=== PATIENT | female | born 1955 | race American Indian/Alaskan Native ===

== ENCOUNTER 2016-03-31 01:33 | Emergency (ER) | payer SELFPAY ==
[2016-03-31] MEDS ORDERED: TORADOL IM ONE (08:00)
--- NOTE | 2016-03-31 08:01 | Emergency Department Report ---
HPI - General Chief Complaint: Neck Pain/Injury Time Seen by Provider: 03/31/16 07:48 - HPI HPI: Patient is a 60-year-old female who presents to ED complaining of left-sided neck pain 1 day. Patient states yesterday while she was doing nothing since starts raising pain on the side of her neck. Patient states she has a history of arthritis and sometimes spurs and on. Patient denies fevers/chills/shortness of breath/chest pain/trauma or fall. ED Past Medical Hx - Past Medical History Hx Hypertension: Yes Hx CVA: No Hx Heart Attack/AMI: No Hx Congestive Heart Failure: No Hx Diabetes: No Hx Deep Vein Thrombosis: No Hx Pulmonary Embolism: No Hx GERD: No Hx Liver Disease: No Hx Renal Disease: No Hx Sickle Cell Disease: No Hx Arthritis: Yes Hx Headaches / Migraines: No Hx Seizures: No Hx Kidney Stones: No Hx Psychiatric Treatment: No Hx Asthma: No Hx COPD: No Hx Dementia: No Hx HIV: No Additional medical history: stomach ulcers, muscle spasms in back, Chronic right shoulder pain /spasms. - Surgical History Hx Coronary Stent: No Hx Open Heart Surgery: No Hx Pacemaker: No Hx Internal Defibrillator: No Hx Cholecystectomy: No Hx Appendectomy: No Hx Breast Surgery: No Additional Surgical History: skin grafts, 1X, hysterectomy - Social History Smoking Status: Never Smoker Substance Use Type: None - Medications Home Medications: Home Medications Medication Instructions Recorded Confirmed Last Taken Type traMADol [Ultram 50 MG tab] 50 mg PO Q6HR PRN #10 tablet 10/12/15 03/17/16 Unknown Rx Cyclobenzaprine [Flexeril 10 MG 10 mg PO QHS PRN #15 tablet 03/31/16 Unknown Rx TAB] Ibuprofen [Motrin 600 MG tab] 600 mg PO Q8H PRN #30 tablet 03/31/16 Unknown Rx ED Review of Systems ROS: Stated complaint: BACK/NECK PAIN Other details as noted in HPI Constitutional: denies: chills, fever Eyes: denies: eye pain, eye discharge, vision change ENT: denies: ear pain, throat pain Respiratory: denies: cough, shortness of breath, wheezing Cardiovascular: denies: chest pain, palpitations Endocrine: no symptoms reported Gastrointestinal: denies: abdominal pain, nausea, diarrhea Genitourinary: denies: urgency, dysuria, discharge Musculoskeletal: myalgia. denies: back pain, joint swelling, arthralgia Skin: denies: rash, lesions, pruritus Neurological: denies: headache, weakness, numbness, paresthesias Psychiatric: denies: anxiety, depression Hematological/Lymphatic: denies: easy bleeding, easy bruising Physical Exam - Physical Exam Vital Signs: Vital Signs 03/31/16 02:15 Temperature 98.5 F Pulse Rate 71 Respiratory 20 Rate Blood Pressure 163/95 O2 Sat by Pulse 99 Oximetry General: Alert and oriented, in no distress. Vital signs stable. Physical Exam: GENERAL: Alert and oriented x3, no apparent distress, Normal Gait, atraumatic. HEAD: Head is normocephalic and a-traumatic. EYES: Extra ocular muscles are intact. Pupils are equal, round, and reactive to light and accommodation. EARS: symetrical, atraumatic, non tender, ear canal clear and moderate cerumen, tympanic membrance non inflamed. gross auditory nml bilaterally. NOSE: Nose symetrical, Nontender,Nares appeared normal. MOUTH:Mouth is well hydrated and without lesions. Tonsils nonerythematous or swollen, Uvula midline, Tongue not elevated. Mucous membranes are moist. Posterior pharynx clear, no exudate or lesions. Patent airways. NECK: Supple. Non edematous, No carotid bruits. No lymphadenopathy or thyromegaly. tenderness to palpation of left sternocleidomastoid muscle. full ROM. LUNGS: Symetrical with respiration, No wheezing, no rales or crackles, CTAB. HEART: S1, S2 present, regular rate and rhythm without murmur, no rubs, no gallops. ABDOMEN: No organomegaly was noted,Positive bowel sounds, soft, and non- distended. . Nontender to palpation on all Quadrants, NO CVA tenderness. EXTREMITIES/MUSCULOSKELETAL: No cyanosis, clubbing, rash, lesions or edema. Full ROM bilaterally. UE/LE Pulses 2+ bilaterally. LE and UE 5+ strength bilaterally NEUROLOGIC: No focal Deficit, Cranial nerves II through XII are grossly intact. No loss of sensation, No facial droop, Negative rhomberg. PSYCHIATRIC: Mood is congruent with affect, denies suicidal or homicidal ideations. SKIN: Warm and dry, No lesions, No ulceration or induration present. ED Course Vital Signs 03/31/16 02:15 Temperature 98.5 F Pulse Rate 71 Respiratory 20 Rate Blood Pressure 163/95 O2 Sat by Pulse 99 Oximetry ED Medical Decision Making - Medical Decision Making 60-year-old female presents with myalgia of the neck. Vital signs stable alert and oriented 3 in no distress. ED course: Patient received 60 mg IM Toradol. Patient to go home on pain reliever and muscle relaxer. Discussed heat application to neck 3-4 times a day.Discussedto take medication as prescribed Discussed the patient to follow up with primary care physician as referred. Patient verbally states she understands and will comply. Critical care attestation.: If time is entered above; I have spent that time in minutes in the direct care of this critically ill patient, excluding procedure time. ED Disposition Clinical Impression: Neck muscle strain Disposition: DISCHARGED TO HOME OR SELFCARE Is pt being admited?: No Does the pt Need Aspirin: No Condition: Stable Instructions: Muscle Strain (ED), Heat Pack Application (ED) Prescriptions: Cyclobenzaprine [Flexeril 10 MG TAB] 10 mg PO QHS PRN #15 tablet PRN Reason: Muscle Spasm Ibuprofen [Motrin 600 MG tab] 600 mg PO Q8H PRN #30 tablet PRN Reason: Pain Referrals: PRIMARY CARE, [Primary Care Provider] - 3-5 Days [facility] [Outside] - 3-[address] [facility] [Outside] - 3-5 Days [facility] [Outside] - 3-5 Days [facility] [Outside] - 3-5 Days Forms: Work/School Release Form(ED) Time of Disposition: 08:08
[2016-03-31 08:25] VITALS: BP 182/87
== END 2016-03-31 08:24 | disposition home or self-care (01) ==
LOC: ED 01:33
DX: S16.1XXA Strain of muscle, fascia and tendon at neck level, initial encounter (principal); I10 Essential (primary) hypertension; Z87.39 Personal history of other diseases of the musculoskeletal system and connective tissue; Z90.710 Acquired absence of both cervix and uterus; X58.XXXA Exposure to other specified factors, initial encounter; Y93.9 Activity, unspecified; Y92.9 Unspecified place or not applicable; Y99.9 Unspecified external cause status
CPT/HCPCS: 96372; 99282; J1885

== ENCOUNTER 2016-05-25 00:47 | Emergency (ER) | payer SELFPAY ==
[2016-05-25 01:01] VITALS: BP 160/76
[2016-05-25] MEDS ORDERED: NORCO 5/325 PO ONE (05:10)
[2016-05-25] MEDS ORDERED: ZOFRAN ODT PO ONE (05:10)
[2016-05-25] MEDS ORDERED: ZOFRAN ODT ONE (05:19)
[2016-05-25] MEDS ORDERED: NORCO 5/325 ONE (05:20)
--- NOTE | 2016-05-25 07:04 | Emergency Department Report ---
ED Back Pain/Injury HPI - General Chief Complaint: Back Pain/Injury Stated Complaint: RT SIDE/BACK PAIN Time Seen by Provider: 05/25/16 06:14 Source: patient Limitations: No Limitations - History of Present Illness Initial Comments: 60-year-old female past medical history hypertension presents with complaint of 3 weeks of lower back pain. Patient states that she was at [facility] for the same complaint approximately a week and a half ago, states she had a CT but does not remember the results. Patient is somewhat uncooperative, poor historian, states she just wishes to sleep on bed. I approached patient several times in order to obtain a history. Patient primarily complaining of pain in her denies any fever or chills does state that she has some increased urinary frequency, denies any nausea or vomiting no chest pain no palpitations. Denies radiation of back pain into buttocks or legs. States pain is somewhat worse with range of motion of trunk and back. Patient is not answering all my questions during exam but is lucid is awake and is alert to person place and time. Denies Any alcohol or drug use. MD Complaint: back pain Onset/Timin -: week(s) Similar Symptoms Previously: Yes Place: home Radiation: none Severity: moderate Severity scale (0 -10): 6 Quality: aching Consistency: constant Improves With: none Worsens With: none Context: turning/twisting, bending Associated Symptoms: difficulty urinating (increased urinary frequency) - Related Data Previous Rx's Medication Instructions Recorded Last Taken Type RX: traMADol [Ultram 50 MG tab] 50 mg PO Q6HR PRN #12 tablet 05/25/16 Unknown Rx Allergies Allergy/AdvReac Type Severity Reaction Status Date / Time No Known Allergies Allergy Verified 03/17/16 02:36 ED Review of Systems ROS: Stated complaint: RT SIDE/BACK PAIN Other details as noted in HPI Constitutional: denies: chills, fever Eyes: denies: eye pain, eye discharge, vision change ENT: denies: ear pain, throat pain Respiratory: denies: cough, shortness of breath, wheezing Cardiovascular: denies: chest pain, palpitations Endocrine: no symptoms reported Gastrointestinal: denies: abdominal pain, nausea, diarrhea Genitourinary: frequency. denies: dysuria, discharge Musculoskeletal: as per HPI, back pain. denies: joint swelling, arthralgia Skin: denies: rash, lesions Neurological: denies: headache, weakness, paresthesias Psychiatric: denies: anxiety, depression Hematological/Lymphatic: denies: easy bleeding, easy bruising ED Past Medical Hx - Past Medical History Previous Medical History?: Yes Hx Hypertension: Yes Hx CVA: No Hx Heart Attack/AMI: No Hx Congestive Heart Failure: No Hx Diabetes: No Hx Deep Vein Thrombosis: No Hx Pulmonary Embolism: No Hx GERD: No Hx Liver Disease: No Hx Renal Disease: No Hx Sickle Cell Disease: No Hx Arthritis: Yes Hx Headaches / Migraines: No Hx Seizures: No Hx Kidney Stones: No Hx Psychiatric Treatment: No Hx Asthma: No Hx COPD: No Hx Dementia: No Hx HIV: No Additional medical history: stomach ulcers, muscle spasms in back, Chronic right shoulder pain /spasms. - Surgical History Past Surgical History?: Yes Hx Coronary Stent: No Hx Open Heart Surgery: No Hx Pacemaker: No Hx Internal Defibrillator: No Hx Cholecystectomy: No Hx Appendectomy: No Hx Breast Surgery: No Additional Surgical History: skin grafts, 1X, hysterectomy - Social History Smoking Status: Never Smoker Substance Use Type: None - Medications Home Medications: Home Medications Medication Instructions Recorded Confirmed Last Taken Type RX: traMADol [Ultram 50 MG tab] 50 mg PO Q6HR PRN #12 tablet 05/25/16 Unknown Rx ED Physical Exam - General Limitations: No Limitations General appearance: alert, in no apparent distress - Head Head exam: Present: atraumatic, normocephalic - Eye Eye exam: Present: normal appearance, PERRL, EOMI - ENT ENT exam: Present: mucous membranes moist - Neck Neck exam: Present: normal inspection - Respiratory Respiratory exam: Present: normal lung sounds bilaterally. Absent: respiratory distress - Cardiovascular Cardiovascular Exam: Present: regular rate, normal rhythm. Absent: systolic murmur, diastolic murmur, rubs, gallop - Extremities Exam Extremities exam: Present: normal inspection, other (patient not following my instructions for straight leg raise test) - Back Exam Back exam: Present: normal inspection - Neurological Exam Neurological exam: Present: alert, oriented X3, normal gait - Psychiatric Psychiatric exam: Present: other (patient calm but somewhat uncooperative requiring my exam) - Skin Skin exam: Present: warm, dry, intact, normal color. Absent: rash ED Course Vital Signs 05/25/16 05/25/16 00:57 05:25 Temperature 97.7 F Pulse Rate 72 Respiratory 20 18 Rate Blood Pressure 160/76 O2 Sat by Pulse 100 Oximetry ED Medical Decision Making - Medical Decision Making A/P: Lower back pain 1-patient assessed during EMR downtime overnight 2-patient refusing to have CT, I explained to her that my concern is that she may potentially have a kidney stone or an inflamed kidney she does have some CVA tenderness, she states she already had a CT at [facility] does not want to do another one 3-somewhat uncooperative with physical exam 4-patient signed out AGAINST MEDICAL ADVICE, I informed her that her urinalysis was not positive for UTI, the lab faxed a urinalysis report due to EMR downtime , report normal no signs of leukocytosis, nitrites, bacteria or site esterase in urine. Patient stated she primarily wanted pain medicine. I informed her that I was still unsure clinically of the cause of her back pain other than a possible musculoskeletal problem the patient stated that she needed to leave and signed out AMA Critical care attestation.: If time is entered above; I have spent that time in minutes in the direct care of this critically ill patient, excluding procedure time. ED Disposition Clinical Impression: Back pain Qualifiers: Back pain location: low back pain Chronicity: acute Back pain laterality: right Sciatica presence: without sciatica Qualified Code(s): M54.5 - Low back pain Disposition: LEFT AGAINST MEDICAL ADVICE Is pt being admited?: No Does the pt Need Aspirin: No Condition: Stable Instructions: Against Medical Advice (ED), Back Pain (ED) Additional Instructions: Advised patient to follow up with primary care doctor as soon as possible. I explained to patient that I wanted to image her abdomen and pelvis with possible renal stone that she has right-sided CVA tenderness but patient refused. Prescriptions: RX: traMADol [Ultram 50 MG tab] 50 mg PO Q6HR PRN #12 tablet PRN Reason: Pain Referrals: [facility] [Outside] - 3-5 Days LAYO SLADE MD [Staff Physician] - 3-5 Days Forms: AMA Form Time of Disposition: 07:02
== END 2016-05-25 07:18 | disposition left against medical advice (07) ==
LOC: ED 00:47
DX: M54.5 Low back pain (principal); I10 Essential (primary) hypertension; M19.90 Unspecified osteoarthritis, unspecified site
CPT/HCPCS: 99282; Q0162

== ENCOUNTER 2016-06-23 00:19 | Emergency (ER) | payer SELFPAY ==
[2016-06-23 05:40] VITALS: BP 169/81
== END 2016-06-23 05:47 | disposition left against medical advice (07) ==
LOC: ED 00:19
DX: M79.604 Pain in right leg (principal); M19.90 Unspecified osteoarthritis, unspecified site; I10 Essential (primary) hypertension; Z53.21 Procedure and treatment not carried out due to patient leaving prior to being seen by health care provider

== ENCOUNTER 2016-06-25 01:40 | Emergency (ER) | payer SELFPAY ==
[2016-06-25 01:57] VITALS: BP 169/79
== END 2016-06-25 08:18 | disposition left against medical advice (07) ==
LOC: ED 01:40
DX: M79.604 Pain in right leg (principal); I10 Essential (primary) hypertension; M19.90 Unspecified osteoarthritis, unspecified site; Z53.21 Procedure and treatment not carried out due to patient leaving prior to being seen by health care provider

== ENCOUNTER 2016-07-15 01:39 | Emergency (ER) | payer SELFPAY ==
--- NOTE | 2016-07-15 06:00 | Emergency Department Report ---
HPI - General Chief Complaint: Extremity Injury, Lower Time Seen by Provider: 07/15/16 05:45 - HPI HPI: 60-year-old female presents today complaining of right great toe pain 1 day. Denies any recent injury or trauma. Positive for history of similar symptoms. Patient states that she injured it 2 years ago and it has been hurting on and off since. He tried tramadol without relief. Describes her pain as 8 out of 10 constant, sharp, throbbing pain. Denies numbness, weakness, paresthesias. Denies fever, chills, nausea, vomiting, chest pain, shortness of breath, abdominal pain. Patient has been seen at this emergency department on multiple occasions for similar complaint. ED Past Medical Hx - Past Medical History Hx Hypertension: Yes Hx CVA: No Hx Heart Attack/AMI: No Hx Congestive Heart Failure: No Hx Diabetes: No Hx Deep Vein Thrombosis: No Hx Pulmonary Embolism: No Hx GERD: No Hx Liver Disease: No Hx Renal Disease: No Hx Sickle Cell Disease: No Hx Arthritis: Yes Hx Headaches / Migraines: No Hx Seizures: No Hx Kidney Stones: No Hx Psychiatric Treatment: No Hx Asthma: No Hx COPD: No Hx Dementia: No Hx HIV: No Additional medical history: stomach ulcers, muscle spasms in back, Chronic right shoulder pain /spasms. - Surgical History Hx Coronary Stent: No Hx Open Heart Surgery: No Hx Pacemaker: No Hx Internal Defibrillator: No Hx Cholecystectomy: No Hx Appendectomy: No Hx Breast Surgery: No Additional Surgical History: skin grafts, 1X, hysterectomy - Social History Smoking Status: Never Smoker Substance Use Type: None - Medications Home Medications: Home Medications Medication Instructions Recorded Confirmed Last Taken Type traMADol [Ultram 50 MG tab] 50 mg PO Q6HR PRN #12 tablet 05/25/16 Unknown Rx Naproxen [Naprosyn] 500 mg PO BID #30 tablet 07/15/16 Unknown Rx ED Review of Systems ROS: Stated complaint: RT BIG TOE PAIN Other details as noted in HPI Constitutional: denies: chills, fever, malaise Eyes: denies: eye pain ENT: denies: ear pain, throat pain, congestion Respiratory: denies: cough, shortness of breath, wheezing Cardiovascular: denies: chest pain, palpitations Endocrine: no symptoms reported Gastrointestinal: denies: abdominal pain, nausea, vomiting Musculoskeletal: arthralgia Neurological: denies: headache, weakness, numbness, paresthesias Physical Exam - Physical Exam Vital Signs: Vital Signs 07/15/16 01:57 Temperature 98 F Pulse Rate 84 Respiratory 18 Rate Blood Pressure 153/74 Blood Pressure 153/74 [Left] O2 Sat by Pulse 100 Oximetry Physical Exam: GENERAL: The patient is well-developed and well-nourished. Patient is in NAD. HEAD: Normocephalic. Atraumatic. CHEST/LUNGS: Clear to auscultation throughout. HEART/CARDIOVASCULAR: Regular rate and rhythm. No murmurs, rubs or gallops. ABDOMEN: Abdomen is soft, nontender. Bowel sounds normoactive. No guarding or rebound tenderness. RIGHT FOOT: Tenderness to palpation over distal aspect of right big toe. No deformity, edema or ecchymosis noted. Normal sensation. Peripheral pulses intact. Capillary refill less than 2 seconds. NEURO: Alert and oriented x 3. Normal gait. ED Course Vital Signs 07/15/16 01:57 Temperature 98 F Pulse Rate 84 Respiratory 18 Rate Blood Pressure 153/74 Blood Pressure 153/74 [Left] O2 Sat by Pulse 100 Oximetry ED Medical Decision Making - Lab Data Vital Signs 07/15/16 01:57 Temperature 98 F Pulse Rate 84 Respiratory 18 Rate Blood Pressure 153/74 Blood Pressure 153/74 [Left] O2 Sat by Pulse 100 Oximetry - Radiology Data Radiology results: report reviewed Right foot x-ray: No fracture or dislocation. Normal alignment, joint space, soft tissue, bony mineralization. No foreign bodies noted. Mild inferior calcaneal spurring noted. - Medical Decision Making 60-year-old female presents today with right big toe pain 1 day. Positive for history of similar symptoms. Her x-ray results reveal no fracture or dislocation. Patient is in no acute distress at this time. She will be discharged home and is encouraged to follow up with a primary care provider. She will be sent home on naproxen and is encouraged to return to the emergency room for any worsening symptoms. Critical care attestation.: If time is entered above; I have spent that time in minutes in the direct care of this critically ill patient, excluding procedure time. ED Disposition Clinical Impression: Toe pain Qualifiers: Laterality: right Qualified Code(s): M79.674 - Pain in right toe(s) Disposition: DISCHARGED TO HOME OR SELFCARE Is pt being admited?: No Does the pt Need Aspirin: No Condition: Stable Instructions: Arthralgia (ED) Additional Instructions: Follow-up with primary care provider. Return to the emergency department if symptoms worsen. Prescriptions: Naproxen [Naprosyn] 500 mg PO BID #30 tablet Referrals: PRIMARY CARE, [Primary Care Provider] - 3-5 Days LISA BRUNER MD [Staff Physician] - 3-5 Days Forms: Work/School Release Form(ED) Time of Disposition: 06:09
--- NOTE | 2016-07-15 06:04 | XRay Report ---
FINAL REPORT PROCEDURE: XR FOOT 2V RT TECHNIQUE: RIGHT foot radiographs, AP and lateral views. HISTORY: Right Great Toe Pain COMPARISON: No prior studies are available for comparison. FINDINGS: Fracture (s) and/or Dislocation(s): None . Alignment: Normal. Joint space(s): Normal. Soft tissues: Normal. Bone mineralization: Normal. Foreign bodies: None. Calcaneal spurring: Mild inferior spur IMPRESSION: No evidence of an acute fracture or dislocation.
[2016-07-15 06:29] VITALS: BP 155/99
== END 2016-07-15 06:42 | disposition home or self-care (01) ==
LOC: ED 01:39
DX: M79.674 Pain in right toe(s) (principal); I10 Essential (primary) hypertension; M19.90 Unspecified osteoarthritis, unspecified site; G89.29 Other chronic pain; Z90.710 Acquired absence of both cervix and uterus
CPT/HCPCS: 99283

== ENCOUNTER 2016-07-26 01:40 | Emergency (ER) | payer SELFPAY ==
[2016-07-26 01:52] VITALS: BP 166/73
[2016-07-26 02:23] LABS: Basophils % (Auto) 1.6 % (0.0-1.8); Eosinophils % (Auto) 1.7 % (0.0-4.3); Hematocrit 26.5 % (30.3-42.9); Hemoglobin 8.4 gm/dl (10.1-14.3); Mean Corpuscular HGB Conc 32 % (30-34); Platelet Count 264 K/mm3 (140-440); Red Blood Count 4.13 M/mm3 (3.65-5.03); Red Cell Distribution Width 18.4 % (13.2-15.2); White Blood Count 5.3 K/mm3 (4.5-11.0)
[2016-07-26 02:30] LABS: Mean Corpuscular Hemoglobin 20 pg (28-32); Mean Corpuscular Volume 64 fl (79-97)
[2016-07-26 02:35] LABS: Anion Gap 17 mmol/L; Blood Urea Nitrogen 19 mg/dL (7-17); Calcium 8.8 mg/dL (8.4-10.2); Carbon Dioxide 26 mmol/L (22-30); Chloride 104.6 mmol/L (98-107); Glucose 104 mg/dL (65-100); Potassium 3.5 mmol/L (3.6-5.0); Sodium 144 mmol/L (137-145)
--- NOTE | 2016-07-28 15:26 | ED Elopement Review ---
ED Pt Elopement review - Results review Lab results: Laboratory Tests 07/26/16 07/26/16 07/26/16 01:56 01:56 04:59 WBC 5.3 RBC 4.13 Hgb 8.4 L Hct 26.5 L MCV 64 L MCH 20 L MCHC 32 RDW 18.4 H Plt Count 264 Lymph % (Auto) 38.6 H [place] % (Auto) 15.0 H Eos % (Auto) 1.7 Baso % (Auto) 1.6 Lymph # 2.0 [place] # 0.8 Eos # 0.1 Baso # 0.1 Seg Neutrophils % 43.1 Seg Neutrophils # 2.3 Sodium 144 Potassium 3.5 L Chloride 104.6 Carbon Dioxide 26 Anion Gap 17 BUN 19 H Creatinine 0.4 L Estimated GFR > 60 BUN/Creatinine Ratio 47.50 Glucose 104 H Calcium 8.8 Troponin T < 0.010 < 0.010 07/26/16 08:00 WBC RBC Hgb Hct MCV MCH MCHC RDW Plt Count Lymph % (Auto) [place] % (Auto) Eos % (Auto) Baso % (Auto) Lymph # [place] # Eos # Baso # Seg Neutrophils % Seg Neutrophils # Sodium Potassium Chloride Carbon Dioxide Anion Gap BUN Creatinine Estimated GFR BUN/Creatinine Ratio Glucose Calcium Troponin T < 0.010 - Call Back decision Pt Call Back Decision: No action required
== END 2016-07-26 02:00 | disposition left against medical advice (07) ==
LOC: ED 01:40
DX: R53.1 Weakness (principal); M19.90 Unspecified osteoarthritis, unspecified site; I10 Essential (primary) hypertension; Z53.21 Procedure and treatment not carried out due to patient leaving prior to being seen by health care provider
CPT/HCPCS: 36415; 80048; 84484; 85025; 93005; 93010

== ENCOUNTER 2016-07-30 00:05 | Emergency (ER) | payer SELFPAY ==
[2016-07-30 04:43] LABS: Bilirubin,Urine NEG (Negative); Blood,Urine NEG (Negative); Ketones,Urine NEG (Negative); Leukocyte Esterase,Urine MOD (Negative); Mucus,Urine FEW /HPF; Nitrite,Urine NEG (Negative); Protein,Urine <15 mg/dL mg/dL (Negative)
--- NOTE | 2016-07-30 06:02 | Emergency Department Report ---
HPI - General Chief Complaint: Skin Rash Time Seen by Provider: 07/30/16 03:41 - HPI HPI: 60-year-old female presents with complaint of slight itchy rash to anterior neck. Awake and alert, slightly sleepy states she feels somewhat tired. Denies any fevers no chills no nausea no vomiting. Also complaining of mild right sided flank pain. Denies any dysuria no hematuria reported. Patient appears undomiciled but claims that she can stay with a family member. ED Past Medical Hx - Past Medical History Previous Medical History?: Yes Hx Hypertension: Yes Hx CVA: No Hx Heart Attack/AMI: No Hx Congestive Heart Failure: No Hx Diabetes: No Hx Deep Vein Thrombosis: No Hx Pulmonary Embolism: No Hx GERD: No Hx Liver Disease: No Hx Renal Disease: No Hx Sickle Cell Disease: No Hx Arthritis: Yes Hx Headaches / Migraines: No Hx Seizures: No Hx Kidney Stones: No Hx Psychiatric Treatment: No Hx Asthma: No Hx COPD: No Hx Dementia: No Hx HIV: No Additional medical history: stomach ulcers, muscle spasms in back, Chronic right shoulder pain /spasms. - Surgical History Past Surgical History?: Yes Hx Coronary Stent: No Hx Open Heart Surgery: No Hx Pacemaker: No Hx Internal Defibrillator: No Hx Cholecystectomy: No Hx Appendectomy: No Hx Breast Surgery: No Additional Surgical History: skin grafts, 1X, hysterectomy - Social History Smoking Status: Never Smoker Substance Use Type: None - Medications Home Medications: Home Medications Medication Instructions Recorded Confirmed Last Taken Type Ciprofloxacin HCl [Ciprofloxacin 500 mg PO Q12H #14 tab 07/30/16 Unknown Rx TAB] Hydrocortisone 1% [Hydrocortisone 1 applicatio TP BID PRN #1 tube 07/30/16 Unknown Rx 1% CREAM] diphenhydrAMINE [Benadryl CAP] 25 mg PO Q12H PRN #20 capsule 07/30/16 Unknown Rx ED Review of Systems ROS: Stated complaint: NECK BURN ON LT SIDE Other details as noted in HPI Constitutional: denies: chills, fever Eyes: denies: eye pain, eye discharge, vision change ENT: denies: ear pain, throat pain Respiratory: denies: cough, shortness of breath, wheezing Cardiovascular: denies: chest pain, palpitations Endocrine: no symptoms reported Gastrointestinal: denies: abdominal pain, nausea, diarrhea Genitourinary: denies: urgency, dysuria, discharge Musculoskeletal: denies: back pain, joint swelling, arthralgia Skin: rash. denies: lesions Neurological: denies: headache, weakness, paresthesias Psychiatric: denies: anxiety, depression Hematological/Lymphatic: denies: easy bleeding, easy bruising Physical Exam - Physical Exam Vital Signs: Vital Signs 07/30/16 00:16 Temperature 98.1 F Pulse Rate 79 Respiratory 18 Rate Blood Pressure 156/74 O2 Sat by Pulse 100 Oximetry General: General: Well appearing, well nourished, in no distress. Oriented x 3, normal mood and affect . Ambulating without difficulty. Skin: Good turgor, no rash, unusual bruising or prominent lesions Head: Normocephalic, atraumatic, no visible or palpable masses, depressions, or scaring. Eyes: Visual acuity intact, conjunctiva clear, sclera non-icteric, EOM intact, PERRLA Ears: EACs clear, TMs translucent & mobile, ossicles nl appearance, hearing intact. Heart: No cardiomegaly or thrills; regular rate and rhythm, no murmur or gallop Lungs: Clear to auscultation b/l Abdomen: Bowel sounds normal, no tenderness, organomegaly, masses, or hernia. No flank pain on exam Back: Spine normal without deformity or tenderness, no CVA tenderness Extremities: No amputations or deformities, cyanosis, edema or varicosities, peripheral pulses intact Musculoskeletal: Normal gait and station. No misalignment, asymmetry, crepitation, defects, tenderness, masses, effusions, decreased range of motion, instability, atrophy or abnormal strength or tone in the head, neck, spine, ribs , pelvis or extremities. Neurologic: CN 2-12 normal. ED Course Vital Signs 07/30/16 00:16 Temperature 98.1 F Pulse Rate 79 Respiratory 18 Rate Blood Pressure 156/74 O2 Sat by Pulse 100 Oximetry ED Medical Decision Making - Medical Decision Making A/P: pruritus, possible UTI 1-I suspect patient is malingering as she appears undomiciled and has no evidence of rash on skin. Patient states she just wants to sleep in the room. Patient is arousable and is able to get up and walk around the ED. Is awake alert and oriented 3 and is able to answer my questions. States she has been walking around on the street for over 24 hours and feels tired. 2-patient was complaining of very mild right-sided flank pain. I obtained a urinalysis which showed some leukocytosis with treatment with ciprofloxacin 3-Benadryl and hydrocortisone when necessary for itching patient has no signs of severe allergic reaction no hives no angioedema. 4-primary care referral Critical care attestation.: If time is entered above; I have spent that time in minutes in the direct care of this critically ill patient, excluding procedure time. ED Disposition Clinical Impression: Itching Disposition: DISCHARGED TO HOME OR SELFCARE Is pt being admited?: No Does the pt Need Aspirin: No Condition: Stable Instructions: Itchy Skin (ED), Urinary Tract Infection in Women (ED) Prescriptions: Ciprofloxacin HCl [Ciprofloxacin TAB] 500 mg PO Q12H #14 tab diphenhydrAMINE [Benadryl CAP] 25 mg PO Q12H PRN #20 capsule PRN Reason: Itching Hydrocortisone 1% [Hydrocortisone 1% CREAM] 1 applicatio TP BID PRN #1 tube PRN Reason: Itching Referrals: [facility] [Provider Group] - 3-5 Days [facility] [Outside] - 3-5 Days Time of Disposition: 06:02
[2016-07-30 06:21] VITALS: BP 164/82
== END 2016-07-30 06:21 | disposition home or self-care (01) ==
LOC: ED 00:05
DX: L29.9 Pruritus, unspecified (principal); I10 Essential (primary) hypertension
CPT/HCPCS: 81001; 87086; 99283

== ENCOUNTER 2016-08-17 01:13 | Emergency (ER) | payer SELFPAY ==
[2016-08-17 04:17] LABS: Bacteria,Urine 1+ /HPF (Negative); Bilirubin,Urine NEG (Negative); Blood,Urine NEG (Negative); Ketones,Urine NEG (Negative); Leukocyte Esterase,Urine MOD (Negative); Mucus,Urine 2+ /HPF; Nitrite,Urine NEG (Negative); Protein,Urine <15 mg/dL mg/dL (Negative)
[2016-08-17 06:56] VITALS: BP 167/93
== END 2016-08-17 03:26 | disposition left against medical advice (07) ==
LOC: ED 01:13
DX: R35.0 Frequency of micturition (principal); Z53.21 Procedure and treatment not carried out due to patient leaving prior to being seen by health care provider
CPT/HCPCS: 81001

== ENCOUNTER 2016-08-18 01:52 | Emergency (ER) | payer SELFPAY ==
[2016-08-18 02:53] VITALS: BP 170/83
[2016-08-18 03:32] LABS: Basophils % (Auto) 1.2 % (0.0-1.8); Eosinophils % (Auto) 1.6 % (0.0-4.3); Hematocrit 26.2 % (30.3-42.9); Mean Corpuscular HGB Conc 31 % (30-34); Platelet Count 235 K/mm3 (140-440); Red Cell Distribution Width 17.4 % (13.2-15.2); White Blood Count 4.4 K/mm3 (4.5-11.0)
[2016-08-18 03:36] LABS: Mean Corpuscular Hemoglobin 20 pg (28-32); Mean Corpuscular Volume 64 fl (79-97)
[2016-08-18 03:38] LABS: Alanine Aminotransferase 11 units/L (7-56); Albumin 3.7 g/dL (3.9-5); Albumin/Globulin Ratio 1.3 %; Alkaline Phosphatase 67 units/L (35-129); Anion Gap 18 mmol/L; Blood Urea Nitrogen 17 mg/dL (7-17); Calcium 8.7 mg/dL (8.4-10.2); Carbon Dioxide 25 mmol/L (22-30); Chloride 104.3 mmol/L (98-107); Glucose 153 mg/dL (65-100); Potassium 3.1 mmol/L (3.6-5.0); Sodium 144 mmol/L (137-145); Total Protein 6.6 g/dL (6.3-8.2)
--- NOTE | 2016-08-23 10:26 | ED Elopement Review ---
ED Pt Elopement review - Results review Lab results: Laboratory Tests 08/18/16 08/18/16 02:56 02:56 WBC 4.4 L RBC 4.10 Hgb 8.0 L Hct 26.2 L MCV 64 L MCH 20 L MCHC 31 RDW 17.4 H Plt Count 235 Lymph % (Auto) 29.3 Teller % (Auto) 13.3 H Eos % (Auto) 1.6 Baso % (Auto) 1.2 Lymph # 1.3 Teller # 0.6 Eos # 0.1 Baso # 0.1 Seg Neutrophils % 54.6 Seg Neutrophils # 2.4 Sodium 144 Potassium 3.1 L Chloride 104.3 Carbon Dioxide 25 Anion Gap 18 BUN 17 Creatinine 0.5 L Estimated GFR > 60 BUN/Creatinine Ratio 34.00 Glucose 153 H Calcium 8.7 Total Bilirubin 0.20 AST 12 ALT 11 Alkaline Phosphatase 67 Total Protein 6.6 Albumin 3.7 L Albumin/Globulin Ratio 1.3 - Call Back decision Pt Call Back Decision: Pt to F/U with PMD (needs to follow up with pmd for anemia and hypokalemia)
== END 2016-08-18 02:57 | disposition left against medical advice (07) ==
LOC: ED 01:52
DX: R35.0 Frequency of micturition (principal); R10.9 Unspecified abdominal pain; Z53.21 Procedure and treatment not carried out due to patient leaving prior to being seen by health care provider
CPT/HCPCS: 36415; 80053; 85025

== ENCOUNTER 2016-08-26 01:15 | Emergency (ER) | payer SELFPAY ==
[2016-08-26] MEDS ORDERED: FIORICET PO ONE (05:24)
[2016-08-26] MEDS ORDERED: TORADOL IM ONE (05:25)
--- NOTE | 2016-08-26 05:30 | Emergency Department Report ---
ED Headache HPI - General Chief Complaint: Headache Stated Complaint: LOJA Time Seen by Provider: 08/26/16 04:41 Source: patient Exam Limitations: no limitations - History of Present Illness Initial Comments: Patient is a 61-year-old female with past medical history of hypertension managed with medication and presents with 1 day frontal, aching, throbbing, intermittent type headache that's worsened. Light and noise. She denies fever/chills/nausea/vomiting/blurry vision/trauma to head injury Timing/Duration: 4-6 hours Quality: moderate Head Injury Location: frontal Recent Head Trauma: no recent headache/trauma, occasional headaches Modifying Factors: improves with: rest Associated Symptoms: denies: confusion, facial pain, fever/chills, loss of consciousness, nausea/vomiting, nasal congestion, nasal drainage, seizures, sinus infection, stiff neck, vision changes Allergies/Adverse Reactions: Allergies No Known Allergies Allergy (Verified 03/17/16 02:36) Home Medications: Ambulatory Orders Butalb/Acetamin/Caff 50-325-40 [Fioricet] 1 tab PO Q6H #30 tablet 08/26/16 Ibuprofen [Motrin] 800 mg PO Q8HR PRN #30 tablet 08/26/16 ED Review of Systems ROS: Stated complaint: LOJA Other details as noted in HPI Constitutional: denies: chills, fever Eyes: denies: eye pain, eye discharge, vision change ENT: denies: ear pain, throat pain Respiratory: denies: cough, shortness of breath, wheezing Cardiovascular: denies: chest pain, palpitations Endocrine: no symptoms reported Gastrointestinal: vomiting (1 episode yesterday). denies: abdominal pain, nausea, diarrhea Genitourinary: denies: urgency, dysuria, discharge Musculoskeletal: denies: back pain, joint swelling, arthralgia Skin: denies: rash, lesions Neurological: denies: headache, weakness, paresthesias Psychiatric: denies: anxiety, depression Hematological/Lymphatic: denies: easy bleeding, easy bruising ED Past Medical Hx - Past Medical History Previous Medical History?: Yes Hx Hypertension: Yes Hx CVA: No Hx Heart Attack/AMI: No Hx Congestive Heart Failure: No Hx Diabetes: No Hx Deep Vein Thrombosis: No Hx Pulmonary Embolism: No Hx GERD: No Hx Liver Disease: No Hx Renal Disease: No Hx Sickle Cell Disease: No Hx Arthritis: Yes Hx Headaches / Migraines: No Hx Seizures: No Hx Kidney Stones: No Hx Psychiatric Treatment: No Hx Asthma: No Hx COPD: No Hx Dementia: No Hx HIV: No Additional medical history: stomach ulcers, muscle spasms in back, Chronic right shoulder pain /spasms. - Surgical History Past Surgical History?: Yes Hx Coronary Stent: No Hx Open Heart Surgery: No Hx Pacemaker: No Hx Internal Defibrillator: No Hx Cholecystectomy: No Hx Appendectomy: No Hx Breast Surgery: No Additional Surgical History: skin grafts, 1X, hysterectomy - Social History Smoking Status: Never Smoker Substance Use Type: None - Medications Home Medications: Home Medications Medication Instructions Recorded Confirmed Last Taken Type Butalb/Acetamin/Caff 50-325-40 1 tab PO Q6H #30 tablet 08/26/16 Unknown Rx [Fioricet] Ibuprofen [Motrin] 800 mg PO Q8HR PRN #30 tablet 08/26/16 Unknown Rx ED Physical Exam - General Limitations: No Limitations General appearance: alert, in no apparent distress - Head Head exam: Present: atraumatic, normocephalic - Eye Eye exam: Present: normal appearance, PERRL, EOMI Pupils: Present: normal accommodation - ENT ENT exam: Present: normal exam, mucous membranes moist - Neck Neck exam: Present: normal inspection, full ROM - Respiratory Respiratory exam: Present: normal lung sounds bilaterally. Absent: respiratory distress, wheezes, rales - Cardiovascular Cardiovascular Exam: Present: regular rate, normal rhythm. Absent: systolic murmur, diastolic murmur, rubs, gallop - GI/Abdominal GI/Abdominal exam: Present: soft, normal bowel sounds - Extremities Exam Extremities exam: Present: normal inspection, full ROM - Back Exam Back exam: Present: normal inspection, full ROM - Neurological Exam Neurological exam: Present: alert, oriented X3, CN II-XII intact, normal gait - Expanded Neurological Exam Expanded Neurological exam: Absent: innattentive, memory loss-remote event, expressive aphasia Patient oriented to: Present: person, place, time Speech: Present: fluid speech Cranial nerves: EOM's Intact: Normal, Facial Sensation: Normal Cerebellar function: Finger to Nose: Normal Sensory exam: Upper Extremity Light Touch: Normal, Upper Extremity Temperature: Normal, Lower Extremity Light Touch: Normal, Lower Extremity Temperature: Normal Motor strength exam: RUE: 5, LUE: 5, RLE: 5, LLE: 5 DTR: knee (R): 2+, knee (L): 2+ Best Eye Response ([place]): (4) open spontaneously Best Motor Response ([place]): (6) obeys commands Best Verbal Response ([place]): (5) oriented [place] Total: 15 - Psychiatric Psychiatric exam: Present: normal affect, normal mood - Skin Skin exam: Present: warm, dry, intact, normal color. Absent: rash ED Course Vital Signs 08/26/16 01:40 Temperature 98.7 F Pulse Rate 84 Respiratory 20 Rate Blood Pressure 179/88 O2 Sat by Pulse 100 Oximetry ED Medical Decision Making - Medical Decision Making 61-year-old female presents with migraine headache ED course: Patient received Fioricet and Toradol in the ED Patient reports feeling better. She is neurologically intact. No neuro deficit Discussed the patient risks and stay away from the right when onset of headache. Discussed patient's presentation is described. Instructions patient has symptoms were to get worse or new symptoms arise such as dizziness, blurry vision to return to ED Discussed the patient follow up with primary care physician referral. Vital signs are normal patient is in no acute distress. Patient is a AAO 3 and understands instructions given and states she will follow up Critical care attestation.: If time is entered above; I have spent that time in minutes in the direct care of this critically ill patient, excluding procedure time. ED Disposition Clinical Impression: Migraine headache without aura Qualifiers: Status migrainosus presence: without status migrainosus Intractability: not intractable Qualified Code(s): G43.009 - Migraine without aura, not intractable , without status migrainosus Disposition: DISCHARGED TO HOME OR SELFCARE Is pt being admited?: No Does the pt Need Aspirin: No Condition: Stable Instructions: Acute Headache (ED), Migraine Headache (ED) Additional Instructions: Symptoms worsen return to ED. Take medication as prescribed Prescriptions: Butalb/Acetamin/Caff 50-325-40 [Fioricet] 1 tab PO Q6H #30 tablet Ibuprofen [Motrin] 800 mg PO Q8HR PRN #30 tablet PRN Reason: Pain Referrals: PRIMARY CARE, [Primary Care Provider] - 3-5 Days [facility] [Outside] - 3-5 Days [facility] [Outside] - 3-5 Days Forms: Accompanied Note, Work/School Release Form(ED) Time of Disposition: 05:54
[2016-08-26] MEDS ORDERED: CATAPRES ONE (06:12)
[2016-08-26] MEDS ORDERED: CATAPRES PO ONE (06:14)
[2016-08-26 06:16] VITALS: BP 198/92
== END 2016-08-26 06:19 | disposition home or self-care (01) ==
LOC: ED 01:15
DX: G43.909 Migraine, unspecified, not intractable, without status migrainosus (principal); I10 Essential (primary) hypertension; M19.90 Unspecified osteoarthritis, unspecified site
CPT/HCPCS: 96372; 99282; J1885

== ENCOUNTER 2016-10-12 01:09 | Emergency (ER) | payer SELFPAY ==
[2016-10-12 01:26] VITALS: BP 157/94
--- NOTE | 2016-10-12 05:44 | Emergency Department Report ---
ED Rash HPI - HPI Chief Complaint: Skin Rash Stated Complaint: SORES ON HEAD Time Seen by Provider: 10/12/16 05:40 Location: Head Rash Symptoms: Yes Itching, Yes Lightheaded, No Facial Swelling, No Tongue/Oral Swelling, No Breathing Difficulties, No Choking Sensation, No Wheezing/Dyspnea, No Peeling, No Blistering, No Malaise, No Myalgias Other History: 61-year-old female multiple medical problems presents with complaint of itchy scalp. Denies seeing any insects in her hair. States it has been going on for several weeks. Patient states that her scalp is very flaky and dentistry. Denies any fevers or chills denies any other lesions. States she has a history of eczema. ED Review of Systems ROS: Stated complaint: SORES ON HEAD Other details as noted in HPI Constitutional: denies: chills, fever Eyes: denies: eye pain, eye discharge, vision change ENT: denies: ear pain, throat pain Respiratory: denies: cough, shortness of breath, wheezing Cardiovascular: denies: chest pain, palpitations Endocrine: no symptoms reported Gastrointestinal: denies: abdominal pain, nausea, diarrhea Genitourinary: denies: urgency, dysuria, discharge Musculoskeletal: denies: back pain, joint swelling, arthralgia Skin: as per HPI. denies: rash, lesions Neurological: denies: headache, weakness, paresthesias Psychiatric: denies: anxiety, depression Hematological/Lymphatic: denies: easy bleeding, easy bruising ED Past Medical Hx - Past Medical History Hx Hypertension: Yes Hx CVA: No Hx Heart Attack/AMI: No Hx Congestive Heart Failure: No Hx Diabetes: No Hx Deep Vein Thrombosis: No Hx Pulmonary Embolism: No Hx GERD: No Hx Liver Disease: No Hx Renal Disease: No Hx Sickle Cell Disease: No Hx Arthritis: Yes Hx Headaches / Migraines: No Hx Seizures: No Hx Kidney Stones: No Hx Psychiatric Treatment: No Hx Asthma: No Hx COPD: No Hx Dementia: No Hx HIV: No Additional medical history: stomach ulcers, muscle spasms in back, Chronic right shoulder pain /spasms. - Surgical History Hx Coronary Stent: No Hx Open Heart Surgery: No Hx Pacemaker: No Hx Internal Defibrillator: No Hx Cholecystectomy: No Hx Appendectomy: No Hx Breast Surgery: No Additional Surgical History: skin grafts, 1X, hysterectomy - Social History Smoking Status: Never Smoker Substance Use Type: None - Medications Home Medications: Home Medications Medication Instructions Recorded Confirmed Last Taken Type Butalb/Acetamin/Caff 50-325-40 1 tab PO Q6H #30 tablet 08/26/16 Unknown Rx [Fioricet] Ibuprofen [Motrin] 800 mg PO Q8HR PRN #30 tablet 08/26/16 Unknown Rx Hydrocortisone 1% [Hydrocortisone 1 applicatio TP TID PRN #1 tube 10/12/16 Unknown Rx 1% CREAM] Ketoconazole (Nf) [Ketoconazole 30 ml TP QDAY #1 shampoo 10/12/16 Unknown Rx Shampoo (Nf)] Selenium Sulfide/Menthol [Selsun 30 ml TP QDAY #1 shampoo 10/12/16 Unknown Rx Blue 1% Shampoo] Rash Exam - Exam General: Vital signs noted. No distress. Alert and acting appropriately. HEENT: No Periorbital Edema, No Conjuctival Injection, No Chemosis, No Perioral Edema, No Tongue Edema, No Uvular Edema, No Compromised Airway, No Drooling Lungs: Yes Good Air Exchange (Normal Breath Sounds), No Wheezes, No Ronchi, No Stridor, No Cough, No Labored Respirations, No Retractions, No Use of Accessory Muscles, No Other Abnormal Lung Sounds Heart: Yes Regular, No Murmur Skin: Yes Other (seborrheic dermatitis/keratosis lesions on scalp, dry patchy scaly skin oval-shaped lesions on scalp near her hairline), No Urticarial Rash, No Maculopapular Rash, No Morbilliform rash, No Bulla(e), No Excoriations, No Weeping, No Tenderness, No Erythema, No Edema, No Encrustations Other: Positive: Abdomen Normal, Neurologic Normal, Musculoskeletal Normal ED Course Vital Signs 10/12/16 01:23 Temperature 98.5 F Pulse Rate 74 Respiratory 17 Rate Blood Pressure 157/94 O2 Sat by Pulse 99 Oximetry ED Medical Decision Making - Medical Decision Making A/P: Scalp seborrheic dermatitis 1-Selsun Blue shampoo and ketoconazole shampoo, hydrocortisone cream when necessary 2-follow-up with dermatology Critical care attestation.: If time is entered above; I have spent that time in minutes in the direct care of this critically ill patient, excluding procedure time. ED Disposition Clinical Impression: Seborrheic dermatitis of scalp Disposition: DC-01 TO HOME OR SELFCARE Is pt being admited?: No Does the pt Need Aspirin: No Condition: Stable Instructions: Eczema (ED) Prescriptions: Hydrocortisone 1% [Hydrocortisone 1% CREAM] 1 applicatio TP TID PRN #1 tube PRN Reason: Itching Ketoconazole (Nf) [Ketoconazole Shampoo (Nf)] 30 ml TP QDAY #1 shampoo Selenium Sulfide/Menthol [Selsun Blue 1% Shampoo] 30 ml TP QDAY #1 shampoo Referrals: [facility] [Provider Group] - 3-5 Days Time of Disposition: 07:11
== END 2016-10-12 07:15 | disposition home or self-care (01) ==
LOC: ED 01:09
DX: L21.9 Seborrheic dermatitis, unspecified (principal); I10 Essential (primary) hypertension; M19.90 Unspecified osteoarthritis, unspecified site
CPT/HCPCS: 99282

== ENCOUNTER 2016-10-18 01:19 | Emergency (ER) | payer SELFPAY ==
[2016-10-18 01:29] VITALS: BP 159/63
--- NOTE | 2016-10-18 04:01 | XRay Report ---
FINAL REPORT PROCEDURE: XR HUMERUS 2+V RT TECHNIQUE: RIGHT humerus radiographs, AP and lateral views. HISTORY: hit arm on wall. Pain and swelling COMPARISON: No prior studies are available for comparison. FINDINGS: Fracture (s) and/or Dislocation(s): None . Joint space(s): Normal. Soft tissues: Normal. Bone mineralization: Normal. Foreign bodies: None. IMPRESSION: Normal Examination.
== END 2016-10-18 05:45 | disposition left against medical advice (07) ==
LOC: ED 01:19
DX: M79.601 Pain in right arm (principal); Z53.21 Procedure and treatment not carried out due to patient leaving prior to being seen by health care provider

== ENCOUNTER 2016-10-19 01:45 | Emergency (ER) | payer SELFPAY ==
[2016-10-19 02:48] VITALS: BP 152/77
== END 2016-10-19 10:10 | disposition left against medical advice (07) ==
LOC: ED 01:45
DX: M79.601 Pain in right arm (principal); Z53.21 Procedure and treatment not carried out due to patient leaving prior to being seen by health care provider

== ENCOUNTER 2016-10-21 01:07 | Emergency (ER) | payer SELFPAY ==
[2016-10-21 03:49] VITALS: BP 178/69
[2016-10-21] MEDS ORDERED: MOTRIN PO ONE (03:52)
[2016-10-21] MEDS ORDERED: TYLENOL PO ONE (03:52)
--- NOTE | 2016-10-21 03:53 | Emergency Department Report ---
Upper Extremity - [facility] Chief Complaint: Extremity Injury, Upper Stated Complaint: RT ARM PAIN Time Seen by Provider: 10/21/16 03:47 Upper Extremity: Right Arm Occurred When: >5 Days Mechanism: Unsure Severity: mild Symptoms: Yes Pain with Movement, No Deformity, No Limited Range of Movement, No Numbness, No Weakness, No Swelling, No Bruising/Ecchymosis, No Laceration or Abrasion Other History: This is a 61-year-old female. She was previously unknown to me. She is right-hand dominant. She is currently looking for work. The patient presents to the ER with right triceps pain that is not associated with trauma. The pain is achy, does not radiate, increases with palpation, decreases with range of motion, decreases with temperature. There is no headache, neck pain, chest pain, abdominal pain, shortness of breath, fevers, chills, streaking. ED Review of Systems ROS: Stated complaint: RT ARM PAIN Other details as noted in HPI Constitutional: denies: fever Eyes: denies: eye discharge ENT: denies: epistaxis Respiratory: denies: cough Cardiovascular: denies: chest pain Gastrointestinal: denies: abdominal pain Genitourinary: denies: dysuria Musculoskeletal: myalgia Skin: denies: lesions Neurological: denies: weakness ED Past Medical Hx - Past Medical History Previous Medical History?: Yes Hx Hypertension: Yes Hx CVA: No Hx Heart Attack/AMI: No Hx Congestive Heart Failure: No Hx Diabetes: No Hx Deep Vein Thrombosis: No Hx Pulmonary Embolism: No Hx GERD: No Hx Liver Disease: No Hx Renal Disease: No Hx Sickle Cell Disease: No Hx Arthritis: Yes Hx Headaches / Migraines: No Hx Seizures: No Hx Kidney Stones: No Hx Psychiatric Treatment: No Hx Asthma: No Hx COPD: No Hx Dementia: No Hx HIV: No Additional medical history: stomach ulcers, muscle spasms in back, Chronic right shoulder pain /spasms. - Surgical History Past Surgical History?: Yes Hx Coronary Stent: No Hx Open Heart Surgery: No Hx Pacemaker: No Hx Internal Defibrillator: No Hx Cholecystectomy: No Hx Appendectomy: No Hx Breast Surgery: No Additional Surgical History: skin grafts, 1X, hysterectomy - Social History Smoking Status: Never Smoker Substance Use Type: Prescribed - Medications Home Medications: Home Medications Medication Instructions Recorded Confirmed Last Taken Type Butalb/Acetamin/Caff 50-325-40 1 tab PO Q6H #30 tablet 08/26/16 Unknown Rx [Fioricet] Ibuprofen [Motrin] 800 mg PO Q8HR PRN #30 tablet 08/26/16 Unknown Rx Hydrocortisone 1% [Hydrocortisone 1 applicatio TP TID PRN #1 tube 10/12/16 Unknown Rx 1% CREAM] Ketoconazole (Nf) [Ketoconazole 30 ml TP QDAY #1 shampoo 10/12/16 Unknown Rx Shampoo (Nf)] Selenium Sulfide/Menthol [Selsun 30 ml TP QDAY #1 shampoo 10/12/16 Unknown Rx Blue 1% Shampoo] Ibuprofen [Motrin] 600 mg PO Q8H PRN #30 tablet 10/21/16 Unknown Rx Upper Extremity Exam - Exam General: Vital signs noted. No distress. Alert and acting appropriately. No long bony tenderness. Reproducible right-sided triceps tenderness. Compartments are soft. No redness, pus or streaking. Extraocular movements intact. Tongue midline. No facial droop. Facial sensation intact to light touch in the V1, V2, V3 distribution bilaterally. 5 and 5 strength in 4 extremities.. Sensation is intact to light touch in 4 extremities. Gait within normal limits. 2+ pulses noted in 4 extremities. Head and Torso: No HEENT Abnormality, No Neck Tenderness, No Chest/Lungs Abnormality, No Abdominal Tenderness, No Back Tenderness Shoulder Exam: Yes Normal Range of Motion in Shoulder, No Shoulder Tenderness, No Clavicle Tenderness, No Shoulder Deformity, No AC Joint Tenderness Arm Exam: Yes Arm/Humerus Tenderness, No Arm Deformity Elbow: Yes Normal Range of Motion in Elbow, No Elbow Tenderness, No Elbow Deformity Forearm: No Forearm Tenderness, No Forearm Deformity, No Pain with Pronation, No Pain with Supination Wrist: Yes Normal ROM in Wrist, No Wrist Tenderness, No Wrist Deformity, No Snuffbox Tenderness, No Pain with Axial Thumb Compression Hand: Yes Normal ROM in Digit(s), No Hand Tenderness, No Hand Deformity, No Digit Tenderness, No Digit(s) Deformity, No Tendon Dysfunction CMS Exam: No Broken Skin, No Normal Distal Pulses, No Normal Capillary Refill, No Normal Distal Sensation ED Course Vital Signs 10/21/16 10/21/16 01:11 03:49 Temperature 98.5 F Pulse Rate 68 61 Respiratory 18 14 Rate Blood Pressure 160/74 Blood Pressure 160/74 178/69 [Right] O2 Sat by Pulse 100 97 Oximetry ED Medical Decision Making - Lab Data Vital Signs 10/21/16 10/21/16 01:11 03:49 Temperature 98.5 F Pulse Rate 68 61 Respiratory 18 14 Rate Blood Pressure 160/74 Blood Pressure 160/74 178/69 [Right] O2 Sat by Pulse 100 97 Oximetry - Medical Decision Making Differential diagnosis: Triceps strain, triceps sprain, musculoskeletal pain Assessment and plan: 61-year-old female with reproducible right-sided triceps pain and tenderness. There is no redness, pus or streaking. Compartments are soft. Sensation intact to light touch in the deltoid, median, radial, ulnar distribution. Feels improved with pain medication. Patient suitable follow-up as an outpatient. Critical care attestation.: If time is entered above; I have spent that time in minutes in the direct care of this critically ill patient, excluding procedure time. ED Disposition Clinical Impression: Right arm pain, Elevated blood pressure reading Disposition: - TO HOME OR SELFCARE Is pt being admited?: No Does the pt Need Aspirin: No Condition: Stable Instructions: Hypertension (ED) Additional Instructions: Rest and avoid heavy lifting. Perform physical activities as tolerated. Take the pain medication as directed. Follow-up with primary care doctor within the next month. Please be aware that blood pressure was elevated. This should be followed up by your primary care doctor within the recommended timeframe. Long- term complications of hypertension and elevated blood pressure includes stroke, heart attack, disability, , paralysis, loss of quality of life. Return to the ER right away with new pain, worsening pain, migration of pain, fevers, chills, confusion, chest pain, shortness of breath, streaking, redness, inability to tolerate liquid feeds. Referrals: DANNA BURGOS MD [Primary Care Provider] - 3-5 Days IVONE GRIMES MD [Staff Physician] - 3-5 Days [facility] [Provider Group] - 3-5 Days
== END 2016-10-21 04:40 | disposition home or self-care (01) ==
LOC: ED 01:07
DX: M25.511 Pain in right shoulder (principal); I10 Essential (primary) hypertension
CPT/HCPCS: 99282

== ENCOUNTER 2016-10-27 00:48 | Emergency (ER) | payer SELFPAY ==
[2016-10-27 02:16] LABS: Basophils % (Auto) 1.1 % (0.0-1.8); Eosinophils % (Auto) 0.9 % (0.0-4.3); Hematocrit 26.7 % (30.3-42.9); Mean Corpuscular HGB Conc 30 % (30-34); Platelet Count 234 K/mm3 (140-440); Red Blood Count 4.32 M/mm3 (3.65-5.03); Red Cell Distribution Width 17.3 % (13.2-15.2); White Blood Count 6.6 K/mm3 (4.5-11.0)
[2016-10-27 02:20] LABS: Mean Corpuscular Hemoglobin 19 pg (28-32); Mean Corpuscular Volume 62 fl (79-97)
[2016-10-27 02:41] LABS: Alanine Aminotransferase 18 units/L (7-56); Albumin 3.8 g/dL (3.9-5); Albumin/Globulin Ratio 1.2 %; Alkaline Phosphatase 71 units/L (35-129); Anion Gap 19 mmol/L; Blood Urea Nitrogen 18 mg/dL (7-17); Calcium 8.6 mg/dL (8.4-10.2); Carbon Dioxide 23 mmol/L (22-30); Chloride 105.2 mmol/L (98-107); Glucose 141 mg/dL (65-100); Lipase 22 units/L (13-60); Potassium 3.3 mmol/L (3.6-5.0); Sodium 144 mmol/L (137-145)
[2016-10-27 09:36] LABS: Bilirubin,Urine NEG (Negative); Blood,Urine NEG (Negative); Ketones,Urine NEG (Negative); Leukocyte Esterase,Urine NEG (Negative); Mucus,Urine FEW /HPF; Nitrite,Urine NEG (Negative); Protein,Urine <15 mg/dL mg/dL (Negative); WBC,Urine < 1.0 /HPF (0.0-6.0)
[2016-10-27] MEDS ORDERED: ZOFRAN IV ONE (09:37)
[2016-10-27] MEDS ORDERED: DILAUDID IV ONE ×2 (09:37→10:26)
[2016-10-27] MEDS ORDERED: K-DUR PO ONE (10:04)
--- NOTE | 2016-10-27 11:15 | Cat Scan Report ---
CT OF THE ABDOMEN AND PELVIS WITHOUT CONTRAST HISTORY: Right flank pain. TECHNIQUE: Helical CT without contrast. Sagittal and coronal reformatted images. FINDINGS: There is mild cardiomegaly which is unchanged since 03/12/15. The lung bases are clear otherwise. The bony structures are intact. No fracture or suspicious bony lesion. The kidneys, adrenal glands, renal collecting systems and bladder are within normal limits. No evidence for focal lesion or nephrolithiasis. The uterus and adnexa are within normal limits. The liver, biliary system, pancreas, spleen, aorta, bowel loops and appendix are unremarkable. No evidence for adenopathy, acute inflammation or ascites. IMPRESSION: Unremarkable noncontrast CT of the abdomen and pelvis. Mild cardiomegaly.
--- NOTE | 2016-10-27 13:22 | Emergency Department Report ---
ED Back Pain/Injury HPI - General Chief Complaint: Abdominal Pain Stated Complaint: KIDNEY, MUSCLE PAIN Time Seen by Provider: 10/27/16 09:36 Source: patient Limitations: No Limitations - History of Present Illness Initial Comments: 61-year-old female with past medical history of arthritis, hypertension, stomach ulcers, and muscle spasms and back with chronic shoulder pain/spasms presents to the hospital complaining of right flank pain for 5 days. Pain is stabbing, 10/10 intensity, intermittent. Worse with movement and palpation. No alleviating factors. Denies associated symptoms include nausea, vomiting, diarrhea, fever, abdominal pain, hematuria, or dysuria. Mild shortness of breath due to pain with inspiration. Denies previous history of kidney stones. - Related Data Previous Rx's Medication Instructions Recorded Last Taken Type Butalb/Acetamin/Caff 50-325-40 1 tab PO Q6H #30 tablet 08/26/16 Unknown Rx [Fioricet] Hydrocortisone 1% [Hydrocortisone 1 applicatio TP TID PRN #1 tube 10/12/16 Unknown Rx 1% CREAM] Ketoconazole (Nf) [Ketoconazole 30 ml TP QDAY #1 shampoo 10/12/16 Unknown Rx Shampoo (Nf)] Selenium Sulfide/Menthol [Selsun 30 ml TP QDAY #1 shampoo 10/12/16 Unknown Rx Blue 1% Shampoo] Cyclobenzaprine [Flexeril] 10 mg PO TID PRN #30 tablet 10/27/16 Unknown Rx HYDROcodone/APAP 5-325 [Keo 1 each PO Q6HR PRN #20 tablet 10/27/16 Unknown Rx 5/325] Allergies Allergy/AdvReac Type Severity Reaction Status Date / Time No Known Allergies Allergy Verified 03/17/16 02:36 ED Review of Systems ROS: Stated complaint: KIDNEY, MUSCLE PAIN Other details as noted in HPI Comment: All other systems reviewed and negative Other: Constitutional: No fevers chills Eyes: No eye pain visual changes ENT: No ear pain or throat pain Neck: Denies pain Respiratory: Denies cough wheezing shortness of breath Cardiovascular: Denies chest pain, palpitations, syncope GI: Denies abdominal pain, nausea, vomiting, diarrhea : Denies dysuria, urinary frequency, or urgency Musculoskeletal: As per HPI Skin: Denies rash, lesions, erythema Neurologic: Denies headache, numbness, weakness Psychiatric: Denies suicidal ideation, hallucinations ED Past Medical Hx - Past Medical History Previous Medical History?: Yes Hx Hypertension: Yes Hx CVA: No Hx Heart Attack/AMI: No Hx Congestive Heart Failure: No Hx Diabetes: No Hx Deep Vein Thrombosis: No Hx Pulmonary Embolism: No Hx GERD: No Hx Liver Disease: No Hx Renal Disease: No Hx Sickle Cell Disease: No Hx Arthritis: Yes Hx Headaches / Migraines: No Hx Seizures: No Hx Kidney Stones: No Hx Psychiatric Treatment: No Hx Asthma: No Hx COPD: No Hx Dementia: No Hx HIV: No Additional medical history: stomach ulcers, muscle spasms in back, Chronic right shoulder pain /spasms. - Surgical History Hx Coronary Stent: No Hx Open Heart Surgery: No Hx Pacemaker: No Hx Internal Defibrillator: No Hx Cholecystectomy: No Hx Appendectomy: No Hx Breast Surgery: No Additional Surgical History: skin grafts, 1X, hysterectomy - Social History Smoking Status: Never Smoker Substance Use Type: None - Medications Home Medications: Home Medications Medication Instructions Recorded Confirmed Last Taken Type Butalb/Acetamin/Caff 50-325-40 1 tab PO Q6H #30 tablet 08/26/16 Unknown Rx [Fioricet] Hydrocortisone 1% [Hydrocortisone 1 applicatio TP TID PRN #1 tube 10/12/16 Unknown Rx 1% CREAM] Ketoconazole (Nf) [Ketoconazole 30 ml TP QDAY #1 shampoo 10/12/16 Unknown Rx Shampoo (Nf)] Selenium Sulfide/Menthol [Selsun 30 ml TP QDAY #1 shampoo 10/12/16 Unknown Rx Blue 1% Shampoo] Cyclobenzaprine [Flexeril] 10 mg PO TID PRN #30 tablet 10/27/16 Unknown Rx HYDROcodone/APAP 5-325 [Keo 1 each PO Q6HR PRN #20 tablet 10/27/16 Unknown Rx 5/325] ED Physical Exam - General Limitations: No Limitations - Other Other exam information: General: No limitations, patient is alert in no acute distress Head exam: Atraumatic, normocephalic Eyes exam: Normal appearance, pupils equal reactive to light, extraocular movements intact ENT: Moist mucous membrane, normal oropharynx Neck exam: Normal inspection, full range of motion, no meningismus nontender Respiratory exam: Clear to auscultation bilateral, no wheezes, rales, crackles Cardiovascular: Normal rate and rhythm, normal heart sounds Abdomen: Soft, nondistended, and nontender, with normal bowel sounds, no rebound, or guarding Extremity: Full range of motion normal inspection no deformity Back: Normal Inspection, full range of motion, right sided flank tenderness extending to the right posterior thorax and shoulder blade Neurologic: Alert, oriented x3, cranial nerves intact, no motor or sensory deficit Psychiatric: normal affect, normal mood Skin: Warm, dry, intact ED Course Vital Signs 10/27/16 10/27/16 10/27/16 01:27 01:51 08:27 Temperature 98.4 F 98.4 F Pulse Rate 74 74 Respiratory 18 18 Rate Blood Pressure 179/84 177/84 Blood Pressure 179/84 [Right] O2 Sat by Pulse 100 100 Oximetry 10/27/16 10/27/16 10/27/16 08:30 08:38 08:57 Temperature 98.2 F Pulse Rate Respiratory 20 Rate Blood Pressure 178/92 178/92 Blood Pressure [Right] O2 Sat by Pulse 99 99 100 Oximetry 10/27/16 10/27/16 10/27/16 09:00 09:15 09:31 Temperature Pulse Rate Respiratory Rate Blood Pressure 170/78 173/83 183/75 Blood Pressure [Right] O2 Sat by Pulse 100 100 99 Oximetry 10/27/16 10/27/16 10/27/16 09:45 10:00 10:15 Temperature Pulse Rate Respiratory Rate Blood Pressure 164/72 181/82 173/83 Blood Pressure [Right] O2 Sat by Pulse 99 98 100 Oximetry 10/27/16 10/27/16 10/27/16 10:31 11:05 11:15 Temperature Pulse Rate 66 Respiratory 9 L 13 Rate Blood Pressure 153/64 202/82 202/82 Blood Pressure [Right] O2 Sat by Pulse 100 98 92 Oximetry 10/27/16 10/27/16 11:23 11:30 Temperature Pulse Rate Respiratory 20 11 L Rate Blood Pressure 166/68 Blood Pressure [Right] O2 Sat by Pulse 96 Oximetry - Reevaluation(s) Reevaluation #1: 10/27/16 13:34 Patient given multiple doses of Dilaudid for pain relief. NSAIDs avoided given history of stomach ulcers. ED Medical Decision Making - Lab Data Result diagrams: 10/27/16 01:58 10/27/16 01:58 Lab Results 10/27/16 10/27/16 10/27/16 Range/Units 01:58 01:58 09:04 WBC 6.6 (4.5-11.0) K/mm3 RBC 4.32 (3.65-5.03) M/mm3 Hgb 8.0 L (10.1-14.3) gm/dl Hct 26.7 L (30.3-42.9) % MCV 62 L (79-97) fl MCH 19 L (28-32) pg MCHC 30 (30-34) % RDW 17.3 H (13.2-15.2) % Plt Count 234 (140-440) K/mm3 Lymph % (Auto) 13.6 (13.4-35.0) % [place] % (Auto) 14.1 H (0.0-7.3) % Eos % (Auto) 0.9 (0.0-4.3) % Baso % (Auto) 1.1 (0.0-1.8) % Lymph # 0.9 L (1.2-5.4) K/mm3 [place] # 0.9 H (0.0-0.8) K/mm3 Eos # 0.1 (0.0-0.4) K/mm3 Baso # 0.1 (0.0-0.1) K/mm3 Seg Neutrophils % 70.3 H (40.0-70.0) % Seg Neutrophils # 4.6 (1.8-7.7) K/mm3 PT (12.2-14.9) Sec. INR (0.87-1.13) D-Dimer (0-234) ng/mlDDU Sodium 144 (137-145) mmol/L Potassium 3.3 L (3.6-5.0) mmol/L Chloride 105.2 (98-107) mmol/L Carbon Dioxide 23 (22-30) mmol/L Anion Gap 19 mmol/L BUN 18 H (7-17) mg/dL Creatinine 0.4 L (0.7-1.2) mg/dL Estimated GFR > 60 ml/min BUN/Creatinine Ratio 45.00 % Glucose 141 H (65-100) mg/dL Calcium 8.6 (8.4-10.2) mg/dL Total Bilirubin 0.30 (0.1-1.2) mg/dL AST 14 (5-40) units/L ALT 18 (7-56) units/L Alkaline Phosphatase 71 (35-129) units/L Total Protein 7.0 (6.3-8.2) g/dL Albumin 3.8 L (3.9-5) g/dL Albumin/Globulin Ratio 1.2 % Lipase 22 (13-60) units/L Urine Color Yellow (Yellow) Urine Turbidity Clear (Clear) Urine pH 6.0 (5.0-7.0) Ur Specific [place] 1.023 (1.003-1.030) Urine Protein <15 mg/dl (Negative) mg/dL Urine Glucose (UA) Neg (Negative) mg/dL Urine Ketones Neg (Negative) mg/dL Urine Blood Neg (Negative) Urine Nitrite Neg (Negative) Urine Bilirubin Neg (Negative) Urine Urobilinogen 4.0 (<2.0) mg/dL Ur Leukocyte Esterase Neg (Negative) Urine WBC (Auto) < 1.0 (0.0-6.0) /HPF Urine RBC (Auto) 1.0 (0.0-6.0) /HPF U Epithel Cells (Auto) < 1.0 (0-13.0) /HPF Urine Mucus Few /HPF 10/27/16 10/27/16 Range/Units 10:27 10:27 WBC (4.5-11.0) K/mm3 RBC (3.65-5.03) M/mm3 Hgb (10.1-14.3) gm/dl Hct (30.3-42.9) % MCV (79-97) fl MCH (28-32) pg MCHC (30-34) % RDW (13.2-15.2) % Plt Count (140-440) K/mm3 Lymph % (Auto) (13.4-35.0) % [place] % (Auto) (0.0-7.3) % Eos % (Auto) (0.0-4.3) % Baso % (Auto) (0.0-1.8) % Lymph # (1.2-5.4) K/mm3 [place] # (0.0-0.8) K/mm3 Eos # (0.0-0.4) K/mm3 Baso # (0.0-0.1) K/mm3 Seg Neutrophils % (40.0-70.0) % Seg Neutrophils # (1.8-7.7) K/mm3 PT 13.7 (12.2-14.9) Sec. INR 1.00 (0.87-1.13) D-Dimer < 135.00 (0-234) ng/mlDDU Sodium (137-145) mmol/L Potassium (3.6-5.0) mmol/L Chloride (98-107) mmol/L Carbon Dioxide (22-30) mmol/L Anion Gap mmol/L BUN (7-17) mg/dL Creatinine (0.7-1.2) mg/dL Estimated GFR ml/min BUN/Creatinine Ratio % Glucose (65-100) mg/dL Calcium (8.4-10.2) mg/dL Total Bilirubin (0.1-1.2) mg/dL AST (5-40) units/L ALT (7-56) units/L Alkaline Phosphatase (35-129) units/L Total Protein (6.3-8.2) g/dL Albumin (3.9-5) g/dL Albumin/Globulin Ratio % Lipase (13-60) units/L Urine Color (Yellow) Urine Turbidity (Clear) Urine pH (5.0-7.0) Ur Specific [place] (1.003-1.030) Urine Protein (Negative) mg/dL Urine Glucose (UA) (Negative) mg/dL Urine Ketones (Negative) mg/dL Urine Blood (Negative) Urine Nitrite (Negative) Urine Bilirubin (Negative) Urine Urobilinogen (<2.0) mg/dL Ur Leukocyte Esterase (Negative) Urine WBC (Auto) (0.0-6.0) /HPF Urine RBC (Auto) (0.0-6.0) /HPF U Epithel Cells (Auto) (0-13.0) /HPF Urine Mucus /HPF - Radiology Data Radiology results: report reviewed CT of the pelvis noncontrast: Unremarkable, no acute findings, mild cardiomegaly - Medical Decision Making Patient has chronic anemia similar to previous visits. Hypokalemia was supplemented with by mouth potassium. Patient has frequent visits to the Hospital/ER for various complaints. No infectious or surgical cause of pain identified. I suspect musculoskeletal pain given benign laboratory and imaging findings, reproducibility of pain with palpation and movement, history of back pain with spasms. Patient will be treated symptomatically and follow will be encouraged. - Differential Diagnosis kidney stone, muscle strain, PE, UTI, cholelithiasis Critical Care Time: No Critical care attestation.: If time is entered above; I have spent that time in minutes in the direct care of this critically ill patient, excluding procedure time. ED Disposition Clinical Impression: Hypokalemia, Right flank pain Disposition: TO HOME OR SELFCARE Is pt being admited?: No Does the pt Need Aspirin: No Condition: Stable Instructions: Flank Pain (ED), Hypokalemia (ED) Additional Instructions: Taken medication as prescribed. Follow up with your doctor or clinic/doctor provided. Return if symptoms worsen. Prescriptions: Cyclobenzaprine [Flexeril] 10 mg PO TID PRN #30 tablet PRN Reason: Muscle Spasm HYDROcodone/APAP 5-325 [Keo 5/325] 1 each PO Q6HR PRN #20 tablet PRN Reason: Pain Referrals: [facility] [Provider Group] - 3-5 Days NIC BRICE MD [Staff Physician] - 3-5 Days Time of Disposition: 13:43
[2016-10-27 14:16] VITALS: BP 154/66
== END 2016-10-27 14:20 | disposition home or self-care (01) ==
LOC: ED 00:48
DX: E87.6 Hypokalemia (principal); R10.9 Unspecified abdominal pain; R06.02 Shortness of breath; I10 Essential (primary) hypertension; M19.90 Unspecified osteoarthritis, unspecified site
CPT/HCPCS: 36415; 74176; 80053; 81001; 83690; 85025; 85379; 85610; 96374; 96375; 96376; 99284; J1170; J2405

== ENCOUNTER 2016-12-09 01:55 | Emergency (ER) | payer SELFPAY ==
[2016-12-09 02:57] VITALS: BP 145/74
[2016-12-09] MEDS ORDERED: MOTRIN PO ONE (03:53)
--- NOTE | 2016-12-09 04:01 | Emergency Department Report ---
ED Upper Extremity Inj HPI - General Chief Complaint: Extremity Problem,Nontraumatic Stated Complaint: RIGHT ROTATION CUFF Time Seen by Provider: 12/09/16 03:38 Source: patient Mode of arrival: Ambulatory Limitations: No Limitations - History of Present Illness Initial Comments: This is a 61-year-old female nontoxic, well nourished in appearance, no acute signs of distress presents to the ED complaining of chronic right shoulder pain. Patient stated she was diagnosed with a rotator cuff at [facility] and was instructed to follow-up with the orthopedic doctor but has not. They stated this patient is a chronic for the past year but stated 5 days ago she was lifting a box and developed sharp pain again. Patient denies any trauma to the region. Denies any direct blows to the region. Denies any numbness, tingling, chest pain, shortness of breath, fever, chills, nausea, vomiting, hemoptysis, joint swelling, joint redness, nausea or vomiting. Patient denies any allergies. Patient is requesting for Percocet refill. Past medical history includes arthritis and hypertension. MD Complaint: Injury to:: right, shoulder -: Gradual, year(s) (1) Other Extremity Injury: Shoulder: Right Other Injuries: none Severity scale (0 -10): 6 Improves With: none Worsens With: movement of extremity Associated Symptoms: denies other symptoms. denies: weakness, numbness, neck pain, suspects foreign body, nausea/vomiting, heard/felt popping sensat - Related Data Previous Rx's Medication Instructions Recorded Last Taken Type Butalb/Acetamin/Caff 50-325-40 1 tab PO Q6H #30 tablet 08/26/16 Unknown Rx [Fioricet] Hydrocortisone 1% [Hydrocortisone 1 applicatio TP TID PRN #1 tube 10/12/16 Unknown Rx 1% CREAM] Ketoconazole (Nf) [Ketoconazole 30 ml TP QDAY #1 shampoo 10/12/16 Unknown Rx Shampoo (Nf)] Selenium Sulfide/Menthol [Selsun 30 ml TP QDAY #1 shampoo 10/12/16 Unknown Rx Blue 1% Shampoo] Cyclobenzaprine [Flexeril] 10 mg PO TID PRN #30 tablet 10/27/16 Unknown Rx HYDROcodone/APAP 5-325 [[place] 1 each PO Q6HR PRN #20 tablet 10/27/16 Unknown Rx 5/325] amLODIPine [Norvasc] 10 mg PO DAILY #30 tab 10/27/16 Unknown Rx Ibuprofen [Motrin 600 MG tab] 600 mg PO Q8H PRN #30 tablet 12/09/16 Unknown Rx Allergies Allergy/AdvReac Type Severity Reaction Status Date / Time No Known Allergies Allergy Verified 03/17/16 02:36 ED Review of Systems ROS: Stated complaint: RIGHT ROTATION CUFF Other details as noted in HPI Constitutional: denies: chills, fever Eyes: denies: eye pain, eye discharge, vision change ENT: denies: ear pain, throat pain Respiratory: denies: cough, shortness of breath, wheezing Cardiovascular: denies: chest pain, palpitations Endocrine: no symptoms reported Gastrointestinal: denies: abdominal pain, nausea, diarrhea Genitourinary: denies: urgency, dysuria, discharge Musculoskeletal: denies: back pain, joint swelling, arthralgia Skin: denies: rash, lesions Neurological: denies: headache, weakness, paresthesias Psychiatric: denies: anxiety, depression Hematological/Lymphatic: denies: easy bleeding, easy bruising ED Past Medical Hx - Past Medical History Previous Medical History?: Yes Hx Hypertension: Yes Hx CVA: No Hx Heart Attack/AMI: No Hx Congestive Heart Failure: No Hx Diabetes: No Hx Deep Vein Thrombosis: No Hx Pulmonary Embolism: No Hx GERD: No Hx Liver Disease: No Hx Renal Disease: No Hx Sickle Cell Disease: No Hx Arthritis: Yes Hx Headaches / Migraines: No Hx Seizures: No Hx Kidney Stones: No Hx Psychiatric Treatment: No Hx Asthma: No Hx COPD: No Hx Dementia: No Hx HIV: No Additional medical history: stomach ulcers, muscle spasms in back, Chronic right shoulder pain /spasms. - Surgical History Past Surgical History?: Yes Hx Coronary Stent: No Hx Open Heart Surgery: No Hx Pacemaker: No Hx Internal Defibrillator: No Hx Cholecystectomy: No Hx Appendectomy: No Hx Breast Surgery: No Additional Surgical History: skin grafts, 1X, hysterectomy - Social History Smoking Status: Never Smoker Substance Use Type: None - Medications Home Medications: Home Medications Medication Instructions Recorded Confirmed Last Taken Type Butalb/Acetamin/Caff 50-325-40 1 tab PO Q6H #30 tablet 08/26/16 Unknown Rx [Fioricet] Hydrocortisone 1% [Hydrocortisone 1 applicatio TP TID PRN #1 tube 10/12/16 Unknown Rx 1% CREAM] Ketoconazole (Nf) [Ketoconazole 30 ml TP QDAY #1 shampoo 10/12/16 Unknown Rx Shampoo (Nf)] Selenium Sulfide/Menthol [Selsun 30 ml TP QDAY #1 shampoo 10/12/16 Unknown Rx Blue 1% Shampoo] Cyclobenzaprine [Flexeril] 10 mg PO TID PRN #30 tablet 10/27/16 Unknown Rx HYDROcodone/APAP 5-325 [[place] 1 each PO Q6HR PRN #20 tablet 10/27/16 Unknown Rx 5/325] amLODIPine [Norvasc] 10 mg PO DAILY #30 tab 10/27/16 Unknown Rx Ibuprofen [Motrin 600 MG tab] 600 mg PO Q8H PRN #30 tablet 12/09/16 Unknown Rx ED Physical Exam - General Limitations: No Limitations General appearance: alert, in no apparent distress - Head Head exam: Present: atraumatic, normocephalic, normal inspection - Eye Eye exam: Present: normal appearance, PERRL, EOMI. Absent: scleral icterus, conjunctival injection, nystagmus, periorbital swelling, periorbital tenderness Pupils: Present: normal accommodation - ENT ENT exam: Present: normal exam, normal orophraynx, mucous membranes moist, TM's normal bilaterally, normal external ear exam - Neck Neck exam: Present: normal inspection, full ROM. Absent: tenderness, meningismus, lymphadenopathy, thyromegaly - Respiratory Respiratory exam: Present: normal lung sounds bilaterally. Absent: respiratory distress, wheezes, rales, rhonchi, stridor, chest wall tenderness, accessory muscle use, decreased breath sounds, prolonged expiratory - Cardiovascular Cardiovascular Exam: Present: regular rate, normal rhythm, normal heart sounds. Absent: bradycardia, tachycardia, irregular rhythm, systolic murmur, diastolic murmur, rubs, gallop - GI/Abdominal GI/Abdominal exam: Present: soft, normal bowel sounds. Absent: distended, tenderness, guarding, rebound, rigid, diminished bowel sounds - Rectal Rectal exam: Present: deferred - Extremities Exam Extremities exam: Present: normal inspection, full ROM, normal capillary refill. Absent: tenderness, pedal edema, joint swelling, calf tenderness - Expanded Upper Extremity Exam Right General: Present: normal inspection Shoulder Exam: Present: normal inspection, full ROM (limited with pain). Absent : tenderness, swelling, abrasion, laceration, ecchymosis, deformity, crepidus, dislocation, erythema, tenderness over AC joint Upper Arm exam: Present: normal inspection, full ROM Elbow exam: Present: normal inspection, full ROM Forearm Wrist exam: Present: normal inspection, full ROM Hand Wrist exam: Present: normal inspection, full ROM Neuro motor exam: Present: wrist extension intact, thumb opposition intact, thumb IP flexion intact, thumb adduction intact, fingers 2-5 abduction intact Neurosensory exam: Present: 2-point discrimination, radial nerve intact, ulnar nerve intact, median nerve intact Vascular: Present: vascular compromise, normal capillary refill, radial pulse, brachial pulse, ulnar pulse - Back Exam Back exam: Present: normal inspection, full ROM. Absent: tenderness, CVA tenderness (R), CVA tenderness (L), muscle spasm, paraspinal tenderness, vertebral tenderness, rash noted - Neurological Exam Neurological exam: Present: alert, oriented X3, CN II-XII intact, normal gait, reflexes normal - Psychiatric Psychiatric exam: Present: normal affect, normal mood - Skin Skin exam: Present: warm, dry, intact, normal color. Absent: rash ED Course Vital Signs 12/09/16 02:53 Temperature 98.1 F Pulse Rate 81 Respiratory 20 Rate Blood Pressure 145/74 O2 Sat by Pulse 100 Oximetry - Reevaluation(s) Reevaluation #1: 12/09/16 04:03 Patient is speaking in full sentences with no distress noted. ED Medical Decision Making - Medical Decision Making This is a 61-year-old female that presents with chronic shoulder pain. Pt was dx with rotator cuff x1 year ago with no follow-up with ortho. Patient is requesting for Percocet medication for treatment of pain. Due to patients age and side effects of percocet, patient received Motrin in the ED and D/c. Pt denies any new injuries to region. Denies any trauma or direct blows. Patient has neurovascular intact. Normal range of motion with slight pain. No joint swelling or redness noted. Patient received a shoulder splint with a follow-up with orthopedic doctor in 3-5 days. At time time of discharge, the patient does not seem toxic or ill in appearance. No acute signs of distress noted. Patient agrees to discharge treatment plan of care. No further questions noted by the patient. Critical care attestation.: If time is entered above; I have spent that time in minutes in the direct care of this critically ill patient, excluding procedure time. ED Disposition Clinical Impression: Shoulder pain, right Qualifiers: Chronicity: chronic Qualified Code(s): M25.511 - Pain in right shoulder; G89.29 - Other chronic pain Disposition: TO HOME OR SELFCARE Is pt being admited?: No Does the pt Need Aspirin: No Condition: Stable Instructions: Rotator Cuff Injury (ED), Ibuprofen (By mouth) Additional Instructions: Follow-up with the orthopedic doctor in 3-5 days or if symptoms worsen or continue returns to emergency room as well as possible. Prescriptions: Ibuprofen [Motrin 600 MG tab] 600 mg PO Q8H PRN #30 tablet PRN Reason: Pain Referrals: PRIMARY CAREMD [Primary Care Provider] - 3-5 Days ZAKIYA CHO MD [Staff Physician] - 3-5 Days JANEY DE LEON MD [Staff Physician] - 3-5 Days [facility] [Outside] - 3-5 Days [facility]Note 3[facility] [Outside] - 3-5 Days
== END 2016-12-09 04:32 | disposition home or self-care (01) ==
LOC: ED 01:55
DX: M25.511 Pain in right shoulder (principal); I10 Essential (primary) hypertension

== ENCOUNTER 2016-12-14 01:58 | Emergency (ER) | payer SELFPAY ==
[2016-12-14 02:04] VITALS: BP 149/69
[2016-12-14 05:00] LABS: Bilirubin,Urine NEG (Negative); Blood,Urine SM (Negative); Ketones,Urine NEG (Negative); Leukocyte Esterase,Urine NEG (Negative); Mucus,Urine FEW /HPF; Nitrite,Urine NEG (Negative); Protein,Urine <15 mg/dL mg/dL (Negative)
== END 2016-12-14 02:38 | disposition left against medical advice (07) ==
LOC: ED 01:58
DX: R35.0 Frequency of micturition (principal); Z53.21 Procedure and treatment not carried out due to patient leaving prior to being seen by health care provider
CPT/HCPCS: 81001; 82962

== ENCOUNTER 2017-02-04 01:47 | Emergency (ER) | payer SELFPAY ==
--- NOTE | 2017-02-04 05:10 | Emergency Department Report ---
ED Extremity Problem HPI - General Chief complaint: Extremity Problem,Nontraumatic Stated complaint: RT LEG PAIN Time Seen by Provider: 02/04/17 04:34 Source: patient Mode of arrival: Ambulatory Limitations: No Limitations - History of Present Illness Initial comments: 61 yo female who comes in today due to right lower extremity pain. The patient describes the pain as aching and sharp in nature. She denies any trauma to her right lower extremity. MD Complaint: extremity pain -: During the night Location: lower extremity (right ) History of Same: No (Hx of shoulder pain on the last visit 01/30/17) Radiation: other (from the toe the knee per the patient ) Quality: aching, sharp Consistency: intermittent (patient sleeping in the room currently ) Improves with: nothing Worsens with: nothing Associated Symptoms: denies other symptoms - Related Data Previous Rx's Medication Instructions Recorded Last Taken Type Butalb/Acetamin/Caff 50-325-40 1 tab PO Q6H #30 tablet 08/26/16 Unknown Rx [Fioricet] Hydrocortisone 1% [Hydrocortisone 1 applicatio TP TID PRN #1 tube 10/12/16 Unknown Rx 1% CREAM] Ketoconazole (Nf) [Ketoconazole 30 ml TP QDAY #1 shampoo 10/12/16 Unknown Rx Shampoo (Nf)] Selenium Sulfide/Menthol [[place] 30 ml TP QDAY #1 shampoo 10/12/16 Unknown Rx Blue 1% Shampoo] Cyclobenzaprine [Flexeril] 10 mg PO TID PRN #30 tablet 10/27/16 Unknown Rx HYDROcodone/APAP 5-325 [[place] 1 each PO Q6HR PRN #20 tablet 10/27/16 Unknown Rx 5/325] amLODIPine [Norvasc] 10 mg PO DAILY #30 tab 10/27/16 Unknown Rx Ibuprofen [Motrin 600 MG tab] 600 mg PO Q8H PRN #30 tablet 12/09/16 Unknown Rx Ibuprofen [Motrin] 800 mg PO Q8HR PRN #30 tablet 01/30/17 Unknown Rx Allergies Allergy/AdvReac Type Severity Reaction Status Date / Time No Known Allergies Allergy Verified 03/17/16 02:36 ED Review of Systems ROS: Stated complaint: RT LEG PAIN Other details as noted in HPI Constitutional: denies: chills, fever ENT: denies: ear pain, throat pain Respiratory: denies: cough, shortness of breath, wheezing Cardiovascular: denies: chest pain, palpitations Endocrine: no symptoms reported Gastrointestinal: denies: abdominal pain, nausea, diarrhea Genitourinary: denies: urgency, dysuria, discharge Musculoskeletal: as per HPI Skin: denies: rash, lesions Neurological: denies: headache, weakness, paresthesias Psychiatric: denies: anxiety, depression Hematological/Lymphatic: denies: easy bleeding, easy bruising ED Past Medical Hx - Past Medical History Hx Hypertension: Yes Hx CVA: No Hx Heart Attack/AMI: No Hx Congestive Heart Failure: No Hx Diabetes: No Hx Deep Vein Thrombosis: No Hx Pulmonary Embolism: No Hx GERD: No Hx Liver Disease: No Hx Renal Disease: No Hx Sickle Cell Disease: No Hx Arthritis: Yes Hx Headaches / Migraines: No Hx Seizures: No Hx Kidney Stones: No Hx Psychiatric Treatment: No Hx Asthma: No Hx COPD: No Hx Dementia: No Hx HIV: No Additional medical history: stomach ulcers, muscle spasms in back, Chronic right shoulder pain /spasms. - Surgical History Past Surgical History?: Yes Hx Coronary Stent: No Hx Open Heart Surgery: No Hx Pacemaker: No Hx Internal Defibrillator: No Hx Cholecystectomy: No Hx Appendectomy: No Hx Breast Surgery: No Additional Surgical History: skin grafts, 1X, hysterectomy - Social History Smoking Status: Never Smoker Substance Use Type: None - Medications Home Medications: Home Medications Medication Instructions Recorded Confirmed Last Taken Type Butalb/Acetamin/Caff 50-325-40 1 tab PO Q6H #30 tablet 08/26/16 Unknown Rx [Fioricet] Hydrocortisone 1% [Hydrocortisone 1 applicatio TP TID PRN #1 tube 10/12/16 Unknown Rx 1% CREAM] Ketoconazole (Nf) [Ketoconazole 30 ml TP QDAY #1 shampoo 10/12/16 Unknown Rx Shampoo (Nf)] Selenium Sulfide/Menthol [[place] 30 ml TP QDAY #1 shampoo 10/12/16 Unknown Rx Blue 1% Shampoo] Cyclobenzaprine [Flexeril] 10 mg PO TID PRN #30 tablet 10/27/16 Unknown Rx HYDROcodone/APAP 5-325 [[place] 1 each PO Q6HR PRN #20 tablet 10/27/16 Unknown Rx 5/325] amLODIPine [Norvasc] 10 mg PO DAILY #30 tab 10/27/16 Unknown Rx Ibuprofen [Motrin 600 MG tab] 600 mg PO Q8H PRN #30 tablet 12/09/16 Unknown Rx Ibuprofen [Motrin] 800 mg PO Q8HR PRN #30 tablet 01/30/17 Unknown Rx ED Physical Exam - General Limitations: No Limitations General appearance: alert, in no apparent distress - Head Head exam: Present: atraumatic, normocephalic - Eye Eye exam: Present: normal appearance - ENT ENT exam: Present: mucous membranes moist - Respiratory Respiratory exam: Present: normal lung sounds bilaterally. Absent: respiratory distress - Cardiovascular Cardiovascular Exam: Present: regular rate, normal rhythm. Absent: systolic murmur, diastolic murmur, rubs, gallop - Extremities Exam Extremities exam: Present: normal inspection - Back Exam Back exam: Present: normal inspection - Neurological Exam Neurological exam: Present: alert, oriented X3 - Psychiatric Psychiatric exam: Present: normal affect, normal mood - Skin Skin exam: Present: warm, dry, intact, normal color. Absent: rash ED Course Vital Signs 02/04/17 02:34 Temperature 98.4 F Pulse Rate 75 Respiratory 14 Rate Blood Pressure 157/68 O2 Sat by Pulse 100 Oximetry Critical care attestation.: If time is entered above; I have spent that time in minutes in the direct care of this critically ill patient, excluding procedure time. ED Disposition Clinical Impression: Arthritis, Myalgia Disposition: DC- TO HOME OR SELFCARE Is pt being admited?: No Does the pt Need Aspirin: No Condition: Stable Instructions: Arthralgia (ED), Musculoskeletal Pain (ED) Additional Instructions: May take tylenol 650 mg by mouth every 8 hours as needed for pain. Please follow up with your provider on discharge. Referrals: PRIMARY CARE, [Primary Care Provider] - 3-5 Days Time of Disposition: 05:11
[2017-02-04] MEDS ORDERED: TYLENOL PO ONE (05:12)
[2017-02-04 05:28] VITALS: BP 148/67
== END 2017-02-04 05:28 | disposition home or self-care (01) ==
LOC: ED 01:47
DX: M79.604 Pain in right leg (principal); M19.90 Unspecified osteoarthritis, unspecified site; I10 Essential (primary) hypertension
CPT/HCPCS: 99282

== ENCOUNTER 2017-02-21 01:45 | Emergency (ER) | payer OTHER ==
[2017-02-21 01:51] VITALS: BP 148/68
--- NOTE | 2017-02-21 08:45 | Emergency Department Report ---
HPI - General Chief Complaint: Extremity Injury, Lower Time Seen by Provider: 02/21/17 08:33 - HPI HPI: Patient is a 61-year-old female who presents to ED complaining of right big toe pain. Patient states pain began about 5 years ago after she dropped something on the toe. Since then the intermittently uses her pain. Patient reports no new trauma injuries to the foot. She denies fevers/chills/causes of this pain this chest pain shortness of breath. ED Past Medical Hx - Past Medical History Previous Medical History?: Yes Hx Hypertension: Yes Hx CVA: No Hx Heart Attack/AMI: No Hx Congestive Heart Failure: No Hx Diabetes: No Hx Deep Vein Thrombosis: No Hx Pulmonary Embolism: No Hx GERD: No Hx Liver Disease: No Hx Renal Disease: No Hx Sickle Cell Disease: No Hx Arthritis: Yes Hx Headaches / Migraines: No Hx Seizures: No Hx Kidney Stones: No Hx Psychiatric Treatment: No Hx Asthma: No Hx COPD: No Hx Dementia: No Hx HIV: No Additional medical history: stomach ulcers, muscle spasms in back, Chronic right shoulder pain /spasms. - Surgical History Past Surgical History?: Yes Hx Coronary Stent: No Hx Open Heart Surgery: No Hx Pacemaker: No Hx Internal Defibrillator: No Hx Cholecystectomy: No Hx Appendectomy: No Hx Breast Surgery: No Additional Surgical History: skin grafts, 1X, hysterectomy - Social History Smoking Status: Never Smoker Substance Use Type: None - Medications Home Medications: Home Medications Medication Instructions Recorded Confirmed Last Taken Type Butalb/Acetamin/Caff 50-325-40 1 tab PO Q6H #30 tablet 08/26/16 Unknown Rx [Fioricet] Hydrocortisone 1% [Hydrocortisone 1 applicatio TP TID PRN #1 tube 10/12/16 Unknown Rx 1% CREAM] Ketoconazole (Nf) [Ketoconazole 30 ml TP QDAY #1 shampoo 10/12/16 Unknown Rx Shampoo (Nf)] Selenium Sulfide/Menthol [[place] 30 ml TP QDAY #1 shampoo 10/12/16 Unknown Rx Blue 1% Shampoo] HYDROcodone/APAP 5-325 [[place] 1 each PO Q6HR PRN #20 tablet 10/27/16 Unknown Rx 5/325] amLODIPine [Norvasc] 10 mg PO DAILY #30 tab 10/27/16 Unknown Rx Ibuprofen [Motrin] 800 mg PO Q8HR PRN #30 tablet 01/30/17 Unknown Rx Clotrimazole 1% [Lotrimin] 1 applic TP BID #1 tube 02/21/17 Unknown Rx Cyclobenzaprine [Flexeril 10 MG 10 mg PO TID PRN #30 tablet 02/21/17 Unknown Rx TAB] Ibuprofen [Motrin 600 MG tab] 600 mg PO Q8H PRN #30 tablet 02/21/17 Unknown Rx ED Review of Systems ROS: Stated complaint: RIGHT LEG PAIN Other details as noted in HPI Constitutional: denies: chills, fever Eyes: denies: eye pain, eye discharge, vision change ENT: denies: ear pain, throat pain, congestion Respiratory: denies: cough, shortness of breath, wheezing Cardiovascular: denies: chest pain, palpitations Endocrine: no symptoms reported Gastrointestinal: denies: abdominal pain, nausea, diarrhea Genitourinary: denies: urgency, dysuria, frequency, hematuria, discharge Musculoskeletal: denies: back pain, joint swelling, arthralgia Skin: denies: rash, lesions Neurological: denies: headache, weakness, paresthesias Psychiatric: denies: anxiety, depression Hematological/Lymphatic: denies: easy bleeding, easy bruising Physical Exam - Physical Exam Vital Signs: Vital Signs 02/21/17 02/21/17 01:47 02:09 Temperature 98.5 F 98.5 F Pulse Rate 77 77 Respiratory 18 17 Rate Blood Pressure 148/68 148/68 O2 Sat by Pulse 100 99 Oximetry Physical Exam: GENERAL: Alert and oriented x3, no apparent distress, Normal Gait, atraumatic. HEAD: Head is normocephalic and a-traumatic. LUNGS: Symetrical with respiration, No wheezing, no rales or crackles, CTAB. HEART: S1, S2 present, regular rate and rhythm without murmur, no rubs, no gallops. Non tender to palpation EXTREMITIES/MUSCULOSKELETAL: No cyanosis, clubbing, rash, lesions or edema. Full ROM bilaterally. UE/LE Pulses 2+ bilaterally. right big toe tenderness to palpation, nonerythematous, nonswollen, fungal toenail bilaterally NEUROLOGIC: The patient is cooperative with no focal neurologic deficits. Normal sensation in bilateral upper and lower extremities, No loss of sensation , SKIN: Warm and dry, No lesions, No ulceration or induration present. ED Course Vital Signs 02/21/17 02/21/17 01:47 02:09 Temperature 98.5 F 98.5 F Pulse Rate 77 77 Respiratory 18 17 Rate Blood Pressure 148/68 148/68 O2 Sat by Pulse 100 99 Oximetry ED Medical Decision Making - Medical Decision Making 51-year-old female presents toe pain ED course: Patient was rested comfortably sleeping. Discussed the patient we'll send him on pain medications. Also discussed with patient fungal infection of the toenail. Discussed patient with diffuse topical antifungal to apply to the toes. Vital signs are normal patient says instructions given she is in no acute distress Understands all instructions given and states she'll follow up with the primary care physician. Primary care physician referrals are given Critical care attestation.: If time is entered above; I have spent that time in minutes in the direct care of this critically ill patient, excluding procedure time. ED Disposition Clinical Impression: Arthritis Toe pain, chronic Qualifiers: Laterality: right Qualified Code(s): M79.674 - Pain in right toe(s); G89.29 - Other chronic pain; G89.29 - Other chronic pain Disposition: DC-01 TO HOME OR SELFCARE Is pt being admited?: No Does the pt Need Aspirin: No Condition: Stable Instructions: Arthralgia (ED), [place]onychia (ED) Prescriptions: Clotrimazole 1% [Lotrimin] 1 applic TP BID #1 tube Cyclobenzaprine [Flexeril 10 MG TAB] 10 mg PO TID PRN #30 tablet PRN Reason: Muscle Spasm Ibuprofen [Motrin 600 MG tab] 600 mg PO Q8H PRN #30 tablet PRN Reason: Pain Referrals: PRIMARY CARE, [Primary Care Provider] - 3-5 Days [facility] [Outside] - 3-5 Days [facility] [Outside] - 3-5 Days Forms: Work/School Release Form(ED) Time of Disposition: 09:00
== END 2017-02-21 09:13 | disposition home or self-care (01) ==
LOC: ED 01:45
DX: M19.90 Unspecified osteoarthritis, unspecified site (principal); M79.674 Pain in right toe(s); G89.29 Other chronic pain; I10 Essential (primary) hypertension
CPT/HCPCS: 99282

== ENCOUNTER 2017-02-25 01:40 | Emergency (ER) | payer OTHER ==
[2017-02-25 03:37] VITALS: BP 152/70
--- NOTE | 2017-02-25 04:55 | Emergency Department Report ---
HPI - General Chief Complaint: Extremity Injury, Lower Time Seen by Provider: 02/25/17 04:50 - HPI HPI: Patient is a 61-year-old female who presents to ED complaining of right ankle pain. Patient states pain began a long time ago. Patient states that she has not injured it or had any trauma to the ankle recently. The patient states that she is with some heat on it with no relief. Patient states pain is localized to her posterior ankle region. She describes pain as throbbing/ aching. She denies fevers/chills/nausea/vomiting/chest pain/shortness of breath/ dizziness/headache/blurred vision. ED Past Medical Hx - Past Medical History Hx Hypertension: Yes Hx CVA: No Hx Heart Attack/AMI: No Hx Congestive Heart Failure: No Hx Diabetes: No Hx Deep Vein Thrombosis: No Hx Pulmonary Embolism: No Hx GERD: No Hx Liver Disease: No Hx Renal Disease: No Hx Sickle Cell Disease: No Hx Arthritis: Yes Hx Headaches / Migraines: No Hx Seizures: No Hx Kidney Stones: No Hx Psychiatric Treatment: No Hx Asthma: No Hx COPD: No Hx Dementia: No Hx HIV: No Additional medical history: stomach ulcers, muscle spasms in back, Chronic right shoulder pain /spasms. - Surgical History Hx Coronary Stent: No Hx Open Heart Surgery: No Hx Pacemaker: No Hx Internal Defibrillator: No Hx Cholecystectomy: No Hx Appendectomy: No Hx Breast Surgery: No Additional Surgical History: skin grafts, 1X, hysterectomy - Social History Smoking Status: Never Smoker Substance Use Type: None - Medications Home Medications: Home Medications Medication Instructions Recorded Confirmed Last Taken Type Butalb/Acetamin/Caff 50-325-40 1 tab PO Q6H #30 tablet 08/26/16 Unknown Rx [Fioricet] Hydrocortisone 1% [Hydrocortisone 1 applicatio TP TID PRN #1 tube 10/12/16 Unknown Rx 1% CREAM] Ketoconazole (Nf) [Ketoconazole 30 ml TP QDAY #1 shampoo 10/12/16 Unknown Rx Shampoo (Nf)] Selenium Sulfide/Menthol [Selsun 30 ml TP QDAY #1 shampoo 10/12/16 Unknown Rx Blue 1% Shampoo] HYDROcodone/APAP 5-325 [[place] 1 each PO Q6HR PRN #20 tablet 10/27/16 Unknown Rx 5/325] amLODIPine [Norvasc] 10 mg PO DAILY #30 tab 10/27/16 Unknown Rx Clotrimazole 1% [Lotrimin] 1 applic TP BID #1 tube 02/21/17 Unknown Rx Ibuprofen [Motrin 600 MG tab] 600 mg PO Q8H PRN #30 tablet 02/21/17 Unknown Rx Cyclobenzaprine [Flexeril 10 MG 10 mg PO TID PRN #30 tablet 02/25/17 Unknown Rx TAB] Ibuprofen [Motrin 800 MG tab] 800 mg PO Q8HR PRN #30 tablet 02/25/17 Unknown Rx ED Review of Systems ROS: Stated complaint: HTN /R. ANKLE PAIN Other details as noted in HPI Physical Exam - Physical Exam Vital Signs: Vital Signs 02/25/17 03:32 Temperature 98.5 F Pulse Rate 78 Blood Pressure 152/70 O2 Sat by Pulse 99 Oximetry Physical Exam: GENERAL: Alert and oriented x3, no apparent distress, Normal Gait, atraumatic. HEAD: Head is normocephalic and a-traumatic. LUNGS: Symetrical with respiration, CTAB. HEART: S1, S2 present, regular rate and rhythm. Non tender to palpation EXTREMITIES/MUSCULOSKELETAL: No cyanosis, clubbing, rash, lesions or edema. Full ROM bilaterally. pedal Pulses 2+ bilaterally. Right big toe tenderness to palpation, nonerythematous, nonswollen all lower extremity joints intact NEUROLOGIC: The patient is cooperative with no focal neurologic deficits. Normal sensation in bilateral upper and lower extremities, No loss of sensation , SKIN: Warm and dry, No lesions, No ulceration or induration present. ED Course Vital Signs 02/25/17 03:32 Temperature 98.5 F Pulse Rate 78 Blood Pressure 152/70 O2 Sat by Pulse 99 Oximetry ED Medical Decision Making - Radiology Data Radiology results: report reviewed, image reviewed FINAL REPORT PROCEDURE: XR ANKLE 3+V RT TECHNIQUE: RIGHT ankle radiographs, AP, lateral, and oblique views. CPT 89305 HISTORY: swelling and pain Right ankle COMPARISON: No prior studies are available for comparison. FINDINGS: Fracture (s) and/or Dislocation(s): None. Alignment: Normal. Joint space(s): Normal. Soft tissues: Normal. Bone mineralization: Normal. Foreign bodies: None. Calcaneal spurring: There are small calcaneal spurs.. IMPRESSION: There is no fracture or malalignment. There are small calcaneal spurs. There are no soft tissue abnormalities.. Transcribed By: CO Dictated By: SHAN DAWSON MD Electronically Authenticated By: SHAN DAWSON MD Signed Date/Time: 02/25/17 0052 - Medical Decision Making 36-year-old female presents to ED withright ankle pain ED course: ankle Xrays taken, report given above. Vital signs are normal patient is in no acute distress Discussed with patient follow-up with primary care physician. Discussed the patient and take medications as prescribed. Patient has no neurological deficit. Patient is alert and oriented 3 and understands all instructions given. Discussed drowsiness effect of Flexeril makes her drowsy and not to operate machinery while taking flexeril Critical care attestation.: If time is entered above; I have spent that time in minutes in the direct care of this critically ill patient, excluding procedure time. ED Disposition Clinical Impression: Right ankle pain Qualifiers: Chronicity: chronic Qualified Code(s): M25.571 - Pain in right ankle and joints of right foot Disposition: DC-01 TO HOME OR SELFCARE Is pt being admited?: No Does the pt Need Aspirin: No Condition: Stable Instructions: Arthralgia (ED) Additional Instructions: Make sure to follow up with the primary care physician as discussed. Take all your medications as you've been prescribed. If you have any worsening symptoms or develop new symptoms please return to ED immediately. Prescriptions: Cyclobenzaprine [Flexeril 10 MG TAB] 10 mg PO TID PRN #30 tablet PRN Reason: Muscle Spasm Ibuprofen [Motrin 800 MG tab] 800 mg PO Q8HR PRN #30 tablet PRN Reason: Pain Referrals: PRIMARY CARE, [Primary Care Provider] - 3-5 Days NYDIA CABRERA MD [Staff Physician] - 3-5 Days [facility] [Outside] - 3-5 Days [facility] [Outside] - 3-5 Days [facility] [Outside] - 3-5 Days Forms: Work/School Release Form(ED) Time of Disposition: 05:22
== END 2017-02-25 05:53 | disposition home or self-care (01) ==
LOC: ED 01:40
DX: M25.571 Pain in right ankle and joints of right foot (principal); I10 Essential (primary) hypertension; M19.90 Unspecified osteoarthritis, unspecified site
CPT/HCPCS: 99283

== ENCOUNTER 2017-03-31 01:16 | Emergency (ER) | payer OTHER ==
--- NOTE | 2017-03-31 05:09 | Emergency Department Report ---
ED ENT HPI - General Chief complaint: Dental/Oral Stated complaint: MOUTH PAIN Time Seen by Provider: 03/31/17 04:32 Source: patient Mode of arrival: Ambulatory Limitations: No Limitations - History of Present Illness Initial comments: This is a 61 y.o. female presents with pain to upper gum on the right for 2 days. She is gargling with warm salty water with minimal improvement. She doesn' t understand why her gum is hurting because doesn't have a tooth there. It felt like it was swollen and the pain is 8/10 on scale. Denies bleeding, discharge, or discoloration. MD complaint: tooth pain (right upper gum) -: days(s) (2) Location: tooth # (7) Severity: moderate Severity scale (0 -10): 8 Quality: aching Consistency: constant Improves with: none Worsens with: eating Context- Dental: history of dental caries, poor dental care (#8 dental caries, half tooth) Associated Symptoms: gum swelling, toothache. denies: fever, cough, pain with swallowing, sore throat, tinnitus, hearing loss, discharge from ear, rhinorrhea - Related Data Previous Rx's Medication Instructions Recorded Last Taken Type Butalb/Acetamin/Caff 50-325-40 1 tab PO Q6H #30 tablet 08/26/16 Unknown Rx [Fioricet] Hydrocortisone 1% [Hydrocortisone 1 applicatio TP TID PRN #1 tube 10/12/16 Unknown Rx 1% CREAM] Ketoconazole (Nf) [Ketoconazole 30 ml TP QDAY #1 shampoo 10/12/16 Unknown Rx Shampoo (Nf)] Selenium Sulfide/Menthol [Selsun 30 ml TP QDAY #1 shampoo 10/12/16 Unknown Rx Blue 1% Shampoo] HYDROcodone/APAP 5-325 [[place] 1 each PO Q6HR PRN #20 tablet 10/27/16 Unknown Rx 5/325] amLODIPine [Norvasc] 10 mg PO DAILY #30 tab 10/27/16 Unknown Rx Clotrimazole 1% [Lotrimin] 1 applic TP BID #1 tube 02/21/17 Unknown Rx Ibuprofen [Motrin 600 MG tab] 600 mg PO Q8H PRN #30 tablet 02/21/17 Unknown Rx Cyclobenzaprine [Flexeril 10 MG 10 mg PO TID PRN #30 tablet 02/25/17 Unknown Rx TAB] Ibuprofen [Motrin 800 MG tab] 800 mg PO Q8HR PRN #30 tablet 02/25/17 Unknown Rx Amoxicillin/K Clav [Augmentin 1 tab PO Q12H 10 Days #20 tablet 03/31/17 Unknown Rx 500MG] Ibuprofen 800 mg PO Q6HR PRN #20 tablet 03/31/17 Unknown Rx Allergies Allergy/AdvReac Type Severity Reaction Status Date / Time No Known Allergies Allergy Verified 03/17/16 02:36 ED Dental HPI - General Chief complaint: Dental/Oral Stated complaint: MOUTH PAIN Time Seen by Provider: 03/31/17 04:32 Source: patient Mode of arrival: Ambulatory Limitations: No Limitations - Related Data Previous Rx's Medication Instructions Recorded Last Taken Type Butalb/Acetamin/Caff 50-325-40 1 tab PO Q6H #30 tablet 08/26/16 Unknown Rx [Fioricet] Hydrocortisone 1% [Hydrocortisone 1 applicatio TP TID PRN #1 tube 10/12/16 Unknown Rx 1% CREAM] Ketoconazole (Nf) [Ketoconazole 30 ml TP QDAY #1 shampoo 10/12/16 Unknown Rx Shampoo (Nf)] Selenium Sulfide/Menthol [Selsun 30 ml TP QDAY #1 shampoo 10/12/16 Unknown Rx Blue 1% Shampoo] HYDROcodone/APAP 5-325 [[place] 1 each PO Q6HR PRN #20 tablet 10/27/16 Unknown Rx 5/325] amLODIPine [Norvasc] 10 mg PO DAILY #30 tab 10/27/16 Unknown Rx Clotrimazole 1% [Lotrimin] 1 applic TP BID #1 tube 02/21/17 Unknown Rx Ibuprofen [Motrin 600 MG tab] 600 mg PO Q8H PRN #30 tablet 02/21/17 Unknown Rx Cyclobenzaprine [Flexeril 10 MG 10 mg PO TID PRN #30 tablet 02/25/17 Unknown Rx TAB] Ibuprofen [Motrin 800 MG tab] 800 mg PO Q8HR PRN #30 tablet 02/25/17 Unknown Rx Amoxicillin/K Clav [Augmentin 1 tab PO Q12H 10 Days #20 tablet 03/31/17 Unknown Rx 500MG] Ibuprofen 800 mg PO Q6HR PRN #20 tablet 03/31/17 Unknown Rx Allergies Allergy/AdvReac Type Severity Reaction Status Date / Time No Known Allergies Allergy Verified 03/17/16 02:36 ED Review of Systems ROS: Stated complaint: MOUTH PAIN Other details as noted in HPI Constitutional: see HPI. denies: chills, fever ENT: as per HPI, dental pain (right upper gum). denies: ear pain, throat pain, hearing loss, epistaxis, congestion Respiratory: denies: cough, shortness of breath, wheezing Cardiovascular: denies: chest pain, palpitations Gastrointestinal: denies: abdominal pain, nausea, diarrhea Neurological: denies: headache, weakness, paresthesias ED Past Medical Hx - Past Medical History Previous Medical History?: Yes Hx Hypertension: Yes Hx CVA: No Hx Heart Attack/AMI: No Hx Congestive Heart Failure: No Hx Diabetes: No Hx Deep Vein Thrombosis: No Hx Pulmonary Embolism: No Hx GERD: No Hx Liver Disease: No Hx Renal Disease: No Hx Sickle Cell Disease: No Hx Arthritis: Yes Hx Headaches / Migraines: No Hx Seizures: No Hx Kidney Stones: No Hx Psychiatric Treatment: No Hx Asthma: No Hx COPD: No Hx Dementia: No Hx HIV: No Additional medical history: stomach ulcers, muscle spasms in back, Chronic right shoulder pain /spasms. - Surgical History Past Surgical History?: Yes Hx Coronary Stent: No Hx Open Heart Surgery: No Hx Pacemaker: No Hx Internal Defibrillator: No Hx Cholecystectomy: No Hx Appendectomy: No Hx Breast Surgery: No Additional Surgical History: skin grafts, 1X, hysterectomy - Social History Smoking Status: Never Smoker Substance Use Type: None - Medications Home Medications: Home Medications Medication Instructions Recorded Confirmed Last Taken Type Butalb/Acetamin/Caff 50-325-40 1 tab PO Q6H #30 tablet 08/26/16 Unknown Rx [Fioricet] Hydrocortisone 1% [Hydrocortisone 1 applicatio TP TID PRN #1 tube 10/12/16 Unknown Rx 1% CREAM] Ketoconazole (Nf) [Ketoconazole 30 ml TP QDAY #1 shampoo 10/12/16 Unknown Rx Shampoo (Nf)] Selenium Sulfide/Menthol [Selsun 30 ml TP QDAY #1 shampoo 10/12/16 Unknown Rx Blue 1% Shampoo] HYDROcodone/APAP 5-325 [[place] 1 each PO Q6HR PRN #20 tablet 10/27/16 Unknown Rx 5/325] amLODIPine [Norvasc] 10 mg PO DAILY #30 tab 10/27/16 Unknown Rx Clotrimazole 1% [Lotrimin] 1 applic TP BID #1 tube 02/21/17 Unknown Rx Ibuprofen [Motrin 600 MG tab] 600 mg PO Q8H PRN #30 tablet 02/21/17 Unknown Rx Cyclobenzaprine [Flexeril 10 MG 10 mg PO TID PRN #30 tablet 02/25/17 Unknown Rx TAB] Ibuprofen [Motrin 800 MG tab] 800 mg PO Q8HR PRN #30 tablet 02/25/17 Unknown Rx Amoxicillin/K Clav [Augmentin 1 tab PO Q12H 10 Days #20 tablet 03/31/17 Unknown Rx 500MG] Ibuprofen 800 mg PO Q6HR PRN #20 tablet 03/31/17 Unknown Rx ED Physical Exam - General Limitations: No Limitations General appearance: alert, in no apparent distress - ENT ENT exam: Present: mucous membranes moist - Expanded ENT Exam Expanded Ear exam: Present: normal external inspection Mouth exam: Present: normal external inspection. Absent: drooling, trismus, muffled voice, tongue normal, tongue elevation, laceration Teeth exam: Present: dental caries, fractured tooth # (#8), dental tenderness # (7, missing tooth, mild swelling, tenderness on palpation) Throat exam: Positive: normal inspection - Neck Neck exam: Present: normal inspection, full ROM - Respiratory Respiratory exam: Present: normal lung sounds bilaterally. Absent: respiratory distress - Cardiovascular Cardiovascular Exam: Present: regular rate, normal rhythm. Absent: systolic murmur, diastolic murmur, rubs, gallop - GI/Abdominal GI/Abdominal exam: Present: soft, normal bowel sounds - Neurological Exam Neurological exam: Present: alert, oriented X3, normal gait ED Course Vital Signs 03/31/17 03/31/17 01:23 05:25 Temperature 98.6 F Pulse Rate 71 73 Respiratory 17 18 Rate Blood Pressure 161/75 Blood Pressure 158/79 [Left] O2 Sat by Pulse 99 99 Oximetry ED Medical Decision Making - Medical Decision Making 61 y.o. female with pain to gum where #7 was on upper right gum. History of dental caries and fracture tooth #8. Started on amoxicillin and ibuprofen for pain. Follow up with dental. Critical care attestation.: If time is entered above; I have spent that time in minutes in the direct care of this critically ill patient, excluding procedure time. ED Disposition Clinical Impression: Gum disease, Dental caries Disposition: TO HOME OR SELFCARE Is pt being admited?: No Does the pt Need Aspirin: No Condition: Stable Instructions: Dental Caries (ED) Additional Instructions: Follow up with dentist. Prescriptions: Amoxicillin/K Clav [Augmentin 500MG] 1 tab PO Q12H 10 Days #20 tablet Ibuprofen 800 mg PO Q6HR PRN #20 tablet PRN Reason: Pain Referrals: SHELBY KIDD MD [Primary Care Provider] - 3-5 Days [facility] [Outside] - 3-5 Days Time of Disposition: 05:29 Print Language: PASHTO
[2017-03-31 05:26] VITALS: BP 158/79
== END 2017-03-31 05:38 | disposition home or self-care (01) ==
LOC: ED 01:16
DX: K02.9 Dental caries, unspecified (principal); I10 Essential (primary) hypertension; M19.90 Unspecified osteoarthritis, unspecified site
CPT/HCPCS: 99282

== ENCOUNTER 2017-05-18 00:49 | Emergency (ER) | payer SELFPAY ==
[2017-05-18 03:37] VITALS: BP 172/84
[2017-05-18] MEDS ORDERED: MOTRIN PO ONE (04:12)
[2017-05-18] MEDS ORDERED: TESSALON PERLES PO ONE (04:12)
--- NOTE | 2017-05-18 04:17 | Emergency Department Report ---
- General Chief Complaint: Weakness Stated Complaint: FLU LIKE SX Time Seen by Provider: 05/18/17 03:51 Source: patient Mode of arrival: Ambulatory Limitations: No Limitations - History of Present Illness Initial Comments: This is a 61-year-old male nontoxic, well nourished in appearance, no acute signs of distress presents to the ED with c/o of productive cough, body aches, rhinorrhea, nasal congestion x5 days. Patient describes productive cough as yellow mucus production. Patient denies any sick contact. Patient denies any recent travels, long car, recent hospital stays. Patient denies any calf pain or calf tenderness. Patient denies any chest pain, short of breath, fever, chills, nausea, vomiting, hemoptysis, numbness, tingling, headache or stiff neck. Patient denies any drug allergies or significant past medical history besides arthritits and HTN. MD Complaint: cough, rhinorrhea, nasal congestion, other (body aches) -: days(s) (5) Severity: mild Severity scale (0 -10): 8 Quality: aching Consistency: constant Improves With: nothing Worsens With: nothing Associated Symptoms: rhinorrhea, nasal congestion, cough. denies: fever, chills , myalgias, diaphoresis, headache, sore throat, stiff neck, chest pain, shortness of breath, abdominal pain, nausea, vomiting, diarrhea, dysuria, rash, confusion, right sweats, weight loss, epistaxis, hoarseness, ear pain - Related Data Previous Rx's Medication Instructions Recorded Last Taken Type Butalb/Acetamin/Caff 50-325-40 1 tab PO Q6H #30 tablet 08/26/16 Unknown Rx [Fioricet] Hydrocortisone 1% [Hydrocortisone 1 applicatio TP TID PRN #1 tube 10/12/16 Unknown Rx 1% CREAM] Ketoconazole (Nf) [Ketoconazole 30 ml TP QDAY #1 shampoo 10/12/16 Unknown Rx Shampoo (Nf)] Selenium Sulfide/Menthol [Selsun 30 ml TP QDAY #1 shampoo 10/12/16 Unknown Rx Blue 1% Shampoo] HYDROcodone/APAP 5-325 [[place] 1 each PO Q6HR PRN #20 tablet 10/27/16 Unknown Rx 5/325] amLODIPine [Norvasc] 10 mg PO DAILY #30 tab 10/27/16 Unknown Rx Clotrimazole 1% [Lotrimin] 1 applic TP BID #1 tube 02/21/17 Unknown Rx Ibuprofen [Motrin 600 MG tab] 600 mg PO Q8H PRN #30 tablet 02/21/17 Unknown Rx Cyclobenzaprine [Flexeril 10 MG 10 mg PO TID PRN #30 tablet 02/25/17 Unknown Rx TAB] Ibuprofen [Motrin 800 MG tab] 800 mg PO Q8HR PRN #30 tablet 02/25/17 Unknown Rx Amoxicillin/K Clav [Augmentin 1 tab PO Q12H 10 Days #20 tablet 03/31/17 Unknown Rx 500MG] Ibuprofen 800 mg PO Q6HR PRN #20 tablet 03/31/17 Unknown Rx Azithromycin [Zithromax Z-LUIS] 250 mg PO DAILY #6 tablet 05/18/17 Unknown Rx Benzonatate [Tessalon Perle] 100 mg PO Q8H PRN #20 capsule 05/18/17 Unknown Rx Ibuprofen [Motrin] 600 mg PO Q8H PRN #30 tablet 05/18/17 Unknown Rx Allergies Allergy/AdvReac Type Severity Reaction Status Date / Time No Known Allergies Allergy Verified 03/17/16 02:36 ED Review of Systems ROS: Stated complaint: FLU LIKE SX Other details as noted in HPI Constitutional: denies: chills, fever Eyes: denies: eye pain, eye discharge, vision change ENT: denies: ear pain, throat pain Respiratory: see HPI, cough. denies: shortness of breath, wheezing Cardiovascular: denies: chest pain, palpitations Endocrine: no symptoms reported Gastrointestinal: denies: abdominal pain, nausea, diarrhea Genitourinary: denies: urgency, dysuria, discharge Musculoskeletal: denies: back pain, joint swelling, arthralgia Skin: denies: rash, lesions Neurological: denies: headache, weakness, paresthesias Psychiatric: denies: anxiety, depression Hematological/Lymphatic: denies: easy bleeding, easy bruising ED Past Medical Hx - Past Medical History Previous Medical History?: Yes Hx Hypertension: Yes Hx CVA: No Hx Heart Attack/AMI: No Hx Congestive Heart Failure: No Hx Diabetes: No Hx Deep Vein Thrombosis: No Hx Pulmonary Embolism: No Hx GERD: No Hx Liver Disease: No Hx Renal Disease: No Hx Sickle Cell Disease: No Hx Arthritis: Yes Hx Headaches / Migraines: No Hx Seizures: No Hx Kidney Stones: No Hx Psychiatric Treatment: No Hx Asthma: No Hx COPD: No Hx Dementia: No Hx HIV: No Additional medical history: stomach ulcers, muscle spasms in back, Chronic right shoulder pain /spasms. - Surgical History Past Surgical History?: Yes Hx Coronary Stent: No Hx Open Heart Surgery: No Hx Pacemaker: No Hx Internal Defibrillator: No Hx Cholecystectomy: No Hx Appendectomy: No Hx Breast Surgery: No Additional Surgical History: skin grafts, 1X, hysterectomy - Social History Smoking Status: Never Smoker - Medications Home Medications: Home Medications Medication Instructions Recorded Confirmed Last Taken Type Butalb/Acetamin/Caff 50-325-40 1 tab PO Q6H #30 tablet 08/26/16 Unknown Rx [Fioricet] Hydrocortisone 1% [Hydrocortisone 1 applicatio TP TID PRN #1 tube 10/12/16 Unknown Rx 1% CREAM] Ketoconazole (Nf) [Ketoconazole 30 ml TP QDAY #1 shampoo 10/12/16 Unknown Rx Shampoo (Nf)] Selenium Sulfide/Menthol [Selsun 30 ml TP QDAY #1 shampoo 10/12/16 Unknown Rx Blue 1% Shampoo] HYDROcodone/APAP 5-325 [[place] 1 each PO Q6HR PRN #20 tablet 10/27/16 Unknown Rx 5/325] amLODIPine [Norvasc] 10 mg PO DAILY #30 tab 10/27/16 Unknown Rx Clotrimazole 1% [Lotrimin] 1 applic TP BID #1 tube 02/21/17 Unknown Rx Ibuprofen [Motrin 600 MG tab] 600 mg PO Q8H PRN #30 tablet 02/21/17 Unknown Rx Cyclobenzaprine [Flexeril 10 MG 10 mg PO TID PRN #30 tablet 02/25/17 Unknown Rx TAB] Ibuprofen [Motrin 800 MG tab] 800 mg PO Q8HR PRN #30 tablet 02/25/17 Unknown Rx Amoxicillin/K Clav [Augmentin 1 tab PO Q12H 10 Days #20 tablet 03/31/17 Unknown Rx 500MG] Ibuprofen 800 mg PO Q6HR PRN #20 tablet 03/31/17 Unknown Rx Azithromycin [Zithromax Z-LUIS] 250 mg PO DAILY #6 tablet 05/18/17 Unknown Rx Benzonatate [Tessalon Perle] 100 mg PO Q8H PRN #20 capsule 05/18/17 Unknown Rx Ibuprofen [Motrin] 600 mg PO Q8H PRN #30 tablet 05/18/17 Unknown Rx ED Physical Exam - General Limitations: No Limitations General appearance: alert, in no apparent distress - Head Head exam: Present: atraumatic, normocephalic - Eye Eye exam: Present: normal appearance, PERRL, EOMI Pupils: Present: normal accommodation - ENT ENT exam: Present: normal exam, normal orophraynx, mucous membranes moist, TM's normal bilaterally, normal external ear exam - Neck Neck exam: Present: normal inspection, full ROM. Absent: tenderness, meningismus, lymphadenopathy, thyromegaly - Respiratory Respiratory exam: Present: normal lung sounds bilaterally. Absent: respiratory distress, wheezes, rales, rhonchi, stridor, chest wall tenderness, accessory muscle use, decreased breath sounds, prolonged expiratory - Cardiovascular Cardiovascular Exam: Present: regular rate, normal rhythm, normal heart sounds. Absent: bradycardia, tachycardia, irregular rhythm, systolic murmur, diastolic murmur, rubs, gallop - GI/Abdominal GI/Abdominal exam: Present: soft, normal bowel sounds. Absent: distended, tenderness, guarding, rebound, rigid, diminished bowel sounds - Rectal Rectal exam: Present: deferred - Extremities Exam Extremities exam: Present: normal inspection, full ROM, normal capillary refill. Absent: tenderness, pedal edema, joint swelling, calf tenderness - Back Exam Back exam: Present: normal inspection, full ROM. Absent: tenderness, CVA tenderness (R), CVA tenderness (L), muscle spasm, paraspinal tenderness, vertebral tenderness, rash noted - Neurological Exam Neurological exam: Present: alert, oriented X3, CN II-XII intact, normal gait, reflexes normal - Psychiatric Psychiatric exam: Present: normal affect, normal mood - Skin Skin exam: Present: warm, dry, intact, normal color. Absent: rash ED Course Vital Signs 05/18/17 03:25 Temperature 98.4 F Pulse Rate 67 Respiratory 18 Rate Blood Pressure 172/84 O2 Sat by Pulse 100 Oximetry - Reevaluation(s) Reevaluation #1: 05/18/17 04:15 Patient is speaking in full sentences with no signs of distress noted. ED Medical Decision Making - Medical Decision Making This is a 61-year-old male that presents with upper respiratory infection. Patient is stable and was examined by me. Chest x-ray has been obtained and dictated by radiologist with normal exam. Patient is notified of x-ray results with no questions noted. Due to patient having symptoms of upper respiratory infection and symptoms and worsening I will treat patient empirically zpak. There is no more flu swabs in the ED so I was not able to obtain influenza swab. Patient is above the >72 hour window for tamiflu. Patient was instructed to increase hydration, rest and take Motrin for fever episodes. Patient received motrin and tesslone perrls in the ED. Vitals stable. Patient is nonfebrile and normal heart rate. Patient was orally hydrated and patient tolerated well known nausea or vomiting. Patient was instructed Follow-up with a primary care doctor in 3-5 days or if symptoms worsen and continue return to emergency room as soon as possible. At time time of discharge, the patient does not seem toxic or ill in appearance. No acute signs of distress noted. Patient agrees to discharge treatment plan of care. No further questions noted by the patient. Critical care attestation.: If time is entered above; I have spent that time in minutes in the direct care of this critically ill patient, excluding procedure time. ED Disposition Clinical Impression: Upper respiratory infection Qualifiers: URI type: unspecified URI Qualified Code(s): J06.9 - Acute upper respiratory infection, unspecified Disposition: DC-01 TO HOME OR SELFCARE Is pt being admited?: No Does the pt Need Aspirin: No Condition: Stable Instructions: Upper Respiratory Infection (ED), Azithromycin (By mouth), Benzonatate (By mouth) Additional Instructions: Follow-up with a primary care doctor in 3-5 days or if symptoms worsen and continue return to emergency room as soon as possible. Increased rest, hydration, and take Motrin for fever as prescribed. Prescriptions: Azithromycin [Zithromax Z-LUIS] 250 mg PO DAILY #6 tablet Benzonatate [Tessalon Perle] 100 mg PO Q8H PRN #20 capsule PRN Reason: Cough Ibuprofen [Motrin] 600 mg PO Q8H PRN #30 tablet PRN Reason: Pain Referrals: SHELBY KIDD MD [Primary Care Provider] - 3-5 Days PRIMARY CARE, [Referring] - 3-5 Days [facility] [Outside] - 3-5 Days [facility] [Outside] - 3-5 Days Forms: Work/School Release Form(ED)
--- NOTE | 2017-05-18 05:26 | XRay Report ---
FINAL REPORT PROCEDURE: XR CHEST ROUTINE 2V TECHNIQUE: A portable AP chest radiograph was obtained at 05/18/2017 03:47 (EST) . CPT 05373 HISTORY: cough COMPARISON: No prior studies are available for comparison. FINDINGS: Heart: The heart is enlarged. Mediastinum/Vessels: Normal. Lungs/Pleural space: Lungs are clear and expanded. There are no infiltrates, effusions or pneumothoraces.. Bony thorax: No acute osseous abnormality. Life support devices: None. IMPRESSION: Cardiomegaly. There is no infiltrate..
== END 2017-05-18 06:09 | disposition home or self-care (01) ==
LOC: ED 00:49
DX: J06.9 Acute upper respiratory infection, unspecified (principal); I10 Essential (primary) hypertension; M19.90 Unspecified osteoarthritis, unspecified site; G89.29 Other chronic pain
CPT/HCPCS: 71046

== ENCOUNTER 2017-06-10 01:11 | Emergency (ER) | payer SELFPAY ==
[2017-06-10 01:30] VITALS: BP 154/61
== END 2017-06-10 08:22 ==
LOC: ED 01:11
DX: R53.1 Weakness (principal); Z53.21 Procedure and treatment not carried out due to patient leaving prior to being seen by health care provider

== ENCOUNTER 2017-06-26 01:32 | Emergency (ER) | payer SELFPAY ==
[2017-06-26 02:14] VITALS: BP 142/52
== END 2017-06-26 07:00 | disposition left against medical advice (07) ==
LOC: ED 01:32
DX: R21 Rash and other nonspecific skin eruption (principal); Z53.21 Procedure and treatment not carried out due to patient leaving prior to being seen by health care provider

== ENCOUNTER 2017-06-28 01:48 | Emergency (ER) | payer SELFPAY ==
[2017-06-28] MEDS ORDERED: TYLENOL PO ONE (02:50)
[2017-06-28] MEDS ORDERED: TYLENOL ONE (02:55)
== END 2017-06-28 01:49 | disposition left against medical advice (07) ==
LOC: ED 01:48
DX: R30.0 Dysuria (principal); Z53.21 Procedure and treatment not carried out due to patient leaving prior to being seen by health care provider

== ENCOUNTER 2017-07-08 00:34 | Emergency (ER) | payer SELFPAY ==
[2017-07-08 01:14] VITALS: BP 162/79
--- NOTE | 2017-07-08 02:48 | Emergency Department Report ---
HPI - General Chief Complaint: Extremity Problem,Nontraumatic Time Seen by Provider: 07/08/17 02:33 - HPI HPI: This is a 61-year-old female who presents to ED complaining of right wrist pain 1 day. Patient states yesterday she bumped her right wrist on the door. She denies any loss of sensation, any lesions, any swelling or bleeding. ED Past Medical Hx - Past Medical History Hx Hypertension: Yes Hx CVA: No Hx Heart Attack/AMI: No Hx Congestive Heart Failure: No Hx Diabetes: No Hx Deep Vein Thrombosis: No Hx Pulmonary Embolism: No Hx GERD: No Hx Liver Disease: No Hx Renal Disease: No Hx Sickle Cell Disease: No Hx Arthritis: Yes Hx Headaches / Migraines: No Hx Seizures: No Hx Kidney Stones: No Hx Psychiatric Treatment: No Hx Asthma: No Hx COPD: No Hx Dementia: No Hx HIV: No Additional medical history: stomach ulcers, muscle spasms in back, Chronic right shoulder pain /spasms. - Surgical History Hx Coronary Stent: No Hx Open Heart Surgery: No Hx Pacemaker: No Hx Internal Defibrillator: No Hx Cholecystectomy: No Hx Appendectomy: No Hx Breast Surgery: No Additional Surgical History: skin grafts, 1X, hysterectomy - Social History Smoking Status: Never Smoker Substance Use Type: None - Medications Home Medications: Home Medications Medication Instructions Recorded Confirmed Last Taken Type Butalb/Acetamin/Caff 50-325-40 1 tab PO Q6H #30 tablet 08/26/16 Unknown Rx [Fioricet] Hydrocortisone 1% [Hydrocortisone 1 applicatio TP TID PRN #1 tube 10/12/16 Unknown Rx 1% CREAM] Ketoconazole (Nf) [Ketoconazole 30 ml TP QDAY #1 shampoo 10/12/16 Unknown Rx Shampoo (Nf)] Selenium Sulfide/Menthol [Selsun 30 ml TP QDAY #1 shampoo 10/12/16 Unknown Rx Blue 1% Shampoo] HYDROcodone/APAP 5-325 [[place] 1 each PO Q6HR PRN #20 tablet 10/27/16 Unknown Rx 5/325] amLODIPine [Norvasc] 10 mg PO DAILY #30 tab 10/27/16 Unknown Rx Clotrimazole 1% [Lotrimin] 1 applic TP BID #1 tube 02/21/17 Unknown Rx Ibuprofen [Motrin 600 MG tab] 600 mg PO Q8H PRN #30 tablet 02/21/17 Unknown Rx Ibuprofen [Motrin 800 MG tab] 800 mg PO Q8HR PRN #30 tablet 02/25/17 Unknown Rx Amoxicillin/K Clav [Augmentin 1 tab PO Q12H 10 Days #20 tablet 03/31/17 Unknown Rx 500MG] Azithromycin [Zithromax Z-LUIS] 250 mg PO DAILY #6 tablet 05/18/17 Unknown Rx Benzonatate [Tessalon Perle] 100 mg PO Q8H PRN #20 capsule 05/18/17 Unknown Rx Ibuprofen [Motrin] 600 mg PO Q8H PRN #30 tablet 05/18/17 Unknown Rx Cyclobenzaprine [Flexeril 10 MG 10 mg PO QHS PRN #20 tablet 07/08/17 Unknown Rx TAB] Ibuprofen 800 mg PO Q8HR PRN #20 tablet 07/08/17 Unknown Rx ED Review of Systems ROS: Stated complaint: RT WRIST PAIN Other details as noted in HPI Constitutional: denies: chills, fever Eyes: denies: eye pain, eye discharge, vision change ENT: denies: ear pain, throat pain Respiratory: denies: cough, shortness of breath, wheezing Cardiovascular: denies: chest pain, palpitations Endocrine: no symptoms reported Gastrointestinal: denies: abdominal pain, nausea, diarrhea Genitourinary: denies: urgency, dysuria, discharge Musculoskeletal: denies: back pain, joint swelling, arthralgia Skin: denies: rash, lesions Neurological: denies: headache, weakness, paresthesias Psychiatric: denies: anxiety, depression Hematological/Lymphatic: denies: easy bleeding, easy bruising Physical Exam - Physical Exam Vital Signs: Vital Signs 07/08/17 01:10 Temperature 98.8 F Pulse Rate 69 Respiratory 16 Rate Blood Pressure 162/79 O2 Sat by Pulse 100 Oximetry Physical Exam: GENERAL: Alert and oriented x3, no apparent distress, Normal Gait, atraumatic. HEAD: Head is normocephalic and a-traumatic. NECK: Supple. Non edematous, No lymphadenopathy or thyromegaly. No C-spine tenderness, full range of motion LUNGS: Symetrical with respiration, No wheezing, no rales or crackles, CTAB. HEART: S1, S2 present, regular rate and rhythm without murmur, no rubs, no gallops. Non tender to palpation EXTREMITIES/MUSCULOSKELETAL: No cyanosis, clubbing, rash, lesions or edema. Full ROM bilaterally. UE/LE Pulses 2+ bilaterally. LE and UE 5+ strength bilaterally, patient able to flex and extend her wrist with no problems NEUROLOGIC: The patient is cooperative with no focal neurologic deficits. SKIN: Warm and dry, No lesions, No ulceration or induration present. ED Course Vital Signs 07/08/17 01:10 Temperature 98.8 F Pulse Rate 69 Respiratory 16 Rate Blood Pressure 162/79 O2 Sat by Pulse 100 Oximetry ED Medical Decision Making - Radiology Data Radiology results: report reviewed, image reviewed FINAL REPORT EXAM: XR WRIST 2V RT HISTORY: right wrist pain TECHNIQUE: AP and lateral views of the right wrist were submitted. FINDINGS: There is no evidence of fracture or soft tissue injury. The navicular appears intact. IMPRESSION: Within normal limits. If there is a history recent trauma and persistent wrist pain, repeat imaging is recommended 7-10 days to evaluate for the possibility of occult fracture. Transcribed By: RB Dictated By: JANEY TAVARES MD Electronically Authenticated By: JANEY TAVARES MD Signed Date/Time: 07/08/17 0415 - Medical Decision Making 61-year-old female presents to ED withwrist pain ED course: Patient received x-rays in ED Vital signs are normal patient is in no acute distress Discussed with patient follow-up with primary care physician. Discussed the patient and take medications as prescribed. Patient has no neurological deficit. Patient is alert and oriented 3 and understands all instructions given. Discussed drowsiness effect of Flexeril makes her drowsy and not to operate machinery while taking flexeril Critical care attestation.: If time is entered above; I have spent that time in minutes in the direct care of this critically ill patient, excluding procedure time. ED Disposition Clinical Impression: Wrist pain, right Disposition: DC-01 TO HOME OR SELFCARE Is pt being admited?: No Does the pt Need Aspirin: No Condition: Stable Instructions: Arthralgia (ED) Additional Instructions: Make sure to follow up with the primary care physician as discussed. Take all your medications as you've been prescribed. If you have any worsening symptoms or develop new symptoms please return to ED immediately. Prescriptions: Cyclobenzaprine [Flexeril 10 MG TAB] 10 mg PO QHS PRN #20 tablet PRN Reason: Muscle Spasm Ibuprofen 800 mg PO Q8HR PRN #20 tablet PRN Reason: Pain Referrals: SHELBY KIDD MD [Primary Care Provider] - 3-5 Days [facility] [Outside] - 3-5 Days [facility] [Outside] - 3-5 Days Forms: Work/School Release Form(ED) Time of Disposition: 03:09
--- NOTE | 2017-07-08 04:21 | XRay Report ---
FINAL REPORT EXAM: XR WRIST 2V RT HISTORY: right wrist pain TECHNIQUE: AP and lateral views of the right wrist were submitted. FINDINGS: There is no evidence of fracture or soft tissue injury. The navicular appears intact. IMPRESSION: Within normal limits. If there is a history recent trauma and persistent wrist pain, repeat imaging is recommended 7-10 days to evaluate for the possibility of occult fracture.
== END 2017-07-08 03:15 | disposition home or self-care (01) ==
LOC: ED 00:34
DX: M25.531 Pain in right wrist (principal); I10 Essential (primary) hypertension; M19.90 Unspecified osteoarthritis, unspecified site; G89.29 Other chronic pain
CPT/HCPCS: 99283

== ENCOUNTER 2017-07-12 00:35 | Emergency (ER) | payer SELFPAY ==
[2017-07-12 05:32] VITALS: BP 161/70
== END 2017-07-12 07:14 ==
LOC: ED 00:35
DX: K08.89 Other specified disorders of teeth and supporting structures (principal); Z53.21 Procedure and treatment not carried out due to patient leaving prior to being seen by health care provider

== ENCOUNTER 2017-08-24 01:38 | Emergency (ER) | payer SELFPAY ==
[2017-08-24 01:51] VITALS: BP 172/66
--- NOTE | 2017-08-24 07:47 | Emergency Department Report ---
Blank Doc - Documentation Documentation: As I was going to examination room to examine this patient property preservation specialist Mr. Hendrickson informed me that patient had exited examination room and left. I checked the waiting room and called the patient twice the patient did not answer. Patient eloped from the ED before I had the opportunity to assess her.
== END 2017-08-24 07:41 | disposition left against medical advice (07) ==
LOC: ED 02:09
DX: R21 Rash and other nonspecific skin eruption (principal)

== ENCOUNTER 2017-09-20 02:08 | Emergency (ER) | payer SELFPAY ==
[2017-09-20 03:24] VITALS: BP 147/65
== END 2017-09-20 08:02 | disposition left against medical advice (07) ==
LOC: ED 02:08
DX: L29.9 Pruritus, unspecified (principal); Z53.21 Procedure and treatment not carried out due to patient leaving prior to being seen by health care provider

== ENCOUNTER 2018-05-18 01:15 | Emergency (ER) | payer SELFPAY ==
[2018-05-18 01:29] VITALS: BP 146/58
--- NOTE | 2018-05-18 02:07 | XRay Report ---
FINAL REPORT EXAM: XR ELBOW 2V LT HISTORY: left elbow pain TECHNIQUE: Two views of the left elbow is PRIORS: None. FINDINGS: The bones are normally aligned and mineralized. The joint spaces are well-preserved. There is no evid ence of acute fracture. The soft tissues are unremarkable. IMPRESSION: No evidence of acute fracture or subluxation.
[2018-05-18] MEDS ORDERED: TORADOL IM ONE (05:37)
--- NOTE | 2018-05-18 06:55 | Emergency Department Report ---
ED Upper Extremity Inj HPI - General Chief Complaint: Extremity Injury, Upper Stated Complaint: LEFT ARM PAIN Time Seen by Provider: 05/18/18 05:25 Source: patient Mode of arrival: Ambulatory Limitations: No Limitations - History of Present Illness Initial Comments: pt is a 62 y/o female who presents for left elbow and humerus pain for the past 2 days patient denies fall anterior, and a history of arthritis there is no chest pain or shortness of breath no dizziness no back pain no nausea vomiting no diaphoresis no fever or chills no cough pain is exacerbated by movement , pain radiates from left elbow radiating distally , there is no numbness no tingling no deformity no weakness pt denies relieving factors states recurring pain for years, however she has not taken otc nsaids for pain this episode. Complaint: Injury to:: left, elbow, forearm Onset/Timin -: days(s) Other Extremity Injury: Hand: Left, Elbow: Left, Forearm: Left Other Injuries: none Place: home Severity scale (0 -10): 5 Improves With: rest Worsens With: movement of extremity - Related Data Previous Rx's Medication Instructions Recorded Last Taken Type Butalb/Acetamin/Caff 50-325-40 1 tab PO Q6H #30 tablet 08/26/16 Unknown Rx [Fioricet] Hydrocortisone 1% [Hydrocortisone 1 applicatio TP TID PRN #1 tube 10/12/16 Unknown Rx 1% CREAM] Ketoconazole (Nf) [Ketoconazole 30 ml TP QDAY #1 shampoo 10/12/16 Unknown Rx Shampoo (Nf)] Selenium Sulfide/Menthol [Selsun 30 ml TP QDAY #1 shampoo 10/12/16 Unknown Rx Blue 1% Shampoo] HYDROcodone/APAP 5-325 [[place] 1 each PO Q6HR PRN #20 tablet 10/27/16 Unknown Rx 5/325] amLODIPine [Norvasc] 10 mg PO DAILY #30 tab 10/27/16 Unknown Rx Clotrimazole 1% [Lotrimin] 1 applic TP BID #1 tube 02/21/17 Unknown Rx Ibuprofen [Motrin 600 MG tab] 600 mg PO Q8H PRN #30 tablet 02/21/17 Unknown Rx Ibuprofen [Motrin 800 MG tab] 800 mg PO Q8HR PRN #30 tablet 02/25/17 Unknown Rx Amoxicillin/K Clav [Augmentin 1 tab PO Q12H 10 Days #20 tablet 03/31/17 Unknown Rx 500MG] Azithromycin [Zithromax Z-LUIS] 250 mg PO DAILY #6 tablet 05/18/17 Unknown Rx Benzonatate [Tessalon Perle] 100 mg PO Q8H PRN #20 capsule 05/18/17 Unknown Rx Ibuprofen [Motrin] 600 mg PO Q8H PRN #30 tablet 05/18/17 Unknown Rx Cyclobenzaprine [Flexeril 10 MG 10 mg PO QHS PRN #20 tablet 07/08/17 Unknown Rx TAB] Ibuprofen 800 mg PO Q8HR PRN #20 tablet 07/08/17 Unknown Rx Nitrofurantoin Monohyd/M-Cryst 100 mg PO BID #20 capsule 11/03/17 Unknown Rx [Macrobid 100 mg Capsule] traMADol [Ultram 50 MG tab] 50 mg PO Q6HR PRN #12 tablet 11/03/17 Unknown Rx Acetaminophen [Tylenol Extra 1,000 mg PO QID PRN #30 tablet 05/18/18 Unknown Rx Strength] Allergies Allergy/AdvReac Type Severity Reaction Status Date / Time No Known Allergies Allergy Verified 03/17/16 02:36 ED Review of Systems ROS: Stated complaint: LEFT ARM PAIN Other details as noted in HPI Constitutional: denies: chills, fever Eyes: denies: eye pain, eye discharge, vision change ENT: denies: ear pain, throat pain Respiratory: denies: cough, shortness of breath, wheezing Cardiovascular: denies: chest pain, palpitations Endocrine: no symptoms reported Gastrointestinal: denies: abdominal pain, nausea, diarrhea Genitourinary: denies: urgency, dysuria, discharge Musculoskeletal: arthralgia, myalgia Skin: denies: rash, lesions Neurological: denies: headache, weakness, numbness, paresthesias, confusion, abnormal gait, vertigo Psychiatric: denies: anxiety, depression Hematological/Lymphatic: denies: easy bleeding, easy bruising ED Past Medical Hx - Past Medical History Hx Hypertension: Yes Hx CVA: No Hx Heart Attack/AMI: No Hx Congestive Heart Failure: No Hx Diabetes: No Hx Deep Vein Thrombosis: No Hx Pulmonary Embolism: No Hx GERD: No Hx Liver Disease: No Hx Renal Disease: No Hx Sickle Cell Disease: No Hx Arthritis: Yes Hx Headaches / Migraines: No Hx Seizures: No Hx Kidney Stones: No Hx Psychiatric Treatment: No Hx Asthma: No Hx COPD: No Hx Dementia: No Hx HIV: No Additional medical history: stomach ulcers, muscle spasms in back, Chronic right shoulder pain /spasms. - Surgical History Hx Coronary Stent: No Hx Open Heart Surgery: No Hx Pacemaker: No Hx Internal Defibrillator: No Hx Cholecystectomy: No Hx Appendectomy: No Hx Breast Surgery: No Additional Surgical History: skin grafts, 1X, hysterectomy - Social History Smoking Status: Never Smoker Substance Use Type: None - Medications Home Medications: Home Medications Medication Instructions Recorded Confirmed Last Taken Type Butalb/Acetamin/Caff 50-325-40 1 tab PO Q6H #30 tablet 08/26/16 Unknown Rx [Fioricet] Hydrocortisone 1% [Hydrocortisone 1 applicatio TP TID PRN #1 tube 10/12/16 Unknown Rx 1% CREAM] Ketoconazole (Nf) [Ketoconazole 30 ml TP QDAY #1 shampoo 10/12/16 Unknown Rx Shampoo (Nf)] Selenium Sulfide/Menthol [Selsun 30 ml TP QDAY #1 shampoo 10/12/16 Unknown Rx Blue 1% Shampoo] HYDROcodone/APAP 5-325 [[place] 1 each PO Q6HR PRN #20 tablet 10/27/16 Unknown Rx 5/325] amLODIPine [Norvasc] 10 mg PO DAILY #30 tab 10/27/16 Unknown Rx Clotrimazole 1% [Lotrimin] 1 applic TP BID #1 tube 02/21/17 Unknown Rx Ibuprofen [Motrin 600 MG tab] 600 mg PO Q8H PRN #30 tablet 02/21/17 Unknown Rx Ibuprofen [Motrin 800 MG tab] 800 mg PO Q8HR PRN #30 tablet 02/25/17 Unknown Rx Amoxicillin/K Clav [Augmentin 1 tab PO Q12H 10 Days #20 tablet 03/31/17 Unknown Rx 500MG] Azithromycin [Zithromax Z-LUIS] 250 mg PO DAILY #6 tablet 05/18/17 Unknown Rx Benzonatate [Tessalon Perle] 100 mg PO Q8H PRN #20 capsule 05/18/17 Unknown Rx Ibuprofen [Motrin] 600 mg PO Q8H PRN #30 tablet 05/18/17 Unknown Rx Cyclobenzaprine [Flexeril 10 MG 10 mg PO QHS PRN #20 tablet 07/08/17 Unknown Rx TAB] Ibuprofen 800 mg PO Q8HR PRN #20 tablet 07/08/17 Unknown Rx Nitrofurantoin Monohyd/M-Cryst 100 mg PO BID #20 capsule 11/03/17 Unknown Rx [Macrobid 100 mg Capsule] traMADol [Ultram 50 MG tab] 50 mg PO Q6HR PRN #12 tablet 11/03/17 Unknown Rx Acetaminophen [Tylenol Extra 1,000 mg PO QID PRN #30 tablet 05/18/18 Unknown Rx Strength] ED Physical Exam - General Limitations: No Limitations General appearance: alert, in no apparent distress - Head Head exam: Present: atraumatic, normocephalic - Eye Eye exam: Present: normal appearance, PERRL, EOMI - ENT ENT exam: Present: mucous membranes moist - Neck Neck exam: Present: normal inspection, full ROM. Absent: tenderness, meningismus, lymphadenopathy, thyromegaly - Expanded Neck Exam Expanded Neck exam: Absent: tenderness, midline deformity, anterior neck swelling, thyroid mass, carotid bruit, tracheal deviation - Respiratory Respiratory exam: Present: normal lung sounds bilaterally. Absent: respiratory distress, wheezes, stridor, chest wall tenderness - Cardiovascular Cardiovascular Exam: Present: regular rate, normal rhythm, normal heart sounds. Absent: systolic murmur, diastolic murmur, rubs, gallop - GI/Abdominal GI/Abdominal exam: Present: soft, normal bowel sounds. Absent: distended, bruit, hernia - Rectal Rectal exam: Present: deferred - Extremities Exam Extremities exam: Present: normal inspection, tenderness (left lateral elbow ), normal capillary refill. Absent: pedal edema, joint swelling, calf tenderness - Expanded Upper Extremity Exam Left Upper Arm exam: Present: full ROM, tenderness. Absent: swelling, abrasion, laceration, ecchymosis, deformity, crepidus, dislocation, erythema Elbow exam: Present: full ROM, tenderness, pain w/ pronation/supination. Absent: swelling, abrasion, laceration, ecchymosis, deformity, crepidus, dislocation, tenderness over radial head Forearm Wrist exam: Present: normal inspection, full ROM. Absent: tenderness, swelling, abrasion, laceration, ecchymosis, deformity, crepidus, dislocation, erythema, tenderness over anatomical snuff box, pain with axial thumb loading Hand Wrist exam: Present: normal inspection, full ROM. Absent: tenderness, swelling, abrasion, laceration, ecchymosis, deformity, erythema, amputation, nail avulsion, subungual hematoma Neuro motor exam: Present: thumb opposition intact, thumb IP flexion intact, thumb adduction intact, fingers 2-5 abduction intact Neurosensory exam: Present: 2-point discrimination, radial nerve intact, ulnar nerve intact, median nerve intact Vascular: Present: normal capillary refill, radial pulse, brachial pulse, ulnar pulse. Absent: vascular compromise, pulse deficit radial art, pulse deficit ulnar art, pulse deficit brachial art - Back Exam Back exam: Present: normal inspection, full ROM. Absent: tenderness, CVA tenderness (R), CVA tenderness (L), muscle spasm, paraspinal tenderness, vertebral tenderness, rash noted - Neurological Exam Neurological exam: Present: alert, oriented X3, CN II-XII intact, normal gait, reflexes normal - Expanded Neurological Exam Expanded Patient oriented to: Present: person, place, time Speech: Present: fluid speech Cerebellar function: Finger to Nose: Normal Upper motor neuron: Puma Neglect: Normal, Pronator Drift: Normal, Sensory Extinction: Normal Sensory exam: Upper Extremity Light Touch: Normal, Upper Extremity Pin Prick: Normal, Upper Extremity Temperature: Normal, UE 2 Point Discrimination: Normal Motor strength exam: RUE: 5, LUE: 5 DTR: bicep (R): 2+, bicep (L): 2+, tricep (R): 2+, tricep (L): 2+ Best Eye Response ([place]): (4) open spontaneously Best Motor Response ([place]): (6) obeys commands Best Verbal Response (Arthur): (5) oriented Arthur Total: 15 - Psychiatric Psychiatric exam: Present: normal affect, normal mood - Skin Skin exam: Present: warm, dry, intact, normal color. Absent: rash ED Course Vital Signs 05/18/18 01:28 Temperature 98.3 F Pulse Rate 78 Respiratory 16 Rate Blood Pressure 146/58 [Left] O2 Sat by Pulse 100 Oximetry ED Medical Decision Making - Radiology Data Radiology results: report reviewed, image reviewed FINAL REPORT EXAM: XR ELBOW 2V LT HISTORY: left elbow pain TECHNIQUE: Two views of the left elbow is PRIORS: None. FINDINGS: The bones are normally aligned and mineralized. The joint spaces are well- preserved. There is no evidence of acute fracture. The soft tissues are unremarkable. IMPRESSION: No evidence of acute fracture or subluxation. Transcribed By: TALI Dictated By: AUGUSTUS GALVEZ MD Electronically Authenticated By: AUGUSTUS GALVEZ MD Signed Date/Time: 05/18/18206 DD/ 5 TD/TT: 05/18/18205 - Medical Decision Making Patient is 100% resolved is no tenderness time grossly 5/5 distal pulses are intact [employer] less than 3 seconds bilateral there is no swelling no wounds, rom intact and unrestricted, plan DC home with Tylenol Extra Strength when necessary for pain , this was a rapid resolution of pain after rest patient did however bring multiple bags on questioning that she does have a safe. She lives with her sister sister to pick her up this a.m. patient does appear well-nourished well-hydrated nontoxic will DC to home in stable condition with prescription for Tylenol arthritis patient verbalized agreement and understanding and signed patient given referral to [facility] for PCP affiliation S she states she has a [place] doctor but can't remember his or her neck Critical care attestation.: If time is entered above; I have spent that time in minutes in the direct care of this critically ill patient, excluding procedure time. ED Disposition Clinical Impression: Arthralgia Qualifiers: Joint pain location: elbow Laterality: left Qualified Code(s): M25.522 - Pain in left elbow Disposition: DC-01 TO HOME OR SELFCARE Is pt being admited?: No Does the pt Need Aspirin: No Condition: Stable Instructions: Arthralgia (ED) Prescriptions: Acetaminophen [Tylenol Extra Strength] 1,000 mg PO QID PRN #30 tablet PRN Reason: pain [facility] [Primary Care Provider] - 3-5 Days Forms: Work/School Release Form(ED) Time of Disposition: 07:05
== END 2018-05-18 07:35 | disposition home or self-care (01) ==
LOC: ED 01:15
DX: M25.522 Pain in left elbow (principal); I10 Essential (primary) hypertension
CPT/HCPCS: 73070; 96372; 99283; J1885

== ENCOUNTER 2018-05-28 00:52 | Emergency (ER) | payer OTHER ==
[2018-05-28 01:02] VITALS: BP 159/63
--- NOTE | 2018-05-28 02:04 | XRay Report ---
PROCEDURE: XR CHEST ROUTINE 2V TECHNIQUE: PA and lateral views of the chest were obtained. HISTORY: chest pain with cough COMPARISONS: None available FINDINGS: The heart is mildly enlarged. The lungs are not congested. There are no infiltrates or effusions. The skeletal structures reveal a dextroscoliosis of the mid dorsal spine. IMPRESSION: Cardiomegaly. No acute cardiopulmonary process.. This document is electronically signed by Pawel Castle MD., May 28 2018 02:01:53 AM ET
[2018-05-28 03:48] LABS: Hematocrit 29.8 % (30.3-42.9); Hemoglobin 9.3 gm/dl (10.1-14.3); Mean Corpuscular HGB Conc 31 % (30-34); Platelet Count 231 K/mm3 (140-440); Red Blood Count 4.38 M/mm3 (3.65-5.03); Red Cell Distribution Width 18.7 % (13.2-15.2)
[2018-05-28 03:50] LABS: Mean Corpuscular Volume 68 fl (79-97)
[2018-05-28 04:07] LABS: Alanine Aminotransferase 13 units/L (7-56); Albumin 3.6 g/dL (3.9-5); BUN/Creatinine Ratio 73; Blood Urea Nitrogen 22 mg/dL (7-17); Calcium 8.6 mg/dL (8.4-10.2); Hemolysis Index 36
[2018-05-28 04:47] LABS: Anisocytosis 1+; Total Cells Counted 100
[2018-05-28 04:48] LABS: Hypochromasia 1+; Ovalocytes Few; Platelet Estimate Consistent w Auto
--- NOTE | 2018-05-28 05:20 | Emergency Department Report ---
<THIERNORUSTAM - Last Filed: 05/28/18 05:15> ED Chest Pain HPI - General Chief Complaint: Chest Pain Stated Complaint: CHEST PAIN SOB Time Seen by Provider: 05/28/18 03:25 Source: patient Mode of arrival: Ambulatory Limitations: No Limitations - History of Present Illness Initial Comments: Cyclically toe elevated [place] female who is emergency department complaining of a 2 day history of episodic sternal pain sharp in nature, associated with occasional burning in the chest and occasional shortness of breath. Also a ssociated with a nonproductive cough. She denies any fevers, chills, sweats, hemoptysis, hematemesis, hematochezia, trauma, sore throat, abdominal pain, flank pain, new medications, uncontrolled hypertension, illicit drug use. There is no palliative or provocative factors noted with the exception of she does express a lot of discomfort when she palpates to sternal border of her chest. MD Complaint: chest pain -: Gradual Onset: during rest Pain Location: substernal Pain Radiation: none Severity: mild Severity scale (0 -10): 4 Quality: sharp Consistency: intermittent re: denies: vomting, diaphoresis, dyspnea, sense of impending doom Treatments Prior to Arrival: none - Related Data Previous Rx's Medication Instructions Recorded Last Taken Type Butalb/Acetamin/Caff 50-325-40 1 tab PO Q6H #30 tablet 08/26/16 Unknown Rx [Fioricet] Hydrocortisone 1% [Hydrocortisone 1 applicatio TP TID PRN #1 tube 10/12/16 Unknown Rx 1% CREAM] Ketoconazole (Nf) [Ketoconazole 30 ml TP QDAY #1 shampoo 10/12/16 Unknown Rx Shampoo (Nf)] Selenium Sulfide/Menthol [[place]els[place] 30 ml TP QDAY #1 shampoo 10/12/16 Unknown Rx Blue 1% Shampoo] HYDROcodone/APAP 5-325 [[place] 1 each PO Q6HR PRN #20 tablet 10/27/16 Unknown Rx 5/325] amLODIPine [Norvasc] 10 mg PO DAILY #30 tab 10/27/16 Unknown Rx Clotrimazole 1% [Lotrimin] 1 applic TP BID #1 tube 02/21/17 Unknown Rx Ibuprofen [Motrin 600 MG tab] 600 mg PO Q8H PRN #30 tablet 02/21/17 Unknown Rx Ibuprofen [Motrin 800 MG tab] 800 mg PO Q8HR PRN #30 tablet 02/25/17 Unknown Rx Amoxicillin/K Clav [Augmentin 1 tab PO Q12H 10 Days #20 tablet 03/31/17 Unknown Rx 500MG] Azithromycin [Zithromax Z-LUIS] 250 mg PO DAILY #6 tablet 05/18/17 Unknown Rx Benzonatate [Tessalon Perle] 100 mg PO Q8H PRN #20 capsule 05/18/17 Unknown Rx Ibuprofen [Motrin] 600 mg PO Q8H PRN #30 tablet 05/18/17 Unknown Rx Cyclobenzaprine [Flexeril 10 MG 10 mg PO QHS PRN #20 tablet 07/08/17 Unknown Rx TAB] Ibuprofen 800 mg PO Q8HR PRN #20 tablet 07/08/17 Unknown Rx Nitrofurantoin Monohyd/M-Cryst 100 mg PO BID #20 capsule 11/03/17 Unknown Rx [Macrobid 100 mg Capsule] traMADol [Ultram 50 MG tab] 50 mg PO Q6HR PRN #12 tablet 11/03/17 Unknown Rx Acetaminophen [Tylenol Extra 1,000 mg PO QID PRN #30 tablet 05/18/18 Unknown Rx Strength] Acetaminophen [Tylenol Extra 1,000 mg PO QID PRN #30 tablet 05/28/18 Unknown Rx Strength] Allergies Allergy/AdvReac Type Severity Reaction Status Date / Time No Known Allergies Allergy Verified 03/17/16 02:36 Heart Score - HEART Score EKG: Normal Age: 45-65 Risk factors: 1-2 risk factors Troponin: < normal limit ED Review of Systems Constitutional: denies: chills, fever Eyes: denies: eye pain, eye discharge, vision change ENT: denies: ear pain, throat pain Respiratory: denies: cough, shortness of breath, wheezing Cardiovascular: chest pain. denies: palpitations Endocrine: no symptoms reported Gastrointestinal: denies: abdominal pain, nausea, diarrhea Genitourinary: denies: urgency, dysuria, discharge Musculoskeletal: denies: back pain, joint swelling, arthralgia Skin: denies: rash, lesions Neurological: denies: headache, weakness, paresthesias Psychiatric: denies: anxiety, depression Hematological/Lymphatic: denies: easy bleeding, easy bruising ED Past Medical Hx - Past Medical History Previous Medical History?: Yes Hx Hypertension: Yes Hx CVA: No Hx Heart Attack/AMI: No Hx Congestive Heart Failure: No Hx Diabetes: No Hx Deep Vein Thrombosis: No Hx Pulmonary Embolism: No Hx GERD: No Hx Liver Disease: No Hx Renal Disease: No Hx Sickle Cell Disease: No Hx Arthritis: Yes Hx Headaches / Migraines: No Hx Seizures: No Hx Kidney Stones: No Hx Psychiatric Treatment: No Hx Asthma: No Hx COPD: No Hx Dementia: No Hx HIV: No Additional medical history: stomach ulcers, muscle spasms in back, Chronic right shoulder pain /spasms. - Surgical History Past Surgical History?: Yes Hx Coronary Stent: No Hx Open Heart Surgery: No Hx Pacemaker: No Hx Internal Defibrillator: No Hx Cholecystectomy: No Hx Appendectomy: No Hx Breast Surgery: No Additional Surgical History: skin grafts, 1X, hysterectomy - Social History Smoking Status: Never Smoker Substance Use Type: None - Medications Home Medications: Home Medications Medication Instructions Recorded Confirmed Last Taken Type Butalb/Acetamin/Caff 50-325-40 1 tab PO Q6H #30 tablet 08/26/16 Unknown Rx [Fioricet] Hydrocortisone 1% [Hydrocortisone 1 applicatio TP TID PRN #1 tube 10/12/16 Unknown Rx 1% CREAM] Ketoconazole (Nf) [Ketoconazole 30 ml TP QDAY #1 shampoo 10/12/16 Unknown Rx Shampoo (Nf)] Selenium Sulfide/Menthol [Selsun 30 ml TP QDAY #1 shampoo 10/12/16 Unknown Rx Blue 1% Shampoo] HYDROcodone/APAP 5-325 [[place] 1 each PO Q6HR PRN #20 tablet 10/27/16 Unknown Rx 5/325] amLODIPine [Norvasc] 10 mg PO DAILY #30 tab 10/27/16 Unknown Rx Clotrimazole 1% [Lotrimin] 1 applic TP BID #1 tube 02/21/17 Unknown Rx Ibuprofen [Motrin 600 MG tab] 600 mg PO Q8H PRN #30 tablet 02/21/17 Unknown Rx Ibuprofen [Motrin 800 MG tab] 800 mg PO Q8HR PRN #30 tablet 02/25/17 Unknown Rx Amoxicillin/K Clav [Augmentin 1 tab PO Q12H 10 Days #20 tablet 03/31/17 Unknown Rx 500MG] Azithromycin [Zithromax Z-LUIS] 250 mg PO DAILY #6 tablet 05/18/17 Unknown Rx Benzonatate [Tessalon Perle] 100 mg PO Q8H PRN #20 capsule 05/18/17 Unknown Rx Ibuprofen [Motrin] 600 mg PO Q8H PRN #30 tablet 05/18/17 Unknown Rx Cyclobenzaprine [Flexeril 10 MG 10 mg PO QHS PRN #20 tablet 07/08/17 Unknown Rx TAB] Ibuprofen 800 mg PO Q8HR PRN #20 tablet 07/08/17 Unknown Rx Nitrofurantoin Monohyd/M-Cryst 100 mg PO BID #20 capsule 11/03/17 Unknown Rx [Macrobid 100 mg Capsule] traMADol [Ultram 50 MG tab] 50 mg PO Q6HR PRN #12 tablet 11/03/17 Unknown Rx Acetaminophen [Tylenol Extra 1,000 mg PO QID PRN #30 tablet 05/18/18 Unknown Rx Strength] Acetaminophen [Tylenol Extra 1,000 mg PO QID PRN #30 tablet 05/28/18 Unknown Rx Strength] ED Physical Exam - General Limitations: No Limitations General appearance: alert, in no apparent distress - Head Head exam: Present: atraumatic, normocephalic - Eye Eye exam: Present: normal appearance, PERRL - ENT ENT exam: Present: mucous membranes moist - Neck Neck exam: Present: normal inspection - Respiratory Respiratory exam: Present: normal lung sounds bilaterally. Absent: respiratory distress - Cardiovascular Cardiovascular Exam: Present: regular rate, normal rhythm. Absent: systolic murmur, diastolic murmur, rubs, gallop - GI/Abdominal GI/Abdominal exam: Present: soft, normal bowel sounds - Extremities Exam Extremities exam: Present: normal inspection - Back Exam Back exam: Present: normal inspection - Neurological Exam Neurological exam: Present: alert, oriented X3 - Psychiatric Psychiatric exam: Present: normal affect, normal mood - Skin Skin exam: Present: warm, dry, intact, normal color. Absent: rash GABRIEL score - Gabriel Score Age > 65: (0) No Aspirin use within the Past 7 Days: (0) No 3 or more CAD Risk Factors: (0) No 2 or more Angina events in past 24 hrs: (1) Yes Known CAD with more than 50% Stenosis: (0) No Elevated Cardiac Markers: (0) No ST Deviation Greater than 0.5mm: (0) No GABRIEL Score: 1 ED Medical Decision Making - Lab Data Result diagrams: 05/28/18 03:29 05/28/18 03:29 - Radiology Data Radiology results: report reviewed (chest x-ray is consistent with cardiomegaly, no acute car cardiopulmonary processes noted. No effusions. No infiltrate.) - Medical Decision Making She is resting in the bed comfortably in no acute distress. Vital signs signs are stable. The first set of cardiac. Cardiac markers are normal in conjunc tion with a relatively normal chest x-ray and EKG plated. I will sign patient out to the mid-level provider overnight to really evaluate her second set of cardiac enzymes and if negative, but anticipate she'll be able to follow with cardiology for a stress test in and further evaluation for this chest pain which is likely musculoskeletal or GI related ED Disposition Clinical Impression: Chest pain Qualifiers: Chest pain type: unspecified Qualified Code(s): R07.9 - Chest pain, unspecified Disposition: - TO HOME OR SELFCARE Is pt being admited?: No Does the pt Need Aspirin: No Condition: Stable Instructions: Chest Pain (ED) Prescriptions: Acetaminophen [Tylenol Extra Strength] 1,000 mg PO QID PRN #30 tablet PRN Reason: pain [facility] - 3-5 Days Forms: Work/School Release Form(ED) <MIRIAM POWER - Last Filed: 05/28/18 07:17> Heart Score - HEART Score History: Slightly suspicious - Critical Actions Critical Actions: 0-3 pts:0.9-1.7%risk of adverse cardiac event.Candidate for discharge ED Review of Systems ROS: Stated complaint: CHEST PAIN SOB Other details as noted in HPI ED Course Vital Signs 05/28/18 01:01 Temperature 97.5 F L Pulse Rate 74 Respiratory 20 Rate Blood Pressure 159/63 O2 Sat by Pulse 100 Oximetry ED Medical Decision Making - Lab Data Result diagrams: 05/28/18 03:29 05/28/18 03:29 - EKG Data Interpretation: normal EKG - Radiology Data c: ED DOCMD Fluoro Time In Minutes: PROCEDURE: XR CHEST ROUTINE 2V TECHNIQUE: PA and lateral views of the chest were obtained. HISTORY: chest pain with cough COMPARISONS: None available FINDINGS: The heart is mildly enlarged. The lungs are not congested. There are no infiltrates or effusions. The skeletal structures reveal a dextroscoliosis of the mid dorsal spine. IMPRESSION: Cardiomegaly. No acute cardiopulmonary process.. This doc Critical care attestation.: If time is entered above; I have spent that time in minutes in the direct care of this critically ill patient, excluding procedure time. ED Disposition Is pt being admited?: No Does the pt Need Aspirin: No Time of Disposition: 07:10
== END 2018-05-28 07:30 | disposition home or self-care (01) ==
LOC: ED 00:52
DX: R07.2 Precordial pain (principal); I10 Essential (primary) hypertension; M19.90 Unspecified osteoarthritis, unspecified site; M25.511 Pain in right shoulder; G89.29 Other chronic pain; Z90.710 Acquired absence of both cervix and uterus
CPT/HCPCS: 36415; 71046; 80053; 83690; 84484; 85007; 85025; 93005; 93010; 99284

== ENCOUNTER 2018-11-22 01:42 | Emergency (ER) | payer SELFPAY ==
[2018-11-22 02:19] VITALS: BP 142/58
--- NOTE | 2018-11-22 05:46 | Emergency Department Report ---
ED Lower Extremity HPI - General Chief Complaint: Extremity Injury, Lower Stated Complaint: RIGHT LEG AND KNEE Time Seen by Provider: 11/22/18 05:26 Source: patient Mode of arrival: Ambulatory Limitations: No Limitations - History of Present Illness Initial Comments: 63-year-old -[place] female presents to the emergency room complaining of right leg and right knee pain 1 month. Patient states that she had a fall last month. Patient reports she has rubbed muscle rub on her leg it does help. Patient has not taken any oral anti-pain medication. Onset/Timin -: month(s) Injury: Leg: Right, Knee: Right Type of Injury: blunt Place: street/outdoors Severity scale (0 -10): 9 Improves With: other (muscle rub) Context: fall - Related Data Previous Rx's Medication Instructions Recorded Last Taken Type Butalb/Acetamin/Caff 50-325-40 1 tab PO Q6H #30 tablet 08/26/16 Unknown Rx [Fioricet 50-325-40] Hydrocortisone 1% [Hydrocortisone 1 applicatio TP TID PRN #1 tube 10/12/16 Unknown Rx 1% CREAM] Ketoconazole (Nf) [Ketoconazole 30 ml TP QDAY #1 shampoo 10/12/16 Unknown Rx Shampoo (Nf)] Selenium Sulfide/Menthol [Selsun 30 ml TP QDAY #1 shampoo 10/12/16 Unknown Rx Blue 1% Shampoo] HYDROcodone/APAP 5-325 [[place] 1 each PO Q6HR PRN #20 tablet 10/27/16 Unknown Rx 5/325] amLODIPine [Norvasc] 10 mg PO DAILY #30 tab 10/27/16 Unknown Rx Clotrimazole 1% [Lotrimin] 1 applic TP BID #1 tube 02/21/17 Unknown Rx Ibuprofen [Motrin 600 MG tab] 600 mg PO Q8H PRN #30 tablet 02/21/17 Unknown Rx Ibuprofen [Motrin 800 MG tab] 800 mg PO Q8HR PRN #30 tablet 02/25/17 Unknown Rx Amoxicillin/K Clav [Augmentin 1 tab PO Q12H 10 Days #20 tablet 03/31/17 Unknown Rx 500MG] Azithromycin [Zithromax Z-LUIS] 250 mg PO DAILY #6 tablet 05/18/17 Unknown Rx Benzonatate [Tessalon Perle] 100 mg PO Q8H PRN #20 capsule 05/18/17 Unknown Rx Ibuprofen [Motrin] 600 mg PO Q8H PRN #30 tablet 05/18/17 Unknown Rx Cyclobenzaprine [Flexeril 10 MG 10 mg PO QHS PRN #20 tablet 07/08/17 Unknown Rx TAB] Ibuprofen [Ibuprofen 800] 800 mg PO Q8HR PRN #20 tablet 07/08/17 Unknown Rx Nitrofurantoin Monohyd/M-Cryst 100 mg PO BID #20 capsule 11/03/17 Unknown Rx [Macrobid 100 mg Capsule] traMADol [Ultram 50 MG tab] 50 mg PO Q6HR PRN #12 tablet 11/03/17 Unknown Rx Acetaminophen [Tylenol Extra 1,000 mg PO QID PRN #30 tablet 05/18/18 Unknown Rx Strength] Acetaminophen [Tylenol Extra 1,000 mg PO QID PRN #30 tablet 05/28/18 Unknown Rx Strength] Ibuprofen [Motrin 600 MG tab] 600 mg PO Q8H PRN #15 tablet 11/22/18 Unknown Rx Allergies Allergy/AdvReac Type Severity Reaction Status Date / Time No Known Allergies Allergy Verified 03/17/16 02:36 ED Review of Systems ROS: Stated complaint: RIGHT LEG AND KNEE Other details as noted in HPI Comment: All other systems reviewed and negative ED Past Medical Hx - Past Medical History Previous Medical History?: Yes Hx Hypertension: Yes Hx CVA: No Hx Heart Attack/AMI: No Hx Congestive Heart Failure: No Hx Diabetes: No Hx Deep Vein Thrombosis: No Hx Pulmonary Embolism: No Hx GERD: No Hx Liver Disease: No Hx Renal Disease: No Hx Sickle Cell Disease: No Hx Arthritis: Yes Hx Headaches / Migraines: No Hx Seizures: No Hx Kidney Stones: No Hx Psychiatric Treatment: No Hx Asthma: No Hx COPD: No Hx Dementia: No Hx HIV: No Additional medical history: stomach ulcers, muscle spasms in back, Chronic right shoulder pain /spasms. - Surgical History Past Surgical History?: Yes Hx Coronary Stent: No Hx Open Heart Surgery: No Hx Pacemaker: No Hx Internal Defibrillator: No Hx Cholecystectomy: No Hx Appendectomy: No Hx Breast Surgery: No Additional Surgical History: skin grafts, 1X, hysterectomy - Social History Smoking Status: Never Smoker Substance Use Type: None - Medications Home Medications: Home Medications Medication Instructions Recorded Confirmed Last Taken Type Butalb/Acetamin/Caff 50-325-40 1 tab PO Q6H #30 tablet 08/26/16 Unknown Rx [Fioricet 50-325-40] Hydrocortisone 1% [Hydrocortisone 1 applicatio TP TID PRN #1 tube 10/12/16 Unknown Rx 1% CREAM] Ketoconazole (Nf) [Ketoconazole 30 ml TP QDAY #1 shampoo 10/12/16 Unknown Rx Shampoo (Nf)] Selenium Sulfide/Menthol [Selsun 30 ml TP QDAY #1 shampoo 10/12/16 Unknown Rx Blue 1% Shampoo] HYDROcodone/APAP 5-325 [[place] 1 each PO Q6HR PRN #20 tablet 10/27/16 Unknown Rx 5/325] amLODIPine [Norvasc] 10 mg PO DAILY #30 tab 10/27/16 Unknown Rx Clotrimazole 1% [Lotrimin] 1 applic TP BID #1 tube 02/21/17 Unknown Rx Ibuprofen [Motrin 600 MG tab] 600 mg PO Q8H PRN #30 tablet 02/21/17 Unknown Rx Ibuprofen [Motrin 800 MG tab] 800 mg PO Q8HR PRN #30 tablet 02/25/17 Unknown Rx Amoxicillin/K Clav [Augmentin 1 tab PO Q12H 10 Days #20 tablet 03/31/17 Unknown Rx 500MG] Azithromycin [Zithromax Z-LUIS] 250 mg PO DAILY #6 tablet 05/18/17 Unknown Rx Benzonatate [Tessalon Perle] 100 mg PO Q8H PRN #20 capsule 05/18/17 Unknown Rx Ibuprofen [Motrin] 600 mg PO Q8H PRN #30 tablet 05/18/17 Unknown Rx Cyclobenzaprine [Flexeril 10 MG 10 mg PO QHS PRN #20 tablet 07/08/17 Unknown Rx TAB] Ibuprofen [Ibuprofen 800] 800 mg PO Q8HR PRN #20 tablet 07/08/17 Unknown Rx Nitrofurantoin Monohyd/M-Cryst 100 mg PO BID #20 capsule 11/03/17 Unknown Rx [Macrobid 100 mg Capsule] traMADol [Ultram 50 MG tab] 50 mg PO Q6HR PRN #12 tablet 11/03/17 Unknown Rx Acetaminophen [Tylenol Extra 1,000 mg PO QID PRN #30 tablet 05/18/18 Unknown Rx Strength] Acetaminophen [Tylenol Extra 1,000 mg PO QID PRN #30 tablet 05/28/18 Unknown Rx Strength] Ibuprofen [Motrin 600 MG tab] 600 mg PO Q8H PRN #15 tablet 11/22/18 Unknown Rx ED Physical Exam - General Limitations: No Limitations General appearance: alert, in no apparent distress - Head Head exam: Present: atraumatic, normocephalic - Eye Eye exam: Present: normal appearance - ENT ENT exam: Present: mucous membranes moist - Expanded Lower Extremity Exam Right Knee exam: Present: full ROM, tenderness. Absent: swelling, deformity, erythema Lower Leg exam: Present: full ROM Neuro vascular tendon exam: Present: no vascular compromise - Neurological Exam Neurological exam: Present: alert, oriented X3 - Psychiatric Psychiatric exam: Present: normal affect, normal mood - Skin Skin exam: Present: warm, dry, intact, normal color. Absent: rash ED Course Vital Signs 11/22/18 11/22/18 01:45 06:00 Temperature 98.7 F Pulse Rate 80 77 Respiratory 16 17 Rate Blood Pressure 142/58 O2 Sat by Pulse 100 100 Oximetry ED Lower Extremity MDM - Medical Decision Making 63-year-old -[place] female presents to the emergency room complaining of right leg and right knee pain 1 month. Patient states that she had a fall last month. Patient reports him as she places limited or muscle rub on her leg it does help. Patient has not taken any oral anti-pain medication. Patient will be placed on ibuprofen for pain management. Critical care attestation.: If time is entered above; I have spent that time in minutes in the direct care of this critically ill patient, excluding procedure time. ED Disposition Clinical Impression: Arthritis, Right leg pain Disposition: DC-01 TO HOME OR SELFCARE Is pt being admited?: No Does the pt Need Aspirin: No Condition: Stable Instructions: Arthralgia (ED) Additional Instructions: Please take pain medication as needed. Follow-up with orthopedic provider or primary care provider. Prescriptions: Ibuprofen [Motrin 600 MG tab] 600 mg PO Q8H PRN #15 tablet PRN Reason: Pain Referrals: CHARLES WOOD MD [Primary Care Provider] - 3-5 Days JANEY DE LEON MD [Staff Physician] - 3-5 Days
== END 2018-11-22 06:00 | disposition home or self-care (01) ==
LOC: ED 01:42
DX: M13.861 Other specified arthritis, right knee (principal); I10 Essential (primary) hypertension; G89.29 Other chronic pain; Z98.890 Other specified postprocedural states; Z90.710 Acquired absence of both cervix and uterus; Z79.899 Other long term (current) drug therapy
CPT/HCPCS: 99282

== ENCOUNTER 2019-06-21 01:33 | Emergency (ER) | payer SELFPAY ==
[2019-06-21] MEDS ORDERED: predniSONE 20 MG TAB PO ONE (02:35)
--- NOTE | 2019-06-21 02:44 | Emergency Department Report ---
Chief Complaint: Extremity Problem,Nontraumatic Stated Complaint: RT UPPER ARM/SHOULDER PAIN Time Seen by Provider: 06/21/19 02:26 - HPI History of Present Illness: This is a 63-year-old female who presents to the ED complaining of right elbow and upper arm pain for the past week. Patient states that she has a history of arthritis which flares up once in a while. Patient denies any history of gout or any other injuries or trauma to the arm. Patient states that she normally goes to [place] but was told to come and have it looked at. Patient denies any swelling to the right elbow or arm. She describes pain as throbbing and aching in nature localized to the elbow. - ROS Review of Systems: As noted in HPI - Exam Vital Signs: Vital Signs 06/21/19 01:42 Temperature 98.5 F Pulse Rate 79 Respiratory 18 Rate Blood Pressure 155/66 O2 Sat by Pulse 100 Oximetry Physical Exam: GENERAL: Alert and oriented x3, no apparent distress, Normal Gait, atraumatic. EXTREMITIES/MUSCULOSKELETAL: No cyanosis, clubbing, rash, lesions or edema of all joints. Full ROM bilaterally. UE/LE Pulses 2+ bilaterally. LE and UE 5+ strength bilaterally, elbow joint NEUROLOGIC: The patient is cooperative with no focal neurologic deficits. SKIN: Warm and dry, No lesions, No ulceration or induration present. MSE screening note: Focused history and physical exam performed. Due to findings the following was ordered: ED Disposition for MSE Clinical Impression: Elbow pain, right, Arthritis Disposition: Z-07 MED SCREENING EXAM-LEFT Is pt being admited?: No Does the pt Need Aspirin: No Condition: Stable Instructions: Osteoarthritis (ED) Additional Instructions: Make sure to follow up with the primary care physician as discussed. Take all your medications as you've been prescribed. If you have any worsening symptoms or develop new symptoms please return to ED immediately. Prescriptions: methOCARBAMOL [Robaxin TAB] 500 mg PO BID #20 tab Referrals: PRIMARY CARE, [Primary Care Provider] - 3-5 Days [facility] [Outside] - 3-5 Days [facility] [Outside] - 3-5 Days [facility] [Outside] - 3-5 Days Forms: Work/School Release Form(ED) Time of Disposition: 02:48
[2019-06-21 03:07] VITALS: BP 147/79
== END 2019-06-21 03:07 | disposition left against medical advice (07) ==
LOC: ED 01:33
DX: M13.821 Other specified arthritis, right elbow (principal)
CPT/HCPCS: 99282; J7512

== ENCOUNTER 2019-07-07 01:33 | Emergency (ER) | payer SELFPAY ==
[2019-07-07] MEDS ORDERED: ASPIRIN 325 MG TAB PO ONE (01:41)
--- NOTE | 2019-07-07 02:18 | XRay Report ---
CHEST 1 VIEW 07/07/2019 2:01 AM INDICATION / CLINICAL INFORMATION: Chest Pain. COMPARISON: 05/28/18 FINDINGS: SUPPORT DEVICES: None. HEART / MEDIASTINUM: Heart is mildly enlarged but stable. Mild pulmonary venous hypertension. LUNGS / PLEURA: No significant pulmonary or pleural abnormality. No pneumothorax. ADDITIONAL FINDINGS: No significant additional findings. IMPRESSION: 1. Mild cardiomegaly but no acute pulmonary or pleural findings. Signer Name: Regis Horne MD Signed: 07/07/2019 2:13 AM Workstation Name: [id number]
[2019-07-07 02:32] LABS: Basophils # (Auto) 0.1 K/mm3 (0.0-0.1); Basophils % (Auto) 1.1 % (0.0-1.8); Eosinophils # (Auto) 0.1 K/mm3 (0.0-0.4); Eosinophils % (Auto) 1.6 % (0.0-4.3); Hematocrit 29.5 % (30.3-42.9); Lymphocytes # (Auto) 1.5 K/mm3 (1.2-5.4); Lymphocytes % (Auto) 26.9 % (13.4-35.0); Mean Corpuscular HGB Conc 31 % (30-34); Monocytes # (Auto) 0.7 K/mm3 (0.0-0.8); Monocytes % (Auto) 11.9 % (0.0-7.3); Platelet Count 251 K/mm3 (140-440); Red Blood Count 4.52 M/mm3 (3.65-5.03); Red Cell Distribution Width 19.1 % (13.2-15.2)
[2019-07-07 02:37] LABS: Mean Corpuscular Volume 65 fl (79-97)
[2019-07-07 02:47] LABS: BUN/Creatinine Ratio 67; Blood Urea Nitrogen 20 mg/dL (7-17); Calcium 8.7 mg/dL (8.4-10.2); Hemolysis Index 3
--- NOTE | 2019-07-07 03:09 | Emergency Department Report ---
ED Chest Pain HPI - General Chief Complaint: Chest Pain Stated Complaint: CP Time Seen by Provider: 07/07/19 03:03 Source: patient Mode of arrival: Ambulatory Limitations: No Limitations - History of Present Illness Initial Comments: 63-year-old female presents to ED with complaint of right-sided chest pain x3 days. Patient is in a deep sleep on the stretcher, appears quite comfortable. Once awakened, patient denies fever, cough, shortness of breath, leg pain or swelling nausea or vomiting, diaphoresis. MD Complaint: chest pain -: days(s) (3) Onset: during rest Pain Location: right chest Pain Radiation: none Severity: mild Quality: other (soreness) Consistency: intermittent Improves With: nothing Worsens With: nothing re: denies: nausea, vomting, diaphoresis, dyspnea Other Symptoms: denies: cough, fever, leg swelling - Related Data Previous Rx's Medication Instructions Recorded Last Taken Type Butalb/Acetamin/Caff 50-325-40 1 tab PO Q6H #30 tablet 08/26/16 Unknown Rx [Fioricet 50-325-40] Hydrocortisone 1% [Hydrocortisone 1 applicatio TP TID PRN #1 tube 10/12/16 Unknown Rx 1% CREAM] Ketoconazole (Nf) [Ketoconazole 30 ml TP QDAY #1 shampoo 10/12/16 Unknown Rx Shampoo (Nf)] Selenium Sulfide/Menthol [Selsun 30 ml TP QDAY #1 shampoo 10/12/16 Unknown Rx Blue 1% Shampoo] HYDROcodone/APAP 5-325 [[place] 1 each PO Q6HR PRN #20 tablet 10/27/16 Unknown Rx 5/325] amLODIPine [Norvasc] 10 mg PO DAILY #30 tab 10/27/16 Unknown Rx Clotrimazole 1% [Lotrimin] 1 applic TP BID #1 tube 02/21/17 Unknown Rx Ibuprofen [Motrin 600 MG tab] 600 mg PO Q8H PRN #30 tablet 02/21/17 Unknown Rx Ibuprofen [Motrin 800 MG tab] 800 mg PO Q8HR PRN #30 tablet 02/25/17 Unknown Rx Amoxicillin/K Clav [Augmentin 1 tab PO Q12H 10 Days #20 tablet 03/31/17 Unknown Rx 500MG] Azithromycin [Zithromax Z-LUIS] 250 mg PO DAILY #6 tablet 05/18/17 Unknown Rx Benzonatate [Tessalon Perle] 100 mg PO Q8H PRN #20 capsule 05/18/17 Unknown Rx Ibuprofen [Motrin] 600 mg PO Q8H PRN #30 tablet 05/18/17 Unknown Rx Cyclobenzaprine [Flexeril 10 MG 10 mg PO QHS PRN #20 tablet 07/08/17 Unknown Rx TAB] Ibuprofen [Ibuprofen 800] 800 mg PO Q8HR PRN #20 tablet 07/08/17 Unknown Rx Nitrofurantoin Monohyd/M-Cryst 100 mg PO BID #20 capsule 11/03/17 Unknown Rx [Macrobid 100 mg Capsule] traMADoL [Ultram 50 MG tab] 50 mg PO Q6HR PRN #12 tablet 11/03/17 Unknown Rx Acetaminophen [Tylenol Extra 1,000 mg PO QID PRN #30 tablet 05/18/18 Unknown Rx Strength] Acetaminophen [Tylenol Extra 1,000 mg PO QID PRN #30 tablet 05/28/18 Unknown Rx Strength] Ibuprofen [Motrin 600 MG tab] 600 mg PO Q8H PRN #15 tablet 11/22/18 Unknown Rx methOCARBAMOL [Robaxin TAB] 500 mg PO BID #20 tab 06/21/19 Unknown Rx Allergies Allergy/AdvReac Type Severity Reaction Status Date / Time No Known Allergies Allergy Verified 07/07/19 01:41 Heart Score - HEART Score History: Slightly suspicious EKG: Normal Age: 45-65 Risk factors: 1-2 risk factors Troponin: < normal limit HEART Score: 2 ED Review of Systems ROS: Stated complaint: CP Other details as noted in HPI Comment: All other systems reviewed and negative Constitutional: denies: chills, fever Respiratory: denies: cough, shortness of breath Cardiovascular: chest pain Gastrointestinal: denies: nausea, vomiting ED Past Medical Hx - Past Medical History Hx Hypertension: Yes Hx CVA: No Hx Heart Attack/AMI: No Hx Congestive Heart Failure: No Hx Diabetes: No Hx Deep Vein Thrombosis: No Hx Pulmonary Embolism: No Hx GERD: No Hx Liver Disease: No Hx Renal Disease: No Hx Sickle Cell Disease: No Hx Arthritis: Yes Hx Headaches / Migraines: No Hx Seizures: No Hx Kidney Stones: No Hx Psychiatric Treatment: No Hx Asthma: No Hx COPD: No Hx Dementia: No Hx HIV: No Additional medical history: stomach ulcers, muscle spasms in back, Chronic right shoulder pain /spasms. - Surgical History Hx Coronary Stent: No Hx Open Heart Surgery: No Hx Pacemaker: No Hx Internal Defibrillator: No Hx Cholecystectomy: No Hx Appendectomy: No Hx Breast Surgery: No Additional Surgical History: skin grafts, 1X, hysterectomy - Social History Smoking Status: Never Smoker Substance Use Type: None - Medications Home Medications: Home Medications Medication Instructions Recorded Confirmed Last Taken Type Butalb/Acetamin/Caff 50-325-40 1 tab PO Q6H #30 tablet 08/26/16 Unknown Rx [Fioricet 50-325-40] Hydrocortisone 1% [Hydrocortisone 1 applicatio TP TID PRN #1 tube 10/12/16 Unknown Rx 1% CREAM] Ketoconazole (Nf) [Ketoconazole 30 ml TP QDAY #1 shampoo 10/12/16 Unknown Rx Shampoo (Nf)] Selenium Sulfide/Menthol [Selsun 30 ml TP QDAY #1 shampoo 10/12/16 Unknown Rx Blue 1% Shampoo] HYDROcodone/APAP 5-325 [[place] 1 each PO Q6HR PRN #20 tablet 10/27/16 Unknown Rx 5/325] amLODIPine [Norvasc] 10 mg PO DAILY #30 tab 10/27/16 Unknown Rx Clotrimazole 1% [Lotrimin] 1 applic TP BID #1 tube 02/21/17 Unknown Rx Ibuprofen [Motrin 600 MG tab] 600 mg PO Q8H PRN #30 tablet 02/21/17 Unknown Rx Ibuprofen [Motrin 800 MG tab] 800 mg PO Q8HR PRN #30 tablet 02/25/17 Unknown Rx Amoxicillin/K Clav [Augmentin 1 tab PO Q12H 10 Days #20 tablet 03/31/17 Unknown Rx 500MG] Azithromycin [Zithromax Z-LUIS] 250 mg PO DAILY #6 tablet 05/18/17 Unknown Rx Benzonatate [Tessalon Perle] 100 mg PO Q8H PRN #20 capsule 05/18/17 Unknown Rx Ibuprofen [Motrin] 600 mg PO Q8H PRN #30 tablet 05/18/17 Unknown Rx Cyclobenzaprine [Flexeril 10 MG 10 mg PO QHS PRN #20 tablet 07/08/17 Unknown Rx TAB] Ibuprofen [Ibuprofen 800] 800 mg PO Q8HR PRN #20 tablet 07/08/17 Unknown Rx Nitrofurantoin Monohyd/M-Cryst 100 mg PO BID #20 capsule 11/03/17 Unknown Rx [Macrobid 100 mg Capsule] traMADoL [Ultram 50 MG tab] 50 mg PO Q6HR PRN #12 tablet 11/03/17 Unknown Rx Acetaminophen [Tylenol Extra 1,000 mg PO QID PRN #30 tablet 05/18/18 Unknown Rx Strength] Acetaminophen [Tylenol Extra 1,000 mg PO QID PRN #30 tablet 05/28/18 Unknown Rx Strength] Ibuprofen [Motrin 600 MG tab] 600 mg PO Q8H PRN #15 tablet 11/22/18 Unknown Rx methOCARBAMOL [Robaxin TAB] 500 mg PO BID #20 tab 06/21/19 Unknown Rx ED Physical Exam - General Limitations: No Limitations General appearance: alert, in no apparent distress, other (asppears unkempt) - Head Head exam: Present: atraumatic, normocephalic - Eye Eye exam: Present: normal appearance - ENT ENT exam: Present: mucous membranes moist - Neck Neck exam: Present: normal inspection - Respiratory Respiratory exam: Present: normal lung sounds bilaterally, chest wall tenderness. Absent: respiratory distress - Cardiovascular Cardiovascular Exam: Present: regular rate, normal rhythm - GI/Abdominal GI/Abdominal exam: Present: soft. Absent: distended, tenderness - Extremities Exam Extremities exam: Present: normal inspection - Neurological Exam Neurological exam: Present: alert, oriented X3 - Psychiatric Psychiatric exam: Present: normal affect, normal mood - Skin Skin exam: Present: warm, dry, intact, normal color. Absent: rash ED Course Vital Signs 07/07/19 03:36 Respiratory 18 Rate O2 Sat by Pulse 98 Oximetry ERIN score - Erin Score Age > 65: (0) No Aspirin use within the Past 7 Days: (0) No 3 or more CAD Risk Factors: (0) No 2 or more Angina events in past 24 hrs: (1) Yes Known CAD with more than 50% Stenosis: (0) No Elevated Cardiac Markers: (0) No ST Deviation Greater than 0.5mm: (0) No ERIN Score: 1 ED Medical Decision Making - Lab Data Result diagrams: 07/07/19 01:58 07/07/19 01:58 - EKG Data -: EKG Interpreted by Me EKG shows normal: sinus rhythm, axis, intervals, QRS complexes, ST-T waves Rate: normal - EKG Data Interpretation: no acute changes - Radiology Data Radiology results: report reviewed, image reviewed - Differential Diagnosis chest wall pain, ACS, pneumonia Critical care attestation.: If time is entered above; I have spent that time in minutes in the direct care of this critically ill patient, excluding procedure time. ED Disposition Clinical Impression: Chest wall pain Disposition: TO HOME OR SELFCARE Is pt being admited?: No Condition: Stable Instructions: Chest Pain (ED), Costochondritis (ED) Referrals: PRIMARY CARE, [Primary Care Provider] - 3-5 Days [facility] [Provider Group] - 3-5 Days Time of Disposition: 03:08
== END 2019-07-07 03:51 | disposition home or self-care (01) ==
LOC: ED 01:33
DX: R07.89 Other chest pain (principal); I10 Essential (primary) hypertension; M19.91 Primary osteoarthritis, unspecified site; Z79.1 Long term (current) use of non-steroidal anti-inflammatories (NSAID); Z79.2 Long term (current) use of antibiotics; Z79.899 Other long term (current) drug therapy; Z98.890 Other specified postprocedural states; Z90.710 Acquired absence of both cervix and uterus
CPT/HCPCS: 36415; 71045; 80048; 84484; 85025; 93005; 93010

== ENCOUNTER 2019-08-04 01:08 | Emergency (ER) | payer SELFPAY ==
[2019-08-04 01:57] LABS: Bilirubin,Urine NEG (Negative); Blood,Urine NEG (Negative); Color,Urine Yellow (Yellow); Mucus,Urine FEW /HPF; Protein,Urine <15 mg/dL mg/dL (Negative)
[2019-08-04 03:14] LABS: Basophils # (Auto) 0.1 K/mm3 (0.0-0.1); Basophils % (Auto) 1.5 % (0.0-1.8); Eosinophils # (Auto) 0.1 K/mm3 (0.0-0.4); Eosinophils % (Auto) 1.2 % (0.0-4.3); Hematocrit 28.6 % (30.3-42.9); Hemoglobin 8.9 gm/dl (10.1-14.3); Lymphocytes # (Auto) 1.6 K/mm3 (1.2-5.4); Lymphocytes % (Auto) 28.8 % (13.4-35.0); Mean Corpuscular HGB Conc 31 % (30-34); Monocytes # (Auto) 0.9 K/mm3 (0.0-0.8); Monocytes % (Auto) 15.3 % (0.0-7.3); Platelet Count 244 K/mm3 (140-440); Red Cell Distribution Width 18.7 % (13.2-15.2)
[2019-08-04 03:18] LABS: Mean Corpuscular Volume 65 fl (79-97)
[2019-08-04 03:32] LABS: Alanine Aminotransferase 14 units/L (7-56); Albumin 3.6 g/dL (3.9-5); BUN/Creatinine Ratio 70; Blood Urea Nitrogen 21 mg/dL (7-17); Calcium 8.7 mg/dL (8.4-10.2); Hemolysis Index 3
--- NOTE | 2019-08-04 03:39 | Emergency Department Report ---
ED Female HPI - General Chief complaint: Urogenital-Female Stated complaint: FREQUENT URINATING Source: patient Mode of arrival: Ambulatory Limitations: No Limitations - History of Present Illness Initial comments: Patient is a 64-year-old -Omani female with a history of hypertension who presents to the ED with acute onset persistent urinary frequency and urgency for the last 2 days. Patient states that she can hardly sit down to rest before she gets the urgency to go to the bathroom to void urine. Patient states that the symptoms of worsened in the last 12 hours such that she has not been able to sleep because of the urgency and frequency of urination. Patient denies vaginal discharge, vaginal bleeding, dysuria, fever, chills, abdominal pain, fall, trau matic injury, cough, headache or dyspareunia. MD Complaint: other (Urinary frequency and urgency) -: Sudden, days(s) (2) Location: other (vaginal) Radiation: non-radiating Severity: moderate Quality: dull Consistency: intermittent Improves with: none Worsens with: none Are you Now?: No Associated Symptoms: denies other symptoms. denies: vaginal discharge, vaginal bleeding, abdominal pain, nausea/vomiting, fever/chills, headaches, loss of appetite, dysuria, hematuria, rash, shortness of breath, syncope, weakness - Related Data Sexually active: No Previous Rx's Medication Instructions Recorded Last Taken Type Butalb/Acetamin/Caff 50-325-40 1 tab PO Q6H #30 tablet 08/26/16 Unknown Rx [Fioricet 50-325-40] Hydrocortisone 1% [Hydrocortisone 1 applicatio TP TID PRN #1 tube 10/12/16 Unknown Rx 1% CREAM] Ketoconazole (Nf) [Ketoconazole 30 ml TP QDAY #1 shampoo 10/12/16 Unknown Rx Shampoo (Nf)] Selenium Sulfide/Menthol [Selsun 30 ml TP QDAY #1 shampoo 10/12/16 Unknown Rx Blue 1% Shampoo] HYDROcodone/APAP 5-325 [[place] 1 each PO Q6HR PRN #20 tablet 10/27/16 Unknown Rx 5/325] amLODIPine [Norvasc] 10 mg PO DAILY #30 tab 10/27/16 Unknown Rx Clotrimazole 1% [Lotrimin] 1 applic TP BID #1 tube 02/21/17 Unknown Rx Ibuprofen [Motrin 600 MG tab] 600 mg PO Q8H PRN #30 tablet 02/21/17 Unknown Rx Ibuprofen [Motrin 800 MG tab] 800 mg PO Q8HR PRN #30 tablet 02/25/17 Unknown Rx Amoxicillin/K Clav [Augmentin 1 tab PO Q12H 10 Days #20 tablet 03/31/17 Unknown Rx 500MG] Azithromycin [Zithromax Z-LUIS] 250 mg PO DAILY #6 tablet 05/18/17 Unknown Rx Benzonatate [Tessalon Perle] 100 mg PO Q8H PRN #20 capsule 05/18/17 Unknown Rx Ibuprofen [Motrin] 600 mg PO Q8H PRN #30 tablet 05/18/17 Unknown Rx Cyclobenzaprine [Flexeril 10 MG 10 mg PO QHS PRN #20 tablet 07/08/17 Unknown Rx TAB] Ibuprofen [Ibuprofen 800] 800 mg PO Q8HR PRN #20 tablet 07/08/17 Unknown Rx Nitrofurantoin Monohyd/M-Cryst 100 mg PO BID #20 capsule 11/03/17 Unknown Rx [Macrobid 100 mg Capsule] traMADoL [Ultram 50 MG tab] 50 mg PO Q6HR PRN #12 tablet 11/03/17 Unknown Rx Acetaminophen [Tylenol Extra 1,000 mg PO QID PRN #30 tablet 05/18/18 Unknown Rx Strength] Acetaminophen [Tylenol Extra 1,000 mg PO QID PRN #30 tablet 05/28/18 Unknown Rx Strength] Ibuprofen [Motrin 600 MG tab] 600 mg PO Q8H PRN #15 tablet 11/22/18 Unknown Rx methOCARBAMOL [Robaxin TAB] 500 mg PO BID #20 tab 06/21/19 Unknown Rx Oxybutynin [Ditropan] 5 mg PO Q8H #30 tab 08/04/19 Unknown Rx Allergies Allergy/AdvReac Type Severity Reaction Status Date / Time No Known Allergies Allergy Verified 07/07/19 01:41 ED Review of Systems ROS: Stated complaint: FREQUENT URINATING Other details as noted in HPI Constitutional: denies: chills, fever Eyes: denies: eye pain, eye discharge, vision change ENT: denies: ear pain, throat pain Respiratory: denies: cough, shortness of breath, wheezing Cardiovascular: denies: chest pain, palpitations Endocrine: no symptoms reported Gastrointestinal: denies: abdominal pain, nausea, diarrhea Genitourinary: urgency, frequency. denies: dysuria, discharge Musculoskeletal: denies: back pain, joint swelling, arthralgia Skin: denies: rash, lesions Neurological: denies: headache, weakness, paresthesias Psychiatric: denies: anxiety, depression Hematological/Lymphatic: denies: easy bleeding, easy bruising ED Past Medical Hx - Past Medical History Previous Medical History?: Yes Hx Hypertension: Yes Hx CVA: No Hx Heart Attack/AMI: No Hx Congestive Heart Failure: No Hx Diabetes: No Hx Deep Vein Thrombosis: No Hx Pulmonary Embolism: No Hx GERD: No Hx Liver Disease: No Hx Renal Disease: No Hx Sickle Cell Disease: No Hx Arthritis: Yes Hx Headaches / Migraines: No Hx Seizures: No Hx Kidney Stones: No Hx Psychiatric Treatment: No Hx Asthma: No Hx COPD: No Hx Dementia: No Hx HIV: No Additional medical history: stomach ulcers, muscle spasms in back, Chronic right shoulder pain /spasms. - Surgical History Past Surgical History?: Yes Hx Coronary Stent: No Hx Open Heart Surgery: No Hx Pacemaker: No Hx Internal Defibrillator: No Hx Cholecystectomy: No Hx Appendectomy: No Hx Breast Surgery: No Additional Surgical History: skin grafts, 1X, hysterectomy - Social History Smoking Status: Never Smoker Substance Use Type: None - Medications Home Medications: Home Medications Medication Instructions Recorded Confirmed Last Taken Type Butalb/Acetamin/Caff 50-325-40 1 tab PO Q6H #30 tablet 08/26/16 Unknown Rx [Fioricet 50-325-40] Hydrocortisone 1% [Hydrocortisone 1 applicatio TP TID PRN #1 tube 10/12/16 Unknown Rx 1% CREAM] Ketoconazole (Nf) [Ketoconazole 30 ml TP QDAY #1 shampoo 10/12/16 Unknown Rx Shampoo (Nf)] Selenium Sulfide/Menthol [Selsun 30 ml TP QDAY #1 shampoo 10/12/16 Unknown Rx Blue 1% Shampoo] HYDROcodone/APAP 5-325 [[place] 1 each PO Q6HR PRN #20 tablet 10/27/16 Unknown Rx 5/325] amLODIPine [Norvasc] 10 mg PO DAILY #30 tab 10/27/16 Unknown Rx Clotrimazole 1% [Lotrimin] 1 applic TP BID #1 tube 02/21/17 Unknown Rx Ibuprofen [Motrin 600 MG tab] 600 mg PO Q8H PRN #30 tablet 02/21/17 Unknown Rx Ibuprofen [Motrin 800 MG tab] 800 mg PO Q8HR PRN #30 tablet 02/25/17 Unknown Rx Amoxicillin/K Clav [Augmentin 1 tab PO Q12H 10 Days #20 tablet 03/31/17 Unknown Rx 500MG] Azithromycin [Zithromax Z-LUIS] 250 mg PO DAILY #6 tablet 05/18/17 Unknown Rx Benzonatate [Tessalon Perle] 100 mg PO Q8H PRN #20 capsule 05/18/17 Unknown Rx Ibuprofen [Motrin] 600 mg PO Q8H PRN #30 tablet 05/18/17 Unknown Rx Cyclobenzaprine [Flexeril 10 MG 10 mg PO QHS PRN #20 tablet 07/08/17 Unknown Rx TAB] Ibuprofen [Ibuprofen 800] 800 mg PO Q8HR PRN #20 tablet 07/08/17 Unknown Rx Nitrofurantoin Monohyd/M-Cryst 100 mg PO BID #20 capsule 11/03/17 Unknown Rx [Macrobid 100 mg Capsule] traMADoL [Ultram 50 MG tab] 50 mg PO Q6HR PRN #12 tablet 11/03/17 Unknown Rx Acetaminophen [Tylenol Extra 1,000 mg PO QID PRN #30 tablet 05/18/18 Unknown Rx Strength] Acetaminophen [Tylenol Extra 1,000 mg PO QID PRN #30 tablet 05/28/18 Unknown Rx Strength] Ibuprofen [Motrin 600 MG tab] 600 mg PO Q8H PRN #15 tablet 11/22/18 Unknown Rx methOCARBAMOL [Robaxin TAB] 500 mg PO BID #20 tab 06/21/19 Unknown Rx Oxybutynin [Ditropan] 5 mg PO Q8H #30 tab 08/04/19 Unknown Rx ED Physical Exam - General Limitations: No Limitations General appearance: alert, in no apparent distress - Head Head exam: Present: atraumatic, normocephalic, normal inspection - Eye Eye exam: Present: normal appearance, PERRL, EOMI Pupils: Present: normal accommodation - ENT ENT exam: Present: normal exam, normal orophraynx, mucous membranes moist, TM's normal bilaterally, normal external ear exam - Neck Neck exam: Present: normal inspection, full ROM - Respiratory Respiratory exam: Present: normal lung sounds bilaterally. Absent: respiratory distress, wheezes, rales, rhonchi, chest wall tenderness, accessory muscle use - Cardiovascular Cardiovascular Exam: Present: regular rate, normal rhythm, normal heart sounds. Absent: systolic murmur, diastolic murmur, rubs, gallop - GI/Abdominal GI/Abdominal exam: Present: soft, normal bowel sounds. Absent: tenderness, guarding, rebound, hyperactive bowel sounds, hypoactive bowel sounds - Extremities Exam Extremities exam: Present: normal inspection, full ROM, normal capillary refill - Back Exam Back exam: Present: normal inspection, full ROM. Absent: tenderness, CVA tenderness (R), muscle spasm, vertebral tenderness - Neurological Exam Neurological exam: Present: alert, oriented X3, CN II-XII intact, normal gait, reflexes normal - Psychiatric Psychiatric exam: Present: normal affect, normal mood - Skin Skin exam: Present: warm, dry, intact, normal color. Absent: rash ED Course Vital Signs 08/04/19 01:13 Temperature 98.3 F Pulse Rate 72 Respiratory 20 Rate Blood Pressure 170/54 [Right] O2 Sat by Pulse 99 Oximetry ED Medical Decision Making - Lab Data Result diagrams: 08/04/19 03:01 08/04/19 03:01 - Medical Decision Making This is a 64-year-old -Omani female with a history of hypertension who presents to the ED with acute onset persistent urinary frequency and urgency for the last 2 days. Patient states that she can hardly sit down to rest before she gets the urgency to go to the bathroom to void urine. Patient states that the symptoms of worsened in the last 12 hours such that she has not been able to sleep because of the urgency and frequency of urination. In the ED, patient is alert and oriented x3 and is not in any distress but anxious. Urinalysis is unremarkable. Other lab test results are also nonactionable. Patient symptoms are likely due to overactive bladder or bladder spasms. Patient was discharged home on medications and advised to follow-up with her [facility] physician or primary care physician in 3 to 5 days for reevaluation or return to the ED immediately if symptoms get worse. - Differential Diagnosis UTI; Overactive bladder; Bladder spasms; Cystitis; Critical care attestation.: If time is entered above; I have spent that time in minutes in the direct care of this critically ill patient, excluding procedure time. ED Disposition Clinical Impression: Urinary urgency, Bladder spasms, Overactive bladder Disposition: TO HOME OR SELFCARE Is pt being admited?: No Does the pt Need Aspirin: No Condition: Stable Instructions: Overactive Bladder (GEN) Additional Instructions: Take medications with food and follow-up with your primary care physician or [facility] physician in 3 to 5 days for reevaluation or return to the ED immediately if symptoms get worse. Prescriptions: Oxybutynin [Ditropan] 5 mg PO Q8H #30 tab Referrals: [facility] [Provider Group] - 3-5 Days Time of Disposition: 03:37 Print Language: CAPE VERDEAN
[2019-08-06 12:20] VITALS: BP 156/60
== END 2019-08-04 04:15 | disposition home or self-care (01) ==
LOC: ED 01:08
DX: R39.15 Urgency of urination (principal); N32.89 Other specified disorders of bladder; N32.81 Overactive bladder; I10 Essential (primary) hypertension; M19.91 Primary osteoarthritis, unspecified site; Z98.890 Other specified postprocedural states; Z90.710 Acquired absence of both cervix and uterus; Z79.1 Long term (current) use of non-steroidal anti-inflammatories (NSAID); Z79.2 Long term (current) use of antibiotics; Z79.899 Other long term (current) drug therapy
CPT/HCPCS: 36415; 80053; 81001; 83690; 85025; 99283

== ENCOUNTER 2019-08-19 00:50 | Emergency (ER) | payer SELFPAY ==
--- NOTE | 2019-08-19 01:38 | XRay Report ---
EXAMINATION: Right foot radiograph, 3 views CLINICAL INFORMATION: Right foot pain. No history of trauma is given COMPARISON: Right foot radiograph, 06/10/2015 FINDINGS: There is no evidence of acute bony fracture. Mild bony degenerative changes of the mid and hindfoot are again noted. Signer Name: Yarelis Jaeger MD Signed: 08/19/2019 1:34 AM Workstation Name: [id number]
--- NOTE | 2019-08-19 01:40 | XRay Report ---
EXAMINATION: Right ankle radiograph, 2 views CLINICAL INFORMATION: Right ankle pain. No history of trauma is given COMPARISON: Right ankle radiograph, 02/25/2017 FINDINGS: There is mild suspected generalized soft tissue swelling of the right ankle without evidenc e of acute fracture or dislocation. Signer Name: Yarelis Jaeger MD Signed: 08/19/2019 1:35 AM Workstation Name: [id number]
--- NOTE | 2019-08-19 01:47 | Emergency Department Report ---
ED Lower Extremity HPI - General Chief Complaint: Extremity Injury, Lower Stated Complaint: RIGHT ANKLE AND FOOT PAIN Time Seen by Provider: 08/19/19 01:39 Source: patient Mode of arrival: Ambulatory Limitations: No Limitations - History of Present Illness Initial Comments: 64-year-old Tu[place] female was walking down steps when she got to the bottom st ep she lost her footing causing a misstep resulting in inversion type injury which follow-up with swelling and tenderness to the ankle on Monday 2 days ago but continues to have pain today. She has been trying to treat the symptoms with heat but states they did not resolve her pain. No numbness or tingling. MD Complaint: ankle injury Injury: Ankle: Right, Foot: Right Type of Injury: inversion Place: home Severity: moderate - Related Data Previous Rx's Medication Instructions Recorded Last Taken Type Butalb/Acetamin/Caff 50-325-40 1 tab PO Q6H #30 tablet 08/26/16 Unknown Rx [Fioricet 50-325-40] Hydrocortisone 1% [Hydrocortisone 1 applicatio TP TID PRN #1 tube 10/12/16 Unknown Rx 1% CREAM] Ketoconazole (Nf) [Ketoconazole 30 ml TP QDAY #1 shampoo 10/12/16 Unknown Rx Shampoo (Nf)] Selenium Sulfide/Menthol [Selsun 30 ml TP QDAY #1 shampoo 10/12/16 Unknown Rx Blue 1% Shampoo] HYDROcodone/APAP 5-325 [[place] 1 each PO Q6HR PRN #20 tablet 10/27/16 Unknown Rx 5/325] amLODIPine [Norvasc] 10 mg PO DAILY #30 tab 10/27/16 Unknown Rx Clotrimazole 1% [Lotrimin] 1 applic TP BID #1 tube 02/21/17 Unknown Rx Ibuprofen [Motrin 600 MG tab] 600 mg PO Q8H PRN #30 tablet 02/21/17 Unknown Rx Ibuprofen [Motrin 800 MG tab] 800 mg PO Q8HR PRN #30 tablet 02/25/17 Unknown Rx Amoxicillin/K Clav [Augmentin 1 tab PO Q12H 10 Days #20 tablet 03/31/17 Unknown Rx 500MG] Azithromycin [Zithromax Z-LUIS] 250 mg PO DAILY #6 tablet 05/18/17 Unknown Rx Benzonatate [Tessalon Perle] 100 mg PO Q8H PRN #20 capsule 05/18/17 Unknown Rx Ibuprofen [Motrin] 600 mg PO Q8H PRN #30 tablet 05/18/17 Unknown Rx Cyclobenzaprine [Flexeril 10 MG 10 mg PO QHS PRN #20 tablet 07/08/17 Unknown Rx TAB] Ibuprofen [Ibuprofen 800] 800 mg PO Q8HR PRN #20 tablet 07/08/17 Unknown Rx Nitrofurantoin Monohyd/M-Cryst 100 mg PO BID #20 capsule 11/03/17 Unknown Rx [Macrobid 100 mg Capsule] traMADoL [Ultram 50 MG tab] 50 mg PO Q6HR PRN #12 tablet 11/03/17 Unknown Rx Acetaminophen [Tylenol Extra 1,000 mg PO QID PRN #30 tablet 05/18/18 Unknown Rx Strength] Acetaminophen [Tylenol Extra 1,000 mg PO QID PRN #30 tablet 05/28/18 Unknown Rx Strength] Ibuprofen [Motrin 600 MG tab] 600 mg PO Q8H PRN #15 tablet 11/22/18 Unknown Rx methOCARBAMOL [Robaxin TAB] 500 mg PO BID #20 tab 06/21/19 Unknown Rx Oxybutynin [Ditropan] 5 mg PO Q8H #30 tab 08/04/19 Unknown Rx Allergies Allergy/AdvReac Type Severity Reaction Status Date / Time No Known Allergies Allergy Verified 07/07/19 01:41 ED Review of Systems ROS: Stated complaint: RIGHT ANKLE AND FOOT PAIN Other details as noted in HPI Comment: All other systems reviewed and negative ED Past Medical Hx - Past Medical History Previous Medical History?: Yes Hx Hypertension: Yes Hx CVA: No Hx Heart Attack/AMI: No Hx Congestive Heart Failure: No Hx Diabetes: No Hx Deep Vein Thrombosis: No Hx Pulmonary Embolism: No Hx GERD: No Hx Liver Disease: No Hx Renal Disease: No Hx Sickle Cell Disease: No Hx Arthritis: Yes Hx Headaches / Migraines: No Hx Seizures: No Hx Kidney Stones: No Hx Psychiatric Treatment: No Hx Asthma: No Hx COPD: No Hx Dementia: No Hx HIV: No Additional medical history: stomach ulcers, muscle spasms in back, Chronic right shoulder pain /spasms. - Surgical History Past Surgical History?: Yes Hx Coronary Stent: No Hx Open Heart Surgery: No Hx Pacemaker: No Hx Internal Defibrillator: No Hx Cholecystectomy: No Hx Appendectomy: No Hx Breast Surgery: No Additional Surgical History: skin grafts, 1X, hysterectomy - Social History Smoking Status: Never Smoker Substance Use Type: None - Medications Home Medications: Home Medications Medication Instructions Recorded Confirmed Last Taken Type Butalb/Acetamin/Caff 50-325-40 1 tab PO Q6H #30 tablet 08/26/16 Unknown Rx [Fioricet 50-325-40] Hydrocortisone 1% [Hydrocortisone 1 applicatio TP TID PRN #1 tube 10/12/16 Unknown Rx 1% CREAM] Ketoconazole (Nf) [Ketoconazole 30 ml TP QDAY #1 shampoo 10/12/16 Unknown Rx Shampoo (Nf)] Selenium Sulfide/Menthol [Selsun 30 ml TP QDAY #1 shampoo 10/12/16 Unknown Rx Blue 1% Shampoo] HYDROcodone/APAP 5-325 [[place] 1 each PO Q6HR PRN #20 tablet 10/27/16 Unknown Rx 5/325] amLODIPine [Norvasc] 10 mg PO DAILY #30 tab 10/27/16 Unknown Rx Clotrimazole 1% [Lotrimin] 1 applic TP BID #1 tube 02/21/17 Unknown Rx Ibuprofen [Motrin 600 MG tab] 600 mg PO Q8H PRN #30 tablet 02/21/17 Unknown Rx Ibuprofen [Motrin 800 MG tab] 800 mg PO Q8HR PRN #30 tablet 02/25/17 Unknown Rx Amoxicillin/K Clav [Augmentin 1 tab PO Q12H 10 Days #20 tablet 03/31/17 Unknown Rx 500MG] Azithromycin [Zithromax Z-LUIS] 250 mg PO DAILY #6 tablet 05/18/17 Unknown Rx Benzonatate [Tessalon Perle] 100 mg PO Q8H PRN #20 capsule 05/18/17 Unknown Rx Ibuprofen [Motrin] 600 mg PO Q8H PRN #30 tablet 05/18/17 Unknown Rx Cyclobenzaprine [Flexeril 10 MG 10 mg PO QHS PRN #20 tablet 07/08/17 Unknown Rx TAB] Ibuprofen [Ibuprofen 800] 800 mg PO Q8HR PRN #20 tablet 07/08/17 Unknown Rx Nitrofurantoin Monohyd/M-Cryst 100 mg PO BID #20 capsule 11/03/17 Unknown Rx [Macrobid 100 mg Capsule] traMADoL [Ultram 50 MG tab] 50 mg PO Q6HR PRN #12 tablet 11/03/17 Unknown Rx Acetaminophen [Tylenol Extra 1,000 mg PO QID PRN #30 tablet 05/18/18 Unknown Rx Strength] Acetaminophen [Tylenol Extra 1,000 mg PO QID PRN #30 tablet 05/28/18 Unknown Rx Strength] Ibuprofen [Motrin 600 MG tab] 600 mg PO Q8H PRN #15 tablet 11/22/18 Unknown Rx methOCARBAMOL [Robaxin TAB] 500 mg PO BID #20 tab 06/21/19 Unknown Rx Oxybutynin [Ditropan] 5 mg PO Q8H #30 tab 08/04/19 Unknown Rx ED Physical Exam - General Limitations: No Limitations General appearance: alert, in no apparent distress - Head Head exam: Present: atraumatic, normocephalic - Eye Eye exam: Present: normal appearance, PERRL, EOMI Pupils: Present: normal accommodation - ENT ENT exam: Present: normal exam, normal orophraynx, mucous membranes moist, TM's normal bilaterally - Neck Neck exam: Present: normal inspection, full ROM - Respiratory Respiratory exam: Present: normal lung sounds bilaterally. Absent: respiratory distress - Cardiovascular Cardiovascular Exam: Present: regular rate, normal rhythm. Absent: systolic murmur, diastolic murmur, rubs, gallop - GI/Abdominal GI/Abdominal exam: Present: soft, normal bowel sounds - Extremities Exam Extremities exam: Present: normal inspection, tenderness, normal capillary refill, joint swelling. Absent: pedal edema, calf tenderness - Expanded Lower Extremity Exam Right Ankle exam: Present: tenderness, swelling. Absent: laceration, ecchymosis, dislocation, erythema, anterior draw sign Foot/Toe exam: Present: full ROM. Absent: tenderness, swelling, abrasion, amputation, puncture wound, foreign body Neuro vascular tendon exam: Present: no vascular compromise - Back Exam Back exam: Present: normal inspection - Neurological Exam Neurological exam: Present: alert, oriented X3 - Psychiatric Psychiatric exam: Present: normal affect, normal mood - Skin Skin exam: Present: warm, dry, intact, normal color. Absent: rash ED Course Vital Signs 08/19/19 00:54 Temperature 98.2 F Pulse Rate 79 Respiratory 18 Rate Blood Pressure 178/68 O2 Sat by Pulse 100 Oximetry ED Lower Extremity MDM - Radiology Data Radiology results: report reviewed [facility] [address] [place] [address] XRay Report Signed Patient: LORE SHARP MR#: [id number] : 1955 Acct:[id number] Age/Sex: 64 / F ADM Date: 08/19/19 Loc: ED Attending Dr: Ordering Physician: AIDA MCDONALD MD Date of Service: 08/19/19 Procedure(s): XR ankle 2V RT Accession Number(s): [id number] cc: AIDA MCDONALD MD Fluoro Time In Minutes: EXAMINATION: Right ankle radiograph, 2 views CLINICAL INFORMATION: Right ankle pain. No history of trauma is given COMPARISON: Right ankle radiograph, 02/25/2017 FINDINGS: There is mild suspected generalized soft tissue swelling of the right ankle without evidence of acute fracture or dislocation. Signer Name: Yarelis Jaeger MD Signed: 08/19/2019 1:35 AM Workstation Name: [id number] Transcribed By: EB Dictated By: Yarelis Jaeger MD Electronically Authenticated By: Yarelis Jaeger MD Signed Date/Time: 08/19/19134 DD/ 3 TD/TT: - Medical Decision Making 64-year-old female with misstep of the bottom step resulting in a sprain to her ankle. She is ambulatory with some discomfort will place her in a Velcro stirrup splint for comfort and advised on ice therapy as she is only been utilizing heat. Also anti-inflammatories to her comfort. She been advised follow-up with her primary care provider/orthopedic for further evaluation and treatment options should this continue to linger Critical care attestation.: If time is entered above; I have spent that time in minutes in the direct care of this critically ill patient, excluding procedure time. ED Disposition Clinical Impression: Ankle sprain Disposition: -01 TO HOME OR SELFCARE Is pt being admited?: No Does the pt Need Aspirin: No Condition: Stable Instructions: Ankle Sprain (ED), Ankle Stirrup Splint (ED), RICE Therapy (ED), Ice Pack Application (ED) Referrals: JANEY DE LEON MD [Staff Physician] - 3-5 Days
[2019-08-19 02:23] VITALS: BP 168/72
[2019-08-19] MEDS ORDERED: ACETAMINOPHEN 325 MG TAB PO ONE (02:40)
[2019-08-19] MEDS ORDERED: ACETAMINOPHEN 325 MG TAB ONE (02:43)
== END 2019-08-19 02:47 | disposition home or self-care (01) ==
LOC: ED 00:50
DX: S93.401A Sprain of unspecified ligament of right ankle, initial encounter (principal); I10 Essential (primary) hypertension; M19.90 Unspecified osteoarthritis, unspecified site; Z98.890 Other specified postprocedural states; Z79.899 Other long term (current) drug therapy; Z88.6 Allergy status to analgesic agent; Z90.710 Acquired absence of both cervix and uterus; X58.XXXA Exposure to other specified factors, initial encounter; Y93.89 Activity, other specified; Y92.89 Other specified places as the place of occurrence of the external cause; Y99.8 Other external cause status
CPT/HCPCS: 99283

== ENCOUNTER 2019-09-03 01:59 | Emergency (ER) | payer SELFPAY ==
[2019-09-03 02:17] VITALS: BP 175/65
== END 2019-09-03 04:26 | disposition home or self-care (01) ==
LOC: ED 01:59
DX: S83.91XA Sprain of unspecified site of right knee, initial encounter (principal); M17.11 Unilateral primary osteoarthritis, right knee; X58.XXXA Exposure to other specified factors, initial encounter; Y93.89 Activity, other specified; Y92.89 Other specified places as the place of occurrence of the external cause; Y99.8 Other external cause status
CPT/HCPCS: 73562; 99284; J7512

== ENCOUNTER 2019-11-20 | Emergency (ER) | payer SELFPAY ==
[2019-11-20 00:06] VITALS: BP 182/85
[2019-11-20] MEDS ORDERED: traMADol 50 MG TAB PO ONE (02:44)
--- NOTE | 2019-11-20 03:01 | Emergency Department Report ---
ED General Adult HPI - General Chief complaint: Pain General Stated complaint: LEFT SIDE BODY PAIN Time Seen by Provider: 11/20/19 02:23 Source: patient Mode of arrival: Ambulatory Limitations: No Limitations - History of Present Illness Initial comments: Pt is a 64 y/o aaf with hx of depression and arthralgia who presents for left shoulder pain and aching x 2 days. She states she ran out of pain medication and awaiting new doctor at the "[facility]". Pain is 4/10 aching intermittent, pain is exacerbated by movement and palpation, pt denies fall, injury, or trauma. pt denies sob, no cp, no n/v, no fever or chills, no diaphoresis, no activity intolerance. Onset/Timin -: days(s), unknown (chronic 10 + years ) Location: back, upper extremity Severity scale (0 -10): 4 Quality: aching Consistency: constant Improves with: none Worsens with: movement Associated Symptoms: denies: chest pain, cough, fever/chills, nausea/vomiting, shortness of breath, syncope, weakness - Related Data Previous Rx's Medication Instructions Recorded Last Taken Type Butalb/Acetamin/Caff 50-325-40 1 tab PO Q6H #30 tablet 08/26/16 Unknown Rx [Fioricet 50-325-40] Hydrocortisone 1% [Hydrocortisone 1 applicatio TP TID PRN #1 tube 10/12/16 Unknown Rx 1% CREAM] Ketoconazole (Nf) [Ketoconazole 30 ml TP QDAY #1 shampoo 10/12/16 Unknown Rx Shampoo (Nf)] Selenium Sulfide/Menthol [Selsun 30 ml TP QDAY #1 shampoo 10/12/16 Unknown Rx Blue 1% Shampoo] HYDROcodone/APAP 5-325 [[place] 1 each PO Q6HR PRN #20 tablet 10/27/16 Unknown Rx 5/325] amLODIPine [Norvasc] 10 mg PO DAILY #30 tab 10/27/16 Unknown Rx Clotrimazole 1% [Lotrimin] 1 applic TP BID #1 tube 02/21/17 Unknown Rx Ibuprofen [Motrin 600 MG tab] 600 mg PO Q8H PRN #30 tablet 02/21/17 Unknown Rx Ibuprofen [Motrin 800 MG tab] 800 mg PO Q8HR PRN #30 tablet 02/25/17 Unknown Rx Amoxicillin/K Clav [Augmentin 1 tab PO Q12H 10 Days #20 tablet 03/31/17 Unknown Rx 500MG] Azithromycin [Zithromax Z-LUIS] 250 mg PO DAILY #6 tablet 05/18/17 Unknown Rx Benzonatate [Tessalon Perle] 100 mg PO Q8H PRN #20 capsule 05/18/17 Unknown Rx Ibuprofen [Motrin] 600 mg PO Q8H PRN #30 tablet 05/18/17 Unknown Rx Cyclobenzaprine [Flexeril 10 MG 10 mg PO QHS PRN #20 tablet 07/08/17 Unknown Rx TAB] Ibuprofen [Ibuprofen 800] 800 mg PO Q8HR PRN #20 tablet 07/08/17 Unknown Rx Nitrofurantoin Monohyd/M-Cryst 100 mg PO BID #20 capsule 11/03/17 Unknown Rx [Macrobid 100 mg Capsule] traMADoL [Ultram 50 MG tab] 50 mg PO Q6HR PRN #12 tablet 11/03/17 Unknown Rx Acetaminophen [Tylenol Extra 1,000 mg PO QID PRN #30 tablet 05/18/18 Unknown Rx Strength] Acetaminophen [Tylenol Extra 1,000 mg PO QID PRN #30 tablet 05/28/18 Unknown Rx Strength] Ibuprofen [Motrin 600 MG tab] 600 mg PO Q8H PRN #15 tablet 11/22/18 Unknown Rx methOCARBAMOL [Robaxin TAB] 500 mg PO BID #20 tab 06/21/19 Unknown Rx Oxybutynin [Ditropan] 5 mg PO Q8H #30 tab 08/04/19 Unknown Rx Diclofenac Sodium 50 mg PO Q8H PRN #30 tablet. 09/03/19 Unknown Rx predniSONE [Deltasone] 40 mg PO QDAY #10 tab 09/03/19 Unknown Rx Capsaicin 0.075% [Zostrix Hp 1 applicatio TP TID PRN #1 tube 11/20/19 Unknown Rx 0.075%] amLODIPine 10 mg PO DAILY #30 tab 11/20/19 Unknown Rx Allergies Allergy/AdvReac Type Severity Reaction Status Date / Time acetaminophen [From Tylenol] Allergy Unknown Verified 09/03/19 02:07 ED Review of Systems ROS: Stated complaint: LEFT SIDE BODY PAIN Other details as noted in HPI Constitutional: denies: chills, fever Eyes: denies: eye pain, eye discharge, vision change ENT: denies: ear pain, throat pain Respiratory: denies: cough, shortness of breath, wheezing Cardiovascular: denies: chest pain, palpitations Endocrine: no symptoms reported Gastrointestinal: as per HPI Genitourinary: denies: urgency, dysuria, discharge Musculoskeletal: back pain, arthralgia. denies: joint swelling, myalgia Skin: denies: rash, lesions Neurological: denies: headache, weakness, numbness, paresthesias, confusion, vertigo Psychiatric: denies: anxiety, depression Hematological/Lymphatic: as per HPI ED Past Medical Hx - Past Medical History Hx Hypertension: Yes Hx CVA: No Hx Heart Attack/AMI: No Hx Congestive Heart Failure: No Hx Diabetes: No Hx Deep Vein Thrombosis: No Hx Pulmonary Embolism: No Hx GERD: No Hx Liver Disease: No Hx Renal Disease: No Hx Sickle Cell Disease: No Hx Arthritis: Yes Hx Headaches / Migraines: No Hx Seizures: No Hx Kidney Stones: No Hx Psychiatric Treatment: No Hx Asthma: No Hx COPD: No Hx Dementia: No Hx HIV: No Additional medical history: stomach ulcers, muscle spasms in back, Chronic right shoulder pain /spasms. - Surgical History Hx Coronary Stent: No Hx Open Heart Surgery: No Hx Pacemaker: No Hx Internal Defibrillator: No Hx Cholecystectomy: No Hx Appendectomy: No Hx Breast Surgery: No Additional Surgical History: skin grafts, 1X - Social History Smoking Status: Never Smoker Substance Use Type: None - Medications Home Medications: Home Medications Medication Instructions Recorded Confirmed Last Taken Type Butalb/Acetamin/Caff 50-325-40 1 tab PO Q6H #30 tablet 08/26/16 Unknown Rx [Fioricet 50-325-40] Hydrocortisone 1% [Hydrocortisone 1 applicatio TP TID PRN #1 tube 10/12/16 Unknown Rx 1% CREAM] Ketoconazole (Nf) [Ketoconazole 30 ml TP QDAY #1 shampoo 10/12/16 Unknown Rx Shampoo (Nf)] Selenium Sulfide/Menthol [Selsun 30 ml TP QDAY #1 shampoo 10/12/16 Unknown Rx Blue 1% Shampoo] HYDROcodone/APAP 5-325 [[place] 1 each PO Q6HR PRN #20 tablet 10/27/16 Unknown Rx 5/325] amLODIPine [Norvasc] 10 mg PO DAILY #30 tab 10/27/16 Unknown Rx Clotrimazole 1% [Lotrimin] 1 applic TP BID #1 tube 02/21/17 Unknown Rx Ibuprofen [Motrin 600 MG tab] 600 mg PO Q8H PRN #30 tablet 02/21/17 Unknown Rx Ibuprofen [Motrin 800 MG tab] 800 mg PO Q8HR PRN #30 tablet 02/25/17 Unknown Rx Amoxicillin/K Clav [Augmentin 1 tab PO Q12H 10 Days #20 tablet 03/31/17 Unknown Rx 500MG] Azithromycin [Zithromax Z-LUIS] 250 mg PO DAILY #6 tablet 05/18/17 Unknown Rx Benzonatate [Tessalon Perle] 100 mg PO Q8H PRN #20 capsule 05/18/17 Unknown Rx Ibuprofen [Motrin] 600 mg PO Q8H PRN #30 tablet 05/18/17 Unknown Rx Cyclobenzaprine [Flexeril 10 MG 10 mg PO QHS PRN #20 tablet 07/08/17 Unknown Rx TAB] Ibuprofen [Ibuprofen 800] 800 mg PO Q8HR PRN #20 tablet 07/08/17 Unknown Rx Nitrofurantoin Monohyd/M-Cryst 100 mg PO BID #20 capsule 11/03/17 Unknown Rx [Macrobid 100 mg Capsule] traMADoL [Ultram 50 MG tab] 50 mg PO Q6HR PRN #12 tablet 11/03/17 Unknown Rx Acetaminophen [Tylenol Extra 1,000 mg PO QID PRN #30 tablet 05/18/18 Unknown Rx Strength] Acetaminophen [Tylenol Extra 1,000 mg PO QID PRN #30 tablet 05/28/18 Unknown Rx Strength] Ibuprofen [Motrin 600 MG tab] 600 mg PO Q8H PRN #15 tablet 11/22/18 Unknown Rx methOCARBAMOL [Robaxin TAB] 500 mg PO BID #20 tab 06/21/19 Unknown Rx Oxybutynin [Ditropan] 5 mg PO Q8H #30 tab 08/04/19 Unknown Rx Diclofenac Sodium 50 mg PO Q8H PRN #30 tablet. 09/03/19 Unknown Rx predniSONE [Deltasone] 40 mg PO QDAY #10 tab 09/03/19 Unknown Rx Capsaicin 0.075% [Zostrix Hp 1 applicatio TP TID PRN #1 tube 11/20/19 Unknown Rx 0.075%] amLODIPine 10 mg PO DAILY #30 tab 11/20/19 Unknown Rx ED Physical Exam - General Limitations: No Limitations General appearance: alert, in no apparent distress - Head Head exam: Present: atraumatic, normocephalic - Eye Eye exam: Present: normal appearance, EOMI Pupils: Present: normal accommodation - ENT ENT exam: Present: mucous membranes moist - Neck Neck exam: Present: normal inspection, full ROM. Absent: tenderness - Respiratory Respiratory exam: Present: normal lung sounds bilaterally. Absent: wheezes, stridor, chest wall tenderness - Cardiovascular Cardiovascular Exam: Present: regular rate, normal rhythm, normal heart sounds. Absent: systolic murmur, diastolic murmur, rubs, gallop - GI/Abdominal GI/Abdominal exam: Present: soft, normal bowel sounds. Absent: distended, tenderness - Rectal Rectal exam: Present: deferred - Extremities Exam Extremities exam: Present: normal inspection, full ROM, normal capillary refill. Absent: tenderness, pedal edema, joint swelling - Back Exam Back exam: Present: normal inspection, full ROM. Absent: tenderness, CVA tenderness (R), CVA tenderness (L), muscle spasm, paraspinal tenderness, vertebral tenderness - Neurological Exam Neurological exam: Present: alert, oriented X3, CN II-XII intact, normal gait, reflexes normal - Psychiatric Psychiatric exam: Present: normal affect, normal mood - Skin Skin exam: Present: warm, dry, intact, normal color. Absent: rash ED Course Vital Signs 11/20/19 00:05 Temperature 98.1 F Pulse Rate 86 Respiratory 16 Rate Blood Pressure 182/85 O2 Sat by Pulse 100 Oximetry ED Medical Decision Making - Medical Decision Making pt is a/o x 3 , ambulatory with steady gait, pt appears well , nontoxic , lung sounds are clear bilat, there is no cp, no sob, plan: continue otc nsaids a advised by [facility] Doctor, take all medications as prescribed , moist heat therapy and exercise as directed. pt verbalized agreement and understanding of same. Critical care attestation.: If time is entered above; I have spent that time in minutes in the direct care of this critically ill patient, excluding procedure time. ED Disposition Clinical Impression: Arthralgia Qualifiers: Joint pain location: shoulder Laterality: left Qualified Code(s): M25.512 - Pain in left shoulder Disposition: TO HOME OR SELFCARE Is pt being admited?: No Does the pt Need Aspirin: No Condition: Stable Instructions: Osteoarthritis (ED) Additional Instructions: follwo up with your [facility] doctor in 1-2 days. Prescriptions: amLODIPine 10 mg PO DAILY #30 tab Capsaicin 0.075% [Zostrix Hp 0.075%] 1 applicatio TP TID PRN #1 tube PRN Reason: pain Referrals: ALVAREZ BURGESS MD [Referring] - 3-5 Days Time of Disposition: 03:14
== END 2019-11-20 03:56 | disposition home or self-care (01) ==
LOC: ED
DX: M25.512 Pain in left shoulder (principal); Z79.899 Other long term (current) drug therapy; Z88.6 Allergy status to analgesic agent
CPT/HCPCS: 99282

== ENCOUNTER 2020-03-16 02:27 | Emergency (ER) | payer SELFPAY | END 2020-03-16 08:06 | disposition left against medical advice (07) | LOC: ED 02:27 | DX: M79.672 Pain in left foot (principal); M79.671 Pain in right foot; Z53.21 Procedure and treatment not carried out due to patient leaving prior to being seen by health care provider ==

== ENCOUNTER 2020-03-19 01:45 | Emergency (ER) | payer SELFPAY | END 2020-03-19 03:00 | disposition left against medical advice (07) | LOC: ED 01:45 | DX: M79.671 Pain in right foot (principal); Z53.21 Procedure and treatment not carried out due to patient leaving prior to being seen by health care provider ==

== ENCOUNTER 2020-04-29 01:25 | Emergency (ER) | payer SELFPAY ==
--- NOTE | 2020-04-29 01:44 | Emergency Department Report ---
ED Back Pain/Injury HPI - General Chief Complaint: Urogenital-Female Stated Complaint: LEFT SIDE BACK PAIN Time Seen by Provider: 04/29/20 01:39 Source: patient Limitations: No Limitations - History of Present Illness Initial Comments: Patient is a 64-year-old -[place] female with a history of arthralgia low back pain and hypertension. Patient presents today for 4/10 low back pain with spasms, with mild urinary frequency. Patient denies fall injury or trauma. Patient denies dysuria or hematuria. There is no history of renal stones, there is been no nausea vomiting, there is been no abdominal pain, there has been no loss or decrease in bowel or bladder function. Patient is alert oriented x3 amatory with steady gait. Symptoms are exacerbated by movement. Symptoms are relieved by rest. MD Complaint: back pain Onset/Timin -: days(s) Similar Symptoms Previously: Yes - Related Data Previous Rx's Medication Instructions Recorded Last Taken Type Butalb/Acetamin/Caff 50-325-40 1 tab PO Q6H #30 tablet 08/26/16 Unknown Rx [Fioricet 50-325-40] Hydrocortisone 1% [Hydrocortisone 1 applicatio TP TID PRN #1 tube 10/12/16 Unknown Rx 1% CREAM] Ketoconazole (Nf) [Ketoconazole 30 ml TP QDAY #1 shampoo 10/12/16 Unknown Rx Shampoo (Nf)] Selenium Sulfide/Menthol [Selsun 30 ml TP QDAY #1 shampoo 10/12/16 Unknown Rx Blue 1% Shampoo] HYDROcodone/APAP 5-325 [[place] 1 each PO Q6HR PRN #20 tablet 10/27/16 Unknown Rx 5/325] amLODIPine [Norvasc] 10 mg PO DAILY #30 tab 10/27/16 Unknown Rx Clotrimazole 1% [Lotrimin] 1 applic TP BID #1 tube 02/21/17 Unknown Rx Ibuprofen [Motrin 600 MG tab] 600 mg PO Q8H PRN #30 tablet 02/21/17 Unknown Rx Ibuprofen [Motrin 800 MG tab] 800 mg PO Q8HR PRN #30 tablet 02/25/17 Unknown Rx Amoxicillin/K Clav [Augmentin 1 tab PO Q12H 10 Days #20 tablet 03/31/17 Unknown Rx 500MG] Azithromycin [Zithromax Z-LUIS] 250 mg PO DAILY #6 tablet 05/18/17 Unknown Rx Benzonatate [Tessalon Perle] 100 mg PO Q8H PRN #20 capsule 05/18/17 Unknown Rx Ibuprofen [Motrin] 600 mg PO Q8H PRN #30 tablet 05/18/17 Unknown Rx Cyclobenzaprine [Flexeril 10 MG 10 mg PO QHS PRN #20 tablet 07/08/17 Unknown Rx TAB] Ibuprofen [Ibuprofen 800] 800 mg PO Q8HR PRN #20 tablet 07/08/17 Unknown Rx Nitrofurantoin Monohyd/M-Cryst 100 mg PO BID #20 capsule 11/03/17 Unknown Rx [Macrobid 100 mg Capsule] traMADoL [Ultram 50 MG tab] 50 mg PO Q6HR PRN #12 tablet 11/03/17 Unknown Rx Acetaminophen [Tylenol Extra 1,000 mg PO QID PRN #30 tablet 05/18/18 Unknown Rx Strength] Acetaminophen [Tylenol Extra 1,000 mg PO QID PRN #30 tablet 05/28/18 Unknown Rx Strength] Ibuprofen [Motrin 600 MG tab] 600 mg PO Q8H PRN #15 tablet 11/22/18 Unknown Rx methOCARBAMOL [Robaxin TAB] 500 mg PO BID #20 tab 06/21/19 Unknown Rx Oxybutynin [Ditropan] 5 mg PO Q8H #30 tab 08/04/19 Unknown Rx Diclofenac Sodium 50 mg PO Q8H PRN #30 tablet. 09/03/19 Unknown Rx predniSONE [Deltasone] 40 mg PO QDAY #10 tab 09/03/19 Unknown Rx Capsaicin 0.075% [Zostrix Hp 1 applicatio TP TID PRN #1 tube 11/20/19 Unknown Rx 0.075%] amLODIPine 10 mg PO DAILY #30 tab 11/20/19 Unknown Rx Cyclobenzaprine [Flexeril] 10 mg PO TID PRN #30 tablet 04/29/20 Unknown Rx Menthol/Camphor [[place] 1 applicatio TP Q8HR #1 tube 04/29/20 Unknown Rx Ointment] Naproxen 500 mg PO BID PRN #30 tablet 04/29/20 Unknown Rx Allergies Allergy/AdvReac Type Severity Reaction Status Date / Time acetaminophen [From Tylenol] Allergy Unknown Verified 09/03/19 02:07 ED Review of Systems ROS: Stated complaint: LEFT SIDE BACK PAIN Other details as noted in HPI Constitutional: denies: chills, fever Eyes: denies: eye pain, eye discharge, vision change ENT: denies: ear pain, throat pain Respiratory: denies: cough, shortness of breath, wheezing Cardiovascular: denies: chest pain, palpitations Endocrine: no symptoms reported Gastrointestinal: denies: abdominal pain, nausea, diarrhea Genitourinary: denies: urgency, dysuria, discharge Musculoskeletal: back pain, arthralgia. denies: joint swelling, myalgia Skin: denies: rash, lesions Neurological: denies: headache, weakness, paresthesias Psychiatric: denies: anxiety, depression Hematological/Lymphatic: denies: easy bleeding, easy bruising ED Past Medical Hx - Past Medical History Previous Medical History?: Yes Hx Hypertension: Yes Hx CVA: No Hx Heart Attack/AMI: No Hx Congestive Heart Failure: No Hx Diabetes: No Hx Deep Vein Thrombosis: No Hx Pulmonary Embolism: No Hx GERD: No Hx Liver Disease: No Hx Renal Disease: No Hx Sickle Cell Disease: No Hx Arthritis: Yes Hx Headaches / Migraines: No Hx Seizures: No Hx Kidney Stones: No Hx Psychiatric Treatment: No Hx Asthma: No Hx COPD: No Hx Dementia: No Hx HIV: No Additional medical history: stomach ulcers, muscle spasms in back, Chronic right shoulder pain /spasms. - Surgical History Hx Coronary Stent: No Hx Open Heart Surgery: No Hx Pacemaker: No Hx Internal Defibrillator: No Hx Cholecystectomy: No Hx Appendectomy: No Hx Breast Surgery: No Additional Surgical History: skin grafts, 1X - Social History Smoking Status: Never Smoker Substance Use Type: None - Medications Home Medications: Home Medications Medication Instructions Recorded Confirmed Last Taken Type Butalb/Acetamin/Caff 50-325-40 1 tab PO Q6H #30 tablet 08/26/16 Unknown Rx [Fioricet 50-325-40] Hydrocortisone 1% [Hydrocortisone 1 applicatio TP TID PRN #1 tube 10/12/16 Unknown Rx 1% CREAM] Ketoconazole (Nf) [Ketoconazole 30 ml TP QDAY #1 shampoo 10/12/16 Unknown Rx Shampoo (Nf)] Selenium Sulfide/Menthol [Selsun 30 ml TP QDAY #1 shampoo 10/12/16 Unknown Rx Blue 1% Shampoo] HYDROcodone/APAP 5-325 [[place] 1 each PO Q6HR PRN #20 tablet 10/27/16 Unknown Rx 5/325] amLODIPine [Norvasc] 10 mg PO DAILY #30 tab 10/27/16 Unknown Rx Clotrimazole 1% [Lotrimin] 1 applic TP BID #1 tube 02/21/17 Unknown Rx Ibuprofen [Motrin 600 MG tab] 600 mg PO Q8H PRN #30 tablet 02/21/17 Unknown Rx Ibuprofen [Motrin 800 MG tab] 800 mg PO Q8HR PRN #30 tablet 02/25/17 Unknown Rx Amoxicillin/K Clav [Augmentin 1 tab PO Q12H 10 Days #20 tablet 03/31/17 Unknown Rx 500MG] Azithromycin [Zithromax Z-LUIS] 250 mg PO DAILY #6 tablet 05/18/17 Unknown Rx Benzonatate [Tessalon Perle] 100 mg PO Q8H PRN #20 capsule 05/18/17 Unknown Rx Ibuprofen [Motrin] 600 mg PO Q8H PRN #30 tablet 05/18/17 Unknown Rx Cyclobenzaprine [Flexeril 10 MG 10 mg PO QHS PRN #20 tablet 07/08/17 Unknown Rx TAB] Ibuprofen [Ibuprofen 800] 800 mg PO Q8HR PRN #20 tablet 07/08/17 Unknown Rx Nitrofurantoin Monohyd/M-Cryst 100 mg PO BID #20 capsule 11/03/17 Unknown Rx [Macrobid 100 mg Capsule] traMADoL [Ultram 50 MG tab] 50 mg PO Q6HR PRN #12 tablet 11/03/17 Unknown Rx Acetaminophen [Tylenol Extra 1,000 mg PO QID PRN #30 tablet 05/18/18 Unknown Rx Strength] Acetaminophen [Tylenol Extra 1,000 mg PO QID PRN #30 tablet 05/28/18 Unknown Rx Strength] Ibuprofen [Motrin 600 MG tab] 600 mg PO Q8H PRN #15 tablet 11/22/18 Unknown Rx methOCARBAMOL [Robaxin TAB] 500 mg PO BID #20 tab 06/21/19 Unknown Rx Oxybutynin [Ditropan] 5 mg PO Q8H #30 tab 08/04/19 Unknown Rx Diclofenac Sodium 50 mg PO Q8H PRN #30 tablet. 09/03/19 Unknown Rx predniSONE [Deltasone] 40 mg PO QDAY #10 tab 09/03/19 Unknown Rx Capsaicin 0.075% [Zostrix Hp 1 applicatio TP TID PRN #1 tube 11/20/19 Unknown Rx 0.075%] amLODIPine 10 mg PO DAILY #30 tab 11/20/19 Unknown Rx Cyclobenzaprine [Flexeril] 10 mg PO TID PRN #30 tablet 04/29/20 Unknown Rx Menthol/Camphor [[place] 1 applicatio TP Q8HR #1 tube 04/29/20 Unknown Rx Ointment] Naproxen 500 mg PO BID PRN #30 tablet 04/29/20 Unknown Rx ED Physical Exam - General Limitations: No Limitations General appearance: alert, in no apparent distress - Head Head exam: Present: atraumatic, normocephalic - Eye Eye exam: Present: normal appearance, EOMI Pupils: Present: normal accommodation - ENT ENT exam: Present: mucous membranes moist - Neck Neck exam: Present: normal inspection, full ROM. Absent: tenderness, meningismus - Respiratory Respiratory exam: Present: normal lung sounds bilaterally, wheezes. Absent: respiratory distress, stridor, chest wall tenderness - Cardiovascular Cardiovascular Exam: Present: regular rate, normal rhythm, normal heart sounds. Absent: rubs, gallop, clicks, JVD - GI/Abdominal GI/Abdominal exam: Present: soft, normal bowel sounds, mass. Absent: distended, tenderness, guarding, rebound, rigid, bruit, hernia - Rectal Rectal exam: Present: deferred - Extremities Exam Extremities exam: Present: normal inspection, full ROM, normal capillary refill. Absent: tenderness, pedal edema, joint swelling - Back Exam Back exam: Present: normal inspection, full ROM, muscle spasm, rash noted (bilat arm and legs ). Absent: tenderness, CVA tenderness (R), CVA tenderness (L), paraspinal tenderness, vertebral tenderness - Neurological Exam Neurological exam: Present: alert, oriented X3, CN II-XII intact, normal gait, motor sensory deficit - Psychiatric Psychiatric exam: Present: normal affect, normal mood. Absent: suicidal ideation - Skin Skin exam: Present: warm, dry, intact, normal color. Absent: rash ED Medical Decision Making - Medical Decision Making This is an infected dental caries. Plan Augmentin p.o. x7 days. Follow-up with dentist in 1 to 2 days. Return to emergency department should symptoms worsen. Patient verbalized agreement and understanding with discharge plan. Patient DC'd home in stable condition at this time. Critical care attestation.: If time is entered above; I have spent that time in minutes in the direct care of this critically ill patient, excluding procedure time. ED Disposition Clinical Impression: Low back strain Disposition: DC-01 TO HOME OR SELFCARE Is pt being admited?: No Does the pt Need Aspirin: No Condition: Stable Instructions: Lumbosacral Strain Additional Instructions: Take all medications as prescribed, follow up with ortho 2-3 days Prescriptions: Cyclobenzaprine [Flexeril] 10 mg PO TID PRN #30 tablet PRN Reason: Muscle Spasm Naproxen 500 mg PO BID PRN #30 tablet PRN Reason: pain Menthol/Camphor [[place] Ointment] 1 applicatio TP Q8HR #1 tube Referrals: [facility] [Provider Group] - 3-5 Days Forms: Work/School Release Form(ED) Time of Disposition: 03:41
[2020-04-29 02:45] LABS: Bacteria,Urine 1+ /HPF (Negative); Bilirubin,Urine NEG (Negative); Blood,Urine NEG (Negative); Color,Urine Yellow (Yellow); Mucus,Urine 2+ /HPF
== END 2020-04-29 04:10 | disposition home or self-care (01) ==
LOC: ED 01:25
DX: S39.012A Strain of muscle, fascia and tendon of lower back, initial encounter (principal); I10 Essential (primary) hypertension; Z88.8 Allergy status to other drugs, medicaments and biological substances; Z79.899 Other long term (current) drug therapy; Z98.890 Other specified postprocedural states; X58.XXXA Exposure to other specified factors, initial encounter; Y93.89 Activity, other specified; Y92.89 Other specified places as the place of occurrence of the external cause; Y99.8 Other external cause status
CPT/HCPCS: 81001; 99283

== ENCOUNTER 2020-05-28 01:53 | Emergency (ER) | payer SELFPAY ==
--- NOTE | 2020-05-28 02:21 | Emergency Department Report ---
Upper Extremity - HPI Chief Complaint: Extremity Injury, Upper Stated Complaint: RT HAND AND KNEE PAIN Time Seen by Provider: 05/28/20 02:16 Upper Extremity: Right Wrist, Right Hand Occurred When: Today Mechanism: Hit with Object (Was walking and accidentally hit a door today with the right hand and wrist region has been having pain and a dull throbbing fashion since that time. States the pain does run up from her wrist pointing to the base of the hand up with to the hand and worse with squeezing opening closing. Reports no) ED Review of Systems ROS: Stated complaint: RT HAND AND KNEE PAIN Other details as noted in HPI Constitutional: denies: chills, fever Eyes: denies: eye pain, eye discharge, vision change ENT: denies: ear pain, throat pain Respiratory: denies: cough, shortness of breath, wheezing Cardiovascular: denies: chest pain, palpitations Endocrine: no symptoms reported Gastrointestinal: denies: abdominal pain, nausea, diarrhea Genitourinary: denies: urgency, dysuria, discharge Musculoskeletal: arthralgia (Right knee chronic off and on). denies: back pain, joint swelling Skin: denies: rash, lesions Neurological: denies: headache, weakness, paresthesias Psychiatric: denies: anxiety, depression Hematological/Lymphatic: denies: easy bleeding, easy bruising ED Past Medical Hx - Past Medical History Previous Medical History?: Yes Hx Hypertension: Yes Hx CVA: No Hx Heart Attack/AMI: No Hx Congestive Heart Failure: No Hx Diabetes: No Hx Deep Vein Thrombosis: No Hx Pulmonary Embolism: No Hx GERD: No Hx Liver Disease: No Hx Renal Disease: No Hx Sickle Cell Disease: No Hx Arthritis: Yes Hx Headaches / Migraines: No Hx Seizures: No Hx Kidney Stones: No Hx Psychiatric Treatment: No Hx Asthma: No Hx COPD: No Hx Dementia: No Hx HIV: No Additional medical history: stomach ulcers, muscle spasms in back, Chronic right shoulder pain /spasms. - Surgical History Past Surgical History?: Yes Hx Coronary Stent: No Hx Open Heart Surgery: No Hx Pacemaker: No Hx Internal Defibrillator: No Hx Cholecystectomy: No Hx Appendectomy: No Hx Breast Surgery: No Additional Surgical History: skin grafts, 1X - Social History Smoking Status: Never Smoker Substance Use Type: None - Medications Home Medications: Home Medications Medication Instructions Recorded Confirmed Last Taken Type Butalb/Acetamin/Caff 50-325-40 1 tab PO Q6H #30 tablet 08/26/16 Unknown Rx [Fioricet 50-325-40] Hydrocortisone 1% [Hydrocortisone 1 applicatio TP TID PRN #1 tube 10/12/16 Unknown Rx 1% CREAM] Ketoconazole (Nf) [Ketoconazole 30 ml TP QDAY #1 shampoo 10/12/16 Unknown Rx Shampoo (Nf)] Selenium Sulfide/Menthol [Selsun 30 ml TP QDAY #1 shampoo 10/12/16 Unknown Rx Blue 1% Shampoo] HYDROcodone/APAP 5-325 [[place] 1 each PO Q6HR PRN #20 tablet 10/27/16 Unknown Rx 5/325] amLODIPine [Norvasc] 10 mg PO DAILY #30 tab 10/27/16 Unknown Rx Clotrimazole 1% [Lotrimin] 1 applic TP BID #1 tube 02/21/17 Unknown Rx Ibuprofen [Motrin 600 MG tab] 600 mg PO Q8H PRN #30 tablet 02/21/17 Unknown Rx Ibuprofen [Motrin 800 MG tab] 800 mg PO Q8HR PRN #30 tablet 02/25/17 Unknown Rx Amoxicillin/K Clav [Augmentin 1 tab PO Q12H 10 Days #20 tablet 03/31/17 Unknown Rx 500MG] Azithromycin [Zithromax Z-LUIS] 250 mg PO DAILY #6 tablet 05/18/17 Unknown Rx Benzonatate [Tessalon Perle] 100 mg PO Q8H PRN #20 capsule 05/18/17 Unknown Rx Ibuprofen [Motrin] 600 mg PO Q8H PRN #30 tablet 05/18/17 Unknown Rx Cyclobenzaprine [Flexeril 10 MG 10 mg PO QHS PRN #20 tablet 07/08/17 Unknown Rx TAB] Ibuprofen [Ibuprofen 800] 800 mg PO Q8HR PRN #20 tablet 07/08/17 Unknown Rx Nitrofurantoin Monohyd/M-Cryst 100 mg PO BID #20 capsule 11/03/17 Unknown Rx [Macrobid 100 mg Capsule] traMADoL [Ultram 50 MG tab] 50 mg PO Q6HR PRN #12 tablet 11/03/17 Unknown Rx Acetaminophen [Tylenol Extra 1,000 mg PO QID PRN #30 tablet 05/18/18 Unknown Rx Strength] Acetaminophen [Tylenol Extra 1,000 mg PO QID PRN #30 tablet 05/28/18 Unknown Rx Strength] Ibuprofen [Motrin 600 MG tab] 600 mg PO Q8H PRN #15 tablet 11/22/18 Unknown Rx methOCARBAMOL [Robaxin TAB] 500 mg PO BID #20 tab 06/21/19 Unknown Rx Oxybutynin [Ditropan] 5 mg PO Q8H #30 tab 08/04/19 Unknown Rx Diclofenac Sodium 50 mg PO Q8H PRN #30 tablet. 09/03/19 Unknown Rx predniSONE [Deltasone] 40 mg PO QDAY #10 tab 09/03/19 Unknown Rx Capsaicin 0.075% [Zostrix Hp 1 applicatio TP TID PRN #1 tube 11/20/19 Unknown Rx 0.075%] amLODIPine 10 mg PO DAILY #30 tab 11/20/19 Unknown Rx Cyclobenzaprine [Flexeril] 10 mg PO TID PRN #30 tablet 04/29/20 Unknown Rx Menthol/Camphor [[place] 1 applicatio TP Q8HR #1 tube 04/29/20 Unknown Rx Ointment] Naproxen 500 mg PO BID PRN #30 tablet 04/29/20 Unknown Rx Meloxicam [Mobic] 15 mg PO DAILY #20 tablet 05/28/20 Unknown Rx Upper Extremity Exam - Exam General: Vital signs noted. No distress. Alert and acting appropriately. Head and Torso: No HEENT Abnormality, No Neck Tenderness, No Chest/Lungs Abnormality, No Abdominal Tenderness, No Back Tenderness Shoulder Exam: Yes Normal Range of Motion in Shoulder, No Shoulder Tenderness, No Clavicle Tenderness, No Shoulder Deformity, No AC Joint Tenderness Arm Exam: No Arm/Humerus Tenderness, No Arm Deformity Elbow: No Elbow Tenderness, No Normal Range of Motion in Elbow, No Elbow Deformity Forearm: No Forearm Tenderness, No Forearm Deformity, No Pain with Pronation, No Pain with Supination Wrist: Yes Wrist Tenderness, Yes Normal ROM in Wrist, No Wrist Deformity, No Snuffbox Tenderness, No Pain with Axial Thumb Compression Hand: Yes Hand Tenderness (Area of the snuffbox on the right side. Pulses 2+ cap refills are brisk), Yes Normal ROM in Digit(s), No Hand Deformity, No Digit Tenderness, No Digit(s) Deformity, No Tendon Dysfunction CMS Exam: Yes Normal Distal Pulses, Yes Normal Capillary Refill, Yes Normal Distal Sensation, No Broken Skin Hand L/R Back: 1 - Pain and swelling tenderness. 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 ED Disposition Clinical Impression: Arthritis Disposition: DC-01 TO HOME OR SELFCARE Is pt being admited?: No Does the pt Need Aspirin: No Condition: Stable Instructions: Reactive Arthritis, Arthritis, Osteoarthritis Prescriptions: Meloxicam [Mobic] 15 mg PO DAILY #20 tablet Referrals: PRIMARY CAREMD [Primary Care Provider] - 3-5 Days DARCIE BURGESS MD [Staff Physician] - 3-5 Days
--- NOTE | 2020-05-28 02:56 | XRay Report ---
"RIGHT HAND 3 VIEWS INDICATION / CLINICAL INFORMATION: Right hand pain. COMPARISON: None available. FINDINGS: BONES/JOINT(S): No acute fracture or subluxation. No significant degenerative changes. SOFT TISSUES: No significant abnormality. ADDITIONAL FINDINGS: None. Signer Name: Chris Uribe MD Signed: 05/28/2020 2:51 AM Workstation Name: [id number]"
[2020-05-28 05:01] VITALS: BP 159/89
== END 2020-05-28 05:01 | disposition home or self-care (01) ==
LOC: ED 01:53
DX: M19.031 Primary osteoarthritis, right wrist (principal); I10 Essential (primary) hypertension; Z79.899 Other long term (current) drug therapy; Z88.8 Allergy status to other drugs, medicaments and biological substances; W22.8XXA Striking against or struck by other objects, initial encounter; Y93.89 Activity, other specified; Y92.89 Other specified places as the place of occurrence of the external cause; Y99.8 Other external cause status
CPT/HCPCS: 99283

== ENCOUNTER 2020-06-10 01:56 | Emergency (ER) | payer SELFPAY ==
[2020-06-10] MEDS ORDERED: diphenhydrAMINE 25 MG CAP PO ONE (02:40)
[2020-06-10] MEDS ORDERED: predniSONE 20 MG TAB PO ONE (02:41)
[2020-06-10] MEDS ORDERED: traMADol 50 MG TAB PO ONE (02:41)
[2020-06-10] MEDS ORDERED: METOCLOPRAMIDE 10 MG TAB PO ONE (02:41)
--- NOTE | 2020-06-10 03:02 | Emergency Department Report ---
ED General Adult HPI - General Chief complaint: Headache Stated complaint: FACIAL PAIN Time Seen by Provider: 06/10/20 02:40 Source: patient Mode of arrival: Ambulatory Limitations: No Limitations - History of Present Illness Initial comments: Patient is a 64-year-old female who presents for right jaw pain that radiates to her right , patient has history of infected dental caries. There is no facial swelling there has been no fever or chills there has been no nausea or vomiting. Patient does state intermittent right ear pain. Pain is described at 4/10 aching sharp. Pain is exacerbated by movement. Pain is relieved by nothing tried. Patient has not seen dentist for dental caries. Patient is tolerating p.o. intake without nausea vomiting. Severity scale (0 -10): 4 - Related Data Previous Rx's Medication Instructions Recorded Last Taken Type Butalb/Acetamin/Caff 50-325-40 1 tab PO Q6H #30 tablet 08/26/16 Unknown Rx [Fioricet 50-325-40] Hydrocortisone 1% [Hydrocortisone 1 applicatio TP TID PRN #1 tube 10/12/16 Unknown Rx 1% CREAM] Ketoconazole (Nf) [Ketoconazole 30 ml TP QDAY #1 shampoo 10/12/16 Unknown Rx Shampoo (Nf)] Selenium Sulfide/Menthol [[place] 30 ml TP QDAY #1 shampoo 10/12/16 Unknown Rx Blue 1% Shampoo] HYDROcodone/APAP 5-325 [[place] 1 each PO Q6HR PRN #20 tablet 10/27/16 Unknown Rx 5/325] amLODIPine [Norvasc] 10 mg PO DAILY #30 tab 10/27/16 Unknown Rx Clotrimazole 1% [Lotrimin] 1 applic TP BID #1 tube 02/21/17 Unknown Rx Ibuprofen [Motrin 600 MG tab] 600 mg PO Q8H PRN #30 tablet 02/21/17 Unknown Rx Ibuprofen [Motrin 800 MG tab] 800 mg PO Q8HR PRN #30 tablet 02/25/17 Unknown Rx Amoxicillin/K Clav [Augmentin 1 tab PO Q12H 10 Days #20 tablet 03/31/17 Unknown Rx 500MG] Azithromycin [Zithromax Z-LUIS] 250 mg PO DAILY #6 tablet 05/18/17 Unknown Rx Benzonatate [Tessalon Perle] 100 mg PO Q8H PRN #20 capsule 05/18/17 Unknown Rx Ibuprofen [Motrin] 600 mg PO Q8H PRN #30 tablet 05/18/17 Unknown Rx Cyclobenzaprine [Flexeril 10 MG 10 mg PO QHS PRN #20 tablet 07/08/17 Unknown Rx TAB] Ibuprofen [Ibuprofen 800] 800 mg PO Q8HR PRN #20 tablet 07/08/17 Unknown Rx Nitrofurantoin Monohyd/M-Cryst 100 mg PO BID #20 capsule 11/03/17 Unknown Rx [Macrobid 100 mg Capsule] traMADoL [Ultram 50 MG tab] 50 mg PO Q6HR PRN #12 tablet 11/03/17 Unknown Rx Acetaminophen [Tylenol Extra 1,000 mg PO QID PRN #30 tablet 05/18/18 Unknown Rx Strength] Acetaminophen [Tylenol Extra 1,000 mg PO QID PRN #30 tablet 05/28/18 Unknown Rx Strength] Ibuprofen [Motrin 600 MG tab] 600 mg PO Q8H PRN #15 tablet 11/22/18 Unknown Rx methOCARBAMOL [Robaxin TAB] 500 mg PO BID #20 tab 06/21/19 Unknown Rx Oxybutynin [Ditropan] 5 mg PO Q8H #30 tab 08/04/19 Unknown Rx Diclofenac Sodium 50 mg PO Q8H PRN #30 tablet. 09/03/19 Unknown Rx predniSONE [Deltasone] 40 mg PO QDAY #10 tab 09/03/19 Unknown Rx Capsaicin 0.075% [Zostrix Hp 1 applicatio TP TID PRN #1 tube 11/20/19 Unknown Rx 0.075%] amLODIPine 10 mg PO DAILY #30 tab 11/20/19 Unknown Rx Cyclobenzaprine [Flexeril] 10 mg PO TID PRN #30 tablet 04/29/20 Unknown Rx Menthol/Camphor [[place] 1 applicatio TP Q8HR #1 tube 04/29/20 Unknown Rx Ointment] Naproxen 500 mg PO BID PRN #30 tablet 04/29/20 Unknown Rx Meloxicam [Mobic] 15 mg PO DAILY #20 tablet 05/28/20 Unknown Rx Amoxicillin/Potassium Clav 1 each PO BID 7 Days #14 tablet 06/10/20 Unknown Rx [Augmentin 875-125 Tablet] diphenhydrAMINE [Benadryl CAP] 25 mg PO Q8HR PRN #21 capsule 06/10/20 Unknown Rx traMADoL [Ultram] 50 mg PO Q6HR PRN #12 tablet 06/10/20 Unknown Rx Allergies Allergy/AdvReac Type Severity Reaction Status Date / Time acetaminophen [From Tylenol] Allergy Unknown Verified 09/03/19 02:07 ED Review of Systems ROS: Stated complaint: FACIAL PAIN Other details as noted in HPI Constitutional: denies: chills, fever Eyes: denies: eye pain, eye discharge, vision change ENT: dental pain. denies: ear pain, throat pain, hearing loss, epistaxis, congestion Respiratory: denies: cough, shortness of breath, wheezing Cardiovascular: denies: chest pain, palpitations Endocrine: no symptoms reported Gastrointestinal: denies: abdominal pain, nausea, diarrhea Genitourinary: denies: urgency, dysuria, discharge Musculoskeletal: denies: back pain, joint swelling, arthralgia Skin: denies: rash, lesions Neurological: headache (sinus headache). denies: weakness, numbness, paresthesias, confusion, vertigo Psychiatric: denies: anxiety, depression Hematological/Lymphatic: denies: easy bleeding, easy bruising ED Past Medical Hx - Past Medical History Previous Medical History?: Yes Hx Hypertension: Yes Hx CVA: No Hx Heart Attack/AMI: No Hx Congestive Heart Failure: No Hx Diabetes: No Hx Deep Vein Thrombosis: No Hx Pulmonary Embolism: No Hx GERD: No Hx Liver Disease: No Hx Renal Disease: No Hx Sickle Cell Disease: No Hx Arthritis: Yes Hx Headaches / Migraines: No Hx Seizures: No Hx Kidney Stones: No Hx Psychiatric Treatment: No Hx Asthma: No Hx COPD: No Hx Dementia: No Hx HIV: No Additional medical history: stomach ulcers, muscle spasms in back, Chronic right shoulder pain /spasms. - Surgical History Past Surgical History?: Yes Hx Coronary Stent: No Hx Open Heart Surgery: No Hx Pacemaker: No Hx Internal Defibrillator: No Hx Cholecystectomy: No Hx Appendectomy: No Hx Breast Surgery: No Additional Surgical History: skin grafts, 1X - Social History Smoking Status: Never Smoker Substance Use Type: None - Medications Home Medications: Home Medications Medication Instructions Recorded Confirmed Last Taken Type Butalb/Acetamin/Caff 50-325-40 1 tab PO Q6H #30 tablet 08/26/16 Unknown Rx [Fioricet 50-325-40] Hydrocortisone 1% [Hydrocortisone 1 applicatio TP TID PRN #1 tube 10/12/16 Unknown Rx 1% CREAM] Ketoconazole (Nf) [Ketoconazole 30 ml TP QDAY #1 shampoo 10/12/16 Unknown Rx Shampoo (Nf)] Selenium Sulfide/Menthol [[place] 30 ml TP QDAY #1 shampoo 10/12/16 Unknown Rx Blue 1% Shampoo] HYDROcodone/APAP 5-325 [[place] 1 each PO Q6HR PRN #20 tablet 10/27/16 Unknown Rx 5/325] amLODIPine [Norvasc] 10 mg PO DAILY #30 tab 10/27/16 Unknown Rx Clotrimazole 1% [Lotrimin] 1 applic TP BID #1 tube 02/21/17 Unknown Rx Ibuprofen [Motrin 600 MG tab] 600 mg PO Q8H PRN #30 tablet 02/21/17 Unknown Rx Ibuprofen [Motrin 800 MG tab] 800 mg PO Q8HR PRN #30 tablet 02/25/17 Unknown Rx Amoxicillin/K Clav [Augmentin 1 tab PO Q12H 10 Days #20 tablet 03/31/17 Unknown Rx 500MG] Azithromycin [Zithromax Z-LUIS] 250 mg PO DAILY #6 tablet 05/18/17 Unknown Rx Benzonatate [Tessalon Perle] 100 mg PO Q8H PRN #20 capsule 05/18/17 Unknown Rx Ibuprofen [Motrin] 600 mg PO Q8H PRN #30 tablet 05/18/17 Unknown Rx Cyclobenzaprine [Flexeril 10 MG 10 mg PO QHS PRN #20 tablet 07/08/17 Unknown Rx TAB] Ibuprofen [Ibuprofen 800] 800 mg PO Q8HR PRN #20 tablet 07/08/17 Unknown Rx Nitrofurantoin Monohyd/M-Cryst 100 mg PO BID #20 capsule 11/03/17 Unknown Rx [Macrobid 100 mg Capsule] traMADoL [Ultram 50 MG tab] 50 mg PO Q6HR PRN #12 tablet 11/03/17 Unknown Rx Acetaminophen [Tylenol Extra 1,000 mg PO QID PRN #30 tablet 05/18/18 Unknown Rx Strength] Acetaminophen [Tylenol Extra 1,000 mg PO QID PRN #30 tablet 05/28/18 Unknown Rx Strength] Ibuprofen [Motrin 600 MG tab] 600 mg PO Q8H PRN #15 tablet 11/22/18 Unknown Rx methOCARBAMOL [Robaxin TAB] 500 mg PO BID #20 tab 06/21/19 Unknown Rx Oxybutynin [Ditropan] 5 mg PO Q8H #30 tab 08/04/19 Unknown Rx Diclofenac Sodium 50 mg PO Q8H PRN #30 tablet.dr 09/03/19 Unknown Rx predniSONE [Deltasone] 40 mg PO QDAY #10 tab 09/03/19 Unknown Rx Capsaicin 0.075% [Zostrix Hp 1 applicatio TP TID PRN #1 tube 11/20/19 Unknown Rx 0.075%] amLODIPine 10 mg PO DAILY #30 tab 11/20/19 Unknown Rx Cyclobenzaprine [Flexeril] 10 mg PO TID PRN #30 tablet 04/29/20 Unknown Rx Menthol/Camphor [[place] 1 applicatio TP Q8HR #1 tube 04/29/20 Unknown Rx Ointment] Naproxen 500 mg PO BID PRN #30 tablet 04/29/20 Unknown Rx Meloxicam [Mobic] 15 mg PO DAILY #20 tablet 05/28/20 Unknown Rx Amoxicillin/Potassium Clav 1 each PO BID 7 Days #14 tablet 06/10/20 Unknown Rx [Augmentin 875-125 Tablet] diphenhydrAMINE [Benadryl CAP] 25 mg PO Q8HR PRN #21 capsule 06/10/20 Unknown Rx traMADoL [Ultram] 50 mg PO Q6HR PRN #12 tablet 06/10/20 Unknown Rx ED Physical Exam - General Limitations: No Limitations General appearance: alert, in no apparent distress - Head Head exam: Present: normocephalic - Eye Eye exam: Present: PERRL, EOMI Pupils: Present: normal accommodation - ENT ENT exam: Present: normal exam, mucous membranes moist, TM's normal bilaterally, normal external ear exam, other (toothache #3) - Expanded ENT Exam Expanded Ear exam: Present: normal external inspection TM/Canal exam: Erythema: Right TM Mouth exam: Present: normal external inspection, tongue normal. Absent: drooling, trismus, muffled voice, tongue elevation Teeth exam: Present: dental caries, fractured tooth #, dental tenderness # (3). Absent: gingival enlargement Throat exam: Positive: normal inspection. Negative: tonsillar erythema, tonsillomegaly, tonsillar exudate, R peritonsillar mass, L peritonsillar mass - Neck Neck exam: Present: normal inspection, full ROM. Absent: tenderness, men ingismus, lymphadenopathy, thyromegaly - Respiratory Respiratory exam: Present: normal lung sounds bilaterally. Absent: respiratory distress, wheezes, stridor, chest wall tenderness - Cardiovascular Cardiovascular Exam: Present: regular rate, normal rhythm, normal heart sounds. Absent: systolic murmur, diastolic murmur, rubs, gallop - GI/Abdominal GI/Abdominal exam: Present: soft, normal bowel sounds. Absent: distended, tenderness, guarding, rebound, rigid - Rectal Rectal exam: Present: deferred - Extremities Exam Extremities exam: Present: normal inspection, full ROM, normal capillary refill. Absent: tenderness - Back Exam Back exam: Present: normal inspection, tenderness. Absent: full ROM, CVA tenderness (R), CVA tenderness (L) - Neurological Exam Neurological exam: Present: CN II-XII intact, motor sensory deficit ED Medical Decision Making - Medical Decision Making this is infected dental carries with sinus headache plan. nsaids augmentin, benadryl , follow up with dentist in 2-3 days, there is no focal abscess noted at this time. Vital Signs: bp: 154/84, resp:16, hr:80, temp: 98.5 Critical care attestation.: If time is entered above; I have spent that time in minutes in the direct care of this critically ill patient, excluding procedure time. ED Disposition Clinical Impression: Sinus headache, Dental caries Disposition: TO HOME OR SELFCARE Is pt being admited?: No Does the pt Need Aspirin: No Condition: Stable Instructions: Sinus Headache, [id number], Dental Abscess Prescriptions: Amoxicillin/Potassium Clav [Augmentin 875-125 Tablet] 1 each PO BID 7 Days #14 tablet diphenhydrAMINE [Benadryl CAP] 25 mg PO Q8HR PRN #21 capsule PRN Reason: sinus headache traMADoL [Ultram] 50 mg PO Q6HR PRN #12 tablet PRN Reason: Pain Referrals: [facility] [Provider Group] - 3-5 Days Forms: Work/School Release Form(ED) Time of Disposition: 03:34
== END 2020-06-10 03:50 | disposition home or self-care (01) ==
LOC: ED 01:56
DX: K02.9 Dental caries, unspecified (principal); R51.9 Headache, unspecified; I10 Essential (primary) hypertension; M19.90 Unspecified osteoarthritis, unspecified site; Z98.890 Other specified postprocedural states; Z79.899 Other long term (current) drug therapy; Z88.8 Allergy status to other drugs, medicaments and biological substances
CPT/HCPCS: 99282; J7512

== ENCOUNTER 2020-07-11 01:04 | Emergency (ER) | payer OTHER ==
[2020-07-11 01:13] VITALS: BP 163/72
--- NOTE | 2020-07-11 04:15 | Emergency Department Report ---
ED General Adult HPI - General Chief complaint: Extremity Injury, Lower Stated complaint: RT LEG PAIN;BACK PAIN Source: patient Mode of arrival: Ambulatory Limitations: No Limitations - History of Present Illness Initial comments: 64-year-old abdomen female is in stenosis ointment complaining regarding right lower extremity calf leg pain is of unknown etiology a few days ago which is continued tonight her since the onset. Reports no numbness, no tingling pain is dull global. No chest pain or palpitations no definite deficits when about having a blood clot. -: days(s) (3) Radiation: non-radiation Quality: aching Improves with: none Worsens with: none, cold therapy Associated Symptoms: denies other symptoms - Related Data Previous Rx's Medication Instructions Recorded Last Taken Type Butalb/Acetamin/Caff 50-325-40 1 tab PO Q6H #30 tablet 08/26/16 Unknown Rx [Fioricet 50-325-40] Hydrocortisone 1% [Hydrocortisone 1 applicatio TP TID PRN #1 tube 10/12/16 Unknown Rx 1% CREAM] Ketoconazole (Nf) [Ketoconazole 30 ml TP QDAY #1 shampoo 10/12/16 Unknown Rx Shampoo (Nf)] Selenium Sulfide/Menthol [Selsun 30 ml TP QDAY #1 shampoo 10/12/16 Unknown Rx Blue 1% Shampoo] HYDROcodone/APAP 5-325 [[place] 1 each PO Q6HR PRN #20 tablet 10/27/16 Unknown Rx 5/325] amLODIPine [Norvasc] 10 mg PO DAILY #30 tab 10/27/16 Unknown Rx Clotrimazole 1% [Lotrimin] 1 applic TP BID #1 tube 02/21/17 Unknown Rx Ibuprofen [Motrin 600 MG tab] 600 mg PO Q8H PRN #30 tablet 02/21/17 Unknown Rx Ibuprofen [Motrin 800 MG tab] 800 mg PO Q8HR PRN #30 tablet 02/25/17 Unknown Rx Amoxicillin/K Clav [Augmentin 1 tab PO Q12H 10 Days #20 tablet 03/31/17 Unknown Rx 500MG] Azithromycin [Zithromax Z-LUIS] 250 mg PO DAILY #6 tablet 05/18/17 Unknown Rx Benzonatate [Tessalon Perle] 100 mg PO Q8H PRN #20 capsule 05/18/17 Unknown Rx Ibuprofen [Motrin] 600 mg PO Q8H PRN #30 tablet 05/18/17 Unknown Rx Cyclobenzaprine [Flexeril 10 MG 10 mg PO QHS PRN #20 tablet 07/08/17 Unknown Rx TAB] Ibuprofen [Ibuprofen 800] 800 mg PO Q8HR PRN #20 tablet 07/08/17 Unknown Rx Nitrofurantoin Monohyd/M-Cryst 100 mg PO BID #20 capsule 11/03/17 Unknown Rx [Macrobid 100 mg Capsule] traMADoL [Ultram 50 MG tab] 50 mg PO Q6HR PRN #12 tablet 11/03/17 Unknown Rx Acetaminophen [Tylenol Extra 1,000 mg PO QID PRN #30 tablet 05/18/18 Unknown Rx Strength] Acetaminophen [Tylenol Extra 1,000 mg PO QID PRN #30 tablet 05/28/18 Unknown Rx Strength] Ibuprofen [Motrin 600 MG tab] 600 mg PO Q8H PRN #15 tablet 11/22/18 Unknown Rx methOCARBAMOL [Robaxin TAB] 500 mg PO BID #20 tab 06/21/19 Unknown Rx Oxybutynin [Ditropan] 5 mg PO Q8H #30 tab 08/04/19 Unknown Rx Diclofenac Sodium 50 mg PO Q8H PRN #30 tablet. 09/03/19 Unknown Rx predniSONE [Deltasone] 40 mg PO QDAY #10 tab 09/03/19 Unknown Rx Capsaicin 0.075% [Zostrix Hp 1 applicatio TP TID PRN #1 tube 11/20/19 Unknown Rx 0.075%] amLODIPine 10 mg PO DAILY #30 tab 11/20/19 Unknown Rx Cyclobenzaprine [Flexeril] 10 mg PO TID PRN #30 tablet 04/29/20 Unknown Rx Menthol/Camphor [[place] [place] 1 applicatio TP Q8HR #1 tube 04/29/20 Unknown Rx Ointment] Naproxen 500 mg PO BID PRN #30 tablet 04/29/20 Unknown Rx Meloxicam [Mobic] 15 mg PO DAILY #20 tablet 05/28/20 Unknown Rx Amoxicillin/Potassium Clav 1 each PO BID 7 Days #14 tablet 06/10/20 Unknown Rx [Augmentin 875-125 Tablet] diphenhydrAMINE [Benadryl CAP] 25 mg PO Q8HR PRN #21 capsule 06/10/20 Unknown Rx traMADoL [Ultram] 50 mg PO Q6HR PRN #12 tablet 06/10/20 Unknown Rx methOCARBAMOL [Robaxin TAB] 500 mg PO BID #14 tab 07/11/20 Unknown Rx Allergies Allergy/AdvReac Type Severity Reaction Status Date / Time acetaminophen [From Tylenol] Allergy Unknown Verified 09/03/19 02:07 ED Review of Systems ROS: Stated complaint: RT LEG PAIN;BACK PAIN Other details as noted in HPI Comment: All other systems reviewed and negative ED Past Medical Hx - Past Medical History Hx Hypertension: Yes Hx CVA: No Hx Heart Attack/AMI: No Hx Congestive Heart Failure: No Hx Diabetes: No Hx Deep Vein Thrombosis: No Hx Pulmonary Embolism: No Hx GERD: No Hx Liver Disease: No Hx Renal Disease: No Hx Sickle Cell Disease: No Hx Arthritis: Yes Hx Headaches / Migraines: No Hx Seizures: No Hx Kidney Stones: No Hx Psychiatric Treatment: No Hx Asthma: No Hx COPD: No Hx Dementia: No Hx HIV: No Additional medical history: stomach ulcers, muscle spasms in back, Chronic right shoulder pain /spasms. - Surgical History Hx Coronary Stent: No Hx Open Heart Surgery: No Hx Pacemaker: No Hx Internal Defibrillator: No Hx Cholecystectomy: No Hx Appendectomy: No Hx Breast Surgery: No Additional Surgical History: skin grafts, 1X - Social History Smoking Status: Never Smoker Substance Use Type: None - Medications Home Medications: Home Medications Medication Instructions Recorded Confirmed Last Taken Type Butalb/Acetamin/Caff 50-325-40 1 tab PO Q6H #30 tablet 08/26/16 Unknown Rx [Fioricet 50-325-40] Hydrocortisone 1% [Hydrocortisone 1 applicatio TP TID PRN #1 tube 10/12/16 Unknown Rx 1% CREAM] Ketoconazole (Nf) [Ketoconazole 30 ml TP QDAY #1 shampoo 10/12/16 Unknown Rx Shampoo (Nf)] Selenium Sulfide/Menthol [Selsun 30 ml TP QDAY #1 shampoo 10/12/16 Unknown Rx Blue 1% Shampoo] HYDROcodone/APAP 5-325 [[place] 1 each PO Q6HR PRN #20 tablet 10/27/16 Unknown Rx 5/325] amLODIPine [Norvasc] 10 mg PO DAILY #30 tab 10/27/16 Unknown Rx Clotrimazole 1% [Lotrimin] 1 applic TP BID #1 tube 02/21/17 Unknown Rx Ibuprofen [Motrin 600 MG tab] 600 mg PO Q8H PRN #30 tablet 02/21/17 Unknown Rx Ibuprofen [Motrin 800 MG tab] 800 mg PO Q8HR PRN #30 tablet 02/25/17 Unknown Rx Amoxicillin/K Clav [Augmentin 1 tab PO Q12H 10 Days #20 tablet 03/31/17 Unknown Rx 500MG] Azithromycin [Zithromax Z-LUIS] 250 mg PO DAILY #6 tablet 05/18/17 Unknown Rx Benzonatate [Tessalon Perle] 100 mg PO Q8H PRN #20 capsule 05/18/17 Unknown Rx Ibuprofen [Motrin] 600 mg PO Q8H PRN #30 tablet 05/18/17 Unknown Rx Cyclobenzaprine [Flexeril 10 MG 10 mg PO QHS PRN #20 tablet 07/08/17 Unknown Rx TAB] Ibuprofen [Ibuprofen 800] 800 mg PO Q8HR PRN #20 tablet 07/08/17 Unknown Rx Nitrofurantoin Monohyd/M-Cryst 100 mg PO BID #20 capsule 11/03/17 Unknown Rx [Macrobid 100 mg Capsule] traMADoL [Ultram 50 MG tab] 50 mg PO Q6HR PRN #12 tablet 11/03/17 Unknown Rx Acetaminophen [Tylenol Extra 1,000 mg PO QID PRN #30 tablet 05/18/18 Unknown Rx Strength] Acetaminophen [Tylenol Extra 1,000 mg PO QID PRN #30 tablet 05/28/18 Unknown Rx Strength] Ibuprofen [Motrin 600 MG tab] 600 mg PO Q8H PRN #15 tablet 11/22/18 Unknown Rx methOCARBAMOL [Robaxin TAB] 500 mg PO BID #20 tab 06/21/19 Unknown Rx Oxybutynin [Ditropan] 5 mg PO Q8H #30 tab 08/04/19 Unknown Rx Diclofenac Sodium 50 mg PO Q8H PRN #30 tablet. 09/03/19 Unknown Rx predniSONE [Deltasone] 40 mg PO QDAY #10 tab 09/03/19 Unknown Rx Capsaicin 0.075% [Zostrix Hp 1 applicatio TP TID PRN #1 tube 11/20/19 Unknown Rx 0.075%] amLODIPine 10 mg PO DAILY #30 tab 11/20/19 Unknown Rx Cyclobenzaprine [Flexeril] 10 mg PO TID PRN #30 tablet 04/29/20 Unknown Rx Menthol/Camphor [[place] [place] 1 applicatio TP Q8HR #1 tube 04/29/20 Unknown Rx Ointment] Naproxen 500 mg PO BID PRN #30 tablet 04/29/20 Unknown Rx Meloxicam [Mobic] 15 mg PO DAILY #20 tablet 05/28/20 Unknown Rx Amoxicillin/Potassium Clav 1 each PO BID 7 Days #14 tablet 06/10/20 Unknown Rx [Augmentin 875-125 Tablet] diphenhydrAMINE [Benadryl CAP] 25 mg PO Q8HR PRN #21 capsule 06/10/20 Unknown Rx traMADoL [Ultram] 50 mg PO Q6HR PRN #12 tablet 06/10/20 Unknown Rx methOCARBAMOL [Robaxin TAB] 500 mg PO BID #14 tab 07/11/20 Unknown Rx ED Physical Exam - General Limitations: No Limitations General appearance: alert, in no apparent distress - Head Head exam: Present: atraumatic, normocephalic - Eye Eye exam: Present: normal appearance, PERRL Pupils: Present: normal accommodation - ENT ENT exam: Present: mucous membranes moist - Neck Neck exam: Present: normal inspection, full ROM - Respiratory Respiratory exam: Present: normal lung sounds bilaterally. Absent: respiratory distress - Cardiovascular Cardiovascular Exam: Present: regular rate, normal rhythm. Absent: systolic murmur, diastolic murmur, rubs, gallop - GI/Abdominal GI/Abdominal exam: Present: soft, normal bowel sounds - Extremities Exam Extremities exam: Present: normal inspection, tenderness, normal capillary refill, calf tenderness (Homans' sign). Absent: pedal edema, joint swelling - Back Exam Back exam: Present: normal inspection, CVA tenderness (R), CVA tenderness (L) - Neurological Exam Neurological exam: Present: alert, oriented X3 - Psychiatric Psychiatric exam: Present: normal affect, normal mood - Skin Skin exam: Present: warm, dry, intact, normal color. Absent: rash ED Course Vital Signs 07/11/20 01:08 Temperature 98.0 F Pulse Rate 78 Respiratory 18 Rate Blood Pressure 163/72 O2 Sat by Pulse 98 Oximetry ED Medical Decision Making - Radiology Data Radiology results: report reviewed Ultrasound written preliminary report no DVT seen Critical care attestation.: If time is entered above; I have spent that time in minutes in the direct care of this critically ill patient, excluding procedure time. ED Disposition Clinical Impression: Pain of right leg Disposition: DC-01 TO HOME OR SELFCARE Is pt being admited?: No Does the pt Need Aspirin: No Condition: Stable Instructions: How to Use Cold Therapy Additional Instructions: The ultrasound was negative for a DVT Prescriptions: methOCARBAMOL [Robaxin TAB] 500 mg PO BID #14 tab Referrals: PRIMARY CAREMD [Primary Care Provider] - 3-[address] [facility] [Provider Group] - 3-5 Days
--- NOTE | 2020-07-11 07:36 | Vascular Lab Report ---
DUPLEX DOPPLER LOWER EXTREMITY VEINS, RIGHT INDICATION: lower ext swelling and pain. TECHNIQUE: Duplex doppler imaging was performed through the veins of the right lower extremity using venous comp ression and other maneuvers. COMPARISON: No relevant prior imaging study available. FINDINGS: Right Common femoral vein: Negative. Right Superficial femoral vein: Negative. Right Popliteal vein: Negative. Right Calf veins: Negative. Additional findings: None.. IMPRESSION: 1. No sonographic evidence for DVT in the right lower extremity. Signer Name: Bienvenido Sharif MD Signed: 07/11/2020 7:32 AM Workstation Name: [id number]
== END 2020-07-11 07:45 | disposition home or self-care (01) ==
LOC: ED 01:04
DX: M79.604 Pain in right leg (principal); I10 Essential (primary) hypertension; M19.90 Unspecified osteoarthritis, unspecified site; Z79.899 Other long term (current) drug therapy; Z88.8 Allergy status to other drugs, medicaments and biological substances; Z98.890 Other specified postprocedural states

== ENCOUNTER 2020-08-08 01:53 | Emergency (ER) | payer MEDICAID, OTHER ==
[2020-08-08 02:30] VITALS: BP 145/67
--- NOTE | 2020-08-08 04:05 | Emergency Department Report ---
ED ENT HPI - General Chief complaint: Dental/Oral Stated complaint: MOUTH PAIN Time Seen by Provider: 08/08/20 03:58 Source: patient Mode of arrival: Ambulatory Limitations: No Limitations - History of Present Illness Initial comments: Patient is a 65-year-old -[place] female who presents to the emergency department complaining of acute on chronic/recurrent dental pain that starts in the right jaw and radiates radiates towards her zygomatic arch and lower angle of the mandible , patient has history of infected dental caries. There is no facial swelling there has been no fever or chills there has been no nausea or vomiting. Patient does state intermittent right ear pain. Pain is described at 6/10 aching sharp. Pain is exacerbated by movement. Pain is relieved by nothing tried. Patient has not seen dentist for dental caries. Patient is tolerating p.o. intake without nausea vomiting. She request existing combination medication she received while in emergency department a few months ago stating that it worked very well she would like to repeat it to get her to her appointment date MD complaint: tooth pain Location: tooth # Severity: moderate Quality: aching, dull - Related Data Previous Rx's Medication Instructions Recorded Last Taken Type Butalb/Acetamin/Caff 50-325-40 1 tab PO Q6H #30 tablet 08/26/16 Unknown Rx [Fioricet 50-325-40] Hydrocortisone 1% [Hydrocortisone 1 applicatio TP TID PRN #1 tube 10/12/16 Unknown Rx 1% CREAM] Ketoconazole (Nf) [Ketoconazole 30 ml TP QDAY #1 shampoo 10/12/16 Unknown Rx Shampoo (Nf)] Selenium Sulfide/Menthol [Selsun 30 ml TP QDAY #1 shampoo 10/12/16 Unknown Rx Blue 1% Shampoo] HYDROcodone/APAP 5-325 [[place] 1 each PO Q6HR PRN #20 tablet 10/27/16 Unknown Rx 5/325] amLODIPine [Norvasc] 10 mg PO DAILY #30 tab 10/27/16 Unknown Rx Clotrimazole 1% [Lotrimin] 1 applic TP BID #1 tube 02/21/17 Unknown Rx Ibuprofen [Motrin 600 MG tab] 600 mg PO Q8H PRN #30 tablet 02/21/17 Unknown Rx Ibuprofen [Motrin 800 MG tab] 800 mg PO Q8HR PRN #30 tablet 02/25/17 Unknown Rx Amoxicillin/K Clav [Augmentin 1 tab PO Q12H 10 Days #20 tablet 03/31/17 Unknown Rx 500MG] Azithromycin [Zithromax Z-LUIS] 250 mg PO DAILY #6 tablet 05/18/17 Unknown Rx Benzonatate [Tessalon Perle] 100 mg PO Q8H PRN #20 capsule 05/18/17 Unknown Rx Ibuprofen [Motrin] 600 mg PO Q8H PRN #30 tablet 05/18/17 Unknown Rx Cyclobenzaprine [Flexeril 10 MG 10 mg PO QHS PRN #20 tablet 07/08/17 Unknown Rx TAB] Ibuprofen [Ibuprofen 800] 800 mg PO Q8HR PRN #20 tablet 07/08/17 Unknown Rx Nitrofurantoin Monohyd/M-Cryst 100 mg PO BID #20 capsule 11/03/17 Unknown Rx [Macrobid 100 mg Capsule] traMADoL [Ultram 50 MG tab] 50 mg PO Q6HR PRN #12 tablet 11/03/17 Unknown Rx Acetaminophen [Tylenol Extra 1,000 mg PO QID PRN #30 tablet 05/18/18 Unknown Rx Strength] Acetaminophen [Tylenol Extra 1,000 mg PO QID PRN #30 tablet 05/28/18 Unknown Rx Strength] Ibuprofen [Motrin 600 MG tab] 600 mg PO Q8H PRN #15 tablet 11/22/18 Unknown Rx methOCARBAMOL [Robaxin TAB] 500 mg PO BID #20 tab 06/21/19 Unknown Rx Oxybutynin [Ditropan] 5 mg PO Q8H #30 tab 08/04/19 Unknown Rx Diclofenac Sodium 50 mg PO Q8H PRN #30 tablet. 09/03/19 Unknown Rx predniSONE [Deltasone] 40 mg PO QDAY #10 tab 09/03/19 Unknown Rx Capsaicin 0.075% [Zostrix Hp 1 applicatio TP TID PRN #1 tube 11/20/19 Unknown Rx 0.075%] amLODIPine 10 mg PO DAILY #30 tab 11/20/19 Unknown Rx Cyclobenzaprine [Flexeril] 10 mg PO TID PRN #30 tablet 04/29/20 Unknown Rx Menthol/Camphor [[place] 1 applicatio TP Q8HR #1 tube 04/29/20 Unknown Rx Ointment] Naproxen 500 mg PO BID PRN #30 tablet 04/29/20 Unknown Rx Meloxicam [Mobic] 15 mg PO DAILY #20 tablet 05/28/20 Unknown Rx Amoxicillin/Potassium Clav 1 each PO BID 7 Days #14 tablet 06/10/20 Unknown Rx [Augmentin 875-125 Tablet] diphenhydrAMINE [Benadryl CAP] 25 mg PO Q8HR PRN #21 capsule 06/10/20 Unknown Rx traMADoL [Ultram] 50 mg PO Q6HR PRN #12 tablet 06/10/20 Unknown Rx methOCARBAMOL [Robaxin TAB] 500 mg PO BID #14 tab 07/11/20 Unknown Rx Amoxicillin/Potassium Clav 1 each PO BID #20 tablet 08/08/20 Unknown Rx [Augmentin 875-125 Tablet] Chlorhexidine Mouthwash [Peridex] 15 ml MM BID #1 bottle 08/08/20 Unknown Rx Lidocaine Viscous 2% 5 ml MM Q3H PRN #120 udc 08/08/20 Unknown Rx traMADoL [Ultram] 50 mg PO Q6HR PRN #20 tablet 08/08/20 Unknown Rx Allergies Allergy/AdvReac Type Severity Reaction Status Date / Time acetaminophen [From Tylenol] Allergy Unknown Verified 09/03/19 02:07 ED Dental HPI - General Chief complaint: Dental/Oral Stated complaint: MOUTH PAIN Time Seen by Provider: 08/08/20 03:58 Source: patient Mode of arrival: Ambulatory Limitations: No Limitations - Related Data Previous Rx's Medication Instructions Recorded Last Taken Type Butalb/Acetamin/Caff 50-325-40 1 tab PO Q6H #30 tablet 08/26/16 Unknown Rx [Fioricet 50-325-40] Hydrocortisone 1% [Hydrocortisone 1 applicatio TP TID PRN #1 tube 10/12/16 Unknown Rx 1% CREAM] Ketoconazole (Nf) [Ketoconazole 30 ml TP QDAY #1 shampoo 10/12/16 Unknown Rx Shampoo (Nf)] Selenium Sulfide/Menthol [[place]elsun 30 ml TP QDAY #1 shampoo 10/12/16 Unknown Rx Blue 1% Shampoo] HYDROcodone/APAP 5-325 [[place] 1 each PO Q6HR PRN #20 tablet 10/27/16 Unknown Rx 5/325] amLODIPine [Norvasc] 10 mg PO DAILY #30 tab 10/27/16 Unknown Rx Clotrimazole 1% [Lotrimin] 1 applic TP BID #1 tube 02/21/17 Unknown Rx Ibuprofen [Motrin 600 MG tab] 600 mg PO Q8H PRN #30 tablet 02/21/17 Unknown Rx Ibuprofen [Motrin 800 MG tab] 800 mg PO Q8HR PRN #30 tablet 02/25/17 Unknown Rx Amoxicillin/K Clav [Augmentin 1 tab PO Q12H 10 Days #20 tablet 03/31/17 Unknown Rx 500MG] Azithromycin [Zithromax Z-LUIS] 250 mg PO DAILY #6 tablet 05/18/17 Unknown Rx Benzonatate [Tessalon Perle] 100 mg PO Q8H PRN #20 capsule 05/18/17 Unknown Rx Ibuprofen [Motrin] 600 mg PO Q8H PRN #30 tablet 05/18/17 Unknown Rx Cyclobenzaprine [Flexeril 10 MG 10 mg PO QHS PRN #20 tablet 07/08/17 Unknown Rx TAB] Ibuprofen [Ibuprofen 800] 800 mg PO Q8HR PRN #20 tablet 07/08/17 Unknown Rx Nitrofurantoin Monohyd/M-Cryst 100 mg PO BID #20 capsule 11/03/17 Unknown Rx [Macrobid 100 mg Capsule] traMADoL [Ultram 50 MG tab] 50 mg PO Q6HR PRN #12 tablet 11/03/17 Unknown Rx Acetaminophen [Tylenol Extra 1,000 mg PO QID PRN #30 tablet 05/18/18 Unknown Rx Strength] Acetaminophen [Tylenol Extra 1,000 mg PO QID PRN #30 tablet 05/28/18 Unknown Rx Strength] Ibuprofen [Motrin 600 MG tab] 600 mg PO Q8H PRN #15 tablet 11/22/18 Unknown Rx methOCARBAMOL [Robaxin TAB] 500 mg PO BID #20 tab 06/21/19 Unknown Rx Oxybutynin [Ditropan] 5 mg PO Q8H #30 tab 08/04/19 Unknown Rx Diclofenac Sodium 50 mg PO Q8H PRN #30 tablet. 09/03/19 Unknown Rx predniSONE [Deltasone] 40 mg PO QDAY #10 tab 09/03/19 Unknown Rx Capsaicin 0.075% [Zostrix Hp 1 applicatio TP TID PRN #1 tube 11/20/19 Unknown Rx 0.075%] amLODIPine 10 mg PO DAILY #30 tab 11/20/19 Unknown Rx Cyclobenzaprine [Flexeril] 10 mg PO TID PRN #30 tablet 04/29/20 Unknown Rx Menthol/Camphor [[place] 1 applicatio TP Q8HR #1 tube 04/29/20 Unknown Rx Ointment] Naproxen 500 mg PO BID PRN #30 tablet 04/29/20 Unknown Rx Meloxicam [Mobic] 15 mg PO DAILY #20 tablet 05/28/20 Unknown Rx Amoxicillin/Potassium Clav 1 each PO BID 7 Days #14 tablet 06/10/20 Unknown Rx [Augmentin 875-125 Tablet] diphenhydrAMINE [Benadryl CAP] 25 mg PO Q8HR PRN #21 capsule 06/10/20 Unknown Rx traMADoL [Ultram] 50 mg PO Q6HR PRN #12 tablet 06/10/20 Unknown Rx methOCARBAMOL [Robaxin TAB] 500 mg PO BID #14 tab 07/11/20 Unknown Rx Amoxicillin/Potassium Clav 1 each PO BID #20 tablet 08/08/20 Unknown Rx [Augmentin 875-125 Tablet] Chlorhexidine Mouthwash [Peridex] 15 ml MM BID #1 bottle 08/08/20 Unknown Rx Lidocaine Viscous 2% 5 ml MM Q3H PRN #120 udc 08/08/20 Unknown Rx traMADoL [Ultram] 50 mg PO Q6HR PRN #20 tablet 08/08/20 Unknown Rx Allergies Allergy/AdvReac Type Severity Reaction Status Date / Time acetaminophen [From Tylenol] Allergy Unknown Verified 09/03/19 02:07 ED Review of Systems ROS: Stated complaint: MOUTH PAIN Other details as noted in HPI Comment: All other systems reviewed and negative ED Past Medical Hx - Past Medical History Previous Medical History?: Yes Hx Hypertension: Yes Hx CVA: No Hx Heart Attack/AMI: No Hx Congestive Heart Failure: No Hx Diabetes: No Hx Deep Vein Thrombosis: No Hx Pulmonary Embolism: No Hx GERD: No Hx Liver Disease: No Hx Renal Disease: No Hx Sickle Cell Disease: No Hx Arthritis: Yes Hx Headaches / Migraines: No Hx Seizures: No Hx Kidney Stones: No Hx Psychiatric Treatment: No Hx Asthma: No Hx COPD: No Hx Dementia: No Hx HIV: No Additional medical history: stomach ulcers, muscle spasms in back, Chronic right shoulder pain /spasms. - Surgical History Past Surgical History?: Yes Hx Coronary Stent: No Hx Open Heart Surgery: No Hx Pacemaker: No Hx Internal Defibrillator: No Hx Cholecystectomy: No Hx Appendectomy: No Hx Breast Surgery: No Additional Surgical History: skin grafts, 1X - Social History Smoking Status: Never Smoker Substance Use Type: None - Medications Home Medications: Home Medications Medication Instructions Recorded Confirmed Last Taken Type Butalb/Acetamin/Caff 50-325-40 1 tab PO Q6H #30 tablet 08/26/16 Unknown Rx [Fioricet 50-325-40] Hydrocortisone 1% [Hydrocortisone 1 applicatio TP TID PRN #1 tube 10/12/16 Unknown Rx 1% CREAM] Ketoconazole (Nf) [Ketoconazole 30 ml TP QDAY #1 shampoo 10/12/16 Unknown Rx Shampoo (Nf)] Selenium Sulfide/Menthol [[place] 30 ml TP QDAY #1 shampoo 10/12/16 Unknown Rx Blue 1% Shampoo] HYDROcodone/APAP 5-325 [[place] 1 each PO Q6HR PRN #20 tablet 10/27/16 Unknown Rx 5/325] amLODIPine [Norvasc] 10 mg PO DAILY #30 tab 10/27/16 Unknown Rx Clotrimazole 1% [Lotrimin] 1 applic TP BID #1 tube 02/21/17 Unknown Rx Ibuprofen [Motrin 600 MG tab] 600 mg PO Q8H PRN #30 tablet 02/21/17 Unknown Rx Ibuprofen [Motrin 800 MG tab] 800 mg PO Q8HR PRN #30 tablet 02/25/17 Unknown Rx Amoxicillin/K Clav [Augmentin 1 tab PO Q12H 10 Days #20 tablet 03/31/17 Unknown Rx 500MG] Azithromycin [Zithromax Z-LUIS] 250 mg PO DAILY #6 tablet 05/18/17 Unknown Rx Benzonatate [Tessalon Perle] 100 mg PO Q8H PRN #20 capsule 05/18/17 Unknown Rx Ibuprofen [Motrin] 600 mg PO Q8H PRN #30 tablet 05/18/17 Unknown Rx Cyclobenzaprine [Flexeril 10 MG 10 mg PO QHS PRN #20 tablet 07/08/17 Unknown Rx TAB] Ibuprofen [Ibuprofen 800] 800 mg PO Q8HR PRN #20 tablet 07/08/17 Unknown Rx Nitrofurantoin Monohyd/M-Cryst 100 mg PO BID #20 capsule 11/03/17 Unknown Rx [Macrobid 100 mg Capsule] traMADoL [Ultram 50 MG tab] 50 mg PO Q6HR PRN #12 tablet 11/03/17 Unknown Rx Acetaminophen [Tylenol Extra 1,000 mg PO QID PRN #30 tablet 05/18/18 Unknown Rx Strength] Acetaminophen [Tylenol Extra 1,000 mg PO QID PRN #30 tablet 05/28/18 Unknown Rx Strength] Ibuprofen [Motrin 600 MG tab] 600 mg PO Q8H PRN #15 tablet 11/22/18 Unknown Rx methOCARBAMOL [Robaxin TAB] 500 mg PO BID #20 tab 06/21/19 Unknown Rx Oxybutynin [Ditropan] 5 mg PO Q8H #30 tab 08/04/19 Unknown Rx Diclofenac Sodium 50 mg PO Q8H PRN #30 tablet. 09/03/19 Unknown Rx predniSONE [Deltasone] 40 mg PO QDAY #10 tab 09/03/19 Unknown Rx Capsaicin 0.075% [Zostrix H[place] 1 applicatio TP TID PRN #1 tube 11/20/19 Unknown Rx 0.075%] amLODIPine 10 mg PO DAILY #30 tab 11/20/19 Unknown Rx Cyclobenzaprine [Flexeril] 10 mg PO TID PRN #30 tablet 04/29/20 Unknown Rx Menthol/Camphor [[place] 1 applicatio TP Q8HR #1 tube 04/29/20 Unknown Rx Ointment] Naproxen 500 mg PO BID PRN #30 tablet 04/29/20 Unknown Rx Meloxicam [Mobic] 15 mg PO DAILY #20 tablet 05/28/20 Unknown Rx Amoxicillin/Potassium Clav 1 each PO BID 7 Days #14 tablet 06/10/20 Unknown Rx [Augmentin 875-125 Tablet] diphenhydrAMINE [Benadryl CAP] 25 mg PO Q8HR PRN #21 capsule 06/10/20 Unknown Rx traMADoL [Ultram] 50 mg PO Q6HR PRN #12 tablet 06/10/20 Unknown Rx methOCARBAMOL [Robaxin TAB] 500 mg PO BID #14 tab 07/11/20 Unknown Rx Amoxicillin/Potassium Clav 1 each PO BID #20 tablet 08/08/20 Unknown Rx [Augmentin 875-125 Tablet] Chlorhexidine Mouthwash [Peridex] 15 ml MM BID #1 bottle 08/08/20 Unknown Rx Lidocaine Viscous 2% 5 ml MM Q3H PRN #120 udc 08/08/20 Unknown Rx traMADoL [Ultram] 50 mg PO Q6HR PRN #20 tablet 08/08/20 Unknown Rx ED Physical Exam - General Limitations: No Limitations General appearance: alert, in no apparent distress - Head Head exam: Present: atraumatic, normocephalic - Eye Eye exam: Present: normal appearance - ENT ENT exam: Present: mucous membranes moist, other (Dental caries noted with pain to the right upper molar region around tooth 3 ,#4 and 5) - Neck Neck exam: Present: normal inspection, full ROM. Absent: tenderness, meningismus - Respiratory Respiratory exam: Present: normal lung sounds bilaterally. Absent: respiratory distress - Cardiovascular Cardiovascular Exam: Present: regular rate, normal rhythm. Absent: systolic murmur, diastolic murmur, rubs, gallop - GI/Abdominal GI/Abdominal exam: Present: soft, normal bowel sounds - Extremities Exam Extremities exam: Present: normal inspection - Back Exam Back exam: Present: normal inspection - Neurological Exam Neurological exam: Present: alert, oriented X3 - Psychiatric Psychiatric exam: Present: normal affect, normal mood - Skin Skin exam: Present: warm, dry, intact, normal color. Absent: rash ED Course Vital Signs 08/08/20 02:29 Temperature 98.8 F Pulse Rate 72 Respiratory 18 Rate Blood Pressure 145/67 O2 Sat by Pulse 100 Oximetry Critical care attestation.: If time is entered above; I have spent that time in minutes in the direct care of this critically ill patient, excluding procedure time. ED Disposition Clinical Impression: Dentalgia Disposition: DC- TO HOME OR SELFCARE Is pt being admited?: No Does the pt Need Aspirin: No Condition: Stable Instructions: Acute Pain, Adult, Diet and Dental Disease, Dental Abscess Prescriptions: Amoxicillin/Potassium Clav [Augmentin 875-125 Tablet] 1 each PO BID #20 tablet Lidocaine Viscous 2% 5 ml MM Q3H PRN #120 udc PRN Reason: Pain, Moderate (4-6) Chlorhexidine Mouthwash [Peridex] 15 ml MM BID #1 bottle traMADoL [Ultram] 50 mg PO Q6HR PRN #20 tablet PRN Reason: Pain Referrals: PRIMARY CARE,MD [Primary Care Provider] - 3-5 Days [facility] [Outside] - 3-5 Days
== END 2020-08-08 05:10 | disposition home or self-care (01) ==
LOC: ED 01:53
DX: K08.89 Other specified disorders of teeth and supporting structures (principal); I10 Essential (primary) hypertension; M19.91 Primary osteoarthritis, unspecified site; Z98.890 Other specified postprocedural states; Z79.1 Long term (current) use of non-steroidal anti-inflammatories (NSAID); Z79.2 Long term (current) use of antibiotics; Z79.899 Other long term (current) drug therapy; Z88.8 Allergy status to other drugs, medicaments and biological substances
CPT/HCPCS: 99282

== ENCOUNTER 2020-08-13 01:38 | Emergency (ER) | payer MEDICAID ==
[2020-08-13 07:13] VITALS: BP 180/74
[2020-08-13] MEDS ORDERED: MECLIZINE 25 MG TAB PO ONE (07:24)
[2020-08-13] MEDS ORDERED: SODIUM CHLORIDE 0.9% 1000 ML 1,000 ML IV ONE (07:24)
--- NOTE | 2020-08-13 07:37 | Emergency Department Report ---
ED Dizziness HPI - General Chief Complaint: Headache Stated Complaint: HEADACHE/DIZZINESS Time Seen by Provider: 08/13/20 07:15 Source: patient Mode of arrival: Ambulatory Limitations: No Limitations - History of Present Illness Initial Comments: This is a 65-year-old female nontoxic, well nourished in appearance, no acute signs of distress presents to the ED with c/o of acute on chronic headache. Patient also stated started to have dizziness started today. Patient describes headache as diffuse with level of 8 out of 10. Patient stated she is compliant with her blood pressure medication. Patient stated the dizziness is worsened with position change. Patient denies thunderclap headache. Patient denies any radiation of pain. Patient denies any head trauma. Patient denies any visual changes. Patient denies worse headache. Patient stated that darkness makes headache better and bright lights make the headache worse. Patient denies any numbness, tingling, fever, chills, nausea, vomiting, chest pain, shortness of breath, stiff neck. Patient denies facial drooping or one sided weakness. Patient denies any radiation of pain. Stated drug allergies to acetaminophen. MD Complaint: dizziness, other (headache) -: days(s) Description: lightheadedness History of Same: Yes History of Trauma: No Severity: mild Improves With: rest Worsens With: position Associated Symptoms: denies other symptoms. denies: ataxia, chest pain, confusion, cough, diaphoresis, fever/chills, loss of appetite, malaise, rash, seizure, shortness of breath, syncope, weakness - Related Data Previous Rx's Medication Instructions Recorded Last Taken Type Butalb/Acetamin/Caff 50-325-40 1 tab PO Q6H #30 tablet 08/26/16 Unknown Rx [Fioricet 50-325-40] Hydrocortisone 1% [Hydrocortisone 1 applicatio TP TID PRN #1 tube 10/12/16 Unknown Rx 1% CREAM] Ketoconazole (Nf) [Ketoconazole 30 ml TP QDAY #1 shampoo 10/12/16 Unknown Rx Shampoo (Nf)] Selenium Sulfide/Menthol [Selsun 30 ml TP QDAY #1 shampoo 10/12/16 Unknown Rx Blue 1% Shampoo] HYDROcodone/APAP 5-325 [[place] 1 each PO Q6HR PRN #20 tablet 10/27/16 Unknown Rx 5/325] amLODIPine [Norvasc] 10 mg PO DAILY #30 tab 10/27/16 Unknown Rx Clotrimazole 1% [Lotrimin] 1 applic TP BID #1 tube 02/21/17 Unknown Rx Ibuprofen [Motrin 600 MG tab] 600 mg PO Q8H PRN #30 tablet 02/21/17 Unknown Rx Ibuprofen [Motrin 800 MG tab] 800 mg PO Q8HR PRN #30 tablet 02/25/17 Unknown Rx Amoxicillin/K Clav [Augmentin 1 tab PO Q12H 10 Days #20 tablet 03/31/17 Unknown Rx 500MG] Azithromycin [Zithromax Z-LUIS] 250 mg PO DAILY #6 tablet 05/18/17 Unknown Rx Benzonatate [Tessalon Perle] 100 mg PO Q8H PRN #20 capsule 05/18/17 Unknown Rx Ibuprofen [Motrin] 600 mg PO Q8H PRN #30 tablet 05/18/17 Unknown Rx Cyclobenzaprine [Flexeril 10 MG 10 mg PO QHS PRN #20 tablet 07/08/17 Unknown Rx TAB] Ibuprofen [Ibuprofen 800] 800 mg PO Q8HR PRN #20 tablet 07/08/17 Unknown Rx Nitrofurantoin Monohyd/M-Cryst 100 mg PO BID #20 capsule 11/03/17 Unknown Rx [Macrobid 100 mg Capsule] traMADoL [Ultram 50 MG tab] 50 mg PO Q6HR PRN #12 tablet 11/03/17 Unknown Rx Acetaminophen [Tylenol Extra 1,000 mg PO QID PRN #30 tablet 05/18/18 Unknown Rx Strength] Acetaminophen [Tylenol Extra 1,000 mg PO QID PRN #30 tablet 05/28/18 Unknown Rx Strength] Ibuprofen [Motrin 600 MG tab] 600 mg PO Q8H PRN #15 tablet 11/22/18 Unknown Rx methOCARBAMOL [Robaxin TAB] 500 mg PO BID #20 tab 06/21/19 Unknown Rx Oxybutynin [Ditropan] 5 mg PO Q8H #30 tab 08/04/19 Unknown Rx Diclofenac Sodium 50 mg PO Q8H PRN #30 tablet. 09/03/19 Unknown Rx predniSONE [Deltasone] 40 mg PO QDAY #10 tab 09/03/19 Unknown Rx Capsaicin 0.075% [Zostrix Hp 1 applicatio TP TID PRN #1 tube 11/20/19 Unknown Rx 0.075%] amLODIPine 10 mg PO DAILY #30 tab 11/20/19 Unknown Rx Cyclobenzaprine [Flexeril] 10 mg PO TID PRN #30 tablet 04/29/20 Unknown Rx Menthol/Camphor [[place] Stacy 1 applicatio TP Q8HR #1 tube 04/29/20 Unknown Rx Ointment] Naproxen 500 mg PO BID PRN #30 tablet 04/29/20 Unknown Rx Meloxicam [Mobic] 15 mg PO DAILY #20 tablet 05/28/20 Unknown Rx Amoxicillin/Potassium Clav 1 each PO BID 7 Days #14 tablet 06/10/20 Unknown Rx [Augmentin 875-125 Tablet] diphenhydrAMINE [Benadryl CAP] 25 mg PO Q8HR PRN #21 capsule 06/10/20 Unknown Rx traMADoL [Ultram] 50 mg PO Q6HR PRN #12 tablet 06/10/20 Unknown Rx methOCARBAMOL [Robaxin TAB] 500 mg PO BID #14 tab 07/11/20 Unknown Rx Amoxicillin/Potassium Clav 1 each PO BID #20 tablet 08/08/20 Unknown Rx [Augmentin 875-125 Tablet] Chlorhexidine Mouthwash [Peridex] 15 ml MM BID #1 bottle 08/08/20 Unknown Rx Lidocaine Viscous 2% 5 ml MM Q3H PRN #120 udc 08/08/20 Unknown Rx traMADoL [Ultram] 50 mg PO Q6HR PRN #20 tablet 08/08/20 Unknown Rx Allergies Allergy/AdvReac Type Severity Reaction Status Date / Time acetaminophen [From Tylenol] Allergy Unknown Verified 09/03/19 02:07 ED Review of Systems ROS: Stated complaint: HEADACHE/DIZZINESS Other details as noted in HPI Comment: All other systems reviewed and negative Constitutional: denies: chills, fever Eyes: denies: eye pain, eye discharge, vision change ENT: denies: ear pain, throat pain Respiratory: denies: cough, shortness of breath, wheezing Cardiovascular: denies: chest pain, palpitations Endocrine: no symptoms reported Gastrointestinal: denies: abdominal pain, nausea, diarrhea Genitourinary: denies: urgency, dysuria, discharge Musculoskeletal: denies: back pain, joint swelling, arthralgia Skin: denies: rash, lesions Neurological: headache, vertigo. denies: weakness, numbness, paresthesias, confusion, abnormal gait Psychiatric: denies: anxiety, depression Hematological/Lymphatic: denies: easy bleeding, easy bruising ED Past Medical Hx - Past Medical History Hx Hypertension: Yes Hx CVA: No Hx Heart Attack/AMI: No Hx Congestive Heart Failure: No Hx Diabetes: No Hx Deep Vein Thrombosis: No Hx Pulmonary Embolism: No Hx GERD: No Hx Liver Disease: No Hx Renal Disease: No Hx Sickle Cell Disease: No Hx Arthritis: Yes Hx Headaches / Migraines: No Hx Seizures: No Hx Kidney Stones: No Hx Psychiatric Treatment: No Hx Asthma: No Hx COPD: No Hx Dementia: No Hx HIV: No Additional medical history: stomach ulcers, muscle spasms in back, Chronic right shoulder pain /spasms. - Surgical History Hx Coronary Stent: No Hx Open Heart Surgery: No Hx Pacemaker: No Hx Internal Defibrillator: No Hx Cholecystectomy: No Hx Appendectomy: No Hx Breast Surgery: No Additional Surgical History: skin grafts, 1X - Social History Smoking Status: Never Smoker Substance Use Type: None - Medications Home Medications: Home Medications Medication Instructions Recorded Confirmed Last Taken Type Butalb/Acetamin/Caff 50-325-40 1 tab PO Q6H #30 tablet 08/26/16 Unknown Rx [Fioricet 50-325-40] Hydrocortisone 1% [Hydrocortisone 1 applicatio TP TID PRN #1 tube 10/12/16 Unknown Rx 1% CREAM] Ketoconazole (Nf) [Ketoconazole 30 ml TP QDAY #1 shampoo 10/12/16 Unknown Rx Shampoo (Nf)] Selenium Sulfide/Menthol [Selsun 30 ml TP QDAY #1 shampoo 10/12/16 Unknown Rx Blue 1% Shampoo] HYDROcodone/APAP 5-325 [[place] 1 each PO Q6HR PRN #20 tablet 10/27/16 Unknown Rx 5/325] amLODIPine [Norvasc] 10 mg PO DAILY #30 tab 10/27/16 Unknown Rx Clotrimazole 1% [Lotrimin] 1 applic TP BID #1 tube 02/21/17 Unknown Rx Ibuprofen [Motrin 600 MG tab] 600 mg PO Q8H PRN #30 tablet 02/21/17 Unknown Rx Ibuprofen [Motrin 800 MG tab] 800 mg PO Q8HR PRN #30 tablet 02/25/17 Unknown Rx Amoxicillin/K Clav [Augmentin 1 tab PO Q12H 10 Days #20 tablet 03/31/17 Unknown Rx 500MG] Azithromycin [Zithromax Z-LUIS] 250 mg PO DAILY #6 tablet 05/18/17 Unknown Rx Benzonatate [Tessalon Perle] 100 mg PO Q8H PRN #20 capsule 05/18/17 Unknown Rx Ibuprofen [Motrin] 600 mg PO Q8H PRN #30 tablet 05/18/17 Unknown Rx Cyclobenzaprine [Flexeril 10 MG 10 mg PO QHS PRN #20 tablet 07/08/17 Unknown Rx TAB] Ibuprofen [Ibuprofen 800] 800 mg PO Q8HR PRN #20 tablet 07/08/17 Unknown Rx Nitrofurantoin Monohyd/M-Cryst 100 mg PO BID #20 capsule 11/03/17 Unknown Rx [Macrobid 100 mg Capsule] traMADoL [Ultram 50 MG tab] 50 mg PO Q6HR PRN #12 tablet 11/03/17 Unknown Rx Acetaminophen [Tylenol Extra 1,000 mg PO QID PRN #30 tablet 05/18/18 Unknown Rx Strength] Acetaminophen [Tylenol Extra 1,000 mg PO QID PRN #30 tablet 05/28/18 Unknown Rx Strength] Ibuprofen [Motrin 600 MG tab] 600 mg PO Q8H PRN #15 tablet 11/22/18 Unknown Rx methOCARBAMOL [Robaxin TAB] 500 mg PO BID #20 tab 06/21/19 Unknown Rx Oxybutynin [Ditropan] 5 mg PO Q8H #30 tab 08/04/19 Unknown Rx Diclofenac Sodium 50 mg PO Q8H PRN #30 tablet. 09/03/19 Unknown Rx predniSONE [Deltasone] 40 mg PO QDAY #10 tab 09/03/19 Unknown Rx Capsaicin 0.075% [Zostrix Hp 1 applicatio TP TID PRN #1 tube 11/20/19 Unknown Rx 0.075%] amLODIPine 10 mg PO DAILY #30 tab 11/20/19 Unknown Rx Cyclobenzaprine [Flexeril] 10 mg PO TID PRN #30 tablet 04/29/20 Unknown Rx Menthol/Camphor [[place] Stacy 1 applicatio TP Q8HR #1 tube 04/29/20 Unknown Rx Ointment] Naproxen 500 mg PO BID PRN #30 tablet 04/29/20 Unknown Rx Meloxicam [Mobic] 15 mg PO DAILY #20 tablet 05/28/20 Unknown Rx Amoxicillin/Potassium Clav 1 each PO BID 7 Days #14 tablet 06/10/20 Unknown Rx [Augmentin 875-125 Tablet] diphenhydrAMINE [Benadryl CAP] 25 mg PO Q8HR PRN #21 capsule 06/10/20 Unknown Rx traMADoL [Ultram] 50 mg PO Q6HR PRN #12 tablet 06/10/20 Unknown Rx methOCARBAMOL [Robaxin TAB] 500 mg PO BID #14 tab 07/11/20 Unknown Rx Amoxicillin/Potassium Clav 1 each PO BID #20 tablet 08/08/20 Unknown Rx [Augmentin 875-125 Tablet] Chlorhexidine Mouthwash [Peridex] 15 ml MM BID #1 bottle 08/08/20 Unknown Rx Lidocaine Viscous 2% 5 ml MM Q3H PRN #120 udc 08/08/20 Unknown Rx traMADoL [Ultram] 50 mg PO Q6HR PRN #20 tablet 08/08/20 Unknown Rx ED Physical Exam - General Limitations: No Limitations General appearance: alert, in no apparent distress - Head Head exam: Present: atraumatic, normocephalic - Eye Eye exam: Present: normal appearance, PERRL, EOMI - ENT ENT exam: Present: normal exam, normal orophraynx - Neck Neck exam: Present: normal inspection, full ROM. Absent: lymphadenopathy - Respiratory Respiratory exam: Present: normal lung sounds bilaterally. Absent: respiratory distress, wheezes, rales, rhonchi, stridor, chest wall tenderness, accessory muscle use, decreased breath sounds, prolonged expiratory - Cardiovascular Cardiovascular Exam: Present: regular rate, normal rhythm, normal heart sounds. Absent: bradycardia, tachycardia, irregular rhythm, systolic murmur, diastolic murmur, rubs, gallop - GI/Abdominal GI/Abdominal exam: Present: soft, normal bowel sounds. Absent: distended, tenderness, guarding, rebound, rigid, diminished bowel sounds - Extremities Exam Extremities exam: Present: normal inspection, full ROM, normal capillary refill - Back Exam Back exam: Present: normal inspection, full ROM. Absent: tenderness, paraspinal tenderness, vertebral tenderness - Neurological Exam Neurological exam: Present: alert, oriented X3, normal gait - Expanded Neurological Exam Expanded Patient oriented to: Present: person, place Cranial nerves: EOM's Intact: Normal, Facial Sensation: Normal Cerebellar function: Finger to Nose: Normal Upper motor neuron: Pronator Drift: Normal, Sensory Extinction: Normal Motor strength exam: RUE: 5, LUE: 5, RLE: 5, LLE: 5 Best Eye Response (Arthur): (4) open spontaneously Best Motor Response (Arthur): (6) obeys commands Best Verbal Response ([place]): (5) oriented Arthur Total: 15 - Psychiatric Psychiatric exam: Present: normal affect, normal mood - Skin Skin exam: Present: warm, dry, intact, normal color. Absent: rash ED Course Vital Signs 08/13/20 05:07 Temperature 98.4 F Pulse Rate 63 Respiratory 18 Rate Blood Pressure 180/74 O2 Sat by Pulse 100 Oximetry - Reevaluation(s) Reevaluation #1: 08/13/20 07:38 Patient is speaking in full sentences with no signs of distress noted. ED Medical Decision Making - Medical Decision Making 65-year-old female that presents with dizziness and headache. Patient is stable and was examined by me. Labs ordered and imaging ordered as well as EKG. When [employer] back [employer] worker went to the room patient was not there. We tried to contact the patient and was unsuccessful. Patient also was not in the waiting room or anywhere in the ER. Patient eloped without telling anybody. Unable to do a full evaluation due to eloped prior labs and imaging studies to be obtained. Critical care attestation.: If time is entered above; I have spent that time in minutes in the direct care of this critically ill patient, excluding procedure time. ED Disposition Clinical Impression: Dizziness Headache Qualifiers: Headache type: unspecified Headache chronicity pattern: unspecified pattern Intractability: not intractable Qualified Code(s): R51.9 - Headache, unspecified Disposition: ELOPED Is pt being admited?: No Condition: Undetermined
== END 2020-08-13 07:30 | disposition left against medical advice (07) ==
LOC: ED 01:38
DX: R42 Dizziness and giddiness (principal); R51.9 Headache, unspecified; I10 Essential (primary) hypertension; Z88.6 Allergy status to analgesic agent; Z79.899 Other long term (current) drug therapy
CPT/HCPCS: 99281

== ENCOUNTER 2020-09-04 00:09 | Inpatient (IN) | payer MEDICAID, OTHER ==
[2020-09-04] MEDS ORDERED: ASPIRIN 325 MG TAB PO ONE (01:27)
[2020-09-04 02:01] LABS: Hematocrit 29.9 % (30.3-42.9); Hemoglobin 9.4 gm/dl (10.1-14.3); Mean Corpuscular HGB Conc 32 % (30-34); Platelet Count 273 K/mm3 (140-440); Red Blood Count 4.52 M/mm3 (3.65-5.03); Red Cell Distribution Width 17.3 % (13.2-15.2)
[2020-09-04 02:18] LABS: Mean Corpuscular Volume 66 fl (79-97)
[2020-09-04 02:25] LABS: Alanine Aminotransferase 12 units/L (7-56); Albumin 3.9 g/dL (3.9-5); Blood Urea Nitrogen 25 mg/dL (7-17); Calcium 9.1 mg/dL (8.4-10.2); Hemolysis Index 1
[2020-09-04 02:29] LABS: BUN/Creatinine Ratio 50
--- NOTE | 2020-09-04 02:30 | XRay Report ---
CHEST 2 VIEWS INDICATION / CLINICAL INFORMATION: chestpain. COMPARISON: 07/07/2019 FINDINGS: SUPPORT DEVICES: None. HEART / MEDIASTINUM: Stable cardiomegaly. LUNGS / PLEURA: Mild pulmonary venous hypertension. The lungs are well aerated and appear grossly fannie ar. No pneumothorax. ADDITIONAL FINDINGS: No significant additional findings. IMPRESSION: 1. Sable cardiomegaly with mild pulmonary venous hypertension. 2. No acute pulmonary disease. Signer Name: Kierra Loja MD Signed: 09/04/2020 2:26 AM Workstation Name: [id number]
[2020-09-04 03:02] LABS: Hypochromasia 2+; Total Cells Counted 100
--- NOTE | 2020-09-04 06:05 | Emergency Department Report ---
ED Chest Pain HPI - General Chief Complaint: Chest Pain Stated Complaint: CHEST PAIN/LT ARM/SHOULDER PAIN PUI?: No Time Seen by Provider: 09/04/20 05:57 Source: patient, RN notes reviewed, old records reviewed Mode of arrival: Ambulatory Limitations: No Limitations - History of Present Illness Initial Comments: The patient was evaluated in the emergency department for symptoms described in the history of present illness. He/she was evaluated in the context of the global COVID-19 pandemic, which necessitated consideration that the patient might be at risk for infection with the virus that causes COVID-19. Institutional protocols and algorithms that pertain to the evaluation of patients at risk for COVID-19 are in a state of rapid change based on information released by regulatory bodies including the CDC and federal and state organizations. These policies and algorithms were followed during the patient's care in the emergency department. Please note that these policies, procedures and recommendations changed on a rapid basis. This is a 65-year-old female. She is right-hand dominant. She indicates she does not have a local primary care doctor. Her past medical history includes arthritis, hypertension, chronic pain in shoulders, questionable stomach ulcers. The patient presents to the ER with a complaint of nontraumatic central and left-sided chest pain, that radiates to the left arm, shoulder, and back. There is no vomiting, diaphoresis. Patient denies exertional shortness of breath. She denies travel, surgery, and immobilization. She has lower extremity swelling which she thinks is new over the past week or so. The patient was ruled out for DVT recently in June. Patient denies Covid symptomatology. The patient denies fever. She also complains of sharp throbbing left-sided shoulder pain, which increases with palpation and range of motion, and decreases with rest. The patient denies hematemesis and bright red blood per rectum Complaint: chest pain, other -: Gradual, days(s) Onset: during exertion Pain Location: substernal, left chest Pain Radiation: LUE, back Severity: moderate Quality: aching Consistency: intermittent Improves With: nothing Worsens With: nothing Aspirin use within the Past 7 Days: (0) No - Related Data On Oral Contraceptives: No Previous Rx's Medication Instructions Recorded Last Taken Type Butalb/Acetamin/Caff 50-325-40 1 tab PO Q6H #30 tablet 08/26/16 Unknown Rx [Fioricet 50-325-40] Hydrocortisone 1% [Hydrocortisone 1 applicatio TP TID PRN #1 tube 10/12/16 Unknown Rx 1% CREAM] Ketoconazole (Nf) [Ketoconazole 30 ml TP QDAY #1 shampoo 10/12/16 Unknown Rx Shampoo (Nf)] Selenium Sulfide/Menthol [Selsun 30 ml TP QDAY #1 shampoo 10/12/16 Unknown Rx Blue 1% Shampoo] HYDROcodone/APAP 5-325 [[place] 1 each PO Q6HR PRN #20 tablet 10/27/16 Unknown Rx 5/325] amLODIPine [Norvasc] 10 mg PO DAILY #30 tab 10/27/16 Unknown Rx Clotrimazole 1% [Lotrimin] 1 applic TP BID #1 tube 02/21/17 Unknown Rx Ibuprofen [Motrin 600 MG tab] 600 mg PO Q8H PRN #30 tablet 02/21/17 Unknown Rx Ibuprofen [Motrin 800 MG tab] 800 mg PO Q8HR PRN #30 tablet 02/25/17 Unknown Rx Amoxicillin/K Clav [Augmentin 1 tab PO Q12H 10 Days #20 tablet 03/31/17 Unknown Rx 500MG] Azithromycin [Zithromax Z-LUIS] 250 mg PO DAILY #6 tablet 05/18/17 Unknown Rx Benzonatate [Tessalon Perle] 100 mg PO Q8H PRN #20 capsule 05/18/17 Unknown Rx Ibuprofen [Motrin] 600 mg PO Q8H PRN #30 tablet 05/18/17 Unknown Rx Cyclobenzaprine [Flexeril 10 MG 10 mg PO QHS PRN #20 tablet 07/08/17 Unknown Rx TAB] Ibuprofen [Ibuprofen 800] 800 mg PO Q8HR PRN #20 tablet 07/08/17 Unknown Rx Nitrofurantoin Monohyd/M-Cryst 100 mg PO BID #20 capsule 11/03/17 Unknown Rx [Macrobid 100 mg Capsule] traMADoL [Ultram 50 MG tab] 50 mg PO Q6HR PRN #12 tablet 11/03/17 Unknown Rx Acetaminophen [Tylenol Extra 1,000 mg PO QID PRN #30 tablet 05/18/18 Unknown Rx Strength] Acetaminophen [Tylenol Extra 1,000 mg PO QID PRN #30 tablet 05/28/18 Unknown Rx Strength] Ibuprofen [Motrin 600 MG tab] 600 mg PO Q8H PRN #15 tablet 11/22/18 Unknown Rx methOCARBAMOL [Robaxin TAB] 500 mg PO BID #20 tab 06/21/19 Unknown Rx Oxybutynin [Ditropan] 5 mg PO Q8H #30 tab 08/04/19 Unknown Rx Diclofenac Sodium 50 mg PO Q8H PRN #30 tablet. 09/03/19 Unknown Rx predniSONE [Deltasone] 40 mg PO QDAY #10 tab 09/03/19 Unknown Rx Capsaicin 0.075% [Zostrix Hp 1 applicatio TP TID PRN #1 tube 11/20/19 Unknown Rx 0.075%] amLODIPine 10 mg PO DAILY #30 tab 11/20/19 Unknown Rx Cyclobenzaprine [Flexeril] 10 mg PO TID PRN #30 tablet 04/29/20 Unknown Rx Menthol/Camphor [[place] 1 applicatio TP Q8HR #1 tube 04/29/20 Unknown Rx Ointment] Naproxen 500 mg PO BID PRN #30 tablet 04/29/20 Unknown Rx Meloxicam [Mobic] 15 mg PO DAILY #20 tablet 05/28/20 Unknown Rx Amoxicillin/Potassium Clav 1 each PO BID 7 Days #14 tablet 06/10/20 Unknown Rx [Augmentin 875-125 Tablet] diphenhydrAMINE [Benadryl CAP] 25 mg PO Q8HR PRN #21 capsule 06/10/20 Unknown Rx traMADoL [Ultram] 50 mg PO Q6HR PRN #12 tablet 06/10/20 Unknown Rx methOCARBAMOL [Robaxin TAB] 500 mg PO BID #14 tab 07/11/20 Unknown Rx Amoxicillin/Potassium Clav 1 each PO BID #20 tablet 08/08/20 Unknown Rx [Augmentin 875-125 Tablet] Chlorhexidine Mouthwash [Peridex] 15 ml MM BID #1 bottle 08/08/20 Unknown Rx Lidocaine Viscous 2% 5 ml MM Q3H PRN #120 udc 08/08/20 Unknown Rx traMADoL [Ultram] 50 mg PO Q6HR PRN #20 tablet 08/08/20 Unknown Rx Allergies Allergy/AdvReac Type Severity Reaction Status Date / Time acetaminophen [From Tylenol] Allergy Unknown Verified 09/03/19 02:07 Heart Score - HEART Score History: Slightly suspicious EKG: Non-specific Age: > 65 Risk factors: 1-2 risk factors Troponin: < normal limit HEART Score: 4 - EKG Read Time Time EKG Completed: 00:57 EKG Read Time: 00:59 - Critical Actions Critical Actions: 4-6 pts:12-16.6% risk of adverse cardiac event. Should be admitted ED Review of Systems ROS: Stated complaint: CHEST PAIN/LT ARM/SHOULDER PAIN Other details as noted in HPI Constitutional: other (Denies loss of taste and smell). denies: fever Eyes: denies: eye discharge ENT: denies: epistaxis Respiratory: denies: wheezing Cardiovascular: chest pain Gastrointestinal: denies: abdominal pain Musculoskeletal: arthralgia, myalgia Neurological: weakness. denies: numbness Hematological/Lymphatic: denies: easy bleeding ED Past Medical Hx - Past Medical History Previous Medical History?: Yes Hx Hypertension: Yes Hx CVA: No Hx Heart Attack/AMI: No Hx Congestive Heart Failure: No Hx Diabetes: No Hx Deep Vein Thrombosis: No Hx Pulmonary Embolism: No Hx GERD: No Hx Liver Disease: No Hx Renal Disease: No Hx Sickle Cell Disease: No Hx Arthritis: Yes Hx Headaches / Migraines: No Hx Seizures: No Hx Kidney Stones: No Hx Psychiatric Treatment: No Hx Asthma: No Hx COPD: No Hx Dementia: No Hx HIV: No Additional medical history: stomach ulcers, muscle spasms in back, Chronic right shoulder pain /spasms. - Surgical History Past Surgical History?: Yes Hx Coronary Stent: No Hx Open Heart Surgery: No Hx Pacemaker: No Hx Internal Defibrillator: No Hx Cholecystectomy: No Hx Appendectomy: No Hx Breast Surgery: No Additional Surgical History: skin grafts, 1X - Social History Smoking Status: Never Smoker Substance Use Type: None - Medications Home Medications: Home Medications Medication Instructions Recorded Confirmed Last Taken Type Butalb/Acetamin/Caff 50-325-40 1 tab PO Q6H #30 tablet 08/26/16 Unknown Rx [Fioricet 50-325-40] Hydrocortisone 1% [Hydrocortisone 1 applicatio TP TID PRN #1 tube 10/12/16 Unknown Rx 1% CREAM] Ketoconazole (Nf) [Ketoconazole 30 ml TP QDAY #1 shampoo 10/12/16 Unknown Rx Shampoo (Nf)] Selenium Sulfide/Menthol [Selsun 30 ml TP QDAY #1 shampoo 10/12/16 Unknown Rx Blue 1% Shampoo] HYDROcodone/APAP 5-325 [[place] 1 each PO Q6HR PRN #20 tablet 10/27/16 Unknown Rx 5/325] amLODIPine [Norvasc] 10 mg PO DAILY #30 tab 10/27/16 Unknown Rx Clotrimazole 1% [Lotrimin] 1 applic TP BID #1 tube 02/21/17 Unknown Rx Ibuprofen [Motrin 600 MG tab] 600 mg PO Q8H PRN #30 tablet 02/21/17 Unknown Rx Ibuprofen [Motrin 800 MG tab] 800 mg PO Q8HR PRN #30 tablet 02/25/17 Unknown Rx Amoxicillin/K Clav [Augmentin 1 tab PO Q12H 10 Days #20 tablet 03/31/17 Unknown Rx 500MG] Azithromycin [Zithromax Z-LUIS] 250 mg PO DAILY #6 tablet 05/18/17 Unknown Rx Benzonatate [Tessalon Perle] 100 mg PO Q8H PRN #20 capsule 05/18/17 Unknown Rx Ibuprofen [Motrin] 600 mg PO Q8H PRN #30 tablet 05/18/17 Unknown Rx Cyclobenzaprine [Flexeril 10 MG 10 mg PO QHS PRN #20 tablet 07/08/17 Unknown Rx TAB] Ibuprofen [Ibuprofen 800] 800 mg PO Q8HR PRN #20 tablet 07/08/17 Unknown Rx Nitrofurantoin Monohyd/M-Cryst 100 mg PO BID #20 capsule 11/03/17 Unknown Rx [Macrobid 100 mg Capsule] traMADoL [Ultram 50 MG tab] 50 mg PO Q6HR PRN #12 tablet 11/03/17 Unknown Rx Acetaminophen [Tylenol Extra 1,000 mg PO QID PRN #30 tablet 05/18/18 Unknown Rx Strength] Acetaminophen [Tylenol Extra 1,000 mg PO QID PRN #30 tablet 05/28/18 Unknown Rx Strength] Ibuprofen [Motrin 600 MG tab] 600 mg PO Q8H PRN #15 tablet 11/22/18 Unknown Rx methOCARBAMOL [Robaxin TAB] 500 mg PO BID #20 tab 06/21/19 Unknown Rx Oxybutynin [Ditropan] 5 mg PO Q8H #30 tab 08/04/19 Unknown Rx Diclofenac Sodium 50 mg PO Q8H PRN #30 tablet. 09/03/19 Unknown Rx predniSONE [Deltasone] 40 mg PO QDAY #10 tab 09/03/19 Unknown Rx Capsaicin 0.075% [Zostrix Hp 1 applicatio TP TID PRN #1 tube 11/20/19 Unknown Rx 0.075%] amLODIPine 10 mg PO DAILY #30 tab 11/20/19 Unknown Rx Cyclobenzaprine [Flexeril] 10 mg PO TID PRN #30 tablet 04/29/20 Unknown Rx Menthol/Camphor [[place] 1 applicatio TP Q8HR #1 tube 04/29/20 Unknown Rx Ointment] Naproxen 500 mg PO BID PRN #30 tablet 04/29/20 Unknown Rx Meloxicam [Mobic] 15 mg PO DAILY #20 tablet 05/28/20 Unknown Rx Amoxicillin/Potassium Clav 1 each PO BID 7 Days #14 tablet 06/10/20 Unknown Rx [Augmentin 875-125 Tablet] diphenhydrAMINE [Benadryl CAP] 25 mg PO Q8HR PRN #21 capsule 06/10/20 Unknown Rx traMADoL [Ultram] 50 mg PO Q6HR PRN #12 tablet 06/10/20 Unknown Rx methOCARBAMOL [Robaxin TAB] 500 mg PO BID #14 tab 07/11/20 Unknown Rx Amoxicillin/Potassium Clav 1 each PO BID #20 tablet 08/08/20 Unknown Rx [Augmentin 875-125 Tablet] Chlorhexidine Mouthwash [Peridex] 15 ml MM BID #1 bottle 08/08/20 Unknown Rx Lidocaine Viscous 2% 5 ml MM Q3H PRN #120 udc 08/08/20 Unknown Rx traMADoL [Ultram] 50 mg PO Q6HR PRN #20 tablet 08/08/20 Unknown Rx ED Physical Exam - General Limitations: No Limitations General appearance: alert, in no apparent distress - Head Head exam: Present: atraumatic, normocephalic - Eye Eye exam: Present: normal appearance, EOMI. Absent: nystagmus - ENT ENT exam: Present: normal exam, normal orophraynx, mucous membranes moist, normal external ear exam - Neck Neck exam: Present: normal inspection, full ROM. Absent: tenderness, meningismus - Respiratory Respiratory exam: Present: decreased breath sounds. Absent: respiratory distress, wheezes, rales, rhonchi, stridor - Cardiovascular Cardiovascular Exam: Present: regular rate, normal rhythm, normal heart sounds. Absent: bradycardia, tachycardia, irregular rhythm, systolic murmur, diastolic murmur, rubs, gallop - GI/Abdominal GI/Abdominal exam: Present: soft. Absent: distended, tenderness, guarding, rebound, rigid, pulsatile mass - Extremities Exam Extremities exam: Present: normal inspection, tenderness (There is left-sided shoulder tenderness. There is no redness, pus or streaking. Range of motion the left shoulder limited secondary to pain. There is no warmth over the left shoulder), pedal edema (2+ edema in the bilateral lower extremities), other (2+ pulses noted in the bilateral upper and lower extremities. There is no long bony tenderness. The muscular compartments are soft. The pelvis is stable.). Absent: full ROM (Full range of motion of the right upper extremity, bilateral lower extremities, left wrist and left elbow. Left shoulder range of motion limited secondary to pain) - Back Exam Back exam: Present: normal inspection. Absent: tenderness, CVA tenderness (R), CVA tenderness (L), paraspinal tenderness, vertebral tenderness - Neurological Exam Neurological exam: Present: alert, other (No facial droop. Tongue midline. Extraocular movements intact bilaterally. Facial sensation intact to light touch in V1, V2, V3 distribution bilaterally. 5 and a 5 strength in 4 extremities. Sensation intact to light touch in 4 extremities.) - Psychiatric Psychiatric exam: Present: flat affect - Skin Skin exam: Present: warm, dry, intact, normal color. Absent: rash ED Course Vital Signs 09/04/20 09/04/20 09/04/20 01:15 05:31 07:14 Temperature 99.0 F Pulse Rate 78 79 84 Respiratory 18 20 Rate Blood Pressure 181/84 157/76 Blood Pressure 162/70 [Right] O2 Sat by Pulse 96 97 Oximetry - Reevaluation(s) Reevaluation #1: 09/04/20 06:50 Differential diagnosis, including but not limited to: GERD, gastritis, hiatal hernia, pneumonia, acute coronary syndrome, microcytic anemia, congestive heart failure, shoulder arthritis Assessment and plan: 65-year-old female, who is not currently tachycardic, tachypneic or hypoxic, who denies DVT and pulmonary embolism risk factors, who is low risk by Wells criteria for pulmonary embolism, with complaint of acute chest pain, abnormal EKG, moderate risk for major adverse cardiac event as per heart score. Physical exam shows JVD, lower extremity edema. No recent cardiac risk ratification that she is aware of. EKG unchanged from prior, troponin negative. Admit to the medical service for cardiac risk ratification. Have discussed this plan of care with the patient, who verbalized understanding, and who is amenable to this plan of care. Microcytic anemia is chronic. Patient denies hematemesis and bright red blood per rectum, as well as vaginal bleeding. Send iron studies, start iron sulfate supplementation. Administer aspirin, as needed nitroglycerin, and Lasix. X-ray the chest suggest pulmonary vascular congestion. Check proBNP. Left shoulder has reproducible tenderness, without redness, warmth, pus or streaking, has some limited range of motion, suspect arthritis versus adhesive capsulitis. Unfortunate allergic to acetaminophen. Low-dose ibuprofen, left shoulder x-ray. Admit to the medical service. Have discussed this plan of care with the patient, who verbalized understanding, and is amenable to this plan of care. Reevaluation #2: 09/04/20 07:13 Dr. Segundo to admit patient to the internal medicine service. GABRIEL score - Gabriel Score Age > 65: (1) Yes Aspirin use within the Past 7 Days: (0) No 3 or more CAD Risk Factors: (0) No 2 or more Angina events in past 24 hrs: (1) Yes Known CAD with more than 50% Stenosis: (0) No Elevated Cardiac Markers: (0) No ST Deviation Greater than 0.5mm: (0) No GABRIEL Score: 2 ED Medical Decision Making - Lab Data Result diagrams: 09/04/20 01:37 09/04/20 01:37 Vital Signs 09/04/20 09/04/20 01:15 05:31 Temperature 99.0 F Pulse Rate 78 79 Respiratory 18 20 Rate Blood Pressure 181/84 Blood Pressure 162/70 [Right] O2 Sat by Pulse 96 97 Oximetry Lab Results 09/04/20 09/04/20 09/04/20 Range/Units 01:37 01:37 05:18 WBC 7.5 (4.5-11.0) K/mm3 RBC 4.52 (3.65-5.03) M/mm3 Hgb 9.4 L (10.1-14.3) gm/dl Hct 29.9 L (30.3-42.9) % MCV 66 L (79-97) fl MCH 21 L (28-32) pg MCHC 32 (30-34) % RDW 17.3 H (13.2-15.2) % Plt Count 273 (140-440) K/mm3 [place] % (Auto) Circuitry Negative Inspector Add Manual Diff Complete Total Counted 100 Seg Neuts % (Manual) 58.0 (40.0-70.0) % Lymphocytes % (Manual) 21.0 (13.4-35.0) % Monocytes % (Manual) 18.0 H (0.0-7.3) % Eosinophils % (Manual) 2.0 (0.0-4.3) % Basophils % (Manual) 1.0 (0.0-1.8) % Nucleated RBC % Not Reportable Seg Neutrophils # Man 4.4 (1.8-7.7) K/mm3 Band Neutrophils # 0.0 K/mm3 Lymphocytes # (Manual) 1.6 (1.2-5.4) K/mm3 Abs React Lymphs (Man) 0.0 K/mm3 Monocytes # (Manual) 1.4 H (0.0-0.8) K/mm3 Eosinophils # (Manual) 0.2 (0.0-0.4) K/mm3 Basophils # (Manual) 0.1 (0.0-0.1) K/mm3 Metamyelocytes # 0.0 K/mm3 Myelocytes # 0.0 K/mm3 Promyelocytes # 0.0 K/mm3 Blast Cells # 0.0 K/mm3 WBC Morphology Not Reportable Hypersegmented Neuts Not Reportable Hyposegmented Neuts Not Reportable Hypogranular Neuts Not Reportable Smudge Cells Not Reportable Toxic Granulation Not Reportable Toxic Vacuolation Not Reportable Dohle Bodies Not Reportable Pelger-Huet Anomaly Not Reportable Cassandra Rods Not Reportable Platelet Estimate Not Reportable Clumped Platelets Not Reportable Plt Clumps, EDTA Not Reportable Large Platelets Not Reportable Giant Platelets Not Reportable Platelet Satelliting Not Reportable Plt Morphology Comment Not Reportable RBC Morphology Not Reportable Dimorphic RBCs Not Reportable Polychromasia Not Reportable Hypochromasia 2+ Poikilocytosis Not Reportable Anisocytosis Not Reportable Microcytosis 1+ Macrocytosis Not Reportable Spherocytes Not Reportable Pappenheimer Bodies Not Reportable Sickle Cells Not Reportable Target Cells Not Reportable Tear Drop Cells Not Reportable Ovalocytes Not Reportable Helmet Cells Not Reportable [place] Bodies Not Reportable [place] Rings Not Reportable [place] Cells Not Reportable Bite Cells Not Reportable Crenated Cell Not Reportable Elliptocytes Not Reportable Acanthocytes (Spur) Not Reportable Rouleaux Not Reportable Hemoglobin C Crystals Not Reportable Schistocytes Not Reportable Malaria parasites Not Reportable [place] Bodies Not Reportable Hem Pathologist Commnt No Sodium 140 (137-145) mmol/L Potassium 3.3 L (3.6-5.0) mmol/L Chloride 103.1 (98-107) mmol/L Carbon Dioxide 26 (22-30) mmol/L Anion Gap 14 mmol/L BUN 25 H (7-17) mg/dL Creatinine 0.5 L (0.6-1.2) mg/dL Estimated GFR > 60 ml/min BUN/Creatinine Ratio 50 % Glucose 101 H (65-100) mg/dL Calcium 9.1 (8.4-10.2) mg/dL Total Bilirubin 0.20 (0.1-1.2) mg/dL AST 13 (5-40) units/L ALT 12 (7-56) units/L Alkaline Phosphatase 73 (35-129) units/L Troponin T < 0.010 < 0.010 (0.00-0.029) ng/mL Total Protein 6.9 (6.3-8.2) g/dL Albumin 3.9 (3.9-5) g/dL Albumin/Globulin Ratio 1.3 % - EKG Data -: EKG Interpreted by Nh EKG shows normal: sinus rhythm Rate: normal - EKG Data 09/04/20 06:53 EKG interpreted at 00: 5 9 Sinus rhythm, 81 bpm. Normal axis, QTC prolonged, 492 ms. Left ventricular hypertrophy, atrial enlargement. This is an abnormal EKG, this is not a STEMI When compared to prior EKG from 2019, Q waves in inferior lead III appear to be new. - Radiology Data Radiology results: report reviewed, image reviewed [address] [address] XRay Report Signed Patient: LORE SHARP MR#: [id number] : 1955 Acct:[id number] Age/Sex: 65 / F ADM Date: 09/04/20 Loc: ED At [facility] [address]: Ordering Physician: ED MD LYRIC Date of Service: 09/04/20 Procedure(s): XR chest routine 2V Accession Number(s): [id number] cc: ED DOCMD Fluoro Time In Minutes: CHEST 2 VIEWS INDICATION / CLINICAL INFORMATION: chestpain. COMPARISON: 07/07/2019 FINDINGS: SUPPORT DEVICES: None. HEART / MEDIAS TINUM: Stable cardiomegaly. LUNGS / PLEURA: Mild pulmonary venous hypertension. The lungs are well aerated and appear grossly clear. No pneumothorax. ADDITIONAL FINDINGS: No significant additional findings. IMPRESSION: 1. Sable cardiomegaly with mild pulmonary venous hypertension. 2. No acute pulmonary disease. Signer Name: Kierra Loja MD Signed: 09/04/2020 2:26 AM Workstation Name: [id number] Transcribed By: JR Dictated By: Kierra Loja MD Electronically Authenticated By: Kierra Loja MD Signed Date/Time: 09/04/20225 DD/ 4 Left shoulder x-ray negative for acute finding Critical care attestation.: If time is entered above; I have spent that time in minutes in the direct care of this critically ill patient, excluding procedure time. ED Disposition Clinical Impression: Hypokalemia, Acute chest pain, Lower extremity edema, Left shoulder pain, Microcytic anemia, Hypertension Disposition: OP ADMIT IP TO THIS HOSP Is pt being admited?: Yes Does the pt Need Aspirin: No Condition: Good
[2020-09-04] MEDS ORDERED: IBUPROFEN 400 MG TAB PO ONE (06:16)
[2020-09-04] MEDS ORDERED: NITROGLYCERIN 0.4 MG TAB SUBL SL PRN (06:16)
[2020-09-04] MEDS ORDERED: FUROSEMIDE 20 MG/2 ML INJ IV ONE (06:16)
[2020-09-04] MEDS ORDERED: POTASSIUM CHLORIDE ER 20 MEQ TAB PO ONE (06:17)
[2020-09-04] MEDS ORDERED: FERROUS SULFATE 325 MG TAB PO ONE (06:18)
[2020-09-04] MEDS ORDERED: amLODIPine 5 MG TAB PO ONE (06:18)
--- NOTE | 2020-09-04 08:04 | History and Physical Report ---
History of Present Illness Date of examination: 09/04/20 Date of admission: 09/04/20 07:13 Chief complaint: chest pain History of present illness: 65-year-old female with past medical history of osteoarthritis, hypertension, chronic shoulder pain and peptic ulcer disease presented through the emergency department with complaints of left-sided chest pain. Patient reports the pain radiates to her left arm and shoulder. Patient denies any nausea/vomiting or diaphoresis. Patient denies any exertional dyspnea. No reports of travel, surgery or immobilization. Patient denies any fever or chills. No cough or cold-like symptoms. Past History Past Medical History: hypertension, other (PUD, HTN, OA) Medications and Allergies Allergies Allergy/AdvReac Type Severity Reaction Status Date / Time acetaminophen [From Tylenol] Allergy Unknown Verified 09/03/19 02:07 Home Medications Medication Instructions Recorded Confirmed Last Taken Type Butalb/Acetamin/Caff 50-325-40 1 tab PO Q6H #30 tablet 08/26/16 Unknown Rx [Fioricet 50-325-40] Hydrocortisone 1% [Hydrocortisone 1 applicatio TP TID PRN #1 tube 10/12/16 Unknown Rx 1% CREAM] Ketoconazole (Nf) [Ketoconazole 30 ml TP QDAY #1 shampoo 10/12/16 Unknown Rx Shampoo (Nf)] Selenium Sulfide/Menthol [Selsun 30 ml TP QDAY #1 shampoo 10/12/16 Unknown Rx Blue 1% Shampoo] HYDROcodone/APAP 5-325 [[place] 1 each PO Q6HR PRN #20 tablet 10/27/16 Unknown Rx 5/325] amLODIPine [Norvasc] 10 mg PO DAILY #30 tab 10/27/16 Unknown Rx Clotrimazole 1% [Lotrimin] 1 applic TP BID #1 tube 02/21/17 Unknown Rx Ibuprofen [Motrin 600 MG tab] 600 mg PO Q8H PRN #30 tablet 02/21/17 Unknown Rx Ibuprofen [Motrin 800 MG tab] 800 mg PO Q8HR PRN #30 tablet 02/25/17 Unknown Rx Amoxicillin/K Clav [Augmentin 1 tab PO Q12H 10 Days #20 tablet 03/31/17 Unknown Rx 500MG] Azithromycin [Zithromax Z-LUIS] 250 mg PO DAILY #6 tablet 05/18/17 Unknown Rx Benzonatate [[place]ess[place]on [place]] 100 mg PO Q8H PRN #20 capsule 05/18/17 Unknown Rx Ibuprofen [Motrin] 600 mg PO Q8H PRN #30 tablet 05/18/17 Unknown Rx Cyclobenzaprine [Flexeril 10 MG 10 mg PO QHS PRN #20 tablet 07/08/17 Unknown Rx TAB] Ibuprofen [Ibuprofen 800] 800 mg PO Q8HR PRN #20 tablet 07/08/17 Unknown Rx Nitrofurantoin Monohyd/M-Cryst 100 mg PO BID #20 capsule 11/03/17 Unknown Rx [Macrobid 100 mg Capsule] traMADoL [Ultram 50 MG tab] 50 mg PO Q6HR PRN #12 tablet 11/03/17 Unknown Rx Acetaminophen [Tylenol Extra 1,000 mg PO QID PRN #30 tablet 05/18/18 Unknown Rx Strength] Acetaminophen [Tylenol Extra 1,000 mg PO QID PRN #30 tablet 05/28/18 Unknown Rx Strength] Ibuprofen [Motrin 600 MG tab] 600 mg PO Q8H PRN #15 tablet 11/22/18 Unknown Rx methOCARBAMOL [Robaxin TAB] 500 mg PO BID #20 tab 06/21/19 Unknown Rx Oxybutynin [Ditropan] 5 mg PO Q8H #30 tab 08/04/19 Unknown Rx Diclofenac Sodium 50 mg PO Q8H PRN #30 tablet. 09/03/19 Unknown Rx predniSONE [Deltasone] 40 mg PO QDAY #10 tab 09/03/19 Unknown Rx Capsaicin 0.075% [Zostrix Hp 1 applicatio TP TID PRN #1 tube 11/20/19 Unknown Rx 0.075%] amLODIPine 10 mg PO DAILY #30 tab 11/20/19 Unknown Rx Cyclobenzaprine [Flexeril] 10 mg PO TID PRN #30 tablet 04/29/20 Unknown Rx Menthol/Camphor [[place] 1 applicatio TP Q8HR #1 tube 04/29/20 Unknown Rx Ointment] Naproxen 500 mg PO BID PRN #30 tablet 04/29/20 Unknown Rx Meloxicam [Mobic] 15 mg PO DAILY #20 tablet 05/28/20 Unknown Rx Amoxicillin/Potassium Clav 1 each PO BID 7 Days #14 tablet 06/10/20 Unknown Rx [Augmentin 875-125 Tablet] diphenhydrAMINE [Benadryl CAP] 25 mg PO Q8HR PRN #21 capsule 06/10/20 Unknown Rx traMADoL [Ultram] 50 mg PO Q6HR PRN #12 tablet 06/10/20 Unknown Rx methOCARBAMOL [Robaxin TAB] 500 mg PO BID #14 tab 07/11/20 Unknown Rx Amoxicillin/Potassium Clav 1 each PO BID #20 tablet 08/08/20 Unknown Rx [Augmentin 875-125 Tablet] Chlorhexidine Mouthwash [Peridex] 15 ml MM BID #1 bottle 08/08/20 Unknown Rx Lidocaine Viscous 2% 5 ml MM Q3H PRN #120 udc 08/08/20 Unknown Rx traMADoL [Ultram] 50 mg PO Q6HR PRN #20 tablet 08/08/20 Unknown Rx Active Meds: Active Medications Nitroglycerin (Nitroglycerin 0.4 Mg Tab Subl) 0.4 mg SL .Q5MIN PRN PRN Reason: Chest Pain Review of Systems All systems: negative Exam - Constitutional Vitals: Temp Pulse Resp BP Pulse Ox 99.0 F 84 20 157/76 97 09/04/20 01:15 09/04/20 07:14 09/04/20 05:31 09/04/20 07:14 09/04/20 05:31 General appearance: Present: no acute distress, well-nourished - EENT Eyes: Present: PERRL ENT: hearing intact, clear oral mucosa - Neck Neck: Present: supple, normal ROM - Respiratory Respiratory effort: normal Respiratory: bilateral: CTA - Cardiovascular Heart Sounds: Present: S1 & S2. Absent: rub, click - Extremities Extremities: pulses symmetrical, No edema Peripheral Pulses: within normal limits - Abdominal General gastrointestinal: Present: soft, non-tender, non-distended, normal bowel sounds Female genitourinary: Present: normal - Integumentary Integumentary: Present: clear, warm, dry - Musculoskeletal Musculoskeletal: gait normal, strength equal bilaterally - Psychiatric Psychiatric: appropriate mood/affect, intact judgment & insight - Neurologic Neurologic: CNII-XII intact, moves all extremities HEART Score - HEART Score EKG: Non-specific Age: > 65 Risk factors: 1-2 risk factors Troponin: Troponin T < 0.010 ng/mL (0.00-0.029) 09/04/20 05:18 Troponin: < normal limit - Critical Actions Critical Actions: 4-6 pts:12-16.6% risk of adverse cardiac event. Should be admitted Results - Labs CBC & Chem 7: 09/04/20 01:37 09/04/20 01:37 Labs: Laboratory Last Values WBC 7.5 K/mm3 (4.5-11.0) 09/04/20 01:37 RBC 4.52 M/mm3 (3.65-5.03) 09/04/20 01:37 Hgb 9.4 gm/dl (10.1-14.3) L 09/04/20 01:37 Hct 29.9 % (30.3-42.9) L 09/04/20 01:37 MCV 66 fl (79-97) L 09/04/20 01:37 MCH 21 pg (28-32) L 09/04/20 01:37 MCHC 32 % (30-34) 09/04/20 01:37 RDW 17.3 % (13.2-15.2) H 09/04/20 01:37 Plt Count 273 K/mm3 (140-440) 09/04/20 01:37 [place] % (Auto) Senior Water Resources Engineer 09/04/20 01:37 Add Manual Diff Complete 09/04/20 01:37 Total Counted 100 09/04/20 01:37 Seg Neuts % (Manual) 58.0 % (40.0-70.0) 09/04/20 01:37 Lymphocytes % (Manual) 21.0 % (13.4-35.0) 09/04/20 01:37 Monocytes % (Manual) 18.0 % (0.0-7.3) H 09/04/20 01:37 Eosinophils % (Manual) 2.0 % (0.0-4.3) 09/04/20 01:37 Basophils % (Manual) 1.0 % (0.0-1.8) 09/04/20 01:37 Nucleated RBC % Not Reportable 09/04/20 01:37 Seg Neutrophils # Man 4.4 K/mm3 (1.8-7.7) 09/04/20 01:37 Band Neutrophils # 0.0 K/mm3 09/04/20 01:37 Lymphocytes # (Manual) 1.6 K/mm3 (1.2-5.4) 09/04/20 01:37 Abs React Lymphs (Man) 0.0 K/mm3 09/04/20 01:37 Monocytes # (Manual) 1.4 K/mm3 (0.0-0.8) H 09/04/20 01:37 Eosinophils # (Manual) 0.2 K/mm3 (0.0-0.4) 09/04/20 01:37 Basophils # (Manual) 0.1 K/mm3 (0.0-0.1) 09/04/20 01:37 Metamyelocytes # 0.0 K/mm3 09/04/20 01:37 Myelocytes # 0.0 K/mm3 09/04/20 01:37 Promyelocytes # 0.0 K/mm3 09/04/20 01:37 Blast Cells # 0.0 K/mm3 09/04/20 01:37 WBC Morphology Not Reportable 09/04/20 01:37 Hypersegmented Neuts Not Reportable 09/04/20 01:37 Hyposegmented Neuts Not Reportable 09/04/20 01:37 Hypogranular Neuts Not Reportable 09/04/20 01:37 Smudge Cells Not Reportable 09/04/20 01:37 Toxic Granulation Not Reportable 09/04/20 01:37 Toxic Vacuolation Not Reportable 09/04/20 01:37 Dohle Bodies Not Reportable 09/04/20 01:37 Pelger-Huet Anomaly Not Reportable 09/04/20 01:37 Cassandra Rods Not Reportable 09/04/20 01:37 Platelet Estimate Not Reportable 09/04/20 01:37 Clumped Platelets Not Reportable 09/04/20 01:37 Plt Clumps, EDTA Not Reportable 09/04/20 01:37 Large Platelets Not Reportable 09/04/20 01:37 Giant Platelets Not Reportable 09/04/20 01:37 Platelet Satelliting Not Reportable 09/04/20 01:37 Plt Morphology Comment Not Reportable 09/04/20 01:37 RBC Morphology Not Reportable 09/04/20 01:37 Dimorphic RBCs Not Reportable 09/04/20 01:37 Polychromasia Not Reportable 09/04/20 01:37 Hypochromasia 2+ 09/04/20 01:37 Poikilocytosis Not Reportable 09/04/20 01:37 Anisocytosis Not Reportable 09/04/20 01:37 Microcytosis 1+ 09/04/20 01:37 Macrocytosis Not Reportable 09/04/20 01:37 Spherocytes Not Reportable 09/04/20 01:37 Pappenheimer Bodies Not Reportable 09/04/20 01:37 Sickle Cells Not Reportable 09/04/20 01:37 Target Cells Not Reportable 09/04/20 01:37 Tear Drop Cells Not Reportable 09/04/20 01:37 Ovalocytes Not Reportable 09/04/20 01:37 Helmet Cells Not Reportable 09/04/20 01:37 [place] Bodies Not Reportable 09/04/20 01:37 [place] Not Reportable 09/04/20 01:37 [place] Cells Not Reportable 09/04/20 01:37 Bite Cells Not Reportable 09/04/20 01:37 Crenated Cell Not Reportable 09/04/20 01:37 Elliptocytes Not Reportable 09/04/20 01:37 Acanthocytes (Spur) Not Reportable 09/04/20 01:37 Rouleaux Not Reportable 09/04/20 01:37 Hemoglobin C Crystals Not Reportable 09/04/20 01:37 Schistocytes Not Reportable 09/04/20 01:37 Malaria parasites Not Reportable 09/04/20 01:37 Henry Bodies Not Reportable 09/04/20 01:37 Hem Pathologist Commnt No 09/04/20 01:37 Sodium 140 mmol/L (137-145) 09/04/20 01:37 Potassium 3.3 mmol/L (3.6-5.0) L 09/04/20 01:37 Chloride 103.1 mmol/L (98-107) 09/04/20 01:37 Carbon Dioxide 26 mmol/L (22-30) 09/04/20 01:37 Anion Gap 14 mmol/L 09/04/20 01:37 BUN 25 mg/dL (7-17) H 09/04/20 01:37 Creatinine 0.5 mg/dL (0.6-1.2) L 09/04/20 01:37 Estimated GFR > 60 ml/min 09/04/20 01:37 BUN/Creatinine Ratio 50 % 09/04/20 01:37 Glucose 101 mg/dL (65-100) H 09/04/20 01:37 Calcium 9.1 mg/dL (8.4-10.2) 09/04/20 01:37 Total Bilirubin 0.20 mg/dL (0.1-1.2) 09/04/20 01:37 AST 13 units/L (5-40) 09/04/20 01:37 ALT 12 units/L (7-56) 09/04/20 01:37 Alkaline Phosphatase 73 units/L (35-129) 09/04/20 01:37 Troponin T < 0.010 ng/mL (0.00-0.029) 09/04/20 05:18 Total Protein 6.9 g/dL (6.3-8.2) 09/04/20 01:37 Albumin 3.9 g/dL (3.9-5) 09/04/20 01:37 Albumin/Globulin Ratio 1.3 % 09/04/20 01:37 Assessment and Plan Assessment and plan: Chest pain. Patient will be admitted and placed on chest pain protocol. Follow-up serial troponin EKG. Cardiology consultation and decision for ischemic evaluation Hypokalemia. Replete potassium Lower extremity edema. Check Doppler ultrasound. Chest x-ray and BNP negative Hypertension
--- NOTE | 2020-09-04 08:25 | XRay Report ---
LEFT SHOULDER 3 VIEWS INDICATION / CLINICAL INFORMATION: left shoulder pain COMPARISON: Left shoulder series from 01/30/2017. FINDINGS: BONES and JOINT(S): No acute fracture or subluxation. No significant arthritis. SOFT TISSUES: No significant abnormality. ADDITIONAL FINDINGS: There is mild to moderate thoracic levoscoliosis. IMPRESSION: 1. No acute findings. Signer Name: Fredis Barnes MD Signed: 09/04/2020 8:20 AM Workstation Name: [id number]
[2020-09-04] MEDS ORDERED: ACETAMINOPHEN 325 MG TAB PO PRN (10:03)
--- NOTE | 2020-09-04 10:32 | Consultation ---
History of Present Illness Consult date: 09/04/20 Requesting physician: ALFONSO WALKER Consult reason: chest pain History of present illness: Pt is a 65-year-old AA female, previously unknown to our practice, who presented with complaints of left-sided chest chain over the past few days. Pain radiates to her upper left back and shoulder. Pt describes pain as "soreness." No associated sx. No aggravating or relieving factors. Pt denies any additional cardiac complaints. Trop neg x 3. ECG reveals no acute ischemic changes. CXR reveals stable cardiomegaly with mild pulmonary vascular congestion. Cardiac PET 06/2019 - probably normal (coronary flow reserve reduced), no evidence of ischemia or scar. Past History Past Medical History: arthritis, hypertension, other (PUD) Past Surgical History: denies: valve replacement, CABG, PTCA Social history: denies: smoking, alcohol abuse Family history: no significant family history Medications and Allergies Allergies Allergy/AdvReac Type Severity Reaction Status Date / Time acetaminophen [From Tylenol] Allergy Unknown Verified 09/03/19 02:07 Home Medications Medication Instructions Recorded Confirmed Last Taken Type Hydrocortisone 1% [Hydrocortisone 1 applicatio TP TID PRN #1 tube 10/12/16 09/04/20 2 Days Ago Rx 1% CREAM] ~09/02/20 amLODIPine [Norvasc] 10 mg PO DAILY #30 tab 10/27/16 09/04/20 2 Days Ago Rx ~09/02/20 Ibuprofen [Motrin] 600 mg PO Q8H PRN #30 tablet 05/18/17 09/04/20 2 Days Ago Rx ~09/02/20 Oxybutynin [Ditropan] 5 mg PO Q8H #30 tab 08/04/19 09/04/20 2 Days Ago Rx ~09/02/20 predniSONE [Deltasone] 40 mg PO QDAY #10 tab 09/03/19 09/04/20 2 Days Ago Rx ~09/02/20 Cyclobenzaprine [Flexeril] 10 mg PO TID PRN #30 tablet 04/29/20 09/04/20 2 Days Ago Rx ~09/02/20 Menthol/Camphor [[place] 1 applicatio TP Q8HR #1 tube 04/29/20 09/04/20 2 Days Ago Rx Ointment] ~09/02/20 Naproxen 500 mg PO BID PRN #30 tablet 04/29/20 09/04/20 2 Days Ago Rx ~09/02/20 Meloxicam [Mobic] 15 mg PO DAILY #20 tablet 05/28/20 09/04/20 2 Days Ago Rx ~09/02/20 diphenhydrAMINE [Benadryl CAP] 25 mg PO Q8HR PRN #21 capsule 06/10/20 09/04/20 2 Days Ago Rx ~09/02/20 methOCARBAMOL [Robaxin TAB] 500 mg PO BID #14 tab 07/11/20 09/04/20 2 Days Ago Rx ~09/02/20 Chlorhexidine Mouthwash [Peridex] 15 ml MM BID #1 bottle 08/08/20 09/04/20 2 Days Ago Rx ~09/02/20 Lidocaine Viscous 2% 5 ml MM Q3H PRN #120 udc 08/08/20 09/04/20 2 Days Ago Rx ~09/02/20 traMADoL [Ultram] 50 mg PO Q6HR PRN #20 tablet 08/08/20 09/04/20 2 Days Ago Rx ~09/02/20 Active Meds: Active Medications Acetaminophen (Acetaminophen 325 Mg Tab) 650 mg PO Q6H PRN PRN Reason: Pain, Mild (1-3) Nitroglycerin (Nitroglycerin 0.4 Mg Tab Subl) 0.4 mg SL .Q5MIN PRN PRN Reason: Chest Pain Ondansetron HCl (Ondansetron 4 Mg/2 Ml Inj) 4 mg IV Q8H PRN PRN Reason: Nausea And Vomiting Sodium Chloride (Sodium Chloride 0.9% 10 Ml Flush Syringe) 10 ml IV BID CALIN Sodium Chloride (Sodium Chloride 0.9% 10 Ml Flush Syringe) 10 ml IV PRN PRN PRN Reason: LINE FLUSH Sodium Chloride (Sodium Chloride 0.9% 10 Ml Flush Syringe) 10 ml IV PRN PRN PRN Reason: LINE FLUSH Tramadol HCl (Tramadol 50 Mg Tab) 50 mg PO Q6H PRN PRN Reason: Pain, Moderate (4-6) Review of Systems Constitutional: no fever, no chills, no sweats Ears, nose, mouth and throat: no nasal congestion, no sore throat Cardiovascular: chest pain, no orthopnea, no palpitations, no edema, no syncope, no lightheadedness, no shortness of breath, no dyspnea on exertion, no paroxysmal nocturnal dyspnea, no claudication Respiratory: no cough, no shortness of breath, no dyspnea on exertion Gastrointestinal: no abdominal pain, no nausea, no vomiting, no diarrhea, no constipation Genitourinary Female: no pelvic pain, no flank pain, no dysuria Musculoskeletal: other (L shoulder pain), no neck stiffness, no neck pain Integumentary: no rash, no wounds Neurological: no head injury, no paralysis, no weakness, no parathesias, no numbness, no tingling, no seizures, no syncope, no vertigo, no headaches Endocrine: no cold intolerance, no heat intolerance, no polydipsia, no polyuria Hematologic/Lymphatic: no easy bruising, no easy bleeding Allergic/Immunologic: no anaphylaxis Physical Examination Last Vital Signs Temp 99.0 F 09/04/20 01:15 Pulse 84 09/04/20 07:14 Resp 20 09/04/20 05:31 BP 157/76 09/04/20 07:14 Pulse Ox 97 09/04/20 05:31 General appearance: no acute distress HEENT: Positive: EOMI, Normocephaly, Mucus Membranes Moist Neck: Positive: neck supple, trachea midline. Negative: JVD/HJR Cardiac: Positive: Reg Rate and Rhythm, S1/S2 Lungs: Positive: Decreased Breath Sounds (bases) Neuro: Positive: Grossly Intact Abdomen: Positive: Soft. Negative: Tender Skin: Negative: Rash Musculoskeletal: No Pain Extremities: Present: lower extr. pulses, edema (BLE), warm Results 09/04/20 01:37 09/04/20 06:52 Cardiac Enzymes 09/04/20 09/04/20 09/04/20 Range/Units 01:37 01:37 05:18 WBC 7.5 (4.5-11.0) K/mm3 RBC 4.52 (3.65-5.03) M/mm3 Hgb 9.4 L (10.1-14.3) gm/dl Hct 29.9 L (30.3-42.9) % MCV 66 L (79-97) fl MCH 21 L (28-32) pg MCHC 32 (30-34) % RDW 17.3 H (13.2-15.2) % Plt Count 273 (140-440) K/mm3 [place] % (Auto) Metal Reclamation Kettle Tender Add Manual Diff Complete Total Counted 100 Seg Neuts % (Manual) 58.0 (40.0-70.0) % Lymphocytes % (Manual) 21.0 (13.4-35.0) % Monocytes % (Manual) 18.0 H (0.0-7.3) % Eosinophils % (Manual) 2.0 (0.0-4.3) % Basophils % (Manual) 1.0 (0.0-1.8) % Nucleated RBC % Not Reportable Seg Neutrophils # Man 4.4 (1.8-7.7) K/mm3 Band Neutrophils # 0.0 K/mm3 Lymphocytes # (Manual) 1.6 (1.2-5.4) K/mm3 Abs React Lymphs (Man) 0.0 K/mm3 Monocytes # (Manual) 1.4 H (0.0-0.8) K/mm3 Eosinophils # (Manual) 0.2 (0.0-0.4) K/mm3 Basophils # (Manual) 0.1 (0.0-0.1) K/mm3 Metamyelocytes # 0.0 K/mm3 Myelocytes # 0.0 K/mm3 Promyelocytes # 0.0 K/mm3 Blast Cells # 0.0 K/mm3 WBC Morphology Not Reportable Hypersegmented Neuts Not Reportable Hyposegmented Neuts Not Reportable Hypogranular Neuts Not Reportable Smudge Cells Not Reportable Toxic Granulation Not Reportable Toxic Vacuolation Not Reportable Dohle Bodies Not Reportable Pelger-Huet Anomaly Not Reportable Cassandra Rods Not Reportable Platelet Estimate Not Reportable Clumped Platelets Not Reportable Plt Clumps, EDTA Not Reportable Large Platelets Not Reportable Giant Platelets Not Reportable Platelet Satelliting Not Reportable Plt Morphology Comment Not Reportable RBC Morphology Not Reportable Dimorphic RBCs Not Reportable Polychromasia Not Reportable Hypochromasia 2+ Poikilocytosis Not Reportable Anisocytosis Not Reportable Microcytosis 1+ Macrocytosis Not Reportable Spherocytes Not Reportable Pappenheimer Bodies Not Reportable Sickle Cells Not Reportable Target Cells Not Reportable Tear Drop Cells Not Reportable Ovalocytes Not Reportable Helmet Cells Not Reportable [place] Bodies Not Reportable [place] Rings Not Reportable [place] Cells Not Reportable Bite Cells Not Reportable Crenated Cell Not Reportable Elliptocytes Not Reportable Acanthocytes (Spur) Not Reportable Rouleaux Not Reportable Hemoglobin C Crystals Not Reportable Schistocytes Not Reportable Malaria parasites Not Reportable Henry Bodies Not Reportable Hem Pathologist Commnt No Sodium 140 (137-145) mmol/L Potassium 3.3 L (3.6-5.0) mmol/L Chloride 103.1 (98-107) mmol/L Carbon Dioxide 26 (22-30) mmol/L Anion Gap 14 mmol/L BUN 25 H (7-17) mg/dL Creatinine 0.5 L (0.6-1.2) mg/dL Estimated GFR > 60 ml/min BUN/Creatinine Ratio 50 % Glucose 101 H (65-100) mg/dL Calcium 9.1 (8.4-10.2) mg/dL Magnesium (1.7-2.3) mg/dL Iron (37-170) ug/dL TIBC (250-450) mcg/dL Ferritin (10.0-200.0) ng/mL Total Bilirubin 0.20 (0.1-1.2) mg/dL AST 13 (5-40) units/L ALT 12 (7-56) units/L Alkaline Phosphatase 73 (35-129) units/L Total Creatine Kinase (30-135) units/L Troponin T < 0.010 < 0.010 (0.00-0.029) ng/mL NT-Pro-B Natriuret Pep (0-900) pg/mL Total Protein 6.9 (6.3-8.2) g/dL Albumin 3.9 (3.9-5) g/dL Albumin/Globulin Ratio 1.3 % 09/04/20 09/04/20 09/04/20 Range/Units 06:52 06:52 06:52 WBC (4.5-11.0) K/mm3 RBC (3.65-5.03) M/mm3 Hgb (10.1-14.3) gm/dl Hct (30.3-42.9) % MCV (79-97) fl MCH (28-32) pg MCHC (30-34) % RDW (13.2-15.2) % Plt Count (140-440) K/mm3 [place] % (Auto) Add Manual Diff Total Counted Seg Neuts % (Manual) (40.0-70.0) % Lymphocytes % (Manual) (13.4-35.0) % Monocytes % (Manual) (0.0-7.3) % Eosinophils % (Manual) (0.0-4.3) % Basophils % (Manual) (0.0-1.8) % Nucleated RBC % Seg Neutrophils # Man (1.8-7.7) K/mm3 Band Neutrophils # K/mm3 Lymphocytes # (Manual) (1.2-5.4) K/mm3 Abs React Lymphs (Man) K/mm3 Monocytes # (Manual) (0.0-0.8) K/mm3 Eosinophils # (Manual) (0.0-0.4) K/mm3 Basophils # (Manual) (0.0-0.1) K/mm3 Metamyelocytes # K/mm3 Myelocytes # K/mm3 Promyelocytes # K/mm3 Blast Cells # K/mm3 WBC Morphology Hypersegmented Neuts Hyposegmented Neuts Hypogranular Neuts Smudge Cells Toxic Granulation Toxic Vacuolation Dohle Bodies Pelger-Huet Anomaly Cassandra Rods Platelet Estimate Clumped Platelets Plt Clumps, EDTA Large Platelets Giant Platelets Platelet Satelliting Plt Morphology Comment RBC Morphology Dimorphic RBCs Polychromasia Hypochromasia Poikilocytosis Anisocytosis Microcytosis Macrocytosis Spherocytes Pappenheimer Bodies Sickle Cells Target Cells Tear Drop Cells Ovalocytes Helmet Cells [place]aro[place] Bodies [place] Rings [place] Cells Bite Cells Crenated Cell Elliptocytes Acanthocytes (Spur) Rouleaux Hemoglobin C Crystals Schistocytes Malaria parasites Henry Bodies Hem Pathologist Commnt Sodium (137-145) mmol/L Potassium (3.6-5.0) mmol/L Chloride (98-107) mmol/L Carbon Dioxide (22-30) mmol/L Anion Gap mmol/L BUN (7-17) mg/dL Creatinine (0.6-1.2) mg/dL Estimated GFR ml/min BUN/Creatinine Ratio % Glucose (65-100) mg/dL Calcium (8.4-10.2) mg/dL Magnesium 1.80 (1.7-2.3) mg/dL Iron 18 L (37-170) ug/dL TIBC 359 (250-450) mcg/dL Ferritin 3.3 L (10.0-200.0) ng/mL Total Bilirubin (0.1-1.2) mg/dL AST (5-40) units/L ALT (7-56) units/L Alkaline Phosphatase (35-129) units/L Total Creatine Kinase 18 L (30-135) units/L Troponin T < 0.010 (0.00-0.029) ng/mL NT-Pro-B Natriuret Pep 17.53 (0-900) pg/mL Total Protein (6.3-8.2) g/dL Albumin (3.9-5) g/dL Albumin/Globulin Ratio % CBC 09/04/20 Range/Units 01:37 WBC 7.5 (4.5-11.0) K/mm3 RBC 4.52 (3.65-5.03) M/mm3 Hgb 9.4 L (10.1-14.3) gm/dl Hct 29.9 L (30.3-42.9) % Plt Count 273 (140-440) K/mm3 Comprehensive Metabolic Panel 09/04/20 Range/Units 01:37 Sodium 140 (137-145) mmol/L Potassium 3.3 L (3.6-5.0) mmol/L Chloride 103.1 (98-107) mmol/L Carbon Dioxide 26 (22-30) mmol/L BUN 25 H (7-17) mg/dL Creatinine 0.5 L (0.6-1.2) mg/dL Glucose 101 H (65-100) mg/dL Calcium 9.1 (8.4-10.2) mg/dL AST 13 (5-40) units/L ALT 12 (7-56) units/L Alkaline Phosphatase 73 (35-129) units/L Total Protein 6.9 (6.3-8.2) g/dL Albumin 3.9 (3.9-5) g/dL - Imaging and Cardiology Echo: pending EKG: report reviewed, image reviewed - EKG Interpretation EKG: no acute changes EKG interpretations - EKG Sinus rhythms and dysrhythmias: sinus rhythm Chamber hypertrophy or enlargement: right atrial enlargment, left ventricular hypertro Assessment and Plan Obtain echo. Plan for Lexiscan stress MPI on Monday. Resume home cardiac regimen. May give PRN IV Lasix with strict I/Os. KCl repletion underway per Primary. Pt seen in conjunction with Dr. Tamie Zapata, who agrees with the assessment and plan of care. - Patient Problems (1) Chest pain Current Visit: Yes Status: Acute (2) Acute HF (heart failure) Current Visit: Yes Status: Suspected Qualifiers: Heart failure type: unspecified Qualified Code(s): I50.9 - Heart failure, unspecified (3) Hypertension Current Visit: Yes Status: Chronic Qualifiers: Hypertension type: essential hypertension Qualified Code(s): I10 - Essential (primary) hypertension (4) Left shoulder pain Current Visit: Yes Status: Chronic (5) Arthritis Current Visit: Yes Status: Chronic (6) Peptic ulcer disease Current Visit: Yes Status: Chronic (7) Anemia Current Visit: Yes Status: Acute
[2020-09-04] MEDS ORDERED: traMADol 50 MG TAB PO PRN (11:00)
[2020-09-04] MEDS ORDERED: ONDANSETRON 4 MG/2 ML INJ IV PRN (11:00)
[2020-09-04 11:03] LABS: Blood Urea Nitrogen 23 mg/dL (7-17); Calcium 8.9 mg/dL (8.4-10.2); Hemolysis Index 12
[2020-09-04 11:12] LABS: BUN/Creatinine Ratio 58
[2020-09-05 06:11] LABS: Hematocrit 27.8 % (30.3-42.9); Hemoglobin 8.7 gm/dl (10.1-14.3); Mean Corpuscular HGB Conc 31 % (30-34); Platelet Count 240 K/mm3 (140-440); Red Cell Distribution Width 16.9 % (13.2-15.2)
[2020-09-05 06:18] LABS: Mean Corpuscular Volume 66 fl (79-97)
[2020-09-05 06:37] LABS: Blood Urea Nitrogen 19 mg/dL (7-17); Calcium 8.4 mg/dL (8.4-10.2); Hemolysis Index 59
[2020-09-05 06:43] LABS: BUN/Creatinine Ratio 63
[2020-09-05] MEDS: amLODIPine 10 MG TAB PO SCH (08:59)
[2020-09-05] MEDS: traMADol 50 MG TAB PO PRN ×2 (08:59→18:16)
[2020-09-05 09:41] LABS: Total Cells Counted 100
--- NOTE | 2020-09-05 09:41 | Progress Note ---
Assessment and Plan Assessment and plan: Chest pain. Patient will be admitted and placed on chest pain protocol. Follow-up serial troponin EKG. Cardiology consultation and decision for ischemic evaluation Hypokalemia. Replete potassium Lower extremity edema. Check Doppler ultrasound. Chest x-ray and BNP negative Hypertension 09/05/2020. Follow-up echocardiogram. Lexiscan stress MPI planned for Monday. Continue home antihypertensive medications. IV Lasix as needed with strict I/Os. Potassium has been repleted. History Interval history: No new issues overnight. Hospitalist Physical - Constitutional Vitals: Temp Pulse Resp BP Pulse Ox 98.2 F 68 16 145/66 96 09/05/20 04:11 09/05/20 08:59 09/05/20 04:11 09/05/20 08:59 09/05/20 04:11 General appearance: Present: no acute distress - EENT Eyes: Present: PERRL, EOM intact ENT: hearing intact, clear oral mucosa, dentition normal - Neck Neck: Present: supple, normal ROM - Respiratory Respiratory effort: normal Respiratory: bilateral: CTA - Cardiovascular Rhythm: regular Heart Sounds: Present: S1 & S2. Absent: gallop, rub - Extremities Extremities: no ischemia, No edema, Full ROM - Abdominal General gastrointestinal: soft, non-tender, non-distended, normal bowel sounds - Integumentary Integumentary: Present: clear, warm, dry - Neurologic Neurologic: CNII-XII intact, moves all extremities HEART Score - HEART Score EKG: Non-specific Age: > 65 Risk factors: 1-2 risk factors Troponin: Troponin T < 0.010 ng/mL (0.00-0.029) 09/04/20 06:52 Troponin: < normal limit - Critical Actions Critical Actions: 4-6 pts:12-16.6% risk of adverse cardiac event. Should be admitted Results - Labs CBC & Chem 7: 09/05/20 05:52 09/05/20 05:52 Labs: Laboratory Last Values WBC 4.9 K/mm3 (4.5-11.0) 09/05/20 05:52 RBC 4.20 M/mm3 (3.65-5.03) 09/05/20 05:52 Hgb 8.7 gm/dl (10.1-14.3) L 09/05/20 05:52 Hct 27.8 % (30.3-42.9) L 09/05/20 05:52 MCV 66 fl (79-97) L 09/05/20 05:52 MCH 21 pg (28-32) L 09/05/20 05:52 MCHC 31 % (30-34) 09/05/20 05:52 RDW 16.9 % (13.2-15.2) H 09/05/20 05:52 Plt Count 240 K/mm3 (140-440) 09/05/20 05:52 [place] % (Auto) Trucking Manager 09/05/20 05:52 Add Manual Diff Complete 09/04/20 01:37 Total Counted 100 09/04/20 01:37 Seg Neuts % (Manual) 58.0 % (40.0-70.0) 09/04/20 01:37 Lymphocytes % (Manual) 21.0 % (13.4-35.0) 09/04/20 01:37 Monocytes % (Manual) 18.0 % (0.0-7.3) H 09/04/20 01:37 Eosinophils % (Manual) 2.0 % (0.0-4.3) 09/04/20 01:37 Basophils % (Manual) 1.0 % (0.0-1.8) 09/04/20 01:37 Nucleated RBC % Not Reportable 09/04/20 01:37 Seg Neutrophils # Man 4.4 K/mm3 (1.8-7.7) 09/04/20 01:37 Band Neutrophils # 0.0 K/mm3 09/04/20 01:37 Lymphocytes # (Manual) 1.6 K/mm3 (1.2-5.4) 09/04/20 01:37 Abs React Lymphs (Man) 0.0 K/mm3 09/04/20 01:37 Monocytes # (Manual) 1.4 K/mm3 (0.0-0.8) H 09/04/20 01:37 Eosinophils # (Manual) 0.2 K/mm3 (0.0-0.4) 09/04/20 01:37 Basophils # (Manual) 0.1 K/mm3 (0.0-0.1) 09/04/20 01:37 Metamyelocytes # 0.0 K/mm3 09/04/20 01:37 Myelocytes # 0.0 K/mm3 09/04/20 01:37 Promyelocytes # 0.0 K/mm3 09/04/20 01:37 Blast Cells # 0.0 K/mm3 09/04/20 01:37 WBC Morphology Not Reportable 09/04/20 01:37 Hypersegmented Neuts Not Reportable 09/04/20 01:37 Hyposegmented Neuts Not Reportable 09/04/20 01:37 Hypogranular Neuts Not Reportable 09/04/20 01:37 Smudge Cells Not Reportable 09/04/20 01:37 Toxic Granulation Not Reportable 09/04/20 01:37 Toxic Vacuolation Not Reportable 09/04/20 01:37 Dohle Bodies Not Reportable 09/04/20 01:37 Pelger-Huet Anomaly Not Reportable 09/04/20 01:37 Cassandra Rods Not Reportable 09/04/20 01:37 Platelet Estimate Not Reportable 09/04/20 01:37 Clumped Platelets Not Reportable 09/04/20 01:37 Plt Clumps, EDTA Not Reportable 09/04/20 01:37 Large Platelets Not Reportable 09/04/20 01:37 Giant Platelets Not Reportable 09/04/20 01:37 Platelet Satelliting Not Reportable 09/04/20 01:37 Plt Morphology Comment Not Reportable 09/04/20 01:37 RBC Morphology Not Reportable 09/04/20 01:37 Dimorphic RBCs Not Reportable 09/04/20 01:37 Polychromasia Not Reportable 09/04/20 01:37 Hypochromasia 2+ 09/04/20 01:37 Poikilocytosis Not Reportable 09/04/20 01:37 Anisocytosis Not Reportable 09/04/20 01:37 Microcytosis 1+ 09/04/20 01:37 Macrocytosis Not Reportable 09/04/20 01:37 Spherocytes Not Reportable 09/04/20 01:37 Pappenheimer Bodies Not Reportable 09/04/20 01:37 Sickle Cells Not Reportable 09/04/20 01:37 Target Cells Not Reportable 09/04/20 01:37 Tear Drop Cells Not Reportable 09/04/20 01:37 Ovalocytes Not Reportable 09/04/20 01:37 Helmet Cells Not Reportable 09/04/20 01:37 Amaro-[place] Bodies Not Reportable 09/04/20 01:37 [place] Rings Not Reportable 09/04/20 01:37 [place] Cells Not Reportable 09/04/20 01:37 Bite Cells Not Reportable 09/04/20 01:37 Crenated Cell Not Reportable 09/04/20 01:37 Elliptocytes Not Reportable 09/04/20 01:37 Acanthocytes (Spur) Not Reportable 09/04/20 01:37 Rouleaux Not Reportable 09/04/20 01:37 Hemoglobin C Crystals Not Reportable 09/04/20 01:37 Schistocytes Not Reportable 09/04/20 01:37 Malaria parasites Not Reportable 09/04/20 01:37 Henry Bodies Not Reportable 09/04/20 01:37 Hem Pathologist Commnt No 09/04/20 01:37 Sodium 142 mmol/L (137-145) 09/05/20 05:52 Potassium 3.9 mmol/L (3.6-5.0) D 09/05/20 05:52 Chloride 108.2 mmol/L (98-107) H 09/05/20 05:52 Carbon Dioxide 26 mmol/L (22-30) 09/05/20 05:52 Anion Gap 12 mmol/L 09/05/20 05:52 BUN 19 mg/dL (7-17) H 09/05/20 05:52 Creatinine 0.3 mg/dL (0.6-1.2) L 09/05/20 05:52 Estimated GFR > 60 ml/min 09/05/20 05:52 BUN/Creatinine Ratio 63 % 09/05/20 05:52 Glucose 94 mg/dL (65-100) 09/05/20 05:52 Calcium 8.4 mg/dL (8.4-10.2) 09/05/20 05:52 Magnesium 1.80 mg/dL (1.7-2.3) 09/04/20 06:52 Iron 18 ug/dL (37-170) L 09/04/20 06:52 TIBC 359 mcg/dL (250-450) 09/04/20 06:52 Ferritin 3.3 ng/mL (10.0-200.0) L 09/04/20 06:52 Total Bilirubin 0.20 mg/dL (0.1-1.2) 09/04/20 01:37 AST 13 units/L (5-40) 09/04/20 01:37 ALT 12 units/L (7-56) 09/04/20 01:37 Alkaline Phosphatase 73 units/L (35-129) 09/04/20 01:37 Total Creatine Kinase 18 units/L (30-135) L 09/04/20 06:52 Troponin T < 0.010 ng/mL (0.00-0.029) 09/04/20 06:52 NT-Pro-B Natriuret Pep 17.53 pg/mL (0-900) 09/04/20 06:52 Total Protein 6.9 g/dL (6.3-8.2) 09/04/20 01:37 Albumin 3.9 g/dL (3.9-5) 09/04/20 01:37 Albumin/Globulin Ratio 1.3 % 09/04/20 01:37 Santana/IV: Voiding Method Toilet Active Medications - Current Medications Current Medications: Generic Name Dose Route Start Last Admin Trade Name Freq PRN Reason Stop Dose Admin Amlodipine Besylate 10 mg 09/05/20 10:00 09/05/20 08:59 Amlodipine 10 Mg Tab PO 10 mg QDAY CALIN Administration Nitroglycerin 0.4 mg 09/04/20 06:16 Nitroglycerin 0.4 Mg Tab Subl SL .Q5MIN PRN Chest Pain Ondansetron HCl 4 mg 09/04/20 11:00 Ondansetron 4 Mg/2 Ml Inj IV Q8H PRN Nausea And Vomiting Sodium Chloride 10 ml 09/04/20 22:00 09/05/20 09:00 Sodium Chloride 0.9% 10 Ml Flush Syringe IV 10 ml BID CALIN Administration Sodium Chloride 10 ml 09/04/20 11:00 Sodium Chloride 0.9% 10 Ml Flush Syringe IV PRN PRN LINE FLUSH Sodium Chloride 10 ml 09/04/20 11:00 Sodium Chloride 0.9% 10 Ml Flush Syringe IV PRN PRN LINE FLUSH Tramadol HCl 50 mg 09/04/20 12:04 09/05/20 08:59 Tramadol 50 Mg Tab PO 50 mg Q6H PRN Administration Pain, Moderate (4-6)
[2020-09-05 09:42] LABS: Anisocytosis 1+; Hypochromasia 2+; Ovalocytes Few; Platelet Estimate Consistent w Auto; Tear Drop Cells Few
[2020-09-05] MEDS ORDERED: oxyCODONE /ACETAMINOPHEN 5-325MG TAB PO PRN (11:38)
--- NOTE | 2020-09-05 12:19 | Progress Note ---
Assessment and Plan Plan for Lexiscan stress MPI Monday. Echo pending. Will also check LLE Doppler. RLE Doppler 06/2020 was neg for DVT. Pt seen in conjunction with Dr. Ron, who agrees with the assessment and plan of care. - Patient Problems (1) Chest pain Current Visit: Yes Status: Acute (2) Acute HF (heart failure) Current Visit: Yes Status: Suspected Qualifiers: Heart failure type: unspecified Qualified Code(s): I50.9 - Heart failure, unspecified (3) Hypertension Current Visit: Yes Status: Chronic Qualifiers: Hypertension type: essential hypertension Qualified Code(s): I10 - Essential (primary) hypertension (4) Left shoulder pain Current Visit: Yes Status: Chronic (5) Arthritis Current Visit: Yes Status: Chronic (6) Peptic ulcer disease Current Visit: Yes Status: Chronic (7) Anemia Current Visit: Yes Status: Acute Subjective Date of service: 09/05/20 Principal diagnosis: Chest Pain Interval history: Ambulating around room without issues this AM. States her right leg hurts both when resting and when walking. Denies any further chest pain overnight or this AM. No additional cardiac complaints. Tele reviewed - SR 70s (down to 40s overnight), no events. Objective Vital Signs 09/05/20 09/05/20 08:59 10:00 Pulse Rate 68 68 Blood Pressure 145/66 - Physical Examination General: No Apparent Distress HEENT: Positive: EOMI, Normocephaly, Mucus Membranes Moist Neck: Positive: neck supple, trachea midline. Negative: JVD/HJR Cardiac: Positive: Reg Rate and Rhythm, S1/S2 Lungs: Positive: clear to auscultation Neuro: Positive: Grossly Intact Abdomen: Positive: Soft. Negative: Tender Skin: Negative: Rash Musculoskeletal: No Pain Extremities: Present: lower extr. pulses, edema (pedal (R > L)), warm - Labs and Meds CBC 09/05/20 Range/Units 05:52 WBC 4.9 (4.5-11.0) K/mm3 RBC 4.20 (3.65-5.03) M/mm3 Hgb 8.7 L (10.1-14.3) gm/dl Hct 27.8 L (30.3-42.9) % Plt Count 240 (140-440) K/mm3 Comprehensive Metabolic Panel 09/05/20 Range/Units 05:52 Sodium 142 (137-145) mmol/L Potassium 3.9 D (3.6-5.0) mmol/L Chloride 108.2 H (98-107) mmol/L Carbon Dioxide 26 (22-30) mmol/L BUN 19 H (7-17) mg/dL Creatinine 0.3 L (0.6-1.2) mg/dL Glucose 94 (65-100) mg/dL Calcium 8.4 (8.4-10.2) mg/dL - Imaging and Cardiology EKG: report reviewed, image reviewed Pharmacologic stress test: pending Echo: pending - Telemetry EKG Rhythm: Sinus Rhythm - EKG Sinus rhythms and dysrhythmias: sinus rhythm Chamber hypertrophy or enlargement: right atrial enlargment, left ventricular hypertro
--- NOTE | 2020-09-06 08:28 | Progress Note ---
Assessment and Plan Assessment and plan: Chest pain. Patient will be admitted and placed on chest pain protocol. Follow-up serial troponin EKG. Cardiology consultation and decision for ischemic evaluation Hypokalemia. Replete potassium Lower extremity edema. Check Doppler ultrasound. Chest x-ray and BNP negative Hypertension 09/05/2020. Follow-up echocardiogram. Lexiscan stress MPI planned for Monday. Continue home antihypertensive medications. IV Lasix as needed with strict I/Os. Potassium has been repleted. 09/06/2020. Follow-up echocardiogram. Follow-up lower extremity Dopplers. Lexiscan stress MPI planned for Monday. Continue home antihypertensive medications. History Interval history: No new issues overnight. Hospitalist Physical - Constitutional Vitals: Temp Pulse Resp BP Pulse Ox 98.4 F 68 18 131/53 98 09/06/20 04:11 09/06/20 04:11 09/06/20 04:11 09/06/20 04:11 09/06/20 04:11 General appearance: Present: no acute distress - EENT Eyes: Present: PERRL, EOM intact ENT: hearing intact, clear oral mucosa, dentition normal - Neck Neck: Present: supple, normal ROM - Respiratory Respiratory effort: normal Respiratory: bilateral: CTA - Cardiovascular Rhythm: regular Heart Sounds: Present: S1 & S2. Absent: gallop, rub - Extremities Extremities: no ischemia, No edema, Full ROM - Abdominal General gastrointestinal: soft, non-tender, non-distended, normal bowel sounds - Integumentary Integumentary: Present: clear, warm, dry - Neurologic Neurologic: CNII-XII intact, moves all extremities HEART Score - HEART Score EKG: Non-specific Age: > 65 Risk factors: 1-2 risk factors Troponin: Troponin T < 0.010 ng/mL (0.00-0.029) 09/04/20 06:52 Troponin: < normal limit - Critical Actions Critical Actions: 4-6 pts:12-16.6% risk of adverse cardiac event. Should be admitted Results - Labs CBC & Chem 7: 09/05/20 05:52 09/05/20 05:52 Labs: Laboratory Last Values WBC 4.9 K/mm3 (4.5-11.0) 09/05/20 05:52 RBC 4.20 M/mm3 (3.65-5.03) 09/05/20 05:52 Hgb 8.7 gm/dl (10.1-14.3) L 09/05/20 05:52 Hct 27.8 % (30.3-42.9) L 09/05/20 05:52 MCV 66 fl (79-97) L 09/05/20 05:52 MCH 21 pg (28-32) L 09/05/20 05:52 MCHC 31 % (30-34) 09/05/20 05:52 RDW 16.9 % (13.2-15.2) H 09/05/20 05:52 Plt Count 240 K/mm3 (140-440) 09/05/20 05:52 [place] % (Auto) [employer] Examiner 09/05/20 05:52 Add Manual Diff Complete 09/05/20 05:52 Total Counted 100 09/05/20 05:52 Seg Neuts % (Manual) 54.0 % (40.0-70.0) 09/05/20 05:52 Band Neutrophils % 1.0 % 09/05/20 05:52 Lymphocytes % (Manual) 33.0 % (13.4-35.0) 09/05/20 05:52 Monocytes % (Manual) 7.0 % (0.0-7.3) 09/05/20 05:52 Eosinophils % (Manual) 2.0 % (0.0-4.3) 09/05/20 05:52 Basophils % (Manual) 3.0 % (0.0-1.8) H 09/05/20 05:52 Nucleated RBC % Not Reportable 09/05/20 05:52 Seg Neutrophils # Man 2.6 K/mm3 (1.8-7.7) 09/05/20 05:52 Band Neutrophils # 0.0 K/mm3 09/05/20 05:52 Lymphocytes # (Manual) 1.6 K/mm3 (1.2-5.4) 09/05/20 05:52 Abs React Lymphs (Man) 0.0 K/mm3 09/05/20 05:52 Monocytes # (Manual) 0.3 K/mm3 (0.0-0.8) 09/05/20 05:52 Eosinophils # (Manual) 0.1 K/mm3 (0.0-0.4) 09/05/20 05:52 Basophils # (Manual) 0.1 K/mm3 (0.0-0.1) 09/05/20 05:52 Metamyelocytes # 0.0 K/mm3 09/05/20 05:52 Myelocytes # 0.0 K/mm3 09/05/20 05:52 Promyelocytes # 0.0 K/mm3 09/05/20 05:52 Blast Cells # 0.0 K/mm3 09/05/20 05:52 WBC Morphology Not Reportable 09/05/20 05:52 Hypersegmented Neuts Not Reportable 09/05/20 05:52 Hyposegmented Neuts Not Reportable 09/05/20 05:52 Hypogranular Neuts Not Reportable 09/05/20 05:52 Smudge Cells Not Reportable 09/05/20 05:52 Toxic Granulation Not Reportable 09/05/20 05:52 Toxic Vacuolation Not Reportable 09/05/20 05:52 Dohle Bodies Not Reportable 09/05/20 05:52 Pelger-Huet Anomaly Not Reportable 09/05/20 05:52 Cassandra Rods Not Reportable 09/05/20 05:52 Platelet Estimate Consistent w auto 09/05/20 05:52 Clumped Platelets Not Reportable 09/05/20 05:52 Plt Clumps, EDTA Not Reportable 09/05/20 05:52 Large Platelets Not Reportable 09/05/20 05:52 Giant Platelets Not Reportable 09/05/20 05:52 Platelet Satelliting Not Reportable 09/05/20 05:52 Plt Morphology Comment Not Reportable 09/05/20 05:52 RBC Morphology Not Reportable 09/05/20 05:52 Dimorphic RBCs Not Reportable 09/05/20 05:52 Polychromasia Not Reportable 09/05/20 05:52 Hypochromasia 2+ 09/05/20 05:52 Poikilocytosis Not Reportable 09/05/20 05:52 Anisocytosis 1+ 09/05/20 05:52 Microcytosis 1+ 09/05/20 05:52 Macrocytosis Not Reportable 09/05/20 05:52 Spherocytes Not Reportable 09/05/20 05:52 Pappenheimer Bodies Not Reportable 09/05/20 05:52 Sickle Cells Not Reportable 09/05/20 05:52 Target Cells Not Reportable 09/05/20 05:52 Tear Drop Cells Few 09/05/20 05:52 Ovalocytes Few 09/05/20 05:52 Helmet Cells Not Reportable 09/05/20 05:52 Amaro-[place] Bodies Not Reportable 09/05/20 05:52 [place] Rings Not Reportable 09/05/20 05:52 [place] Cells Not Reportable 09/05/20 05:52 Bite Cells Not Reportable 09/05/20 05:52 Crenated Cell Not Reportable 09/05/20 05:52 Elliptocytes Not Reportable 09/05/20 05:52 Acanthocytes (Spur) Not Reportable 09/05/20 05:52 Rouleaux Not Reportable 09/05/20 05:52 Hemoglobin C Crystals Not Reportable 09/05/20 05:52 Schistocytes Not Reportable 09/05/20 05:52 Malaria parasites Not Reportable 09/05/20 05:52 Henry Bodies Not Reportable 09/05/20 05:52 Hem Pathologist Commnt No 09/05/20 05:52 Sodium 142 mmol/L (137-145) 09/05/20 05:52 Potassium 3.9 mmol/L (3.6-5.0) D 09/05/20 05:52 Chloride 108.2 mmol/L (98-107) H 09/05/20 05:52 Carbon Dioxide 26 mmol/L (22-30) 09/05/20 05:52 Anion Gap 12 mmol/L 09/05/20 05:52 BUN 19 mg/dL (7-17) H 09/05/20 05:52 Creatinine 0.3 mg/dL (0.6-1.2) L 09/05/20 05:52 Estimated GFR > 60 ml/min 09/05/20 05:52 BUN/Creatinine Ratio 63 % 09/05/20 05:52 Glucose 94 mg/dL (65-100) 09/05/20 05:52 Calcium 8.4 mg/dL (8.4-10.2) 09/05/20 05:52 Magnesium 1.80 mg/dL (1.7-2.3) 09/04/20 06:52 Iron 18 ug/dL (37-170) L 09/04/20 06:52 TIBC 359 mcg/dL (250-450) 09/04/20 06:52 Ferritin 3.3 ng/mL (10.0-200.0) L 09/04/20 06:52 Total Bilirubin 0.20 mg/dL (0.1-1.2) 09/04/20 01:37 AST 13 units/L (5-40) 09/04/20 01:37 ALT 12 units/L (7-56) 09/04/20 01:37 Alkaline Phosphatase 73 units/L (35-129) 09/04/20 01:37 Total Creatine Kinase 18 units/L (30-135) L 09/04/20 06:52 Troponin T < 0.010 ng/mL (0.00-0.029) 09/04/20 06:52 NT-Pro-B Natriuret Pep 17.53 pg/mL (0-900) 09/04/20 06:52 Total Protein 6.9 g/dL (6.3-8.2) 09/04/20 01:37 Albumin 3.9 g/dL (3.9-5) 09/04/20 01:37 Albumin/Globulin Ratio 1.3 % 09/04/20 01:37 Santana/IV: Voiding Method Toilet Active Medications - Current Medications Current Medications: Generic Name Dose Route Start Last Admin Trade Name Freq PRN Reason Stop Dose Admin Amlodipine Besylate 10 mg 09/05/20 10:00 09/05/20 08:59 Amlodipine 10 Mg Tab PO 10 mg QDAY CALIN Administration Nitroglycerin 0.4 mg 09/04/20 06:16 Nitroglycerin 0.4 Mg Tab Subl SL .Q5MIN PRN Chest Pain Ondansetron HCl 4 mg 09/04/20 11:00 Ondansetron 4 Mg/2 Ml Inj IV Q8H PRN Nausea And Vomiting Sodium Chloride 10 ml 09/04/20 22:00 09/05/20 22:46 Sodium Chloride 0.9% 10 Ml Flush Syringe IV 10 ml BID CALIN Administration Sodium Chloride 10 ml 09/04/20 11:00 Sodium Chloride 0.9% 10 Ml Flush Syringe IV PRN PRN LINE FLUSH Sodium Chloride 10 ml 09/04/20 11:00 Sodium Chloride 0.9% 10 Ml Flush Syringe IV PRN PRN LINE FLUSH Tramadol HCl 50 mg 09/04/20 12:04 09/05/20 18:16 Tramadol 50 Mg Tab PO 50 mg Q6H PRN Administration Pain, Moderate (4-6)
[2020-09-06] MEDS: traMADol 50 MG TAB PO PRN ×2 (10:18→19:34)
[2020-09-06] MEDS: amLODIPine 10 MG TAB PO SCH (10:19)
--- NOTE | 2020-09-06 11:43 | Progress Note ---
Assessment and Plan Echo pending. Plan for Lexiscan stress MPI in AM. NPO after midnight. LLE Doppler pending. RLE Doppler 06/2020 was neg for DVT. Pt seen in conjunction with Dr. Ron, who agrees with the assessment and plan of care. - Patient Problems (1) Chest pain Current Visit: Yes Status: Acute (2) Acute HF (heart failure) Current Visit: Yes Status: Suspected Qualifiers: Heart failure type: unspecified Qualified Code(s): I50.9 - Heart failure, unspecified (3) Hypertension Current Visit: Yes Status: Chronic Qualifiers: Hypertension type: essential hypertension Qualified Code(s): I10 - Essential (primary) hypertension (4) Left shoulder pain Current Visit: Yes Status: Chronic (5) Arthritis Current Visit: Yes Status: Chronic (6) Peptic ulcer disease Current Visit: Yes Status: Chronic (7) Anemia Current Visit: Yes Status: Acute Subjective Date of service: 09/06/20 Principal diagnosis: Chest Pain Interval history: Ambulating around room without issues again this AM. Continue to complain of right leg pain, both when resting and when walking. Denies any further chest pain overnight or this AM. No additional cardiac complaints. Tele reviewed - SR 60-70s (down to 40s overnight), no events. Objective Last Vital Signs Temp 98.4 F 09/06/20 08:00 Pulse 87 09/06/20 10:19 Resp 18 09/06/20 10:18 BP 153/60 09/06/20 08:00 Pulse Ox 95 09/06/20 08:00 - Physical Examination General: No Apparent Distress HEENT: Positive: EOMI, Normocephaly, Mucus Membranes Moist Neck: Positive: neck supple, trachea midline. Negative: JVD/HJR Cardiac: Positive: Reg Rate and Rhythm, S1/S2 Lungs: Positive: clear to auscultation Neuro: Positive: Grossly Intact Abdomen: Positive: Soft. Negative: Tender Skin: Negative: Rash Musculoskeletal: No Pain Extremities: Present: lower extr. pulses, edema (pedal (R > L)), warm - Imaging and Cardiology EKG: report reviewed, image reviewed Pharmacologic stress test: pending Echo: pending - Telemetry EKG Rhythm: Sinus Rhythm - EKG Sinus rhythms and dysrhythmias: sinus rhythm Chamber hypertrophy or enlargement: right atrial enlargment, left ventricular hypertro
[2020-09-07] MEDS ORDERED: REGADENOSON 0.4 MG/5 ML INJ IV ONE (07:36)
--- NOTE | 2020-09-07 08:34 | Discharge Summary ---
Providers - Providers Date of Admission: 09/04/20 07:13 Date of discharge: 09/07/20 Attending physician: ALFONSO WALKER 09/04/20 Consult to Cardiac Rehabilitation [CONS] Routine Reason For Exam: Phase I 09/04/20 10:03 Consult to Physician [CONS] Routine Comment: Consulting Provider: GIULIANO REEVES Physician Instructions: Reason For Exam: cp [facility] Reason for admission: cp Condition: Good Hospital course: 65-year-old female who presented through the emergency department with chief complaint of bilateral LE edema, chest pain that radiated to her left back and shoulder. Patient was admitted with diagnosis of chest pain. Patient had trop onins that were negative x3. EKG revealed no acute ischemic changes. CXR revealed stable cardiomegaly with mild pulmonary vascular congestion. Cardiology was consulted and recommended echocardiogram, bilateral lower extremity Dopplers and Lexiscan. If the studies are found to be negative, pt will d/c home with dx of CP related to GERD. Dedicated discharge time 35 minutes. 09/05/2020. Follow-up echocardiogram. Lexiscan stress MPI planned for Monday. Continue home antihypertensive medications. IV Lasix as needed with strict I/Os. Potassium has been repleted. 09/06/2020. Follow-up echocardiogram. Follow-up lower extremity Dopplers. Lexiscan stress MPI planned for Monday. Continue home antihypertensive medications. 09/07/2020. Patient is to undergo stress test today and if found to be negative will discharge home. Disposition: - TO HOME OR SELFCARE Final Discharge Diagnosis (Prints w/discharge instructions): Chest pain, GERD, bilateral lower extremity edema, hypokalemia, hypertension Core Measure Documentation - Palliative Care Palliative Care/ Comfort Measures: Not Applicable - Core Measures Any of the following diagnoses?: none Exam - Constitutional Vitals: Temp Pulse Resp BP Pulse Ox 98.6 F 72 18 127/54 95 09/07/20 00:00 09/07/20 00:00 09/07/20 00:00 09/07/20 00:00 09/07/20 00:00 General appearance: Present: no acute distress, well-nourished - EENT Eyes: Present: PERRL ENT: hearing intact, clear oral mucosa - Neck Neck: Present: supple, normal ROM - Respiratory Respiratory effort: normal Respiratory: bilateral: CTA - Cardiovascular Heart Sounds: Present: S1 & S2. Absent: rub, click - Extremities Extremities: pulses symmetrical, No edema Peripheral Pulses: within normal limits - Abdominal General gastrointestinal: Present: soft, non-tender, non-distended, normal bowel sounds Female genitourinary: Present: normal - Integumentary Integumentary: Present: clear, warm, dry - Musculoskeletal Musculoskeletal: gait normal, strength equal bilaterally - Psychiatric Psychiatric: appropriate mood/affect, intact judgment & insight - Neurologic Neurologic: CNII-XII intact, moves all extremities Plan Activity: advance as tolerated Weight Bearing Status: Weight Bear as Tolerated Diet: regular [facility] with: [facility] [Primary Care Provider] - 3-5 Days GIULIANO REEVES MD [Staff Physician] - 7 Days Prescriptions: amLODIPine 10 mg PO DAILY #30 tab Cyclobenzaprine [Flexeril 10 MG TAB] 10 mg PO TID PRN #30 tablet PRN Reason: Muscle Spasm methOCARBAMOL [Robaxin TAB] 500 mg PO BID #14 tab
--- NOTE | 2020-09-07 09:32 | Progress Note ---
Assessment and Plan Assessment and plan: Chest pain. Patient will be admitted and placed on chest pain protocol. Follow-up serial troponin EKG. Cardiology consultation and decision for ischemic evaluation Hypokalemia. Replete potassium Lower extremity edema. Check Doppler ultrasound. Chest x-ray and BNP negative Hypertension 09/05/2020. Follow-up echocardiogram. Lexiscan stress MPI planned for Monday. Continue home antihypertensive medications. IV Lasix as needed with strict I/Os. Potassium has been repleted. 09/06/2020. Follow-up echocardiogram. Follow-up lower extremity Dopplers. Lexiscan stress MPI planned for Monday. Continue home antihypertensive medications. 09/07/2020. Still await echocardiogram and lower extremity Doppler testing. Patient complains of inability to raise her left arm past 90 degrees with pain. Also, patient complains of right knee pain. Check plain films of left shoulder. Patient with polyarticular joint pain. Check uric acid levels to rule out acute gouty arthritis. Hold discharge. History Interval history: No new issues overnight. Hospitalist Physical - Constitutional Vitals: Temp Pulse Resp BP Pulse Ox 98.6 F 72 18 127/54 95 09/07/20 00:00 09/07/20 00:00 09/07/20 00:00 09/07/20 00:00 09/07/20 00:00 General appearance: Present: no acute distress, well-nourished - EENT Eyes: Present: PERRL, EOM intact ENT: hearing intact, clear oral mucosa, dentition normal - Neck Neck: Present: supple, normal ROM - Respiratory Respiratory effort: normal Respiratory: bilateral: CTA - Cardiovascular Rhythm: regular Heart Sounds: Present: S1 & S2. Absent: gallop, rub - Extremities Extremities: no ischemia, No edema, Full ROM - Abdominal General gastrointestinal: soft, non-tender, non-distended, normal bowel sounds - Integumentary Integumentary: Present: clear, warm, dry - Neurologic Neurologic: CNII-XII intact, moves all extremities HEART Score - HEART Score EKG: Non-specific Age: > 65 Risk factors: 1-2 risk factors Troponin: Troponin T < 0.010 ng/mL (0.00-0.029) 09/04/20 06:52 Troponin: < normal limit - Critical Actions Critical Actions: 4-6 pts:12-16.6% risk of adverse cardiac event. Should be admitted Results - Labs CBC & Chem 7: 09/05/20 05:52 09/05/20 05:52 Labs: Laboratory Last Values WBC 4.9 K/mm3 (4.5-11.0) 09/05/20 05:52 RBC 4.20 M/mm3 (3.65-5.03) 09/05/20 05:52 Hgb 8.7 gm/dl (10.1-14.3) L 09/05/20 05:52 Hct 27.8 % (30.3-42.9) L 09/05/20 05:52 MCV 66 fl (79-97) L 09/05/20 05:52 MCH 21 pg (28-32) L 09/05/20 05:52 MCHC 31 % (30-34) 09/05/20 05:52 RDW 16.9 % (13.2-15.2) H 09/05/20 05:52 Plt Count 240 K/mm3 (140-440) 09/05/20 05:52 [place] % (Auto) Appraisal Specialist 09/05/20 05:52 Add Manual Diff Complete 09/05/20 05:52 Total Counted 100 09/05/20 05:52 Seg Neuts % (Manual) 54.0 % (40.0-70.0) 09/05/20 05:52 Band Neutrophils % 1.0 % 09/05/20 05:52 Lymphocytes % (Manual) 33.0 % (13.4-35.0) 09/05/20 05:52 Monocytes % (Manual) 7.0 % (0.0-7.3) 09/05/20 05:52 Eosinophils % (Manual) 2.0 % (0.0-4.3) 09/05/20 05:52 Basophils % (Manual) 3.0 % (0.0-1.8) H 09/05/20 05:52 Nucleated RBC % Not Reportable 09/05/20 05:52 Seg Neutrophils # Man 2.6 K/mm3 (1.8-7.7) 09/05/20 05:52 Band Neutrophils # 0.0 K/mm3 09/05/20 05:52 Lymphocytes # (Manual) 1.6 K/mm3 (1.2-5.4) 09/05/20 05:52 Abs React Lymphs (Man) 0.0 K/mm3 09/05/20 05:52 Monocytes # (Manual) 0.3 K/mm3 (0.0-0.8) 09/05/20 05:52 Eosinophils # (Manual) 0.1 K/mm3 (0.0-0.4) 09/05/20 05:52 Basophils # (Manual) 0.1 K/mm3 (0.0-0.1) 09/05/20 05:52 Metamyelocytes # 0.0 K/mm3 09/05/20 05:52 Myelocytes # 0.0 K/mm3 09/05/20 05:52 Promyelocytes # 0.0 K/mm3 09/05/20 05:52 Blast Cells # 0.0 K/mm3 09/05/20 05:52 WBC Morphology Not Reportable 09/05/20 05:52 Hypersegmented Neuts Not Reportable 09/05/20 05:52 Hyposegmented Neuts Not Reportable 09/05/20 05:52 Hypogranular Neuts Not Reportable 09/05/20 05:52 Smudge Cells Not Reportable 09/05/20 05:52 Toxic Granulation Not Reportable 09/05/20 05:52 Toxic Vacuolation Not Reportable 09/05/20 05:52 Dohle Bodies Not Reportable 09/05/20 05:52 Pelger-Huet Anomaly Not Reportable 09/05/20 05:52 Cassandra Rods Not Reportable 09/05/20 05:52 Platelet Estimate Consistent w auto 09/05/20 05:52 Clumped Platelets Not Reportable 09/05/20 05:52 Plt Clumps, EDTA Not Reportable 09/05/20 05:52 Large Platelets Not Reportable 09/05/20 05:52 Giant Platelets Not Reportable 09/05/20 05:52 Platelet Satelliting Not Reportable 09/05/20 05:52 Plt Morphology Comment Not Reportable 09/05/20 05:52 RBC Morphology Not Reportable 09/05/20 05:52 Dimorphic RBCs Not Reportable 09/05/20 05:52 Polychromasia Not Reportable 09/05/20 05:52 Hypochromasia 2+ 09/05/20 05:52 Poikilocytosis Not Reportable 09/05/20 05:52 Anisocytosis 1+ 09/05/20 05:52 Microcytosis 1+ 09/05/20 05:52 Macrocytosis Not Reportable 09/05/20 05:52 Spherocytes Not Reportable 09/05/20 05:52 Pappenheimer Bodies Not Reportable 09/05/20 05:52 Sickle Cells Not Reportable 09/05/20 05:52 Target Cells Not Reportable 09/05/20 05:52 Tear Drop Cells Few 09/05/20 05:52 Ovalocytes Few 09/05/20 05:52 Helmet Cells Not Reportable 09/05/20 05:52 Amaro-Paulina Bodies Not Reportable 09/05/20 05:52 [place] Rings Not Reportable 09/05/20 05:52 [place] Cells Not Reportable 09/05/20 05:52 Bite Cells Not Reportable 09/05/20 05:52 Crenated Cell Not Reportable 09/05/20 05:52 Elliptocytes Not Reportable 09/05/20 05:52 Acanthocytes (Spur) Not Reportable 09/05/20 05:52 Rouleaux Not Reportable 09/05/20 05:52 Hemoglobin C Crystals Not Reportable 09/05/20 05:52 Schistocytes Not Reportable 09/05/20 05:52 Malaria parasites Not Reportable 09/05/20 05:52 Henry Bodies Not Reportable 09/05/20 05:52 Hem Pathologist Commnt No 09/05/20 05:52 Sodium 142 mmol/L (137-145) 09/05/20 05:52 Potassium 3.9 mmol/L (3.6-5.0) D 09/05/20 05:52 Chloride 108.2 mmol/L (98-107) H 09/05/20 05:52 Carbon Dioxide 26 mmol/L (22-30) 09/05/20 05:52 Anion Gap 12 mmol/L 09/05/20 05:52 BUN 19 mg/dL (7-17) H 09/05/20 05:52 Creatinine 0.3 mg/dL (0.6-1.2) L 09/05/20 05:52 Estimated GFR > 60 ml/min 09/05/20 05:52 BUN/Creatinine Ratio 63 % 09/05/20 05:52 Glucose 94 mg/dL (65-100) 09/05/20 05:52 Calcium 8.4 mg/dL (8.4-10.2) 09/05/20 05:52 Magnesium 1.80 mg/dL (1.7-2.3) 09/04/20 06:52 Iron 18 ug/dL (37-170) L 09/04/20 06:52 TIBC 359 mcg/dL (250-450) 09/04/20 06:52 Ferritin 3.3 ng/mL (10.0-200.0) L 09/04/20 06:52 Total Bilirubin 0.20 mg/dL (0.1-1.2) 09/04/20 01:37 AST 13 units/L (5-40) 09/04/20 01:37 ALT 12 units/L (7-56) 09/04/20 01:37 Alkaline Phosphatase 73 units/L (35-129) 09/04/20 01:37 Total Creatine Kinase 18 units/L (30-135) L 09/04/20 06:52 Troponin T < 0.010 ng/mL (0.00-0.029) 09/04/20 06:52 NT-Pro-B Natriuret Pep 17.53 pg/mL (0-900) 09/04/20 06:52 Total Protein 6.9 g/dL (6.3-8.2) 09/04/20 01:37 Albumin 3.9 g/dL (3.9-5) 09/04/20 01:37 Albumin/Globulin Ratio 1.3 % 09/04/20 01:37 Santana/IV: Voiding Method Toilet Active Medications - Current Medications Current Medications: Generic Name Dose Route Start Last Admin Trade Name Freq PRN Reason Stop Dose Admin Amlodipine Besylate 10 mg 09/05/20 10:00 09/06/20 10:19 Amlodipine 10 Mg Tab PO 10 mg QDAY CALIN Administration Heparin Sodium (Porcine) 5,000 unit 09/07/20 10:00 Heparin 5,000 Unit/1 Ml Vial SUB-Q Q12HR CALIN Nitroglycerin 0.4 mg 09/04/20 06:16 Nitroglycerin 0.4 Mg Tab Subl SL .Q5MIN PRN Chest Pain Ondansetron HCl 4 mg 09/04/20 11:00 Ondansetron 4 Mg/2 Ml Inj IV Q8H PRN Nausea And Vomiting Oxycodone/Acetaminophen 1 tab 09/07/20 01:08 Oxycodone /Acetaminophen 5-325mg Tab PO Q6H PRN Pain, Moderate (4-6) Sodium Chloride 10 ml 09/04/20 22:00 09/06/20 21:00 Sodium Chloride 0.9% 10 Ml Flush Syringe IV 10 ml BID CALIN Administration Sodium Chloride 10 ml 09/04/20 11:00 Sodium Chloride 0.9% 10 Ml Flush Syringe IV PRN PRN LINE FLUSH Sodium Chloride 10 ml 09/04/20 11:00 Sodium Chloride 0.9% 10 Ml Flush Syringe IV PRN PRN LINE FLUSH Tramadol HCl 50 mg 09/04/20 12:04 09/06/20 19:34 Tramadol 50 Mg Tab PO 50 mg Q6H PRN Administration Pain, Moderate (4-6)
[2020-09-07] MEDS: oxyCODONE /ACETAMINOPHEN 5-325MG TAB PO PRN ×2 (10:40→21:44)
--- NOTE | 2020-09-07 11:03 | XRay Report ---
LEFT SHOULDER 4 VIEWS INDICATION / CLINICAL INFORMATION: left shoulder pain. COMPARISON: None available. FINDINGS: No significant skeletal abnormality Signer Name: Quique Schneider MD FACJethro Signed: 09/07/2020 10:58 AM Workstation Name: [id number]
--- NOTE | 2020-09-07 11:31 | Progress Note ---
Assessment and Plan Chest pain * Patient is currently chest pain-free with no cardiac symptoms * Troponins are negative x3 Acute heart failure * Echo is pending * Lexiscan MPI stress test (09/07/2020): Negative for reversible ischemia. Estimated EF 60% Hypokalemia * Potassium is being repleted DVT prophylaxis * Heparin SQ Patient is currently pending results for echo. Will follow Patient should follow-up with Dr Tamie Zapata, [facility] within 1 to 2 weeks of discharge. #[phone] Pt seen in conjunction with Dr. Eddi Grace, who agrees with the assessment and plan of care. - Patient Problems (1) Chest pain Current Visit: Yes Status: Acute (2) Acute HF (heart failure) Current Visit: Yes Status: Suspected Qualifiers: Heart failure type: unspecified Qualified Code(s): I50.9 - Heart failure, unspecified (3) Hypertension Current Visit: Yes Status: Chronic Qualifiers: Hypertension type: essential hypertension Qualified Code(s): I10 - Essential (primary) hypertension (4) Left shoulder pain Current Visit: Yes Status: Chronic (5) Arthritis Current Visit: Yes Status: Chronic (6) Peptic ulcer disease Current Visit: Yes Status: Chronic (7) Anemia Current Visit: Yes Status: Acute Subjective Date of service: 09/07/20 Principal diagnosis: Chest Pain Interval history: Patient resting comfortably in bed. No shortness of breath or chest pain overnight Telemetry reviewed: Sinus rhythm 66. No events Objective Last Vital Signs Temp 98.6 F 09/07/20 00:00 Pulse 72 09/07/20 00:00 Resp 18 09/07/20 00:00 BP 127/54 09/07/20 00:00 Pulse Ox 95 09/07/20 00:00 - Physical Examination General: No Apparent Distress HEENT: Positive: EOMI, Normocephaly, Mucus Membranes Moist Neck: Positive: neck supple, trachea midline. Negative: JVD/HJR Cardiac: Positive: Reg Rate and Rhythm, S1/S2 Lungs: Positive: Normal Exam, Normal Breath Sounds Neuro: Positive: Grossly Intact Abdomen: Positive: Soft. Negative: Tender Skin: Negative: Rash Musculoskeletal: No Pain Extremities: Present: lower extr. pulses, edema (pedal (R > L)), warm - Imaging and Cardiology EKG: report reviewed, image reviewed Pharmacologic stress test: pending Echo: pending - Telemetry EKG Rhythm: Sinus Rhythm - EKG Sinus rhythms and dysrhythmias: sinus rhythm Chamber hypertrophy or enlargement: right atrial enlargment, left ventricular hypertro
[2020-09-07] MEDS: HEPARIN 5,000 UNIT/1 ML VIAL SUB-Q SCH ×2 (11:40→21:44)
[2020-09-07] MEDS: amLODIPine 10 MG TAB PO SCH (11:40)
[2020-09-08] MEDS: oxyCODONE /ACETAMINOPHEN 5-325MG TAB PO PRN ×2 (05:55→21:46)
[2020-09-08 06:06] LABS: Blood Urea Nitrogen 22 mg/dL (7-17); Calcium 8.6 mg/dL (8.4-10.2); Hemolysis Index 0
[2020-09-08 06:10] LABS: BUN/Creatinine Ratio 55
--- NOTE | 2020-09-08 09:23 | Progress Note ---
Assessment and Plan Chest pain * Patient is currently chest pain-free with no cardiac symptoms * Troponins are negative x3 * Lexiscan MPI stress test (09/07/2020): Negative for reversible ischemia. Estimated EF 60% Acute heart failure preserved ejection fraction in setting of hypertrophic cardiomyopathy * Echocardiogram reviewed (09/05/2020): LVEF is 55 to 60%. LV SF is normal. Moderate to severe LVH. Left ventricular end-diastolic pressure is elevated. RV SF is normal. RVSP is 25 mmHg. * Continue current cardiac regimen of amlodipine 10 mg daily Hypokalemia * Potassium is being repleted DVT prophylaxis * Heparin SQ Patient is currently stable cardiac status. Patient may discharge from cardiac standpoint. Will follow on as-needed basis. Patient should follow-up with Dr Tamie Zapata, [facility] in our [place] office on 10/12/2020 at 1 PM. #[phone] Pt seen in conjunction with Dr. Eddi Grace, who agrees with the assessment and plan of care. - Patient Problems (1) Chest pain Current Visit: Yes Status: Acute (2) Acute HF (heart failure) Current Visit: Yes Status: Suspected Qualifiers: Heart failure type: unspecified Qualified Code(s): I50.9 - Heart failure, unspecified (3) Hypertension Current Visit: Yes Status: Chronic Qualifiers: Hypertension type: essential hypertension Qualified Code(s): I10 - Essential (primary) hypertension (4) Left shoulder pain Current Visit: Yes Status: Chronic (5) Arthritis Current Visit: Yes Status: Chronic (6) Peptic ulcer disease Current Visit: Yes Status: Chronic (7) Anemia Current Visit: Yes Status: Acute Subjective Date of service: 09/08/20 Principal diagnosis: Chest Pain Interval history: Patient resting comfortably in bed. No shortness of breath or chest pain overnight telemetry reviewed: Sinus rhythm 85, low sinus bradycardia 40 overnight. No events Objective Last Vital Signs Temp 98.2 F 09/08/20 06:41 Pulse 69 09/08/20 06:41 Resp 16 09/08/20 06:41 BP 146/58 09/08/20 06:41 Pulse Ox 96 09/08/20 06:41 - Physical Examination General: No Apparent Distress HEENT: Positive: EOMI, Normocephaly, Mucus Membranes Moist Neck: Positive: neck supple, trachea midline. Negative: JVD/HJR Cardiac: Positive: Reg Rate and Rhythm, S1/S2 Lungs: Positive: Normal Exam, Normal Breath Sounds Neuro: Positive: Grossly Intact Abdomen: Positive: Soft. Negative: Tender Skin: Negative: Rash Musculoskeletal: No Pain Extremities: Present: lower extr. pulses, edema (pedal (R > L)), warm - Labs and Meds Comprehensive Metabolic Panel 09/08/20 Range/Units 05:16 Sodium 139 (137-145) mmol/L Potassium 3.5 L (3.6-5.0) mmol/L Chloride 101.2 (98-107) mmol/L Carbon Dioxide 29 (22-30) mmol/L BUN 22 H (7-17) mg/dL Creatinine 0.4 L (0.6-1.2) mg/dL Glucose 89 (65-100) mg/dL Calcium 8.6 (8.4-10.2) mg/dL - Imaging and Cardiology EKG: report reviewed, image reviewed Echo: pending - Telemetry EKG Rhythm: Sinus Rhythm - EKG Sinus rhythms and dysrhythmias: sinus rhythm Chamber hypertrophy or enlargement: right atrial enlargment, left ventricular hypertro
[2020-09-08] MEDS: amLODIPine 10 MG TAB PO SCH (10:05)
[2020-09-08] MEDS: HEPARIN 5,000 UNIT/1 ML VIAL SUB-Q SCH ×2 (10:05→21:41)
[2020-09-08] MEDS ORDERED: POTASSIUM CHLORIDE ER 20 MEQ TAB PO NR (12:01)
--- NOTE | 2020-09-08 16:31 | XRay Report ---
RIGHT KNEE 3 VIEWS INDICATION / CLINICAL INFORMATION: Right knee pain x2 days without a known injury. COMPARISON: Right knee series from 09/03/2019. FINDINGS: BONES and JOINT(S): No acute fracture or subluxation. Moderate to severe tricompartmental osteoarthri tis has not significantly changed. SOFT TISSUES: No significant abnormality. ADDITIONAL FINDINGS: None. IMPRESSION: 1. No acute findings. 2. Similar moderate to severe right knee osteoarthritis. Signer Name: Fredis Barnes MD Signed: 09/08/2020 4:27 PM Workstation Name: [id number]
--- NOTE | 2020-09-08 16:32 | XRay Report ---
RIGHT HIP 2 VIEWS INDICATION / CLINICAL INFORMATION: Right hip pain for 2 days without a known injury. COMPARISON: None available. FINDINGS: BONES and JOINT(S): No acute fracture or subluxation. No significant arthritis. SOFT TISSUES: No significant abnormality. ADDITIONAL FINDINGS: None. IMPRESSION: 1. No acute findings. Signer Name: Fredis Barnes MD Signed: 09/08/2020 4:28 PM Workstation Name: [id number]
--- NOTE | 2020-09-08 16:43 | Progress Note ---
Assessment and Plan Assessment and plan: Chest pain. Patient admitted and placed on chest pain protocol. Cardiology consulted and evaluated patient. Stress test was negative Hypokalemia. Replete potassium Lower extremity edema. Check Doppler ultrasound. Chest x-ray and BNP negative Hypertension 09/05/2020. Follow-up echocardiogram. Lexiscan stress MPI planned for Monday. Continue home antihypertensive medications. IV Lasix as needed with strict I/Os. Potassium has been repleted. 09/06/2020. Follow-up echocardiogram. Follow-up lower extremity Dopplers. Lexiscan stress MPI planned for Monday. Continue home antihypertensive medications. 09/07/2020. Still await echocardiogram and lower extremity Doppler testing. Patient complains of inability to raise her left arm past 90 degrees with pain. Also, patient complains of right knee pain. Check plain films of left shoulder. Patient with polyarticular joint pain. Check uric acid levels to rule out acute gouty arthritis. Hold discharge. 09/08 Patient presented with chest pain, was evaluated by cardiology. Stress test was negative. patient was to be discharged but complained of pain right knee, right hip, left shoulder with difficulty ambulation. Physical therapy and occupational therapy consulted, to see. Knee X ray shows arthritis. Hopefully dc home tomorrow after PT/OT evaluation. History Interval history: Initially presented with chest pain, now resolved Now complains of pain right hip, right knee Difficulty ambulation Hospitalist Physical - Physical exam Narrative exam: Gen: Not in acute distress, sitting up in bed HEENT: Normochephalic, atraumatic Neck:supple, No JVD Lungs:Clear to auscultation bilaterally, no rales, no wheeze Heart:S1 and S2 reg, no murmurs, rubs or gallop Abd: soft, non tender, non distended, normal bowel sounds Ext: No edema, no clubbing, no cyanosis Neuro:Awake,alert,oriented X 3, moves all ext, no focal neurological signs - Constitutional Vitals: Temp Pulse Resp BP Pulse Ox 98.2 F 69 16 146/58 96 09/08/20 06:41 09/08/20 06:41 09/08/20 06:41 09/08/20 06:41 09/08/20 06:41 General appearance: Present: no acute distress, obese HEART Score - HEART Score EKG: Non-specific Age: > 65 Risk factors: 1-2 risk factors Troponin: Troponin T < 0.010 ng/mL (0.00-0.029) 09/08/20 05:16 Troponin: < normal limit - Critical Actions Critical Actions: 4-6 pts:12-16.6% risk of adverse cardiac event. Should be admitted Results - Labs CBC & Chem 7: 09/05/20 05:52 09/08/20 05:16 Labs: Laboratory Last Values WBC 4.9 K/mm3 (4.5-11.0) 09/05/20 05:52 RBC 4.20 M/mm3 (3.65-5.03) 09/05/20 05:52 Hgb 8.7 gm/dl (10.1-14.3) L 09/05/20 05:52 Hct 27.8 % (30.3-42.9) L 09/05/20 05:52 MCV 66 fl (79-97) L 09/05/20 05:52 MCH 21 pg (28-32) L 09/05/20 05:52 MCHC 31 % (30-34) 09/05/20 05:52 RDW 16.9 % (13.2-15.2) H 09/05/20 05:52 Plt Count 240 K/mm3 (140-440) 09/05/20 05:52 [place] % (Auto) Probation Agent 09/05/20 05:52 Add Manual Diff Complete 09/05/20 05:52 Total Counted 100 09/05/20 05:52 Seg Neuts % (Manual) 54.0 % (40.0-70.0) 09/05/20 05:52 Band Neutrophils % 1.0 % 09/05/20 05:52 Lymphocytes % (Manual) 33.0 % (13.4-35.0) 09/05/20 05:52 Monocytes % (Manual) 7.0 % (0.0-7.3) 09/05/20 05:52 Eosinophils % (Manual) 2.0 % (0.0-4.3) 09/05/20 05:52 Basophils % (Manual) 3.0 % (0.0-1.8) H 09/05/20 05:52 Nucleated RBC % Not Reportable 09/05/20 05:52 Seg Neutrophils # Man 2.6 K/mm3 (1.8-7.7) 09/05/20 05:52 Band Neutrophils # 0.0 K/mm3 09/05/20 05:52 Lymphocytes # (Manual) 1.6 K/mm3 (1.2-5.4) 09/05/20 05:52 Abs React Lymphs (Man) 0.0 K/mm3 09/05/20 05:52 Monocytes # (Manual) 0.3 K/mm3 (0.0-0.8) 09/05/20 05:52 Eosinophils # (Manual) 0.1 K/mm3 (0.0-0.4) 09/05/20 05:52 Basophils # (Manual) 0.1 K/mm3 (0.0-0.1) 09/05/20 05:52 Metamyelocytes # 0.0 K/mm3 09/05/20 05:52 Myelocytes # 0.0 K/mm3 09/05/20 05:52 Promyelocytes # 0.0 K/mm3 09/05/20 05:52 Blast Cells # 0.0 K/mm3 09/05/20 05:52 WBC Morphology Not Reportable 09/05/20 05:52 Hypersegmented Neuts Not Reportable 09/05/20 05:52 Hyposegmented Neuts Not Reportable 09/05/20 05:52 Hypogranular Neuts Not Reportable 09/05/20 05:52 Smudge Cells Not Reportable 09/05/20 05:52 Toxic Granulation Not Reportable 09/05/20 05:52 Toxic Vacuolation Not Reportable 09/05/20 05:52 Dohle Bodies Not Reportable 09/05/20 05:52 Pelger-Huet Anomaly Not Reportable 09/05/20 05:52 Cassandra Rods Not Reportable 09/05/20 05:52 Platelet Estimate Consistent w auto 09/05/20 05:52 Clumped Platelets Not Reportable 09/05/20 05:52 Plt Clumps, EDTA Not Reportable 09/05/20 05:52 Large Platelets Not Reportable 09/05/20 05:52 Giant Platelets Not Reportable 09/05/20 05:52 Platelet Satelliting Not Reportable 09/05/20 05:52 Plt Morphology Comment Not Reportable 09/05/20 05:52 RBC Morphology Not Reportable 09/05/20 05:52 Dimorphic RBCs Not Reportable 09/05/20 05:52 Polychromasia Not Reportable 09/05/20 05:52 Hypochromasia 2+ 09/05/20 05:52 Poikilocytosis Not Reportable 09/05/20 05:52 Anisocytosis 1+ 09/05/20 05:52 Microcytosis 1+ 09/05/20 05:52 Macrocytosis Not Reportable 09/05/20 05:52 Spherocytes Not Reportable 09/05/20 05:52 Pappenheimer Bodies Not Reportable 09/05/20 05:52 Sickle Cells Not Reportable 09/05/20 05:52 Target Cells Not Reportable 09/05/20 05:52 Tear Drop Cells Few 09/05/20 05:52 Ovalocytes Few 09/05/20 05:52 Helmet Cells Not Reportable 09/05/20 05:52 Amaro-[place] Bodies Not Reportable 09/05/20 05:52 [place] Rings Not Reportable 09/05/20 05:52 [place] Cells Not Reportable 09/05/20 05:52 Bite Cells Not Reportable 09/05/20 05:52 Crenated Cell Not Reportable 09/05/20 05:52 Elliptocytes Not Reportable 09/05/20 05:52 Acanthocytes (Spur) Not Reportable 09/05/20 05:52 Rouleaux Not Reportable 09/05/20 05:52 Hemoglobin C Crystals Not Reportable 09/05/20 05:52 Schistocytes Not Reportable 09/05/20 05:52 Malaria parasites Not Reportable 09/05/20 05:52 Henry Bodies Not Reportable 09/05/20 05:52 Hem Pathologist Commnt No 09/05/20 05:52 Sodium 139 mmol/L (137-145) 09/08/20 05:16 Potassium 3.5 mmol/L (3.6-5.0) L 09/08/20 05:16 Chloride 101.2 mmol/L (98-107) 09/08/20 05:16 Carbon Dioxide 29 mmol/L (22-30) 09/08/20 05:16 Anion Gap 12 mmol/L 09/08/20 05:16 BUN 22 mg/dL (7-17) H 09/08/20 05:16 Creatinine 0.4 mg/dL (0.6-1.2) L 09/08/20 05:16 Estimated GFR > 60 ml/min 09/08/20 05:16 BUN/Creatinine Ratio 55 % 09/08/20 05:16 Glucose 89 mg/dL (65-100) 09/08/20 05:16 Uric Acid 3.5 mg/dL (3.5-7.6) 09/07/20 18:46 Calcium 8.6 mg/dL (8.4-10.2) 09/08/20 05:16 Magnesium 1.70 mg/dL (1.7-2.3) 09/08/20 05:16 Iron 18 ug/dL (37-170) L 09/04/20 06:52 TIBC 359 mcg/dL (250-450) 09/04/20 06:52 Ferritin 3.3 ng/mL (10.0-200.0) L 09/04/20 06:52 Total Bilirubin 0.20 mg/dL (0.1-1.2) 09/04/20 01:37 AST 13 units/L (5-40) 09/04/20 01:37 ALT 12 units/L (7-56) 09/04/20 01:37 Alkaline Phosphatase 73 units/L (35-129) 09/04/20 01:37 Total Creatine Kinase 18 units/L (30-135) L 09/04/20 06:52 Troponin T < 0.010 ng/mL (0.00-0.029) 09/08/20 05:16 NT-Pro-B Natriuret Pep 17.53 pg/mL (0-900) 09/04/20 06:52 Total Protein 6.9 g/dL (6.3-8.2) 09/04/20 01:37 Albumin 3.9 g/dL (3.9-5) 09/04/20 01:37 Albumin/Globulin Ratio 1.3 % 09/04/20 01:37 Santana/IV: Voiding Method Toilet Active Medications - Current Medications Current Medications: Generic Name Dose Route Start Last Admin Trade Name Freq PRN Reason Stop Dose Admin Amlodipine Besylate 10 mg 09/05/20 10:00 09/08/20 10:05 Amlodipine 10 Mg Tab PO 10 mg QDAY CALIN Administration Heparin Sodium (Porcine) 5,000 unit 09/07/20 10:00 09/08/20 10:05 Heparin 5,000 Unit/1 Ml Vial SUB-Q 5,000 unit Q12HR CALIN Administration Nitroglycerin 0.4 mg 09/04/20 06:16 Nitroglycerin 0.4 Mg Tab Subl SL .Q5MIN PRN Chest Pain Ondansetron HCl 4 mg 09/04/20 11:00 Ondansetron 4 Mg/2 Ml Inj IV Q8H PRN Nausea And Vomiting Oxycodone/Acetaminophen 1 tab 09/07/20 01:08 09/08/20 05:55 Oxycodone /Acetaminophen 5-325mg Tab PO 1 tab Q6H PRN Administration Pain, Moderate (4-6) Sodium Chloride 10 ml 09/04/20 22:00 09/07/20 21:45 Sodium Chloride 0.9% 10 Ml Flush Syringe IV 10 ml BID CALIN Administration Sodium Chloride 10 ml 09/04/20 11:00 Sodium Chloride 0.9% 10 Ml Flush Syringe IV PRN PRN LINE FLUSH Tramadol HCl 50 mg 09/04/20 12:04 09/06/20 19:34 Tramadol 50 Mg Tab PO 50 mg Q6H PRN Administration Pain, Moderate (4-6)
--- NOTE | 2020-09-08 21:16 | Vascular Lab Report ---
DUPLEX DOPPLER LOWER EXTREMITY VEINS, BILATERAL INDICATION / CLINICAL INFORMATION: Bilateral lower extremity swelling. TECHNIQUE: Duplex doppler imaging was performed through the veins of both lower extremities using myles ous compression and other maneuvers. COMPARISON: None available. FINDINGS: RIGHT COMMON FEMORAL VEIN: Negative. RIGHT FEMORAL VEIN: Negative. RIGHT POPLITEAL VEIN: Negative. RIGHT CALF VEINS: Negative. LEFT COMMON FEMORAL VEIN: Negative. LEFT FEMORAL VEIN: Negative. LEFT POPLITEAL VEIN: Negative. LEFT CALF VEINS: Negative. ADDITIONAL FINDINGS: None. IMPRESSION: 1. No sonographic evidence for DVT in either lower extremity. Signer Name: Regis Horne MD Signed: 09/08/2020 9:11 PM Workstation Name: [id number]
[2020-09-09] MEDS ORDERED: MAGNESIUM SULFATE 2 GM/50 ML BAG IV ONE (09:00)
[2020-09-09] MEDS: POTASSIUM CHLORIDE ER 20 MEQ TAB PO SCH ×2 (09:42→15:15)
[2020-09-09] MEDS: HEPARIN 5,000 UNIT/1 ML VIAL SUB-Q SCH ×2 (09:42→21:04)
[2020-09-09] MEDS: amLODIPine 10 MG TAB PO SCH (09:43)
--- NOTE | 2020-09-09 14:47 | Discharge Summary ---
Providers - Providers Date of Admission: 09/04/20 07:13 Attending physician: SHELBY TREJO 09/04/20 Consult to Cardiac Rehabilitation [CONS] Routine Reason For Exam: Phase I 09/04/20 10:03 Consult to Physician [CONS] Routine Comment: Consulting Provider: GIULIANO REEVES Physician Instructions: Reason For Exam: cp 09/07/20 09:32 Physical Therapy Evaluation and Treat [CONS] Routine Comment: Reason For Exam: lEFT SHOULDER AND RIGHT KNEE PAIN 09/09/20 09:02 Physical Therapy Evaluation and Treat [CONS] Urgent Comment: Reason For Exam: to assess mobility status 09/09/20 09:03 Occupational Therapy Evaluate and Treat [CONS] Urgent Comment: Reason For Exam: to assess ADL status Primary care physician: [facility] MD AMANDA Hospitalization Condition: Good Disposition: DC-01 TO HOME OR SELFCARE Core Measure Documentation - Palliative Care Palliative Care/ Comfort Measures: Not Applicable Exam - Constitutional Vitals: Temp Pulse Resp BP Pulse Ox 99.1 F 68 18 134/57 97 09/09/20 07:51 09/09/20 10:00 09/09/20 07:51 09/09/20 07:51 09/09/20 07:51 Plan Follow up with: GIULIANO REEVES MD [Staff Physician] - 7 Days HEMLOCK CHARLES URRUTIA MD [Primary Care Provider] - 3-5 Days Prescriptions: amLODIPine 10 mg PO DAILY #30 tab Cyclobenzaprine [Flexeril 10 MG TAB] 10 mg PO TID PRN #30 tablet PRN Reason: Muscle Spasm methOCARBAMOL [Robaxin TAB] 500 mg PO BID #14 tab
[2020-09-09] MEDS ORDERED: POTASSIUM CHLORIDE ER 20 MEQ TAB PO ONE (15:12)
--- NOTE | 2020-09-09 15:15 | Event Note ---
Date: 09/09/20 Discharge cancelled because patient had fever X 2. Obtain CXR,blood culture, UA, Urine culture.
[2020-09-09 15:25] LABS: Hematocrit 30.8 % (30.3-42.9); Hemoglobin 9.8 gm/dl (10.1-14.3); Mean Corpuscular HGB Conc 32 % (30-34); Platelet Count 254 K/mm3 (140-440); Red Blood Count 4.64 M/mm3 (3.65-5.03); Red Cell Distribution Width 17.4 % (13.2-15.2)
[2020-09-09 15:35] LABS: Mean Corpuscular Volume 66 fl (79-97)
--- NOTE | 2020-09-09 15:57 | Progress Note ---
Assessment and Plan Assessment and plan: Chest pain. Patient admitted and placed on chest pain protocol. Cardiology consulted and evaluated patient. Stress test was negative Hypokalemia. Replete potassium Lower extremity edema. Check Doppler ultrasound. Chest x-ray and BNP negative Hypertension 09/05/2020. Follow-up echocardiogram. Lexiscan stress MPI planned for Monday. Continue home antihypertensive medications. IV Lasix as needed with strict I/Os. Potassium has been repleted. 09/06/2020. Follow-up echocardiogram. Follow-up lower extremity Dopplers. Lexiscan stress MPI planned for Monday. Continue home antihypertensive medications. 09/07/2020. Still await echocardiogram and lower extremity Doppler testing. Patient complains of inability to raise her left arm past 90 degrees with pain. Also, patient complains of right knee pain. Check plain films of left shoulder. Patient with polyarticular joint pain. Check uric acid levels to rule out acute gouty arthritis. Hold discharge. 09/08/2020 Patient initially presented with chest pain, was evaluated by cardiology. Stress test was negative. patient was to be discharged but complained of pain right knee, right hip, left shoulder with difficulty ambulation. Physical therapy and occupational therapy consulted, to see. Knee X ray shows arthritis. Hopefully dc home tomorrow after PT/OT evaluation. 09/09/2020 Patient initially presented with chest pain, was evaluated by cardiology. Stress test was negative. Patient was to be discharged but complained of pain right knee, right hip, left shoulder with difficulty ambulation. PT/OT consulted. Fever last night, therefore cancel discharge, obtain Chest x ray, blood cultures, UA. Pain and swelling right forearm. Obtain Doppler US to r/o DVT History Interval history: Initially presented with chest pain, now resolved Now complains of pain right hip, right knee Difficulty ambulation Fever pain,swelling right forearm at site of iv Hospitalist Physical - Physical exam Narrative exam: Gen: Not in acute distress, sitting up in bed HEENT: Normochephalic, atraumatic Neck:supple, No JVD Lungs:Clear to auscultation bilaterally, no rales, no wheeze Heart:S1 and S2 reg, no murmurs, rubs or gallop Abd: soft, non tender, non distended, normal bowel sounds Ext: tender, edema right forearm, no clubbing, no cyanosis Neuro:Awake,alert,oriented X 3, moves all ext, no focal neurological signs - Constitutional Vitals: Temp Pulse Resp BP Pulse Ox 99.1 F 68 18 134/57 97 09/09/20 07:51 09/09/20 10:00 09/09/20 07:51 09/09/20 07:51 09/09/20 07:51 General appearance: Present: no acute distress, obese HEART Score - HEART Score EKG: Non-specific Age: > 65 Risk factors: 1-2 risk factors Troponin: Troponin T < 0.010 ng/mL (0.00-0.029) 09/08/20 05:16 Troponin: < normal limit - Critical Actions Critical Actions: 4-6 pts:12-16.6% risk of adverse cardiac event. Should be admitted Results - Labs CBC & Chem 7: 09/09/20 15:03 09/09/20 05:38 Labs: Laboratory Last Values WBC 6.1 K/mm3 (4.5-11.0) 09/09/20 15:03 RBC 4.64 M/mm3 (3.65-5.03) 09/09/20 15:03 Hgb 9.8 gm/dl (10.1-14.3) L 09/09/20 15:03 Hct 30.8 % (30.3-42.9) 09/09/20 15:03 MCV 66 fl (79-97) L 09/09/20 15:03 MCH 21 pg (28-32) L 09/09/20 15:03 MCHC 32 % (30-34) 09/09/20 15:03 RDW 17.4 % (13.2-15.2) H 09/09/20 15:03 Plt Count 254 K/mm3 (140-440) 09/09/20 15:03 Elk % (Auto) Furniture Polisher 09/05/20 05:52 Add Manual Diff Complete 09/05/20 05:52 Total Counted 100 09/05/20 05:52 Seg Neuts % (Manual) 54.0 % (40.0-70.0) 09/05/20 05:52 Band Neutrophils % 1.0 % 09/05/20 05:52 Lymphocytes % (Manual) 33.0 % (13.4-35.0) 09/05/20 05:52 Monocytes % (Manual) 7.0 % (0.0-7.3) 09/05/20 05:52 Eosinophils % (Manual) 2.0 % (0.0-4.3) 09/05/20 05:52 Basophils % (Manual) 3.0 % (0.0-1.8) H 09/05/20 05:52 Nucleated RBC % Not Reportable 09/05/20 05:52 Seg Neutrophils # Man 2.6 K/mm3 (1.8-7.7) 09/05/20 05:52 Band Neutrophils # 0.0 K/mm3 09/05/20 05:52 Lymphocytes # (Manual) 1.6 K/mm3 (1.2-5.4) 09/05/20 05:52 Abs React Lymphs (Man) 0.0 K/mm3 09/05/20 05:52 Monocytes # (Manual) 0.3 K/mm3 (0.0-0.8) 09/05/20 05:52 Eosinophils # (Manual) 0.1 K/mm3 (0.0-0.4) 09/05/20 05:52 Basophils # (Manual) 0.1 K/mm3 (0.0-0.1) 09/05/20 05:52 Metamyelocytes # 0.0 K/mm3 09/05/20 05:52 Myelocytes # 0.0 K/mm3 09/05/20 05:52 Promyelocytes # 0.0 K/mm3 09/05/20 05:52 Blast Cells # 0.0 K/mm3 09/05/20 05:52 WBC Morphology Not Reportable 09/05/20 05:52 Hypersegmented Neuts Not Reportable 09/05/20 05:52 Hyposegmented Neuts Not Reportable 09/05/20 05:52 Hypogranular Neuts Not Reportable 09/05/20 05:52 Smudge Cells Not Reportable 09/05/20 05:52 Toxic Granulation Not Reportable 09/05/20 05:52 Toxic Vacuolation Not Reportable 09/05/20 05:52 Dohle Bodies Not Reportable 09/05/20 05:52 Pelger-Huet Anomaly Not Reportable 09/05/20 05:52 Cassandra Rods Not Reportable 09/05/20 05:52 Platelet Estimate Consistent w auto 09/05/20 05:52 Clumped Platelets Not Reportable 09/05/20 05:52 Plt Clumps, EDTA Not Reportable 09/05/20 05:52 Large Platelets Not Reportable 09/05/20 05:52 Giant Platelets Not Reportable 09/05/20 05:52 Platelet Satelliting Not Reportable 09/05/20 05:52 Plt Morphology Comment Not Reportable 09/05/20 05:52 RBC Morphology Not Reportable 09/05/20 05:52 Dimorphic RBCs Not Reportable 09/05/20 05:52 Polychromasia Not Reportable 09/05/20 05:52 Hypochromasia 2+ 09/05/20 05:52 Poikilocytosis Not Reportable 09/05/20 05:52 Anisocytosis 1+ 09/05/20 05:52 Microcytosis 1+ 09/05/20 05:52 Macrocytosis Not Reportable 09/05/20 05:52 Spherocytes Not Reportable 09/05/20 05:52 Pappenheimer Bodies Not Reportable 09/05/20 05:52 Sickle Cells Not Reportable 09/05/20 05:52 Target Cells Not Reportable 09/05/20 05:52 Tear Drop Cells Few 09/05/20 05:52 Ovalocytes Few 09/05/20 05:52 Helmet Cells Not Reportable 09/05/20 05:52 Amaro-Potter Bodies Not Reportable 09/05/20 05:52 [place] Rings Not Reportable 09/05/20 05:52 Banks Cells Not Reportable 09/05/20 05:52 Bite Cells Not Reportable 09/05/20 05:52 Crenated Cell Not Reportable 09/05/20 05:52 Elliptocytes Not Reportable 09/05/20 05:52 Acanthocytes (Spur) Not Reportable 09/05/20 05:52 Rouleaux Not Reportable 09/05/20 05:52 Hemoglobin C Crystals Not Reportable 09/05/20 05:52 Schistocytes Not Reportable 09/05/20 05:52 Malaria parasites Not Reportable 09/05/20 05:52 Henry Bodies Not Reportable 09/05/20 05:52 Hem Pathologist Commnt No 09/05/20 05:52 Sodium 139 mmol/L (137-145) 09/08/20 05:16 Potassium 3.5 mmol/L (3.6-5.0) L 09/09/20 05:38 Chloride 101.2 mmol/L (98-107) 09/08/20 05:16 Carbon Dioxide 29 mmol/L (22-30) 09/08/20 05:16 Anion Gap 12 mmol/L 09/08/20 05:16 BUN 22 mg/dL (7-17) H 09/08/20 05:16 Creatinine 0.4 mg/dL (0.6-1.2) L 09/08/20 05:16 Estimated GFR > 60 ml/min 09/08/20 05:16 BUN/Creatinine Ratio 55 % 09/08/20 05:16 Glucose 89 mg/dL (65-100) 09/08/20 05:16 Uric Acid 3.5 mg/dL (3.5-7.6) 09/07/20 18:46 Calcium 8.6 mg/dL (8.4-10.2) 09/08/20 05:16 Magnesium 1.70 mg/dL (1.7-2.3) 09/08/20 05:16 Iron 18 ug/dL (37-170) L 09/04/20 06:52 TIBC 359 mcg/dL (250-450) 09/04/20 06:52 Ferritin 3.3 ng/mL (10.0-200.0) L 09/04/20 06:52 Total Bilirubin 0.20 mg/dL (0.1-1.2) 09/04/20 01:37 AST 13 units/L (5-40) 09/04/20 01:37 ALT 12 units/L (7-56) 09/04/20 01:37 Alkaline Phosphatase 73 units/L (35-129) 09/04/20 01:37 Total Creatine Kinase 18 units/L (30-135) L 09/04/20 06:52 Troponin T < 0.010 ng/mL (0.00-0.029) 09/08/20 05:16 NT-Pro-B Natriuret Pep 17.53 pg/mL (0-900) 09/04/20 06:52 Total Protein 6.9 g/dL (6.3-8.2) 09/04/20 01:37 Albumin 3.9 g/dL (3.9-5) 09/04/20 01:37 Albumin/Globulin Ratio 1.3 % 09/04/20 01:37 Santana/IV: Voiding Method Toilet Active Medications - Current Medications Current Medications: Generic Name Dose Route Start Last Admin Trade Name Freq PRN Reason Stop Dose Admin Amlodipine Besylate 10 mg 09/05/20 10:00 09/09/20 09:43 Amlodipine 10 Mg Tab PO 10 mg QDAY CALIN Administration Heparin Sodium (Porcine) 5,000 unit 09/07/20 10:00 09/09/20 09:42 Heparin 5,000 Unit/1 Ml Vial SUB-Q 5,000 unit Q12HR CALIN Administration Nitroglycerin 0.4 mg 09/04/20 06:16 Nitroglycerin 0.4 Mg Tab Subl SL .Q5MIN PRN Chest Pain Ondansetron HCl 4 mg 09/04/20 11:00 Ondansetron 4 Mg/2 Ml Inj IV Q8H PRN Nausea And Vomiting Oxycodone/Acetaminophen 1 tab 09/07/20 01:08 09/08/20 21:46 Oxycodone /Acetaminophen 5-325mg Tab PO 1 tab Q6H PRN Administration Pain, Moderate (4-6) Sodium Chloride 10 ml 09/04/20 22:00 09/09/20 09:43 Sodium Chloride 0.9% 10 Ml Flush Syringe IV 10 ml BID CALIN Administration Sodium Chloride 10 ml 09/04/20 11:00 Sodium Chloride 0.9% 10 Ml Flush Syringe IV PRN PRN LINE FLUSH Tramadol HCl 50 mg 09/04/20 12:04 09/06/20 19:34 Tramadol 50 Mg Tab PO 50 mg Q6H PRN Administration Pain, Moderate (4-6)
--- NOTE | 2020-09-09 16:02 | XRay Report ---
CHEST 2 VIEWS INDICATION / CLINICAL INFORMATION: fever. COMPARISON: 09/04/2020 FINDINGS: SUPPORT DEVICES: None. HEART / MEDIASTINUM: Cardiomegaly LUNGS / PLEURA: No significant pulmonary or pleural abnormality. No pneumothorax. ADDITIONAL FINDINGS: No significant additional findings. IMPRESSION: Cardiomegaly without acute disease Signer Name: Quique Schneider MD FACR Signed: 09/09/2020 3:57 PM Workstation Name: [id number]
[2020-09-09] MEDS: IBUPROFEN 400 MG TAB PO SCH (21:05)
--- NOTE | 2020-09-09 22:37 | Vascular Lab Report ---
DUPLEX DOPPLER UPPER EXTREMITY VENOUS, RIGHT INDICATION / CLINICAL INFORMATION: swelling right forearm,hand after iv. TECHNIQUE: Duplex doppler imaging was performed through the veins of the right upper extremity using venous comp ression and other maneuvers. COMPARISON: None available. FINDINGS: RIGHT INTERNAL JUGULAR VEIN: Negative. RIGHT SUBCLAVIAN VEIN: Negative. RIGHT AXILLARY VEIN: Negative. RIGHT BRACHIAL VEIN: Negative. RIGHT FOREARM VEINS: Negative. RIGHT BASILIC VEIN (SUPERFICIAL): Negative. ADDITIONAL FINDINGS: None. IMPRESSION: 1. No sonographic evidence for DVT. Signer Name: Quique ESQUIVEL Signed: 09/09/2020 10:32 PM Workstation Name: [id number]
[2020-09-10 00:19] LABS: Bilirubin,Urine NEG (Negative); Blood,Urine NEG (Negative); Color,Urine Yellow (Yellow); Mucus,Urine 2+ /HPF; Protein,Urine <15 mg/dL mg/dL (Negative)
[2020-09-10] MEDS: IBUPROFEN 400 MG TAB PO SCH (06:48)
--- NOTE | 2020-09-10 09:42 | Discharge Summary ---
Providers - Providers Date of Admission: 09/04/20 07:13 Date of discharge: 09/10/20 Attending physician: SHELBY TREJO 09/04/20 Consult to Cardiac Rehabilitation [CONS] Routine Reason For Exam: Phase I 09/04/20 10:03 Consult to Physician [CONS] Routine Comment: Consulting Provider: GIULIANO ZAPATA Physician Instructions: Reason For Exam: cp 09/07/20 09:32 Physical Therapy Evaluation and Treat [CONS] Routine Comment: Reason For Exam: lEFT SHOULDER AND RIGHT KNEE PAIN 09/09/20 09:02 Physical Therapy Evaluation and Treat [CONS] Urgent Comment: Reason For Exam: to assess mobility status 09/09/20 09:03 Occupational Therapy Evaluate and Treat [CONS] Urgent Comment: Reason For Exam: to assess ADL status [facility] Condition: Good Hospital course: 65-year-old female with past medical history of osteoarthritis, hypertension, chronic shoulder pain and peptic ulcer disease presented through the emergency department with complaints of left-sided chest pain. Patient reports the pain radiates to her left arm and shoulder. Patient denies any nausea/vomiting or diaphoresis. Patient denies any exertional dyspnea. No reports of travel, surgery or immobilization. Patient denies any fever or chills. No cough or cold-like symptoms. She was seen and evaluated in ED and admitted to rule out acute coronary syndrome. Chest pain due to GERD Cardiology consulted and evaluated patient. Stress test was negative GERD Hypokalemia. Repleted potassium Hypertension 09/05/2020. Follow-up echocardiogram. Lexiscan stress MPI planned for Monday. Continue home antihypertensive medications. IV Lasix as needed with strict I/Os. Potassium has been repleted. 09/06/2020. Follow-up echocardiogram. Follow-up lower extremity Dopplers. Lexiscan stress MPI planned for Monday. Continue home antihypertensive medications. 09/07/2020. Still await echocardiogram and lower extremity Doppler testing. Patient complains of inability to raise her left arm past 90 degrees with pain. Also, patient complains of right knee pain. Check plain films of left shoulder. Patient with polyarticular joint pain. Check uric acid levels to rule out acute gouty arthritis. Hold discharge. 09/08/2020 Patient initially presented with chest pain, was evaluated by cardiology. Stress test was negative. patient was to be discharged but complained of pain right knee, right hip, left shoulder with difficulty ambulation. Physical therapy and occupational therapy consulted, to see. Knee X ray shows arthritis. Hopefully dc home tomorrow after PT/OT evaluation. 09/09/2020 Patient initially presented with chest pain, was evaluated by cardiology. Stress test was negative. Patient was to be discharged but complained of pain right knee, right hip, left shoulder with difficulty ambulation. PT/OT consulted. Fever last night, therefore cancel discharge, obtain Chest x ray, blood cultures, UA. Pain and swelling right forearm. Obtain Doppler US to r/o DVT 09/10/2020 Patient initially presented with chest pain, was evaluated by cardiology. Stress test was negative. Fever now resolved. Doppler US negative for DVT. She is stable to discharge home. Chest pain, non cardiac due to GERD. Right knee osteoarthritis on X ray. Disposition: DC-01 TO HOME OR SELFCARE Final Discharge Diagnosis (Prints w/discharge instructions): 1.Chest pain due to GERD. 2.GERD Time spent for discharge: 42 mins - Discharge Diagnoses (1) GERD (gastroesophageal reflux disease) Status: Acute (2) Chest pain Status: Acute (3) Hypokalemia Status: Acute (4) Hypertension Status: Chronic Qualifiers: Hypertension type: essential hypertension Qualified Code(s): I10 - Essential (primary) hypertension (5) Fever Status: Acute (6) Osteoarthritis of right knee Status: Acute Core Measure Documentation - Palliative Care Palliative Care/ Comfort Measures: Not Applicable - Core Measures Any of the following diagnoses?: none Exam - Constitutional Vitals: Temp Pulse Resp BP Pulse Ox 98.3 F 71 18 138/69 97 09/10/20 07:21 09/10/20 07:21 09/10/20 07:21 09/10/20 07:21 09/10/20 07:21 Plan Activity: advance as tolerated Diet: low fat, low cholesterol, low salt Special Instructions: physical therapy, other (1.Follow up with PCP in 1 week. 2. Follow up wiuth Dr. Jennifer Zapata on 10/12) Plan of Treatment: 1.Follow up with PCP in 1 week. 2.Follow up with Dr. Tamie Zapata on 10/12/20 Follow up with: GIULIANO ZAPATA MD [Staff Physician] - 7 [facility] [[facility] - 3-5 Days Prescriptions: amLODIPine 10 mg PO DAILY #30 tab Cyclobenzaprine [Flexeril 10 MG TAB] 10 mg PO TID PRN #30 tablet PRN Reason: Muscle Spasm Potassium Chloride [K-Dur] 20 meq PO BID #6 tab methOCARBAMOL [Robaxin TAB] 500 mg PO BID #14 tab
--- NOTE | 2020-09-10 10:44 | Nuclear Medicine Report ---
APPROVED REPORT Exam: Nuclear Stress Test Indication: Chest pain BMI: 0 Stress Test Details Stress Test: Pharmacologic stress testing performed using 0.4 mg of regadenoson per 5 mL given IV over 10 seconds. HR Resting HR: 65 bpm Max HR Achieved: 92 bpm Max Heart Rate (APMHR): 154 bpm Target HR (85% APMHR): 130 bpm % of APMHR: 59 Recovery HR: 71 bpm HR response to stress: Normal HR response to stress BP Resting BP: 141/68 mmHg Max BP: 157/73 mmHg Recovery BP: 144/64 mmHg BP response to stress: Normal blood pressure response to stress. ECG Resting ECG: Sinus Rhythm Stress ECG: Sinus Bradycardia, Sinus Rhythm Arrhythmia: None Clinical Reason for Termination: Completed protocol Stress Symptoms: None Stress ECG Conclusion Normal hemodynamic response to pharmacologic stress. NM EXAM: Myocardial Perfusion REST/STRESS Imaging Protocol: Rest Tc-99m/Stress Tc-99m 1 day Resting Data Rest SPECT myocardial perfusion imaging was performed in supine position 45 minutes following the intravenous injection of 10 mCi of Tc-99m Myoview. Time of rest injection: 704 Date: 09/07/2020 Pharmacologic Stress Pharmacologic stress test was performed by injecting Regadenoson 0.4 mg IV push followed by the intravenous injection of 28 mCi of Tc-99m Myoview. Time of stress injection: 929 Date: 09/07/2020 Gated Stress SPECT was performed 30 minutes after stress injection. The images were gated to evaluate regional wall motion and calculate left ventricular ejection fraction. Study Quality Study: excellent Lung Uptake: Normal Study Data Post stress, the left ventricular ejection was 60%.. TID = 1.20. Perfusion Wall Motion Normal left ventricular size and function with no regional wall motion abnormalities. Nuclear Conclusion ECG Findings: equivocal Nuclear Findings: negative for ischemia Exercise Capacity: not assessed Left Ventricular Function: normal Risk Study: low Post stress, the left ventricular ejection was 60%.. Normal left ventricular size and function with no regional wall motion abnormalities. The rest and stress images show normal perfusion. No evidence of stress induced ischemia or prior myocardial infarction. Conclusion Normal hemodynamic response to pharmacologic stress.
[2020-09-10] MEDS: amLODIPine 10 MG TAB PO SCH (10:50)
[2020-09-10] MEDS: HEPARIN 5,000 UNIT/1 ML VIAL SUB-Q SCH (10:50)
--- NOTE | 2020-09-10 11:11 | Electrocardiograph Report ---
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
[2020-09-10 12:00] VITALS: BP 131/55
--- NOTE | 2020-09-10 12:49 | Electrocardiograph Report ---
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
== END 2020-09-10 18:18 | disposition home or self-care (01) | DRG 391 ==
LOC: ED 00:09 → OBSVTOIN 07:13 → 4A 07:13
PROVIDERS: ADMIT Hospitalist; ATTEND Internal Medicine
DX: K21.9 Gastro-esophageal reflux disease without esophagitis (principal); I50.31 Acute diastolic (congestive) heart failure; D50.9 Iron deficiency anemia, unspecified; M25.512 Pain in left shoulder; E87.6 Hypokalemia; M19.90 Unspecified osteoarthritis, unspecified site; K27.9 Peptic ulcer, site unspecified, unspecified as acute or chronic, without hemorrhage or perforation; I11.0 Hypertensive heart disease with heart failure; Z79.52 Long term (current) use of systemic steroids; Z79.899 Other long term (current) drug therapy
CPT/HCPCS: 36415; 71046; 78452; 80048; 80053; 81001; 82550; 82728; 83550; 83735; 83880; 84132; 84484; 84550; 85007; 85025; 85027; 87040; 87086; 93005; 93017; 93306; 93970; 96374; G0378; A9502; J1644; J1940; J2785; J3475

== ENCOUNTER 2020-09-20 00:15 | Emergency (ER) | payer MEDICAID | END 2020-09-20 01:50 | disposition left against medical advice (07) | LOC: ED 00:15 | DX: K13.79 Other lesions of oral mucosa (principal); Z53.21 Procedure and treatment not carried out due to patient leaving prior to being seen by health care provider ==

== ENCOUNTER 2020-09-20 23:23 | Emergency (ER) | payer MEDICAID ==
[2020-09-20 23:44] VITALS: BP 137/72
[2020-09-21] MEDS ORDERED: CLINDAMYCIN 300 MG CAP PO ONE (01:24)
[2020-09-21] MEDS ORDERED: IBUPROFEN 600 MG TAB PO ONE (01:24)
--- NOTE | 2020-09-21 02:35 | Emergency Department Report ---
ED General Adult HPI - General Chief complaint: Extremity Injury, Upper Stated complaint: RT HAND AND MOUTH PAIN PUI?: No Source: patient Mode of arrival: Ambulatory Limitations: No Limitations - History of Present Illness Initial comments: Patient is a 65-year-old -Indian female with a history of chronic osteoarthritis, chronic back pain and hypertension who presents to the ED with complaint of acute onset persistent right maxillary premolar molar toothache with swollen gums and pain as well as persistent dorsal right hand ulcerated wound for the last 2 weeks. Patient states that she has been taking her regular medications at home for pain with no relief. Patient denies fever, chills, nausea, vomiting, sore throat, chest pain, shortness of breath, traumatic injury, dizziness, syncope, neck pain, nasal and sinus congestion, headache, fall, heavy lifting or cough. MD Complaint: Right maxillary dental pain and swollen gums; dorsal right hand pain -: Sudden, week(s) (2) Location: mouth, upper extremity (dorsal right hand pain and an open wound) Radiation: non-radiation Severity scale (0 -10): 5 Quality: aching, sharp Consistency: constant Improves with: none Worsens with: none Associated Symptoms: denies other symptoms. denies: confusion, chest pain, cough, diaphoresis, fever/chills, headaches, loss of appetite, malaise, nausea/vomiting, rash, seizure, shortness of breath, weakness Treatments Prior to Arrival: none - Related Data Previous Rx's Medication Instructions Recorded Last Taken Type Hydrocortisone 1% [Hydrocortisone 1 applicatio TP TID PRN #1 tube 10/12/16 2 Days Ago Rx 1% CREAM] ~09/02/20 Oxybutynin [Ditropan] 5 mg PO Q8H #30 tab 08/04/19 2 Days Ago Rx ~09/02/20 predniSONE [Deltasone] 40 mg PO QDAY #10 tab 09/03/19 2 Days Ago Rx ~09/02/20 Menthol/Camphor [[place] 1 applicatio TP Q8HR #1 tube 04/29/20 2 Days Ago Rx Ointment] ~09/02/20 Naproxen 500 mg PO BID PRN #30 tablet 04/29/20 2 Days Ago Rx ~09/02/20 Meloxicam [Mobic] 15 mg PO DAILY #20 tablet 05/28/20 2 Days Ago Rx ~09/02/20 diphenhydrAMINE [Benadryl CAP] 25 mg PO Q8HR PRN #21 capsule 06/10/20 2 Days Ago Rx ~09/02/20 Chlorhexidine Mouthwash [Peridex] 15 ml MM BID #1 bottle 08/08/20 2 Days Ago Rx ~09/02/20 Lidocaine Viscous 2% 5 ml MM Q3H PRN #120 udc 08/08/20 2 Days Ago Rx ~09/02/20 traMADoL [Ultram 50 MG tab] 50 mg PO Q6HR PRN #20 tablet 08/08/20 2 Days Ago Rx ~09/02/20 Cyclobenzaprine [Flexeril 10 MG 10 mg PO TID PRN #30 tablet 09/07/20 Unknown Rx TAB] amLODIPine 10 mg PO DAILY #30 tab 09/07/20 Unknown Rx methOCARBAMOL [Robaxin TAB] 500 mg PO BID #14 tab 09/07/20 Unknown Rx Potassium Chloride [K-Dur] 20 meq PO BID #6 tab 09/10/20 Unknown Rx Clindamycin [Clindamycin CAP] 300 mg PO Q8HR #60 capsule 09/21/20 Unknown Rx Diclofenac Sodium 50 mg PO Q8H PRN #30 tablet. 09/21/20 Unknown Rx Allergies Allergy/AdvReac Type Severity Reaction Status Date / Time No Known Allergies Allergy Unverified 09/07/20 01:06 ED Review of Systems ROS: Stated complaint: RT HAND AND MOUTH PAIN Other details as noted in HPI Constitutional: denies: chills, fever Eyes: denies: eye pain, eye discharge, vision change ENT: dental pain (Right maxillary premolar toothache with swollen painful gums). denies: ear pain, throat pain Respiratory: denies: cough, shortness of breath, wheezing Cardiovascular: denies: chest pain, palpitations Endocrine: no symptoms reported Gastrointestinal: denies: abdominal pain, nausea, diarrhea Genitourinary: denies: urgency, dysuria, discharge Musculoskeletal: arthralgia (Dorsal right hand pain due to a small open ulcerated wound). denies: back pain, joint swelling Skin: other (Small ulcerated wound on dorsal right hand with mild pain). denies: rash, lesions Neurological: denies: headache, weakness, paresthesias Psychiatric: denies: anxiety, depression Hematological/Lymphatic: denies: easy bleeding, easy bruising ED Past Medical Hx - Past Medical History Previous Medical History?: Yes Hx Hypertension: Yes Hx CVA: No Hx Heart Attack/AMI: No Hx Congestive Heart Failure: No Hx Diabetes: No Hx Deep Vein Thrombosis: No Hx Pulmonary Embolism: No Hx GERD: No Hx Liver Disease: No Hx Renal Disease: No Hx Sickle Cell Disease: No Hx Arthritis: Yes Hx Headaches / Migraines: No Hx Seizures: No Hx Kidney Stones: No Hx Psychiatric Treatment: No Hx Asthma: No Hx COPD: No Hx Dementia: No Hx HIV: No Additional medical history: stomach ulcers, muscle spasms in back, Chronic right shoulder pain /spasms. - Surgical History Past Surgical History?: Yes Hx Coronary Stent: No Hx Open Heart Surgery: No Hx Pacemaker: No Hx Internal Defibrillator: No Hx Cholecystectomy: No Hx Appendectomy: No Hx Breast Surgery: No Additional Surgical History: skin grafts, 1X - Social History Smoking Status: Never Smoker - Medications Home Medications: Home Medications Medication Instructions Recorded Confirmed Last Taken Type Hydrocortisone 1% [Hydrocortisone 1 applicatio TP TID PRN #1 tube 10/12/16 09/04/20 2 Days Ago Rx 1% CREAM] ~09/02/20 Oxybutynin [Ditropan] 5 mg PO Q8H #30 tab 08/04/19 09/04/20 2 Days Ago Rx ~09/02/20 predniSONE [Deltasone] 40 mg PO QDAY #10 tab 09/03/19 09/04/20 2 Days Ago Rx ~09/02/20 Menthol/Camphor [[place] 1 applicatio TP Q8HR #1 tube 04/29/20 09/04/20 2 Days Ago Rx Ointment] ~09/02/20 Naproxen 500 mg PO BID PRN #30 tablet 04/29/20 09/04/20 2 Days Ago Rx ~09/02/20 Meloxicam [Mobic] 15 mg PO DAILY #20 tablet 05/28/20 09/04/20 2 Days Ago Rx ~09/02/20 diphenhydrAMINE [Benadryl CAP] 25 mg PO Q8HR PRN #21 capsule 06/10/20 09/04/20 2 Days Ago Rx ~09/02/20 Chlorhexidine Mouthwash [Peridex] 15 ml MM BID #1 bottle 08/08/20 09/04/20 2 Days Ago Rx ~09/02/20 Lidocaine Viscous 2% 5 ml MM Q3H PRN #120 udc 08/08/20 09/04/20 2 Days Ago Rx ~09/02/20 traMADoL [Ultram 50 MG tab] 50 mg PO Q6HR PRN #20 tablet 08/08/20 09/04/20 2 Days Ago Rx ~09/02/20 Cyclobenzaprine [Flexeril 10 MG 10 mg PO TID PRN #30 tablet 09/07/20 Unknown Rx TAB] amLODIPine 10 mg PO DAILY #30 tab 09/07/20 Unknown Rx methOCARBAMOL [Robaxin TAB] 500 mg PO BID #14 tab 09/07/20 Unknown Rx Potassium Chloride [K-Dur] 20 meq PO BID #6 tab 09/10/20 Unknown Rx Clindamycin [Clindamycin CAP] 300 mg PO Q8HR #60 capsule 09/21/20 Unknown Rx Diclofenac Sodium 50 mg PO Q8H PRN #30 tablet. 09/21/20 Unknown Rx ED Physical Exam - General Limitations: No Limitations General appearance: alert, in no apparent distress - Head Head exam: Present: atraumatic, normocephalic, normal inspection - Eye Eye exam: Present: normal appearance, PERRL, EOMI Pupils: Present: normal accommodation - ENT ENT exam: Present: mucous membranes moist, TM's normal bilaterally, normal external ear exam, other (Palpable right maxillary gingiva tenderness with mild swelling and tender right maxillary premolar and molar teeth) - Neck Neck exam: Present: normal inspection, full ROM. Absent: tenderness - Respiratory Respiratory exam: Present: normal lung sounds bilaterally. Absent: respiratory distress, wheezes, rales, stridor, chest wall tenderness, decreased breath sounds, prolonged expiratory - Cardiovascular Cardiovascular Exam: Present: regular rate, normal rhythm, normal heart sounds. Absent: systolic murmur, diastolic murmur, rubs, gallop - GI/Abdominal GI/Abdominal exam: Present: soft, normal bowel sounds. Absent: tenderness, guarding, hyperactive bowel sounds, hypoactive bowel sounds, organomegaly - Extremities Exam Extremities exam: Present: normal inspection, full ROM, tenderness (Palpable mild dorsal right hand tenderness due to a small ulcerated wound), normal capillary refill - Back Exam Back exam: Present: normal inspection, full ROM. Absent: tenderness, CVA tenderness (R), CVA tenderness (L), muscle spasm, paraspinal tenderness, vertebral tenderness - Neurological Exam Neurological exam: Present: alert, oriented X3, CN II-XII intact, normal gait, reflexes normal - Psychiatric Psychiatric exam: Present: normal affect, normal mood - Skin Skin exam: Present: warm, dry, intact, normal color, abrasion (Small partially open ulcerated wound on dorsal right hand with localized tenderness). Absent: rash ED Course Vital Signs 09/20/20 23:40 Temperature 99.0 F Pulse Rate 78 Respiratory 18 Rate Blood Pressure 137/72 O2 Sat by Pulse 97 Oximetry ED Medical Decision Making - Medical Decision Making This is a 65-year-old -Indian female with a history of chronic osteoarthritis, chronic back pain and hypertension who presents to the ED with complaint of acute onset persistent right maxillary premolar molar toothache with swollen gums and pain as well as persistent dorsal right hand ulcerated wound for the last 2 weeks. Patient states that she has been taking her regular medications at home for pain with no relief. In the ED, patient is alert and oriented x3 and is not in any distress. Patient was treated for pain in the ED and also given initial oral antibiotics for suspected dorsal right hand infected wound and suspected dental abscess and gingivitis. On reevaluation, patient's pain is well controlled medication. Patient will discharge home on pain medications and antibiotics and advised to follow-up with her primary care physician or dentist in 5 to 7 days for reevaluation. Patient is advised to return to the ED immediately if symptoms get worse. - Differential Diagnosis Dental abscess; gingivitis; chronic pain; cellulitis Critical care attestation.: If time is entered above; I have spent that time in minutes in the direct care of this critically ill patient, excluding procedure time. ED Disposition Clinical Impression: Dental abscess, Acute gingivitis, Cellulitis of right hand Disposition: TO HOME OR SELFCARE Is pt being admited?: No Does the pt Need Aspirin: No Condition: Stable Instructions: Cellulitis, Adult, [id number], Dental Abscess, [id number], Trench Mouth Additional Instructions: Take medication with food, drink plenty of fluids and follow-up with your primary care physician in 7 to 10 days for reevaluation. Return to the ED immediately if symptoms get worse. Prescriptions: Clindamycin [Clindamycin CAP] 300 mg PO Q8HR #60 capsule Diclofenac Sodium 50 mg PO Q8H PRN #[address] tablet[address] MORGAN Reason: Pain , Severe (7-10) Referrals: [facility] [Outside] - 7-10 days Time of Disposition: 02:37 Print Language: ROMANIAN
== END 2020-09-21 03:00 | disposition home or self-care (01) ==
LOC: ED 23:23
DX: K04.7 Periapical abscess without sinus (principal); K05.00 Acute gingivitis, plaque induced; L03.113 Cellulitis of right upper limb; I10 Essential (primary) hypertension; M19.90 Unspecified osteoarthritis, unspecified site; Z79.899 Other long term (current) drug therapy; Z98.890 Other specified postprocedural states
CPT/HCPCS: 99282

== ENCOUNTER 2020-09-28 23:27 | Emergency (ER) | payer MEDICAID | END 2020-09-29 00:30 | disposition left against medical advice (07) | LOC: ED 23:27 | DX: M79.89 Other specified soft tissue disorders (principal); Z53.21 Procedure and treatment not carried out due to patient leaving prior to being seen by health care provider ==

== ENCOUNTER 2020-10-02 00:18 | Emergency (ER) | payer MEDICAID ==
[2020-10-02] MEDS ORDERED: IBUPROFEN 800 MG TAB PO ONE (02:22)
[2020-10-02] MEDS ORDERED: ACETAMINOPHEN 500 MG TAB PO ONE (02:22)
--- NOTE | 2020-10-02 02:24 | Emergency Department Report ---
ED General Adult HPI - General Chief complaint: Neck Pain/Injury Stated complaint: RT ARM/NECK PAIN Time Seen by Provider: 10/02/20 01:06 Source: patient Mode of arrival: Ambulatory Limitations: No Limitations - History of Present Illness Initial comments: 65-year-old female patient with history of osteoarthritis presents to the emergency department with complaints of nontraumatic right shoulder pain starting yesterday. Review of past medical records indicates that she has been evaluated in the emergency department multiple times for similar symptoms. States she is currently taking Tylenol with limited relief. Patient does not have a primary care provider. Denies paresthesias, weakness, numbness, chest pain, shortness of breath. Denies all other complaints at this time. - Related Data Previous Rx's Medication Instructions Recorded Last Taken Type Hydrocortisone 1% [Hydrocortisone 1 applicatio TP TID PRN #1 tube 10/12/16 2 Days Ago Rx 1% CREAM] ~09/02/20 Oxybutynin [Ditropan] 5 mg PO Q8H #30 tab 08/04/19 2 Days Ago Rx ~09/02/20 predniSONE [Deltasone] 40 mg PO QDAY #10 tab 09/03/19 2 Days Ago Rx ~09/02/20 Menthol/Camphor [[place] 1 applicatio TP Q8HR #1 tube 04/29/20 2 Days Ago Rx Ointment] ~09/02/20 Naproxen 500 mg PO BID PRN #30 tablet 04/29/20 2 Days Ago Rx ~09/02/20 Meloxicam [Mobic] 15 mg PO DAILY #20 tablet 05/28/20 2 Days Ago Rx ~09/02/20 diphenhydrAMINE [Benadryl CAP] 25 mg PO Q8HR PRN #21 capsule 06/10/20 2 Days Ago Rx ~09/02/20 Chlorhexidine Mouthwash [Peridex] 15 ml MM BID #1 bottle 08/08/20 2 Days Ago Rx ~09/02/20 Lidocaine Viscous 2% 5 ml MM Q3H PRN #120 udc 08/08/20 2 Days Ago Rx ~09/02/20 traMADoL [Ultram 50 MG tab] 50 mg PO Q6HR PRN #20 tablet 08/08/20 2 Days Ago Rx ~09/02/20 Cyclobenzaprine [Flexeril 10 MG 10 mg PO TID PRN #30 tablet 09/07/20 Unknown Rx TAB] amLODIPine 10 mg PO DAILY #30 tab 09/07/20 Unknown Rx methOCARBAMOL [Robaxin TAB] 500 mg PO BID #14 tab 09/07/20 Unknown Rx Potassium Chloride [K-Dur] 20 meq PO BID #6 tab 09/10/20 Unknown Rx Clindamycin [Clindamycin CAP] 300 mg PO Q8HR #60 capsule 09/21/20 Unknown Rx Diclofenac Sodium 50 mg PO Q8H PRN #30 tablet. 09/21/20 Unknown Rx Naproxen 500 mg PO BID #20 tablet 10/02/20 Unknown Rx Allergies Allergy/AdvReac Type Severity Reaction Status Date / Time No Known Allergies Allergy Unverified 09/07/20 01:06 ED Review of Systems ROS: Stated complaint: RT ARM/NECK PAIN Other details as noted in HPI Other: GENERAL: Negative for fever. CARDIOVASCULAR: Negative for chest pain. PULMONARY: Negative for shortness of breath. GASTROINTESTINAL: Negative for abdominal pain. MUSCULOSKELETAL: Positive for right shoulder pain. NEUROLOGICAL: Negative for headache. INTEGUMENTARY: Negative for rash. ED Past Medical Hx - Past Medical History Previous Medical History?: Yes Hx Hypertension: Yes Hx CVA: No Hx Heart Attack/AMI: No Hx Congestive Heart Failure: No Hx Diabetes: No Hx Deep Vein Thrombosis: No Hx Pulmonary Embolism: No Hx GERD: No Hx Liver Disease: No Hx Renal Disease: No Hx Sickle Cell Disease: No Hx Arthritis: Yes Hx Headaches / Migraines: No Hx Seizures: No Hx Kidney Stones: No Hx Psychiatric Treatment: No Hx Asthma: No Hx COPD: No Hx Dementia: No Hx HIV: No Additional medical history: stomach ulcers, muscle spasms in back, Chronic right shoulder pain /spasms. - Surgical History Past Surgical History?: Yes Hx Coronary Stent: No Hx Open Heart Surgery: No Hx Pacemaker: No Hx Internal Defibrillator: No Hx Cholecystectomy: No Hx Appendectomy: No Hx Breast Surgery: No Additional Surgical History: skin grafts, 1X - Social History Smoking Status: Never Smoker Substance Use Type: None - Medications Home Medications: Home Medications Medication Instructions Recorded Confirmed Last Taken Type Hydrocortisone 1% [Hydrocortisone 1 applicatio TP TID PRN #1 tube 10/12/16 09/04/20 2 Days Ago Rx 1% CREAM] ~09/02/20 Oxybutynin [Ditropan] 5 mg PO Q8H #30 tab 08/04/19 09/04/20 2 Days Ago Rx ~09/02/20 predniSONE [Deltasone] 40 mg PO QDAY #10 tab 09/03/19 09/04/20 2 Days Ago Rx ~09/02/20 Menthol/Camphor [[place] 1 applicatio TP Q8HR #1 tube 04/29/20 09/04/20 2 Days Ago Rx Ointment] ~09/02/20 Naproxen 500 mg PO BID PRN #30 tablet 04/29/20 09/04/20 2 Days Ago Rx ~09/02/20 Meloxicam [Mobic] 15 mg PO DAILY #20 tablet 05/28/20 09/04/20 2 Days Ago Rx ~09/02/20 diphenhydrAMINE [Benadryl CAP] 25 mg PO Q8HR PRN #21 capsule 06/10/20 09/04/20 2 Days Ago Rx ~09/02/20 Chlorhexidine Mouthwash [Peridex] 15 ml MM BID #1 bottle 08/08/20 09/04/20 2 Days Ago Rx ~09/02/20 Lidocaine Viscous 2% 5 ml MM Q3H PRN #120 udc 08/08/20 09/04/20 2 Days Ago Rx ~09/02/20 traMADoL [Ultram 50 MG tab] 50 mg PO Q6HR PRN #20 tablet 08/08/20 09/04/20 2 Days Ago Rx ~09/02/20 Cyclobenzaprine [Flexeril 10 MG 10 mg PO TID PRN #30 tablet 09/07/20 Unknown Rx TAB] amLODIPine 10 mg PO DAILY #30 tab 09/07/20 Unknown Rx methOCARBAMOL [Robaxin TAB] 500 mg PO BID #14 tab 09/07/20 Unknown Rx Potassium Chloride [K-Dur] 20 meq PO BID #6 tab 09/10/20 Unknown Rx Clindamycin [Clindamycin CAP] 300 mg PO Q8HR #60 capsule 09/21/20 Unknown Rx Diclofenac Sodium 50 mg PO Q8H PRN #30 tablet. 09/21/20 Unknown Rx Naproxen 500 mg PO BID #20 tablet 10/02/20 Unknown Rx ED Physical Exam - General Limitations: No Limitations - Other Other exam information: General: No acute distress. Sleeping comfortably. Neck: Supple. Full range of motion intact. Cardiovascular: Normal peripheral perfusion. Pulmonary: No respiratory distress. Patient is speaking normally without use of accessory muscles. Skin: No apparent rashes or lesions. Neurological: No facial asymmetry. Speech is clear. Follows commands. Patient is alert and oriented. Musculoskeletal: Tenderness to palpation throughout the right shoulder without obvious deformity or dislocation. Moves all four extremities spontaneously with normal range of motion. Distal neurovascular and motor/sensory function is intact. Psych: Cooperative. Appropriate mood and affect. ED Course Vital Signs 10/02/20 10/02/20 10/02/20 00:54 02:28 02:53 Temperature 98.3 F Pulse Rate 71 Respiratory 18 16 19 Rate Blood Pressure 162/71 Blood Pressure [Left] O2 Sat by Pulse 98 Oximetry 10/02/20 03:58 Temperature 98.4 F Pulse Rate 72 Respiratory 18 Rate Blood Pressure Blood Pressure 166/74 [Left] O2 Sat by Pulse 100 Oximetry ED Medical Decision Making - Medical Decision Making Differential diagnosis including but not limited to: sprain, strain, fracture, contusion, dislocation, osteoarthritis On reevaluation, patient is resting comfortably, sleeping in her chair, no acute distress. Review of past medical records indicates patient has been evaluated for similar complaints on multiple occasions and diagnosed with osteoarthritis. Within the last month, patient has undergone venous duplex ultrasonography of both upper extremities without evidence of DVT. No clinical indication for further diagnostic work-up on an emergent basis at this time. Patient will be discharged home with appropriate analgesics and referred to primary care provider for close outpatient follow-up. Patient expressed understanding and is agreeable to plan of care. Strict return precautions provided. Repeat exam is unremarkable and benign. History, exam, diagnostic testing, and current condition do not suggest worrisome pathology to warrant further testing, continued ED treatment, admission, or surgical evaluation at this point. Given the low probability of a significant medical illness, it would be more likely to result in harm than benefit to perform further testing at this stage. Discussed findings, presumptive diagnosis, need for follow-up and specific signs/symptoms that should prompt immediate return to the emergency department. Instructions were explained in detail to the patient in addition to giving written discharge information. Patient expressed understanding and was given the opportunity to ask questions, all of which were satisfactorily answered prior to discharge home. Critical care attestation.: If time is entered above; I have spent that time in minutes in the direct care of this critically ill patient, excluding procedure time. ED Disposition Clinical Impression: Chronic right shoulder pain Disposition: TO HOME OR SELFCARE Is pt being admited?: No Does the pt Need Aspirin: No Condition: Stable Instructions: Shoulder Pain Additional Instructions: Take Tylenol every 4 hours as needed for pain. Take Naprosyn twice daily with food as needed for pain. Follow-up with primary care provider this week. Call today to schedule an appointment. See referral information below. Return to the emergency department immediately for new or worsening symptoms. Prescriptions: Naproxen 500 mg PO BID #20 tablet Referrals: [facility] [place] [Outside] - 3-5 Days [facility] [Outside] - 3-5 Days [facility] [place] [Outside] - 3-5 Days [facility] [Provider Group] - 3-5 Days ADALBERTO COFFEY MD [Staff Physician] - 3-5 Days Time of Disposition: 03:41
[2020-10-02 04:04] VITALS: BP 166/74
--- NOTE | 2020-10-02 06:30 | XRay Report ---
XR shoulder 2+V RT INDICATION / CLINICAL INFORMATION: right shoulder pain; hx arthritis. COMPARISON: None available. FINDINGS: No acute fracture. Normal alignment. Joint spaces are preserved. No destructive osseous lesion or s uspicious periosteal reaction. Impression: 1.No significant osseous abnormality. Signer Name: Bogdan Moses MD Signed: 10/02/2020 3:15 AM Workstation Name: [id number]
== END 2020-10-02 04:00 | disposition home or self-care (01) ==
LOC: ED 00:18
DX: M25.511 Pain in right shoulder (principal); G89.29 Other chronic pain; I10 Essential (primary) hypertension; M19.90 Unspecified osteoarthritis, unspecified site; Z98.890 Other specified postprocedural states; Z79.899 Other long term (current) drug therapy

== ENCOUNTER 2020-10-05 23:50 | Emergency (ER) | payer MEDICAID ==
[2020-10-06 01:05] VITALS: BP 171/77
[2020-10-06] MEDS ORDERED: IBUPROFEN 600 MG TAB PO ONE (02:52)
[2020-10-06] MEDS ORDERED: ACETAMINOPHEN 325 MG TAB PO ONE (02:52)
--- NOTE | 2020-10-06 02:52 | Emergency Department Report ---
ED ENT HPI - General Chief complaint: Dental/Oral Stated complaint: TOOTH PAIN Time Seen by Provider: 10/06/20 02:27 Source: patient Mode of arrival: Ambulatory Limitations: No Limitations - History of Present Illness Initial comments: 65-year-old female presents to the ER today with complaint of dental pain to the right upper jaw. She states that started yesterday. She states that she feels like the tooth is cracked. She reports associated swelling. She states that she currently does not have a dentist. She denies any difficulty swallowing, trismus or drooling any facial redness, fever or chills. MD complaint: tooth pain -: Gradual, days(s) (1) - Related Data Previous Rx's Medication Instructions Recorded Last Taken Type Hydrocortisone 1% [Hydrocortisone 1 applicatio TP TID PRN #1 tube 10/12/16 2 Days Ago Rx 1% CREAM] ~09/02/20 Oxybutynin [Ditropan] 5 mg PO Q8H #30 tab 08/04/19 2 Days Ago Rx ~09/02/20 Menthol/Camphor [[place] 1 applicatio TP Q8HR #1 tube 04/29/20 2 Days Ago Rx Ointment] ~09/02/20 Meloxicam [Mobic] 15 mg PO DAILY #20 tablet 05/28/20 2 Days Ago Rx ~09/02/20 diphenhydrAMINE [Benadryl CAP] 25 mg PO Q8HR PRN #21 capsule 06/10/20 2 Days Ago Rx ~09/02/20 Chlorhexidine Mouthwash [Peridex] 15 ml MM BID #1 bottle 08/08/20 2 Days Ago Rx ~09/02/20 Cyclobenzaprine [Flexeril 10 MG 10 mg PO TID PRN #30 tablet 09/07/20 Unknown Rx TAB] amLODIPine 10 mg PO DAILY #30 tab 09/07/20 Unknown Rx methOCARBAMOL [Robaxin TAB] 500 mg PO BID #14 tab 09/07/20 Unknown Rx Potassium Chloride [K-Dur] 20 meq PO BID #6 tab 09/10/20 Unknown Rx Diclofenac Sodium 50 mg PO Q8H PRN #30 tablet. 09/21/20 Unknown Rx Naproxen 500 mg PO BID #20 tablet 10/02/20 Unknown Rx Naproxen 500 mg PO BID PRN #30 tablet 10/06/20 Unknown Rx Penicillin V Potassium 500 mg PO QID #40 tablet 10/06/20 Unknown Rx Allergies Allergy/AdvReac Type Severity Reaction Status Date / Time No Known Allergies Allergy Unverified 09/07/20 01:06 ED Dental HPI - General Chief complaint: Dental/Oral Stated complaint: TOOTH PAIN Time Seen by Provider: 10/06/20 02:27 Source: patient Mode of arrival: Ambulatory Limitations: No Limitations - Related Data Previous Rx's Medication Instructions Recorded Last Taken Type Hydrocortisone 1% [Hydrocortisone 1 applicatio TP TID PRN #1 tube 10/12/16 2 Days Ago Rx 1% CREAM] ~09/02/20 Oxybutynin [Ditropan] 5 mg PO Q8H #30 tab 08/04/19 2 Days Ago Rx ~09/02/20 Menthol/Camphor [[place] 1 applicatio TP Q8HR #1 tube 04/29/20 2 Days Ago Rx Ointment] ~09/02/20 Meloxicam [Mobic] 15 mg PO DAILY #20 tablet 05/28/20 2 Days Ago Rx ~09/02/20 diphenhydrAMINE [Benadryl CAP] 25 mg PO Q8HR PRN #21 capsule 06/10/20 2 Days Ago Rx ~09/02/20 Chlorhexidine Mouthwash [Peridex] 15 ml MM BID #1 bottle 08/08/20 2 Days Ago Rx ~09/02/20 Cyclobenzaprine [Flexeril 10 MG 10 mg PO TID PRN #30 tablet 09/07/20 Unknown Rx TAB] amLODIPine 10 mg PO DAILY #30 tab 09/07/20 Unknown Rx methOCARBAMOL [Robaxin TAB] 500 mg PO BID #14 tab 09/07/20 Unknown Rx Potassium Chloride [K-Dur] 20 meq PO BID #6 tab 09/10/20 Unknown Rx Diclofenac Sodium 50 mg PO Q8H PRN #30 tablet. 09/21/20 Unknown Rx Naproxen 500 mg PO BID #20 tablet 10/02/20 Unknown Rx Naproxen 500 mg PO BID PRN #30 tablet 10/06/20 Unknown Rx Penicillin V Potassium 500 mg PO QID #40 tablet 10/06/20 Unknown Rx Allergies Allergy/AdvReac Type Severity Reaction Status Date / Time No Known Allergies Allergy Unverified 09/07/20 01:06 ED Review of Systems ROS: Stated complaint: TOOTH PAIN Other details as noted in HPI Comment: All other systems reviewed and negative Constitutional: denies: chills, fever Eyes: denies: eye pain, eye discharge, vision change ENT: dental pain. denies: ear pain, throat pain, hearing loss, epistaxis, congestion Respiratory: denies: cough, shortness of breath, wheezing Cardiovascular: denies: chest pain, palpitations, dyspnea on exertion, edema, syncope, paroxysmal nocturnal dyspnea Gastrointestinal: denies: abdominal pain, nausea, vomiting, diarrhea, constipation, hematemesis, hematochezia Genitourinary: denies: urgency, dysuria, frequency, hematuria, discharge, abnormal menses, dyspareunia Musculoskeletal: denies: back pain, joint swelling, arthralgia Skin: denies: rash, lesions, change in color, change in hair/nails, pruritus Neurological: denies: headache, weakness, numbness, paresthesias, confusion, abnormal gait, vertigo Psychiatric: denies: anxiety, depression, auditory hallucinations, visual hallucinations, homicidal thoughts, suicidal thoughts Hematological/Lymphatic: denies: easy bleeding, easy bruising, swollen glands ED Past Medical Hx - Past Medical History Previous Medical History?: Yes Hx Hypertension: Yes Hx CVA: No Hx Heart Attack/AMI: No Hx Congestive Heart Failure: No Hx Diabetes: No Hx Deep Vein Thrombosis: No Hx Pulmonary Embolism: No Hx GERD: No Hx Liver Disease: No Hx Renal Disease: No Hx Sickle Cell Disease: No Hx Arthritis: Yes Hx Headaches / Migraines: No Hx Seizures: No Hx Kidney Stones: No Hx Psychiatric Treatment: No Hx Asthma: No Hx COPD: No Hx Dementia: No Hx HIV: No Additional medical history: stomach ulcers, muscle spasms in back, Chronic right shoulder pain /spasms. - Surgical History Past Surgical History?: Yes Hx Coronary Stent: No Hx Open Heart Surgery: No Hx Pacemaker: No Hx Internal Defibrillator: No Hx Cholecystectomy: No Hx Appendectomy: No Hx Breast Surgery: No Additional Surgical History: skin grafts, 1X - Social History Smoking Status: Never Smoker Substance Use Type: None - Medications Home Medications: Home Medications Medication Instructions Recorded Confirmed Last Taken Type Hydrocortisone 1% [Hydrocortisone 1 applicatio TP TID PRN #1 tube 10/12/16 09/04/20 2 Days Ago Rx 1% CREAM] ~09/02/20 Oxybutynin [Ditropan] 5 mg PO Q8H #30 tab 08/04/19 09/04/20 2 Days Ago Rx ~09/02/20 Menthol/Camphor [[place] 1 applicatio TP Q8HR #1 tube 04/29/20 09/04/20 2 Days Ago Rx Ointment] ~09/02/20 Meloxicam [Mobic] 15 mg PO DAILY #20 tablet 05/28/20 09/04/20 2 Days Ago Rx ~09/02/20 diphenhydrAMINE [Benadryl CAP] 25 mg PO Q8HR PRN #21 capsule 06/10/20 09/04/20 2 Days Ago Rx ~09/02/20 Chlorhexidine Mouthwash [Peridex] 15 ml MM BID #1 bottle 08/08/20 09/04/20 2 Days Ago Rx ~09/02/20 Cyclobenzaprine [Flexeril 10 MG 10 mg PO TID PRN #30 tablet 09/07/20 Unknown Rx TAB] amLODIPine 10 mg PO DAILY #30 tab 09/07/20 Unknown Rx methOCARBAMOL [Robaxin TAB] 500 mg PO BID #14 tab 09/07/20 Unknown Rx Potassium Chloride [K-Dur] 20 meq PO BID #6 tab 09/10/20 Unknown Rx Diclofenac Sodium 50 mg PO Q8H PRN #30 tablet. 09/21/20 Unknown Rx Naproxen 500 mg PO BID #20 tablet 10/02/20 Unknown Rx Naproxen 500 mg PO BID PRN #30 tablet 10/06/20 Unknown Rx Penicillin V Potassium 500 mg PO QID #40 tablet 10/06/20 Unknown Rx ED Physical Exam - General Limitations: No Limitations General appearance: alert, in no apparent distress - Head Head exam: Present: atraumatic, normocephalic, normal inspection - Eye Eye exam: Present: normal appearance, PERRL, EOMI Pupils: Present: normal accommodation - ENT ENT exam: Present: mucous membranes moist - Expanded ENT Exam Expanded Mouth exam: Present: normal external inspection. Absent: drooling, trismus, muffled voice, tongue normal, tongue elevation, laceration Teeth exam: Present: other (No facial swelling or cellulitis.) 1 - Dental Tenderness (Severe dental tenderness), Other (Mild gingival swelling) Throat exam: Positive: normal inspection - Neck Neck exam: Present: normal inspection, full ROM - Respiratory Respiratory exam: Present: normal lung sounds bilaterally - Cardiovascular Cardiovascular Exam: Present: regular rate - Neurological Exam Neurological exam: Present: alert, oriented X3, CN II-XII intact, normal gait - Psychiatric Psychiatric exam: Present: normal affect, normal mood - Skin Skin exam: Present: intact ED Course Vital Signs 10/06/20 01:03 Temperature 98.0 F Pulse Rate 62 Respiratory 16 Rate Blood Pressure 171/77 O2 Sat by Pulse 99 Oximetry Critical care attestation.: If time is entered above; I have spent that time in minutes in the direct care of this critically ill patient, excluding procedure time. ED Disposition Clinical Impression: Periapical abscess Disposition: DC- TO HOME OR SELFCARE Is pt being admited?: No Does the pt Need Aspirin: No Condition: Stable Instructions: Dental Abscess Additional Instructions: Take the antibiotics and the pain medicine as prescribed. It is important that you follow-up with one of the dentist listed on the sheet of paper given to you in the ER. Return to the ER if your symptoms changes or worsens in any way. Prescriptions: Naproxen 500 mg PO BID PRN #30 tablet PRN Reason: pain Penicillin V Potassium 500 mg PO QID #40 tablet Referrals: PRIMARY CARE, [Referring] - 3-5 Days Time of Disposition: 02:52
== END 2020-10-06 03:20 | disposition home or self-care (01) ==
LOC: ED 23:50
DX: K04.7 Periapical abscess without sinus (principal); I10 Essential (primary) hypertension; M19.90 Unspecified osteoarthritis, unspecified site; Z79.899 Other long term (current) drug therapy; Z98.890 Other specified postprocedural states

== ENCOUNTER 2020-10-24 01:14 | Emergency (ER) | payer MEDICAID ==
[2020-10-24 02:43] VITALS: BP 125/70
--- NOTE | 2020-10-24 03:38 | XRay Report ---
RIGHT KNEE 2 VIEW(S) INDICATION / CLINICAL INFORMATION: fall with right knee pain COMPARISON: None available. FINDINGS: BONES / JOINT(S): No acute fracture or subluxation. Moderate tricompartment degenerative arthrosis. N o joint effusion. SOFT TISSUES: Mild anterior soft tissue swelling. ADDITIONAL FINDINGS: None. Signer Name: Regis Horne MD Signed: 10/24/2020 3:34 AM Workstation Name: [id number]
== END 2020-10-24 03:00 | disposition left against medical advice (07) ==
LOC: ED 01:14
DX: M79.605 Pain in left leg (principal); Z53.21 Procedure and treatment not carried out due to patient leaving prior to being seen by health care provider

== ENCOUNTER 2020-10-27 03:34 | Emergency (ER) | payer MEDICAID ==
--- NOTE | 2020-10-27 07:56 | Emergency Department Report ---
ED Extremity Problem HPI - General Chief complaint: Extremity Injury, Lower Stated complaint: LEG PAIN Time Seen by Provider: 10/27/20 07:52 Source: patient Mode of arrival: Ambulatory Limitations: No Limitations - History of Present Illness Initial comments: 65-year-old -[place] female who appears to be homeless as she has all of her belongings with her comes in complaining of pain on her right leg behind her knee and calf. Patient denies any trauma. Patient does report a history of chronic back pain. Past medical history hypertension and arthritis. MD Complaint: extremity pain, extremity swelling Onset/Timin -: days(s) Location: right, lower extremity History of Same: No Severity scale (0 -10): 0 Consistency: intermittent Improves with: nothing Worsens with: nothing Associated Symptoms: denies other symptoms - Related Data Previous Rx's Medication Instructions Recorded Last Taken Type Hydrocortisone 1% [Hydrocortisone 1 applicatio TP TID PRN #1 tube 10/12/16 2 Days Ago Rx 1% CREAM] ~09/02/20 Oxybutynin [Ditropan] 5 mg PO Q8H #30 tab 08/04/19 2 Days Ago Rx ~09/02/20 Menthol/Camphor [[place] 1 applicatio TP Q8HR #1 tube 04/29/20 2 Days Ago Rx Ointment] ~09/02/20 Meloxicam [Mobic] 15 mg PO DAILY #20 tablet 05/28/20 2 Days Ago Rx ~09/02/20 diphenhydrAMINE [Benadryl CAP] 25 mg PO Q8HR PRN #21 capsule 06/10/20 2 Days Ago Rx ~09/02/20 Chlorhexidine Mouthwash [Peridex] 15 ml MM BID #1 bottle 08/08/20 2 Days Ago Rx ~09/02/20 Cyclobenzaprine [Flexeril 10 MG 10 mg PO TID PRN #30 tablet 09/07/20 Unknown Rx TAB] amLODIPine 10 mg PO DAILY #30 tab 09/07/20 Unknown Rx methOCARBAMOL [Robaxin TAB] 500 mg PO BID #14 tab 09/07/20 Unknown Rx Potassium Chloride [K-Dur] 20 meq PO BID #6 tab 09/10/20 Unknown Rx Diclofenac Sodium 50 mg PO Q8H PRN #30 tablet. 09/21/20 Unknown Rx Naproxen 500 mg PO BID #20 tablet 10/02/20 Unknown Rx Naproxen 500 mg PO BID PRN #30 tablet 10/06/20 Unknown Rx Penicillin V Potassium 500 mg PO QID #40 tablet 10/06/20 Unknown Rx Allergies Allergy/AdvReac Type Severity Reaction Status Date / Time No Known Allergies Allergy Unverified 09/07/20 01:06 ED Review of Systems ROS: Stated complaint: LEG PAIN Other details as noted in HPI Comment: All other systems reviewed and negative ED Past Medical Hx - Past Medical History Previous Medical History?: Yes Hx Hypertension: Yes Hx CVA: No Hx Heart Attack/AMI: No Hx Congestive Heart Failure: No Hx Diabetes: No Hx Deep Vein Thrombosis: No Hx Pulmonary Embolism: No Hx GERD: No Hx Liver Disease: No Hx Renal Disease: No Hx Sickle Cell Disease: No Hx Arthritis: Yes Hx Headaches / Migraines: No Hx Seizures: No Hx Kidney Stones: No Hx Psychiatric Treatment: No Hx Asthma: No Hx COPD: No Hx Dementia: No Hx HIV: No Additional medical history: stomach ulcers, muscle spasms in back, Chronic right shoulder pain /spasms. - Surgical History Past Surgical History?: Yes Hx Coronary Stent: No Hx Open Heart Surgery: No Hx Pacemaker: No Hx Internal Defibrillator: No Hx Cholecystectomy: No Hx Appendectomy: No Hx Breast Surgery: No Additional Surgical History: skin grafts, 1X - Social History Smoking Status: Never Smoker Substance Use Type: None - Medications Home Medications: Home Medications Medication Instructions Recorded Confirmed Last Taken Type Hydrocortisone 1% [Hydrocortisone 1 applicatio TP TID PRN #1 tube 10/12/16 09/04/20 2 Days Ago Rx 1% CREAM] ~09/02/20 Oxybutynin [Ditropan] 5 mg PO Q8H #30 tab 08/04/19 09/04/20 2 Days Ago Rx ~09/02/20 Menthol/Camphor [[place] 1 applicatio TP Q8HR #1 tube 04/29/20 09/04/20 2 Days Ago Rx Ointment] ~09/02/20 Meloxicam [Mobic] 15 mg PO DAILY #20 tablet 05/28/20 09/04/20 2 Days Ago Rx ~09/02/20 diphenhydrAMINE [Benadryl CAP] 25 mg PO Q8HR PRN #21 capsule 06/10/20 09/04/20 2 Days Ago Rx ~09/02/20 Chlorhexidine Mouthwash [Peridex] 15 ml MM BID #1 bottle 08/08/20 09/04/20 2 Days Ago Rx ~09/02/20 Cyclobenzaprine [Flexeril 10 MG 10 mg PO TID PRN #30 tablet 09/07/20 Unknown Rx TAB] amLODIPine 10 mg PO DAILY #30 tab 09/07/20 Unknown Rx methOCARBAMOL [Robaxin TAB] 500 mg PO BID #14 tab 09/07/20 Unknown Rx Potassium Chloride [K-Dur] 20 meq PO BID #6 tab 09/10/20 Unknown Rx Diclofenac Sodium 50 mg PO Q8H PRN #30 tablet. 09/21/20 Unknown Rx Naproxen 500 mg PO BID #20 tablet 10/02/20 Unknown Rx Naproxen 500 mg PO BID PRN #30 tablet 10/06/20 Unknown Rx Penicillin V Potassium 500 mg PO QID #40 tablet 10/06/20 Unknown Rx ED Physical Exam - General Limitations: No Limitations General appearance: alert, other (Patient was sleeping very comfortably in room 31-hour woke her up that is when she started to complain of leg pain) - Head Head exam: Present: atraumatic, normocephalic - Eye Eye exam: Present: normal appearance - ENT ENT exam: Present: normal external ear exam - Neck Neck exam: Present: normal inspection, full ROM - Respiratory Respiratory exam: Absent: respiratory distress, accessory muscle use - Cardiovascular Cardiovascular Exam: Present: regular rate - Expanded Lower Extremity Exam Right Hip exam: Present: normal inspection Upper Leg exam: Present: normal inspection Knee exam: Present: normal inspection, full ROM Lower Leg exam: Present: tenderness, swelling Ankle exam: Present: normal inspection Foot/Toe exam: Present: normal inspection Neuro vascular tendon exam: Present: no vascular compromise - Back Exam Back exam: Present: normal inspection - Neurological Exam Neurological exam: Present: alert, oriented X3, normal gait - Psychiatric Psychiatric exam: Present: normal affect, normal mood - Skin Skin exam: Present: warm, dry, intact, normal color. Absent: rash ED Course Vital Signs 10/27/20 04:46 Temperature 98.3 F Pulse Rate 70 Respiratory 16 Rate Blood Pressure 156/63 [Right] O2 Sat by Pulse 98 Oximetry - Consultations Consultation #1: 10/27/20 09:13 Informed by Yuly an ultrasound that detected does Dopplers will not begin until 10. ED Medical Decision Making - Radiology Data Radiology results: report reviewed [facility] [address] [place] [address] Vascular Lab Report Signed Patient: LORE SHARP MR#: [id number] : 1955 Acct:[id number] Age/Sex: 65 / F ADM Date: 10/27/20 Loc: ED Attending Dr: Ordering Physician: MARINA GÓMEZ Date of Service: 10/27/20 Procedure(s): VL venous duplex LE RT Accession Number(s): [id number] cc: MARINA GÓMEZ DUPLEX DOPPLER LOWER EXTREMITY VEINS, RIGHT INDICATION / CLINICAL INFORMATION: Pain and tenderness to calf mild swelling. TECHNIQUE: Duplex doppler imaging was performed through the veins of the right lower extremity using venous compression and other maneuvers. COMPARISON: None available. FINDINGS: RIGHT COMMON FEMORAL VEIN: Negative. RIGHT FEMORAL VEIN: Negative. RIGHT POPLITEAL VEIN: Negative. RIGHT CALF VEINS: Negative. ADDITIONAL FINDINGS: None. IMPRESSION: 1. No sonographic evidence for DVT in the right lower extremity. Signer Name: Chris Uribe MD Signed: 10/27/2020 10:37 AM Workstation Name: [id number] Transcribed By: STANLEY Dictated By: Chris Uribe MD Electronically Authenticated By: Chris Uribe MD Signed Date/Time: 10/27/20 1037 DD/ 1037 TD/TT: Print - Medical Decision Making 65-year-old -[place] female who appears to be homeless as she has all of her belongings with her comes in complaining of pain on her right leg behind her knee and calf. Patient denies any trauma. Patient does report a history of chronic back pain. Past medical history hypertension and arthritis. Doppler ordered for right lower extremity rule out DVT. Critical care attestation.: If time is entered above; I have spent that time in minutes in the direct care of this critically ill patient, excluding procedure time. ED Disposition Clinical Impression: Lower extremity edema, Right leg pain Disposition: DC-01 TO HOME OR SELFCARE Is pt being admited?: No Does the pt Need Aspirin: No Condition: Stable Instructions: Pain Without a Known Cause Additional Instructions: Dopplers negative for any DVT/clot. I recommend ibuprofen or Tylenol for pain. Follow-up with a primary care provider. Increase your fluid intake. And rest. Referrals: DANNA BURGOS MD [Primary Care Provider] - 3-5 Days [facility] [Provider Group] - 3-5 Days ADALBERTO COFFEY MD [Staff Physician] - 3-5 Days Time of Disposition: 11:40
--- NOTE | 2020-10-27 10:42 | Vascular Lab Report ---
DUPLEX DOPPLER LOWER EXTREMITY VEINS, RIGHT INDICATION / CLINICAL INFORMATION: Pain and tenderness to calf mild swelling. TECHNIQUE: Duplex doppler imaging was performed through the veins of the right lower extremity using venous comp ression and other maneuvers. COMPARISON: None available. FINDINGS: RIGHT COMMON FEMORAL VEIN: Negative. RIGHT FEMORAL VEIN: Negative. RIGHT POPLITEAL VEIN: Negative. RIGHT CALF VEINS: Negative. ADDITIONAL FINDINGS: None. IMPRESSION: 1. No sonographic evidence for DVT in the right lower extremity. Signer Name: Chris Uribe MD Signed: 10/27/2020 10:37 AM Workstation Name: [id number]
[2020-10-27 12:13] VITALS: BP 132/88
== END 2020-10-27 12:13 | disposition home or self-care (01) ==
LOC: ED 03:34
DX: M25.511 Pain in right shoulder (principal); R60.0 Localized edema; M54.9 Dorsalgia, unspecified; I10 Essential (primary) hypertension; M19.90 Unspecified osteoarthritis, unspecified site; Z59.0 Homelessness
CPT/HCPCS: 99283

== ENCOUNTER 2020-11-12 00:46 | Emergency (ER) | payer MEDICAID | END 2020-11-12 01:00 | disposition left against medical advice (07) | LOC: ED 00:46 | DX: M25.511 Pain in right shoulder (principal); Z53.21 Procedure and treatment not carried out due to patient leaving prior to being seen by health care provider ==

== ENCOUNTER 2020-11-13 01:25 | Emergency (ER) | payer MEDICAID | END 2020-11-13 01:30 | disposition left against medical advice (07) | LOC: ED 01:25 | DX: Z53.21 Procedure and treatment not carried out due to patient leaving prior to being seen by health care provider (principal) ==

== ENCOUNTER 2020-11-16 00:52 | Emergency (ER) | payer MEDICAID ==
[2020-11-16 03:20] LABS: Hematocrit 28.3 % (30.3-42.9); Hemoglobin 8.9 gm/dl (10.1-14.3); Mean Corpuscular HGB Conc 31 % (30-34); Platelet Count 208 K/mm3 (140-440); Red Blood Count 4.22 M/mm3 (3.65-5.03); Red Cell Distribution Width 18.4 % (13.2-15.2)
[2020-11-16 03:44] LABS: Mean Corpuscular Volume 67 fl (79-97)
--- NOTE | 2020-11-16 04:01 | XRay Report ---
CHEST 2 VIEWS INDICATION / CLINICAL INFORMATION: CP/SOB. Dyspnea FINDINGS: SUPPORT DEVICES: None. HEART / MEDIASTINUM: Cardiomegaly LUNGS / PLEURA: No significant pulmonary or pleural abnormality. No pneumothorax. ADDITIONAL FINDINGS: No significant additional findings. IMPRESSION: 1. No acute findings. Signer Name: Cortez Berger MD Signed: 11/16/2020 3:57 AM Workstation Name: [id number]
[2020-11-16 04:02] LABS: Alanine Aminotransferase 11 units/L (7-56); Albumin 3.6 g/dL (3.9-5); Blood Urea Nitrogen 17 mg/dL (7-17); Calcium 8.5 mg/dL (8.4-10.2); Hemolysis Index 1
[2020-11-16 04:03] LABS: BUN/Creatinine Ratio 43
[2020-11-16 06:14] LABS: Total Cells Counted 100
[2020-11-16 06:15] LABS: Anisocytosis 1+; Hypochromasia 2+; Ovalocytes 2+; Poikilocytosis 1+; Tear Drop Cells 1+
[2020-11-16 06:16] LABS: Burr Cells 1+
[2020-11-16 06:17] LABS: Platelet Estimate Consistent w Auto
--- NOTE | 2020-11-16 09:18 | Emergency Department Report ---
ED General Adult HPI - General Chief complaint: Extremity Injury, Lower Stated complaint: FEET SWOLLEN Time Seen by Provider: 11/16/20 07:46 Source: patient Mode of arrival: Ambulatory Limitations: No Limitations - History of Present Illness Initial comments: 65-year-old -[place] female patient with history of hypertension presents with complaints of continued leg swelling to the right leg now in the left. Patient states swelling does worsen after standing for long periods of time. She denies any injury, skin changes, shortness of breath/chest pain/cough, history of DVT/PE, or recent long travel. Patient states there is pain due to the swelling and rates it as a 4/10 in severity. She states she is noncompliant with her HCTZ blood pressure medication. Swelling improves when she elevates her legs - Related Data Previous Rx's Medication Instructions Recorded Last Taken Type Hydrocortisone 1% [Hydrocortisone 1 applicatio TP TID PRN #1 tube 10/12/16 2 Days Ago Rx 1% CREAM] ~09/02/20 Oxybutynin [Ditropan] 5 mg PO Q8H #30 tab 08/04/19 2 Days Ago Rx ~09/02/20 Menthol/Camphor [[place] 1 applicatio TP Q8HR #1 tube 04/29/20 2 Days Ago Rx Ointment] ~09/02/20 Meloxicam [Mobic] 15 mg PO DAILY #20 tablet 05/28/20 2 Days Ago Rx ~09/02/20 diphenhydrAMINE [Benadryl CAP] 25 mg PO Q8HR PRN #21 capsule 06/10/20 2 Days Ago Rx ~09/02/20 Chlorhexidine Mouthwash [Peridex] 15 ml MM BID #1 bottle 08/08/20 2 Days Ago Rx ~09/02/20 Cyclobenzaprine [Flexeril 10 MG 10 mg PO TID PRN #30 tablet 09/07/20 Unknown Rx TAB] amLODIPine 10 mg PO DAILY #30 tab 09/07/20 Unknown Rx methOCARBAMOL [Robaxin TAB] 500 mg PO BID #14 tab 09/07/20 Unknown Rx Potassium Chloride [K-Dur] 20 meq PO BID #6 tab 09/10/20 Unknown Rx Diclofenac Sodium 50 mg PO Q8H PRN #30 tablet. 09/21/20 Unknown Rx Naproxen 500 mg PO BID #20 tablet 10/02/20 Unknown Rx Naproxen 500 mg PO BID PRN #30 tablet 10/06/20 Unknown Rx Penicillin V Potassium 500 mg PO QID #40 tablet 10/06/20 Unknown Rx Allergies Allergy/AdvReac Type Severity Reaction Status Date / Time No Known Allergies Allergy Unverified 09/07/20 01:06 ED Review of Systems ROS: Stated complaint: FEET SWOLLEN Other details as noted in HPI Constitutional: denies: chills, diaphoresis, fever, malaise, weakness Respiratory: denies: cough, shortness of breath Cardiovascular: denies: chest pain Gastrointestinal: denies: abdominal pain Skin: denies: change in color ED Past Medical Hx - Past Medical History Previous Medical History?: Yes Hx Hypertension: Yes Hx CVA: No Hx Heart Attack/AMI: No Hx Congestive Heart Failure: No Hx Diabetes: No Hx Deep Vein Thrombosis: No Hx Pulmonary Embolism: No Hx GERD: No Hx Liver Disease: No Hx Renal Disease: No Hx Sickle Cell Disease: No Hx Arthritis: Yes Hx Headaches / Migraines: No Hx Seizures: No Hx Kidney Stones: No Hx Psychiatric Treatment: No Hx Asthma: No Hx COPD: No Hx Dementia: No Hx HIV: No Additional medical history: stomach ulcers, muscle spasms in back, Chronic right shoulder pain /spasms. - Surgical History Past Surgical History?: Yes Hx Coronary Stent: No Hx Open Heart Surgery: No Hx Pacemaker: No Hx Internal Defibrillator: No Hx Cholecystectomy: No Hx Appendectomy: No Hx Breast Surgery: No Additional Surgical History: skin grafts, 1X - Social History Smoking Status: Never Smoker Substance Use Type: None - Medications Home Medications: Home Medications Medication Instructions Recorded Confirmed Last Taken Type Hydrocortisone 1% [Hydrocortisone 1 applicatio TP TID PRN #1 tube 10/12/16 09/04/20 2 Days Ago Rx 1% CREAM] ~09/02/20 Oxybutynin [Ditropan] 5 mg PO Q8H #30 tab 08/04/19 09/04/20 2 Days Ago Rx ~09/02/20 Menthol/Camphor [[place] 1 applicatio TP Q8HR #1 tube 04/29/20 09/04/20 2 Days Ago Rx Ointment] ~09/02/20 Meloxicam [Mobic] 15 mg PO DAILY #20 tablet 05/28/20 09/04/20 2 Days Ago Rx ~09/02/20 diphenhydrAMINE [Benadryl CAP] 25 mg PO Q8HR PRN #21 capsule 06/10/20 09/04/20 2 Days Ago Rx ~09/02/20 Chlorhexidine Mouthwash [Peridex] 15 ml MM BID #1 bottle 08/08/20 09/04/20 2 Days Ago Rx ~09/02/20 Cyclobenzaprine [Flexeril 10 MG 10 mg PO TID PRN #30 tablet 09/07/20 Unknown Rx TAB] amLODIPine 10 mg PO DAILY #30 tab 09/07/20 Unknown Rx methOCARBAMOL [Robaxin TAB] 500 mg PO BID #14 tab 09/07/20 Unknown Rx Potassium Chloride [K-Dur] 20 meq PO BID #6 tab 09/10/20 Unknown Rx Diclofenac Sodium 50 mg PO Q8H PRN #30 tablet. 09/21/20 Unknown Rx Naproxen 500 mg PO BID #20 tablet 10/02/20 Unknown Rx Naproxen 500 mg PO BID PRN #30 tablet 10/06/20 Unknown Rx Penicillin V Potassium 500 mg PO QID #40 tablet 10/06/20 Unknown Rx ED Physical Exam - General Limitations: No Limitations General appearance: alert, in no apparent distress - Head Head exam: Present: atraumatic, normocephalic - Eye Eye exam: Present: normal appearance. Absent: scleral icterus - Respiratory Respiratory exam: Present: normal lung sounds bilaterally. Absent: respiratory distress - Cardiovascular Cardiovascular Exam: Present: regular rate, normal rhythm - GI/Abdominal GI/Abdominal exam: Absent: distended - Extremities Exam Extremities exam: Present: calf tenderness (Bilateral leg mildl pitting edema noted of the right and left lower extremities without skin changes) - Neurological Exam Neurological exam: Present: alert, oriented X3, normal gait - Psychiatric Psychiatric exam: Present: normal affect, normal mood - Skin Skin exam: Present: warm, dry, intact, normal color. Absent: rash ED Course Vital Signs 11/16/20 10:34 Temperature 98.6 F Pulse Rate 98 H Respiratory 16 Rate Blood Pressure 177/77 [Left] O2 Sat by Pulse 100 Oximetry ED Medical Decision Making - Lab Data Result diagrams: 11/16/20 03:03 11/16/20 03:03 Lab Results 11/16/20 11/16/20 11/16/20 Range/Units 03:03 03:03 06:01 WBC 4.6 (4.5-11.0) K/mm3 RBC 4.22 (3.65-5.03) M/mm3 Hgb 8.9 L (10.1-14.3) gm/dl Hct 28.3 L (30.3-42.9) % MCV 67 L (79-97) fl MCH 21 L (28-32) pg MCHC 31 (30-34) % RDW 18.4 H (13.2-15.2) % Plt Count 208 (140-440) K/mm3 [place] % (Auto) Dockmaster Add Manual Diff Complete Total Counted 100 Seg Neuts % (Manual) 45.0 (40.0-70.0) % Lymphocytes % (Manual) 40.0 H (13.4-35.0) % Monocytes % (Manual) 11.0 H (0.0-7.3) % Eosinophils % (Manual) 3.0 (0.0-4.3) % Basophils % (Manual) 1.0 (0.0-1.8) % Nucleated RBC % Not Reportable Seg Neutrophils # Man 2.1 (1.8-7.7) K/mm3 Band Neutrophils # 0.0 K/mm3 Lymphocytes # (Manual) 1.8 (1.2-5.4) K/mm3 Abs React Lymphs (Man) 0.0 K/mm3 Monocytes # (Manual) 0.5 (0.0-0.8) K/mm3 Eosinophils # (Manual) 0.1 (0.0-0.4) K/mm3 Basophils # (Manual) 0.0 (0.0-0.1) K/mm3 Metamyelocytes # 0.0 K/mm3 Myelocytes # 0.0 K/mm3 Promyelocytes # 0.0 K/mm3 Blast Cells # 0.0 K/mm3 WBC Morphology Not Reportable Hypersegmented Neuts Not Reportable Hyposegmented Neuts Not Reportable Hypogranular Neuts Not Reportable Smudge Cells Not Reportable Toxic Granulation Not Reportable Toxic Vacuolation Not Reportable Dohle Bodies Not Reportable Pelger-Huet Anomaly Not Reportable Cassandra Rods Not Reportable Platelet Estimate Consistent w auto Clumped Platelets Not Reportable Plt Clumps, EDTA Not Reportable Large Platelets Not Reportable Giant Platelets Not Reportable Platelet Satelliting Not Reportable Plt Morphology Comment Not Reportable RBC Morphology Not Reportable Dimorphic RBCs Not Reportable Polychromasia Not Reportable Hypochromasia 2+ Poikilocytosis 1+ Anisocytosis 1+ Microcytosis 2+ Macrocytosis Not Reportable Spherocytes Not Reportable Pappenheimer Bodies Not Reportable Sickle Cells Not Reportable Target Cells Not Reportable Tear Drop Cells 1+ Ovalocytes 2+ Helmet Cells Not Reportable [place] Bodies Not Reportable Elmo Rings Not Reportable [place] Cells 1+ Bite Cells Not Reportable Crenated Cell Not Reportable Elliptocytes 1+ Acanthocytes (Spur) 1+ Rouleaux Not Reportable Hemoglobin C Crystals Not Reportable Schistocytes Not Reportable Malaria parasites Not Reportable Henry Bodies Not Reportable Hem Pathologist Commnt No Sodium 143 (137-145) mmol/L Potassium 3.7 (3.6-5.0) mmol/L Chloride 109.0 H (98-107) mmol/L Carbon Dioxide 24 (22-30) mmol/L Anion Gap 14 mmol/L BUN 17 (7-17) mg/dL Creatinine 0.4 L (0.6-1.2) mg/dL Estimated GFR > 60 ml/min BUN/Creatinine Ratio 43 % Glucose 109 H (65-100) mg/dL Calcium 8.5 (8.4-10.2) mg/dL Total Bilirubin 0.20 (0.1-1.2) mg/dL AST 12 (5-40) units/L ALT 11 (7-56) units/L Alkaline Phosphatase 82 (35-129) units/L Troponin T < 0.010 < 0.010 (0.00-0.029) ng/mL NT-Pro-B Natriuret Pep 96.57 (0-900) pg/mL Total Protein 6.2 L (6.3-8.2) g/dL Albumin 3.6 L (3.9-5) g/dL Albumin/Globulin Ratio 1.4 % 11/16/20 Range/Units 09:00 WBC (4.5-11.0) K/mm3 RBC (3.65-5.03) M/mm3 Hgb (10.1-14.3) gm/dl Hct (30.3-42.9) % MCV (79-97) fl MCH (28-32) pg MCHC (30-34) % RDW (13.2-15.2) % Plt Count (140-440) K/mm3 [place] % (Auto) Add Manual Diff Total Counted Seg Neuts % (Manual) (40.0-70.0) % Lymphocytes % (Manual) (13.4-35.0) % Monocytes % (Manual) (0.0-7.3) % Eosinophils % (Manual) (0.0-4.3) % Basophils % (Manual) (0.0-1.8) % Nucleated RBC % Seg Neutrophils # Man (1.8-7.7) K/mm3 Band Neutrophils # K/mm3 Lymphocytes # (Manual) (1.2-5.4) K/mm3 Abs React Lymphs (Man) K/mm3 Monocytes # (Manual) (0.0-0.8) K/mm3 Eosinophils # (Manual) (0.0-0.4) K/mm3 Basophils # (Manual) (0.0-0.1) K/mm3 Metamyelocytes # K/mm3 Myelocytes # K/mm3 Promyelocytes # K/mm3 Blast Cells # K/mm3 WBC Morphology Hypersegmented Neuts Hyposegmented Neuts Hypogranular Neuts Smudge Cells Toxic Granulation Toxic Vacuolation Dohle Bodies Pelger-Huet Anomaly Cassandra Rods Platelet Estimate Clumped Platelets Plt Clumps, EDTA Large Platelets Giant Platelets Platelet Satelliting Plt Morphology Comment RBC Morphology Dimorphic RBCs Polychromasia Hypochromasia Poikilocytosis Anisocytosis Microcytosis Macrocytosis Spherocytes Pappenheimer Bodies Sickle Cells Target Cells Tear Drop Cells Ovalocytes Helmet Cells Am[place] Bodies Elmo Rings [place] Cells Bite Cells Crenated Cell Elliptocytes Acanthocytes (Spur) Rouleaux Hemoglobin C Crystals Schistocytes Malaria parasites Henry Bodies Hem Pathologist Commnt Sodium (137-145) mmol/L Potassium (3.6-5.0) mmol/L Chloride (98-107) mmol/L Carbon Dioxide (22-30) mmol/L Anion Gap mmol/L BUN (7-17) mg/dL Creatinine (0.6-1.2) mg/dL Estimated GFR ml/min BUN/Creatinine Ratio % Glucose (65-100) mg/dL Calcium (8.4-10.2) mg/dL Total Bilirubin (0.1-1.2) mg/dL AST (5-40) units/L ALT (7-56) units/L Alkaline Phosphatase (35-129) units/L Troponin T < 0.010 (0.00-0.029) ng/mL NT-Pro-B Natriuret Pep (0-900) pg/mL Total Protein (6.3-8.2) g/dL Albumin (3.9-5) g/dL Albumin/Globulin Ratio % - Radiology Data Radiology results: report reviewed DUPLEX DOPPLER LOWER EXTREMITY VEINS, BILATERAL INDICATION / CLINICAL INFORMATION: Bilateral lower extremity swelling. TECHNIQUE: Duplex doppler imaging was performed through the veins of both lower extremities using venous compression and other maneuvers. COMPARISON: None available. FINDINGS: RIGHT COMMON FEMORAL VEIN: Negative. RIGHT FEMORAL VEIN: Negative. RIGHT POPLITEAL VEIN: Negative. RIGHT CALF VEINS: Negative. LEFT COMMON FEMORAL VEIN: Negative. LEFT FEMORAL VEIN: Negative. LEFT POPLITEAL VEIN: Negative. LEFT CALF VEINS: Negative. ADDITIONAL FINDINGS: None. IMPRESSION: 1. No sonographic evidence for DVT in either lower extremity. - Medical Decision Making 65-year-old -[place] female patient with history of hypertension prese nts with complaints of continued leg swelling to the right leg now in the left. Patient states swelling does worsen after standing for long periods of time. She denies any injury, skin changes, shortness of breath/chest pain/cough, history of DVT/PE, or recent long travel. Patient states there is pain due to the swelling and rates it as a 4/10 in severity. She states she is noncompliant with her HCTZ blood pressure medication. Swelling improves when she elevates her legs Patient is well-known to this ED and has been seen here multiple times for leg pain and swelling No significant abnormalities noted on CBC, CMP, or BMP. Ultrasound of the legs is negative for DVT. Edema appears to be dependent in origin. Recommend patient follows up with her primary care doctor for further evaluation. Also recommend compression hose. Discussed presumptive diagnosis,'s plan of care, and signs symptoms that should prompt immediate return to the emergency department in detail with patient who verbalized understanding. Patient advised to be compliant with her HCTZ given that it can help with the fluid retention. Critical care attestation.: If time is entered above; I have spent that time in minutes in the direct care of this critically ill patient, excluding procedure time. ED Disposition Clinical Impression: Bilateral edema of lower extremity Disposition: 01 HOME / SELF CARE / HOMELESS Is pt being admited?: No Condition: Stable Instructions: Peripheral Edema Referrals: CHARLES WOOD MD [Primary Care Provider] - 3-5 Days
[2020-11-16] MEDS ORDERED: ACETAMINOPHEN 500 MG TAB PO STA (09:40)
[2020-11-16] MEDS ORDERED: IBUPROFEN 800 MG TAB PO STA (09:40)
--- NOTE | 2020-11-16 10:03 | Vascular Lab Report ---
DUPLEX DOPPLER LOWER EXTREMITY VEINS, BILATERAL INDICATION / CLINICAL INFORMATION: Bilateral lower extremity swelling. TECHNIQUE: Duplex doppler imaging was performed through the veins of both lower extremities using venous dena dianna and other maneuvers. COMPARISON: None available. FINDINGS: RIGHT COMMON FEMORAL VEIN: Negative. RIGHT FEMORAL VEIN: Negative. RIGHT POPLITEAL VEIN: Negative. RIGHT CALF VEINS: Negative. LEFT COMMON FEMORAL VEIN: Negative. LEFT FEMORAL VEIN: Negative. LEFT POPLITEAL VEIN: Negative. LEFT CALF VEINS: Negative. ADDITIONAL FINDINGS: None. IMPRESSION: 1. No sonographic evidence for DVT in either lower extremity. Signer Name: Fredis Barnes MD Signed: 11/16/2020 9:58 AM Workstation Name: [id number]
[2020-11-16 10:37] VITALS: BP 177/77
--- NOTE | 2020-11-17 09:53 | Electrocardiograph Report ---
[facility] Test Date: 2020-11-16 Test Time: 03:12:07 Pat Name: LORE SHARP Department: Room: Gender: F Reliner: SERINA : 1955 Requested By: YASMEEN WALTERS Order Number: [id number] Reading MD: Nikita Ron Measurements Intervals [place] Rate: 65 P: 34 OR: 180 QRS: 6 QRSD: 99 T: 76 QT: 468 QTc: 486 Interpretive Statements Sinus rhythm Consider anteroseptal infarct non specific T wave chags noted in anterior leads noted. Compared to ECG 09/05/2020 10:16:51 Myocardial infarct finding now present Left ventricular hypertrophy no longer present Early repolarization no longer present Electronically Signed On 11-17-2020 9:52:59 EDT by Nikita Ron
== END 2020-11-16 11:04 | disposition home or self-care (01) ==
LOC: ED 00:52
DX: R60.0 Localized edema (principal); I10 Essential (primary) hypertension
CPT/HCPCS: 36415; 71046; 80053; 83880; 84484; 85007; 85025; 93005; 93970; 99284

== ENCOUNTER 2020-11-21 00:46 | Emergency (ER) | payer MEDICAID | END 2020-11-21 07:00 | disposition left against medical advice (07) | LOC: ED 00:46 | DX: T22.00XA Burn of unspecified degree of shoulder and upper limb, except wrist and hand, unspecified site, initial encounter (principal); T79.9XXA Unspecified early complication of trauma, initial encounter; Z53.21 Procedure and treatment not carried out due to patient leaving prior to being seen by health care provider ==

== ENCOUNTER 2020-11-22 00:44 | Emergency (ER) | payer MEDICAID | END 2020-11-22 00:45 | disposition left against medical advice (07) | LOC: ED 00:44 | DX: M25.541 Pain in joints of right hand (principal); Z53.21 Procedure and treatment not carried out due to patient leaving prior to being seen by health care provider ==

== ENCOUNTER 2020-12-25 02:42 | Observation (INO) | payer MEDICAID ==
[2020-12-25] MEDS ORDERED: ASPIRIN 325 MG TAB PO ONE (03:30)
--- NOTE | 2020-12-25 03:31 | Emergency Department Report ---
ED Chest Pain HPI - General Chief Complaint: Chest Pain Stated Complaint: CHEST PAIN PUI?: No Time Seen by Provider: 12/25/20 03:28 Source: EMS Mode of arrival: Stretcher Limitations: No Limitations - History of Present Illness Initial Comments: Patient is a 65-year-old female who presents emergency room with complaints of substernal chest pain. But states her chest pain started 14 hours ago. Patient states her chest pain is worsening. Patient states she came in because the chest pain was so severe. Patient also complains of shortness of breath. Patient dates her chest pain shortness of breath better with rest and worse with exertion. Patient states there is no change to her chest pain with chest wall palpation. Patient denies fever and chills. Patient denies nausea vomiting. Patient denies recent travel. Patient denies recent international travel. Patient denies exposure to the novel coronavirus. Patient denies sick contacts. Patient denies fever and chills. Patient denies cough. Patient denies jessica rrhea. Patient denies coming in contact with anybody with symptoms of the novel coronavirus. MD Complaint: chest pain -: Sudden, hour(s) Onset: during rest Pain Location: substernal Pain Radiation: none Severity: severe Severity scale (0 -10): 10 Quality: sharp Consistency: constant Improves With: rest Worsens With: exertion re: denies: nausea, vomting, diaphoresis, dyspnea, sense of impending doom Other Symptoms: denies: cough, fever, syncope, rash, acid taste in mouth, leg swelling, palpitations, burping Treatments Prior to Arrival: aspirin Aspirin use within the Past 7 Days: (1) Yes - Related Data On Oral Contraceptives: No Previous Rx's Medication Instructions Recorded Last Taken Type Hydrocortisone 1% [Hydrocortisone 1 applicatio TP TID PRN #1 tube 10/12/16 2 Days Ago Rx 1% CREAM] ~09/02/20 Oxybutynin [Ditropan] 5 mg PO Q8H #30 tab 08/04/19 2 Days Ago Rx ~09/02/20 Menthol/Camphor [[place] 1 applicatio TP Q8HR #1 tube 04/29/20 2 Days Ago Rx Ointment] ~09/02/20 Meloxicam [Mobic] 15 mg PO DAILY #20 tablet 05/28/20 2 Days Ago Rx ~09/02/20 diphenhydrAMINE [Benadryl CAP] 25 mg PO Q8HR PRN #21 capsule 06/10/20 2 Days Ago Rx ~09/02/20 Chlorhexidine Mouthwash [Peridex] 15 ml MM BID #1 bottle 08/08/20 2 Days Ago Rx ~09/02/20 Cyclobenzaprine [Flexeril 10 MG 10 mg PO TID PRN #30 tablet 09/07/20 Unknown Rx TAB] amLODIPine 10 mg PO DAILY #30 tab 09/07/20 Unknown Rx methOCARBAMOL [Robaxin TAB] 500 mg PO BID #14 tab 09/07/20 Unknown Rx Potassium Chloride [K-Dur] 20 meq PO BID #6 tab 09/10/20 Unknown Rx Diclofenac Sodium 50 mg PO Q8H PRN #30 tablet. 09/21/20 Unknown Rx Naproxen 500 mg PO BID #20 tablet 10/02/20 Unknown Rx Naproxen 500 mg PO BID PRN #30 tablet 10/06/20 Unknown Rx Penicillin V Potassium 500 mg PO QID #40 tablet 10/06/20 Unknown Rx Allergies Allergy/AdvReac Type Severity Reaction Status Date / Time No Known Allergies Allergy Unverified 09/07/20 01:06 Heart Score - HEART Score History: Slightly suspicious EKG: Non-specific Age: > 65 Risk factors: 1-2 risk factors Troponin: < normal limit HEART Score: 4 - EKG Read Time Time EKG Completed: 03:07 EKG Read Time: 03:10 ED Review of Systems ROS: Stated complaint: CHEST PAIN Other details as noted in HPI Constitutional: denies: chills, fever Eyes: denies: eye pain, eye discharge, vision change ENT: denies: ear pain, throat pain Respiratory: shortness of breath. denies: cough, wheezing Cardiovascular: chest pain. denies: palpitations Endocrine: no symptoms reported Gastrointestinal: denies: abdominal pain, nausea, diarrhea Genitourinary: denies: urgency, dysuria, discharge Musculoskeletal: denies: back pain, joint swelling, arthralgia Skin: denies: rash, lesions Neurological: denies: headache, weakness, paresthesias Psychiatric: denies: anxiety, depression Hematological/Lymphatic: denies: easy bleeding, easy bruising ED Past Medical Hx - Past Medical History Previous Medical History?: Yes Hx Hypertension: Yes Hx CVA: No Hx Heart Attack/AMI: No Hx Congestive Heart Failure: No Hx Diabetes: No Hx Deep Vein Thrombosis: No Hx Pulmonary Embolism: No Hx GERD: No Hx Liver Disease: No Hx Renal Disease: No Hx Sickle Cell Disease: No Hx Arthritis: Yes Hx Headaches / Migraines: No Hx Seizures: No Hx Kidney Stones: No Hx Psychiatric Treatment: No Hx Asthma: No Hx COPD: No Hx Dementia: No Hx HIV: No Additional medical history: stomach ulcers, muscle spasms in back, Chronic right shoulder pain /spasms. - Surgical History Past Surgical History?: Yes Hx Coronary Stent: No Hx Open Heart Surgery: No Hx Pacemaker: No Hx Internal Defibrillator: No Hx Cholecystectomy: No Hx Appendectomy: No Hx Breast Surgery: No Additional Surgical History: skin grafts, 1X - Family History Family history: no significant - Social History Smoking Status: Former Smoker Substance Use Type: None - Medications Home Medications: Home Medications Medication Instructions Recorded Confirmed Last Taken Type Hydrocortisone 1% [Hydrocortisone 1 applicatio TP TID PRN #1 tube 10/12/16 09/04/20 2 Days Ago Rx 1% CREAM] ~09/02/20 Oxybutynin [Ditropan] 5 mg PO Q8H #30 tab 08/04/19 09/04/20 2 Days Ago Rx ~09/02/20 Menthol/Camphor [[place] 1 applicatio TP Q8HR #1 tube 04/29/20 09/04/20 2 Days Ago Rx Ointment] ~09/02/20 Meloxicam [Mobic] 15 mg PO DAILY #20 tablet 05/28/20 09/04/20 2 Days Ago Rx ~09/02/20 diphenhydrAMINE [Benadryl CAP] 25 mg PO Q8HR PRN #21 capsule 06/10/20 09/04/20 2 Days Ago Rx ~09/02/20 Chlorhexidine Mouthwash [Peridex] 15 ml MM BID #1 bottle 08/08/20 09/04/20 2 Days Ago Rx ~09/02/20 Cyclobenzaprine [Flexeril 10 MG 10 mg PO TID PRN #30 tablet 09/07/20 Unknown Rx TAB] amLODIPine 10 mg PO DAILY #30 tab 09/07/20 Unknown Rx methOCARBAMOL [Robaxin TAB] 500 mg PO BID #14 tab 09/07/20 Unknown Rx Potassium Chloride [K-Dur] 20 meq PO BID #6 tab 09/10/20 Unknown Rx Diclofenac Sodium 50 mg PO Q8H PRN #30 tablet. 09/21/20 Unknown Rx Naproxen 500 mg PO BID #20 tablet 10/02/20 Unknown Rx Naproxen 500 mg PO BID PRN #30 tablet 10/06/20 Unknown Rx Penicillin V Potassium 500 mg PO QID #40 tablet 10/06/20 Unknown Rx ED Physical Exam - General Limitations: No Limitations General appearance: alert, in no apparent distress - Head Head exam: Present: atraumatic, normocephalic - Eye Eye exam: Present: normal appearance - ENT ENT exam: Present: mucous membranes moist - Neck Neck exam: Present: normal inspection - Respiratory Respiratory exam: Present: normal lung sounds bilaterally. Absent: respiratory distress - Cardiovascular Cardiovascular Exam: Present: regular rate, normal rhythm. Absent: systolic murmur, diastolic murmur, rubs, gallop - GI/Abdominal GI/Abdominal exam: Present: soft, normal bowel sounds - Extremities Exam Extremities exam: Present: normal inspection - Back Exam Back exam: Present: normal inspection - Neurological Exam Neurological exam: Present: alert, oriented X3 - Psychiatric Psychiatric exam: Present: normal affect, normal mood - Skin Skin exam: Present: warm, dry, intact, normal color. Absent: rash ED Course Vital Signs 12/25/20 12/25/20 12/25/20 02:42 05:14 05:16 Temperature 98.0 F Pulse Rate 89 72 Respiratory 18 20 20 Rate Blood Pressure 128/78 Blood Pressure 140/62 [Right] O2 Sat by Pulse 99 99 100 Oximetry - Reevaluation(s) Reevaluation #1: I discussed all results with patient. I discussed plan of care with patient. Patient agrees with plan of care and admission. Patient to be admitted to the hospitalist service. 12/25/20 05:22 - Consultations Consultation #1: Hospitalist consulted for admission. Hospitalist to admit patient. 12/25/20 05:23 ERIN score - Erin Score Age > 65: (1) Yes Aspirin use within the Past 7 Days: (0) No 3 or more CAD Risk Factors: (0) No 2 or more Angina events in past 24 hrs: (1) Yes Known CAD with more than 50% Stenosis: (0) No Elevated Cardiac Markers: (0) No ST Deviation Greater than 0.5mm: (0) No ERIN Score: 2 ED Medical Decision Making - Lab Data Result diagrams: 12/25/20 03:38 12/25/20 03:38 - EKG Data -: EKG Interpreted by Me EKG shows normal: sinus rhythm, axis, intervals, QRS complexes, ST-T waves Rate: normal - Radiology Data Radiology results: report reviewed, image reviewed interpreted by me: Chest x-ray: No pneumonia, no pneumothorax, no foreign body, no osseous findings, no acute findings CHEST 1 VIEW INDICATION / CLINICAL INFORMATION: Chest Pain STUDY TIME: 352 COMPARISON: 11/16/2020 FINDINGS: SUPPORT DEVICES: None HEART / MEDIASTINUM: Mild cardiomegaly is again seen LUNGS / PLEURA: No significant acute pulmonary or pleural abnormality. No pneumothorax. ADDITIONAL FINDINGS: No significant additional findings. - Medical Decision Making Patient is a 65-year-old female who presents emergency room with complaints of chest pain shortness of breath. Patient had labs done. Patient's labs were essentially unremarkable. Patient's troponin was negative. Patient had an EKG which showed no acute findings. Patient's chest x-ray was negative for acute findings. I personally reviewed the chest x-ray and EKG. Patient patient's heart score is elevated. Patient's chest pain is high risk and needs to be worked up as inpatient. Patient admitted to the hospitalist service for further evaluation treatment Critical care time documented due to the multiple reassessments, prolonged time at the bedside, interpretation of diagnostics and labs. - Differential Diagnosis Chest pain, ACS, shortness of breath, Critical Care Time: Yes Critical care time in (mins) excluding proc time.: 35 Critical care attestation.: If time is entered above; I have spent that time in minutes in the direct care of this critically ill patient, excluding procedure time. Critical Care Time: 35 minutes ED Disposition Clinical Impression: Acute chest pain Anemia Qualifiers: Anemia type: unspecified type Qualified Code(s): D64.9 - Anemia, unspecified Chest pain Qualifiers: Chest pain type: unspecified Qualified Code(s): R07.9 - Chest pain, unspecified Disposition: 09 ADMITTED INPATIENT Is pt being admited?: Yes Does the pt Need Aspirin: No Condition: Critical Instructions: Chest Pain (ED) Time of Disposition: 05:30
--- NOTE | 2020-12-25 04:18 | XRay Report ---
CHEST 1 VIEW INDICATION / CLINICAL INFORMATION: Chest Pain STUDY TIME: 352 COMPARISON: 11/16/2020 FINDINGS: SUPPORT DEVICES: None HEART / MEDIASTINUM: Mild cardiomegaly is again seen LUNGS / PLEURA: No significant acute pulmonary or pleural abnormality. No pneumothorax. ADDITIONAL FINDINGS: No significant additional findings. Signer Name: Shan Segundo MD Signed: 12/25/2020 4:14 AM Workstation Name: [email or web address]
[2020-12-25 04:31] LABS: Hematocrit 27.5 % (30.3-42.9); Hemoglobin 8.7 gm/dl (10.1-14.3); Mean Corpuscular HGB Conc 32 % (30-34); Mean Corpuscular Volume 65 fl (79-97); Platelet Count 215 K/mm3 (140-440); Red Blood Count 4.21 M/mm3 (3.65-5.03); Red Cell Distribution Width 16.9 % (13.2-15.2)
[2020-12-25 04:40] LABS: INR 1.08 (0.87-1.13)
[2020-12-25 04:41] LABS: Partial Thromboplastin Time 29.2 Sec. (24.2-36.6)
[2020-12-25 04:59] LABS: Alanine Aminotransferase 9 units/L (7-56); Albumin 3.7 g/dL (3.9-5); Blood Urea Nitrogen 27 mg/dL (7-17); Calcium 8.9 mg/dL (8.4-10.2); Hemolysis Index 1
[2020-12-25 05:11] LABS: Total Cells Counted 100
[2020-12-25 05:12] LABS: Anisocytosis 1+; Hypochromasia 2+; Ovalocytes Few; Platelet Estimate Consistent w Auto; Poikilocytosis 1+
[2020-12-25 05:19] LABS: BUN/Creatinine Ratio 68
--- NOTE | 2020-12-25 08:00 | History and Physical Report ---
History of Present Illness Date of examination: 12/25/20 Date of admission: 12/25/2020 Chief complaint: Chest pain History of present illness: 65-year-old female with history of hypertension, hyperlipidemia and obesity comes in for substernal chest pain since 14 hours prior to admission and worsening. Patient says the chest pain is severe it is about 8 on a scale of 1- 10. Chest pain is retrosternal and nonradiating. No shortness of breath or diaphoresis. No fever or chills. No exposure to Covid. Patient is vaccinated. Heart Score - HEART Score History: Slightly suspicious EKG: Non-specific Age: > 65 Risk factors: 1-2 risk factors Troponin: < normal limit HEART Score: 4 - Past Medical History Previous Medical History?: Yes --Hypertension: Yes --Additional medical history: stomach ulcers, muscle spasms in back, Chronic right shoulder pain /spasms. - Surgical History Past Surgical History?: Yes Additional Surgical History: skin grafts, 1X - Family History --Family history: no significant - Social History Smoking Status: Former Smoker Substance Use Type: None - Medications Home Medications: Home Medications Medication Instructions Recorded Confirmed Last Taken Type Hydrocortisone 1% [Hydrocortisone 1 applicatio TP TID PRN #1 tube 10/12/16 09/04/20 2 Days Ago Rx 1% CREAM] ~09/02/20 Oxybutynin [Ditropan] 5 mg PO Q8H #30 tab 08/04/19 09/04/20 2 Days Ago Rx ~09/02/20 Menthol/Camphor [[place] 1 applicatio TP Q8HR #1 tube 04/29/20 09/04/20 2 Days Ago Rx Ointment] ~09/02/20 Meloxicam [Mobic] 15 mg PO DAILY #20 tablet 05/28/20 09/04/20 2 Days Ago Rx ~09/02/20 diphenhydrAMINE [Benadryl CAP] 25 mg PO Q8HR PRN #21 capsule 06/10/20 09/04/20 2 Days Ago Rx ~09/02/20 Chlorhexidine Mouthwash [Peridex] 15 ml MM BID #1 bottle 08/08/20 09/04/20 2 Days Ago Rx ~09/02/20 Cyclobenzaprine [Flexeril 10 MG 10 mg PO TID PRN #30 tablet 09/07/20 Unknown Rx TAB] amLODIPine 10 mg PO DAILY #30 tab 09/07/20 Unknown Rx methOCARBAMOL [Robaxin TAB] 500 mg PO BID #14 tab 09/07/20 Unknown Rx Potassium Chloride [K-Dur] 20 meq PO BID #6 tab 09/10/20 Unknown Rx Diclofenac Sodium 50 mg PO Q8H PRN #30 tablet. 09/21/20 Unknown Rx Naproxen 500 mg PO BID #20 tablet 10/02/20 Unknown Rx Naproxen 500 mg PO BID PRN #30 tablet 10/06/20 Unknown Rx Penicillin V Potassium 500 mg PO QID #40 tablet 10/06/20 Unknown Rx Review of Systems ROS: Stated complaint: CHEST PAIN Other details as noted in HPI Constitutional: denies: chills, fever Eyes: denies: eye pain, eye discharge, vision change ENT: denies: ear pain, throat pain Respiratory: shortness of breath. denies: cough, wheezing Cardiovascular: chest pain. denies: palpitations Endocrine: no symptoms reported Gastrointestinal: denies: abdominal pain, nausea, diarrhea Genitourinary: denies: urgency, dysuria, discharge Musculoskeletal: denies: back pain, joint swelling, arthralgia Skin: denies: rash, lesions Neurological: denies: headache, weakness, paresthesias Psychiatric: denies: anxiety, depression Hematological/Lymphatic: denies: easy bleeding, easy bruising Medications and Allergies Allergies Allergy/AdvReac Type Severity Reaction Status Date / Time No Known Allergies Allergy Unverified 09/07/20 01:06 Home Medications Medication Instructions Recorded Confirmed Last Taken Type Hydrocortisone 1% [Hydrocortisone 1 applicatio TP TID PRN #1 tube 10/12/16 09/04/20 2 Days Ago Rx 1% CREAM] ~09/02/20 diphenhydrAMINE [Benadryl CAP] 25 mg PO Q8HR PRN #21 capsule 06/10/20 09/04/20 2 Days Ago Rx ~09/02/20 Chlorhexidine Mouthwash [Peridex] 15 ml MM BID #1 bottle 08/08/20 09/04/20 2 Days Ago Rx ~09/02/20 amLODIPine 10 mg PO DAILY #30 tab 09/07/20 Unknown Rx Cyclobenzaprine [Flexeril 10 MG 10 mg PO TID PRN tablet 12/25/20 Unknown Rx TAB] Oxybutynin [Ditropan] 5 mg PO Q8H tablet 12/25/20 Unknown Rx Exam - Constitutional Vitals: Temp Pulse Resp BP Pulse Ox 98.0 F 70 14 140/62 100 12/25/20 02:42 12/25/20 06:46 12/25/20 06:46 12/25/20 05:14 12/25/20 06:46 General appearance: Present: no acute distress, well-nourished - EENT Eyes: Present: PERRL ENT: hearing intact, clear oral mucosa - Neck Neck: Present: supple, normal ROM - Respiratory Respiratory effort: normal Respiratory: bilateral: CTA - Cardiovascular Heart rate: 78 Rhythm: regular Heart Sounds: Present: S1 & S2. Absent: rub, click - Extremities Extremities: pulses symmetrical, No edema Peripheral Pulses: within normal limits - Abdominal General gastrointestinal: Present: soft, non-tender, non-distended, normal bowel sounds Female genitourinary: Present: normal - Integumentary Integumentary: Present: clear, warm, dry - Musculoskeletal Musculoskeletal: gait normal, strength equal bilaterally - Psychiatric Psychiatric: appropriate mood/affect, intact judgment & insight - Neurologic Neurologic: CNII-XII intact, moves all extremities HEART Score - HEART Score EKG: Non-specific Age: > 65 Risk factors: 1-2 risk factors Troponin: Troponin T < 0.010 ng/mL (0.00-0.029) 12/25/20 03:38 Troponin: < normal limit Results - Labs CBC & Chem 7: 12/25/20 03:38 12/25/20 03:38 Labs: Laboratory Last Values WBC 4.9 K/mm3 (4.5-11.0) 12/25/20 03:38 RBC 4.21 M/mm3 (3.65-5.03) 12/25/20 03:38 Hgb 8.7 gm/dl (10.1-14.3) L 12/25/20 03:38 Hct 27.5 % (30.3-42.9) L 12/25/20 03:38 MCV 65 fl (79-97) L 12/25/20 03:38 MCH 21 pg (28-32) L 12/25/20 03:38 MCHC 32 % (30-34) 12/25/20 03:38 RDW 16.9 % (13.2-15.2) H 12/25/20 03:38 Plt Count 215 K/mm3 (140-440) 12/25/20 03:38 [facility] % (Auto) [employer] 12/25/20 03:38 Add Manual Diff Complete 12/25/20 03:38 Total Counted 100 12/25/20 03:38 Seg Neuts % (Manual) 47.0 % (40.0-70.0) 12/25/20 03:38 Lymphocytes % (Manual) 38.0 % (13.4-35.0) H 12/25/20 03:38 Monocytes % (Manual) 10.0 % (0.0-7.3) H 12/25/20 03:38 Eosinophils % (Manual) 3.0 % (0.0-4.3) 12/25/20 03:38 Basophils % (Manual) 2.0 % (0.0-1.8) H 12/25/20 03:38 Nucleated RBC % Not Reportable 12/25/20 03:38 Seg Neutrophils # Man 2.3 K/mm3 (1.8-7.7) 12/25/20 03:38 Band Neutrophils # 0.0 K/mm3 12/25/20 03:38 Lymphocytes # (Manual) 1.9 K/mm3 (1.2-5.4) 12/25/20 03:38 Abs React Lymphs (Man) 0.0 K/mm3 12/25/20 03:38 Monocytes # (Manual) 0.5 K/mm3 (0.0-0.8) 12/25/20 03:38 Eosinophils # (Manual) 0.1 K/mm3 (0.0-0.4) 12/25/20 03:38 Basophils # (Manual) 0.1 K/mm3 (0.0-0.1) 12/25/20 03:38 Metamyelocytes # 0.0 K/mm3 12/25/20 03:38 Myelocytes # 0.0 K/mm3 12/25/20 03:38 Promyelocytes # 0.0 K/mm3 12/25/20 03:38 Blast Cells # 0.0 K/mm3 12/25/20 03:38 WBC Morphology Not Reportable 12/25/20 03:38 Hypersegmented Neuts Not Reportable 12/25/20 03:38 Hyposegmented Neuts Not Reportable 12/25/20 03:38 Hypogranular Neuts Not Reportable 12/25/20 03:38 Smudge Cells Not Reportable 12/25/20 03:38 Toxic Granulation Not Reportable 12/25/20 03:38 Toxic Vacuolation Not Reportable 12/25/20 03:38 Dohle Bodies Not Reportable 12/25/20 03:38 Pelger-Huet Anomaly Not Reportable 12/25/20 03:38 Cassandra Rods Not Reportable 12/25/20 03:38 Platelet Estimate Consistent w auto 12/25/20 03:38 Clumped Platelets Not Reportable 12/25/20 03:38 Plt Clumps, EDTA Not Reportable 12/25/20 03:38 Large Platelets Not Reportable 12/25/20 03:38 Giant Platelets Not Reportable 12/25/20 03:38 Platelet Satelliting Not Reportable 12/25/20 03:38 Plt Morphology Comment Not Reportable 12/25/20 03:38 RBC Morphology Not Reportable 12/25/20 03:38 Dimorphic RBCs Not Reportable 12/25/20 03:38 Polychromasia Not Reportable 12/25/20 03:38 Hypochromasia 2+ 12/25/20 03:38 Poikilocytosis 1+ 12/25/20 03:38 Anisocytosis 1+ 12/25/20 03:38 Microcytosis 1+ 12/25/20 03:38 Macrocytosis Not Reportable 12/25/20 03:38 Spherocytes Not Reportable 12/25/20 03:38 Pappenheimer Bodies Not Reportable 12/25/20 03:38 Sickle Cells Not Reportable 12/25/20 03:38 Target Cells Not Reportable 12/25/20 03:38 Tear Drop Cells Not Reportable 12/25/20 03:38 Ovalocytes Few 12/25/20 03:38 Helmet Cells Not Reportable 12/25/20 03:38 Amaro-Borden Bodies Not Reportable 12/25/20 03:38 [place] Rings Not Reportable 12/25/20 03:38 [place] Cells Not Reportable 12/25/20 03:38 Bite Cells Not Reportable 12/25/20 03:38 Crenated Cell Not Reportable 12/25/20 03:38 Elliptocytes Few 12/25/20 03:38 Acanthocytes (Spur) Not Reportable 12/25/20 03:38 Rouleaux Not Reportable 12/25/20 03:38 Hemoglobin C Crystals Not Reportable 12/25/20 03:38 Schistocytes Not Reportable 12/25/20 03:38 Malaria parasites Not Reportable 12/25/20 03:38 Henry Bodies Not Reportable 12/25/20 03:38 Hem Pathologist Commnt No 12/25/20 03:38 PT 14.5 Sec. (12.2-14.9) 12/25/20 03:38 INR 1.08 (0.87-1.13) 12/25/20 03:38 APTT 29.2 Sec. (24.2-36.6) 12/25/20 03:38 Sodium 143 mmol/L (137-145) 12/25/20 03:38 Potassium 3.7 mmol/L (3.6-5.0) 12/25/20 03:38 Chloride 105.8 mmol/L (98-107) 12/25/20 03:38 Carbon Dioxide 30 mmol/L (22-30) 12/25/20 03:38 Anion Gap 11 mmol/L 12/25/20 03:38 BUN 27 mg/dL (7-17) H 12/25/20 03:38 Creatinine 0.4 mg/dL (0.6-1.2) L 12/25/20 03:38 Estimated GFR > 60 ml/min 12/25/20 03:38 BUN/Creatinine Ratio 68 % 12/25/20 03:38 Glucose 98 mg/dL (65-100) 12/25/20 03:38 Calcium 8.9 mg/dL (8.4-10.2) 12/25/20 03:38 Total Bilirubin 0.20 mg/dL (0.1-1.2) 12/25/20 03:38 AST 11 units/L (5-40) 12/25/20 03:38 ALT 9 units/L (7-56) 12/25/20 03:38 Alkaline Phosphatase 63 units/L (35-129) 12/25/20 03:38 Troponin T < 0.010 ng/mL (0.00-0.029) 12/25/20 03:38 Total Protein 6.4 g/dL (6.3-8.2) 12/25/20 03:38 Albumin 3.7 g/dL (3.9-5) L 12/25/20 03:38 Albumin/Globulin Ratio 1.4 % 12/25/20 03:38 Short CBC 12/25/20 Range/Units 03:38 WBC 4.9 (4.5-11.0) K/mm3 Hgb 8.7 L (10.1-14.3) gm/dl Hct 27.5 L (30.3-42.9) % Plt Count 215 (140-440) K/mm3 [facility] 12/25/20 03:38 Sodium 143 Potassium 3.7 Chloride 105.8 Carbon Dioxide 30 BUN 27 H Creatinine 0.4 L Glucose 98 Calcium 8.9 Cardiac Enzymes 12/25/20 Range/Units 03:38 Troponin T < 0.010 (0.00-0.029) ng/mL Liver Function 12/25/20 Range/Units 03:38 Total Bilirubin 0.20 (0.1-1.2) mg/dL AST 11 (5-40) units/L ALT 9 (7-56) units/L Alkaline Phosphatase 63 (35-129) units/L Albumin 3.7 L (3.9-5) g/dL Short CBC 12/25/20 Range/Units 03:38 WBC 4.9 (4.5-11.0) K/mm3 Hgb 8.7 L (10.1-14.3) gm/dl Hct 27.5 L (30.3-42.9) % Plt Count 215 (140-440) K/mm3 [facility] 12/25/20 03:38 Sodium 143 Potassium 3.7 Chloride 105.8 Carbon Dioxide 30 BUN 27 H Creatinine 0.4 L Glucose 98 Calcium 8.9 Cardiac Enzymes 12/25/20 Range/Units 03:38 Troponin T < 0.010 (0.00-0.029) ng/mL Liver Function 12/25/20 Range/Units 03:38 Total Bilirubin 0.20 (0.1-1.2) mg/dL AST 11 (5-40) units/L ALT 9 (7-56) units/L Alkaline Phosphatase 63 (35-129) units/L Albumin 3.7 L (3.9-5) g/dL - Imaging and Cardiology EKG: report reviewed Chest x-ray: report reviewed Assessment and Plan Advance Directives: Yes (Full code) VTE prophylaxis?: Chemical Plan of care discussed with patient/family: Yes - Patient Problems (1) Acute coronary syndrome Status: Acute Plan to address problem: Serial troponins and CK-MBs Lexiscan tomorrow in a.m. Cardiology consult (2) Anemia Status: Acute Qualifiers: Anemia type: unspecified type Qualified Code(s): D64.9 - Anemia, unspecified Plan to address problem: Anemia work-up (3) Hypertension Status: Acute Plan to address problem: Continue amlodipine and adjust medications (4) Hyperlipidemia Status: Acute Plan to address problem: Continue statins (5) Obesity Status: Chronic Qualifiers: Obesity type: due to excess calories Obesity classification: adult class 1 (BMI 30 - 34.9) Plan to address problem: Patient counseled about diet and exercise and weight (6) DVT prophylaxis Status: Acute Plan to address problem: On heparin and GI prophylaxis
[2020-12-25] MEDS ORDERED: diphenhydrAMINE 25 MG CAP PO PRN (09:00)
[2020-12-25] MEDS ORDERED: OXYBUTYNIN 5 MG TAB PO SCH (09:00)
[2020-12-25] MEDS ORDERED: ONDANSETRON 4 MG/2 ML INJ IV PRN (09:00)
[2020-12-25] MEDS ORDERED: oxyCODONE /ACETAMINOPHEN 5-325MG TAB PO PRN (09:00)
[2020-12-25] MEDS ORDERED: HYDROmorphone 1 MG/1 ML INJ IV PRN (09:00)
[2020-12-25] MEDS ORDERED: CYCLOBENZAPRINE 10 MG TAB PO PRN (09:00)
[2020-12-25] MEDS ORDERED: ACETAMINOPHEN 325 MG TAB PO PRN (09:00)
[2020-12-25 09:26] LABS: Creatine Kinase MB < 1.0 ng/mL (0.0-4.0)
[2020-12-25] MEDS ORDERED: amLODIPine 10 MG TAB PO SCH (10:00)
[2020-12-25] MEDS ORDERED: HEPARIN 5,000 UNIT/1 ML VIAL SUB-Q SCH (10:00)
[2020-12-25] MEDS ORDERED: CHLORHEXIDINE MOUTHWASH 473ML MM SCH (10:00)
[2020-12-25] MEDS ORDERED: REGADENOSON 0.4 MG/5 ML INJ IV ONE (10:59)
--- NOTE | 2020-12-25 13:31 | Consultation ---
History of Present Illness Consult date: 12/25/20 Consult reason: chest pain History of present illness: Patient is a 65-year-old woman admitted to the hospital with chest pain. She describes intermittent, exertional chest pain and pressure. In the emergency room, ECG was sinus rhythm with left ventricular hypertrophy, but no ST or T wave changes of ischemia. Serial troponin levels were normal. Today, she was ordered for a thallium stress test by the medical service, but we canceled this, having found that she had a normal thallium stress test just 3 months ago in this hospital. Other pertinent findings on her laboratory exam include anemia with a hematocrit of 27. Since her presentation, she has had no recurrent chest pain. Past medical history is notable for hypertension, she denies any prior cardiac history. Past History Past Medical History: hypertension Medications and Allergies Allergies Allergy/AdvReac Type Severity Reaction Status Date / Time No Known Allergies Allergy Unverified 09/07/20 01:06 Home Medications Medication Instructions Recorded Confirmed Last Taken Type Hydrocortisone 1% [Hydrocortisone 1 applicatio TP TID PRN #1 tube 10/12/16 09/04/20 2 Days Ago Rx 1% CREAM] ~09/02/20 Oxybutynin [Ditropan] 5 mg PO Q8H #30 tab 08/04/19 09/04/20 2 Days Ago Rx ~09/02/20 Menthol/Camphor [[place] 1 applicatio TP Q8HR #1 tube 04/29/20 09/04/20 2 Days Ago Rx Ointment] ~09/02/20 Meloxicam [Mobic] 15 mg PO DAILY #20 tablet 05/28/20 09/04/20 2 Days Ago Rx ~09/02/20 diphenhydrAMINE [Benadryl CAP] 25 mg PO Q8HR PRN #21 capsule 06/10/20 09/04/20 2 Days Ago Rx ~09/02/20 Chlorhexidine Mouthwash [Peridex] 15 ml MM BID #1 bottle 08/08/20 09/04/20 2 Days Ago Rx ~09/02/20 Cyclobenzaprine [Flexeril 10 MG 10 mg PO TID PRN #30 tablet 09/07/20 Unknown Rx TAB] amLODIPine 10 mg PO DAILY #30 tab 09/07/20 Unknown Rx methOCARBAMOL [Robaxin TAB] 500 mg PO BID #14 tab 09/07/20 Unknown Rx Potassium Chloride [K-Dur] 20 meq PO BID #6 tab 09/10/20 Unknown Rx Diclofenac Sodium 50 mg PO Q8H PRN #30 tablet. 09/21/20 Unknown Rx Naproxen 500 mg PO BID #20 tablet 10/02/20 Unknown Rx Naproxen 500 mg PO BID PRN #30 tablet 10/06/20 Unknown Rx Penicillin V Potassium 500 mg PO QID #40 tablet 10/06/20 Unknown Rx Active Meds: Active Medications Acetaminophen (Acetaminophen 325 Mg Tab) 650 mg PO Q4H PRN PRN Reason: Pain MILD(1-3)/Fever >100.5/LOJA Amlodipine Besylate (Amlodipine 10 Mg Tab) 10 mg PO DAILY CALIN Chlorhexidine Gluconate (Chlorhexidine Mouthwash 473ml) 15 ml MM BID CALIN Cyclobenzaprine HCl (Cyclobenzaprine 10 Mg Tab) 10 mg PO TID PRN PRN Reason: Muscle Spasm Diphenhydramine HCl (Diphenhydramine 25 Mg Cap) 25 mg PO Q8HR PRN PRN Reason: sinus headache Heparin Sodium (Porcine) (Heparin 5,000 Unit/1 Ml Vial) 5,000 unit SUB-Q Q12HR CALIN Hydromorphone HCl (Hydromorphone 1 Mg/1 Ml Inj) 0.5 mg IV Q3H PRN PRN Reason: Pain , Severe (7-10) Ondansetron HCl (Ondansetron 4 Mg/2 Ml Inj) 4 mg IV Q8H PRN PRN Reason: Nausea And Vomiting Oxybutynin Chloride (Oxybutynin 5 Mg Tab) 5 mg PO Q8H CALIN Oxycodone/Acetaminophen (Oxycodone /Acetaminophen 5-325mg Tab) 1 tab PO Q6H PRN PRN Reason: Pain, Moderate (4-6) Sodium Chloride (Sodium Chloride 0.9% 10 Ml Flush Syringe) 10 ml IV BID CAILN Sodium Chloride (Sodium Chloride 0.9% 10 Ml Flush Syringe) 10 ml IV PRN PRN PRN Reason: LINE FLUSH Review of Systems Cardiovascular: chest pain, shortness of breath, no orthopnea, no palpitations, no rapid/irregular heart beat, no edema, no syncope, no lightheadedness Physical Examination Vital Signs Temp Pulse Resp BP Pulse Ox 98.0 F 89 18 128/78 99 12/25/20 02:42 12/25/20 02:42 12/25/20 02:42 12/25/20 02:42 12/25/20 02:42 General appearance: no acute distress HEENT: Positive: PERRL Neck: Positive: neck supple Cardiac: Positive: Reg Rate and Rhythm Lungs: Positive: clear to auscultation Neuro: Positive: Grossly Intact Abdomen: Positive: Soft Female genitourinary: deferred Skin: Positive: Clear Extremities: Absent: edema Results 12/25/20 03:38 12/25/20 03:38 Cardiac Enzymes 12/25/20 12/25/20 Range/Units 03:38 08:40 AST 11 (5-40) units/L CK-MB (CK-2) < 1.0 (0.0-4.0) ng/mL Coagulation 12/25/20 Range/Units 03:38 PT 14.5 (12.2-14.9) Sec. INR 1.08 (0.87-1.13) APTT 29.2 (24.2-36.6) Sec. CBC 12/25/20 Range/Units 03:38 WBC 4.9 (4.5-11.0) K/mm3 RBC 4.21 (3.65-5.03) M/mm3 Hgb 8.7 L (10.1-14.3) gm/dl Hct 27.5 L (30.3-42.9) % Plt Count 215 (140-440) K/mm3 Comprehensive Metabolic Panel 12/25/20 Range/Units 03:38 Sodium 143 (137-145) mmol/L Potassium 3.7 (3.6-5.0) mmol/L Chloride 105.8 (98-107) mmol/L Carbon Dioxide 30 (22-30) mmol/L BUN 27 H (7-17) mg/dL Creatinine 0.4 L (0.6-1.2) mg/dL Glucose 98 (65-100) mg/dL Calcium 8.9 (8.4-10.2) mg/dL AST 11 (5-40) units/L ALT 9 (7-56) units/L Alkaline Phosphatase 63 (35-129) units/L Total Protein 6.4 (6.3-8.2) g/dL Albumin 3.7 L (3.9-5) g/dL EKG interpretations - Telemetry EKG Rhythm: Sinus Rhythm Assessment and Plan - Patient Problems (1) Chest pain Current Visit: No Status: Acute Qualifiers: Chest pain type: unspecified Qualified Code(s): R07.9 - Chest pain, unspecified Plan to address problem: 65-year-old woman with recurrent chest pain, presenting after a normal thallium stress test just 3 months ago. Serial ECGs and serial troponin levels are normal. Chest pain is described as often exertional. No further noninvasive ischemia evaluation is indicated at this time. If f urther cardiac ischemic evaluation is indicated, she will need invasive angiography for further assessment. We will follow with you.
[2020-12-25 14:06] VITALS: BP 144/76
--- NOTE | 2020-12-28 13:11 | Discharge Summary ---
Providers - Providers Date of Admission: 12/25/20 08:04 Date of discharge: 12/25/20 Attending physician: SUELLEN THACKER 12/25/20 08:38 Consult to Physician [CONS] Routine Comment: Consulting Provider: SALOME TRAMMELL Physician Instructions: Reason For Exam: Acute chest pain Primary care physician: TUB ATTENDANT Hospitalization Condition: Critical Hospital course: 65-year-old female with history of hypertension, hyperlipidemia and obesity comes in for substernal chest pain since 14 hours prior to admission and worsening. Patient says the chest pain is severe it is about 8 on a scale of 1- 10. Chest pain is retrosternal and nonradiating. No shortness of breath or diaphoresis. No fever or chills. No exposure to Covid. Patient is vaccinated. In the emergency room, ECG was sinus rhythm with left ventricular hypertrophy, but no ST or T wave changes of ischemia. Serial troponin levels were normal. Today, she was ordered for a thallium stress test but canceled this, having found that she had a normal thallium stress test just 3 months ago in this hospital. Other pertinent findings on her laboratory exam include anemia with a hematocrit of 27. Since her presentation, she has had no recurrent chest pain. Past medical history is notable for hypertension, she denies any prior cardiac history. Heart Score - HEART Score History: Slightly suspicious EKG: Non-specific Age: > 65 Risk factors: 1-2 risk factors Troponin: < normal limit HEART Score: 4 - Past Medical History Previous Medical History?: Yes --Hypertension: Yes --Additional medical history: stomach ulcers, muscle spasms in back, Chronic right shoulder pain /spasms. - Surgical History Past Surgical History?: Yes Additional Surgical History: skin grafts, 1X - Family History --Family history: no significant - Social History Smoking Status: Former Smoker Substance Use Type: None - Medications Home Medications: Home Medications Medication Instructions Recorded Confirmed Last Taken Type Hydrocortisone 1% [Hydrocortisone 1 applicatio TP TID PRN #1 tube 10/12/16 09/04/20 2 Days Ago Rx 1% CREAM] ~09/02/20 Oxybutynin [Ditropan] 5 mg PO Q8H #30 tab 08/04/19 09/04/20 2 Days Ago Rx ~09/02/20 Menthol/Camphor [[place] 1 applicatio TP Q8HR #1 tube 04/29/20 09/04/20 2 Days Ago Rx Ointment] ~09/02/20 Meloxicam [Mobic] 15 mg PO DAILY #20 tablet 05/28/20 09/04/20 2 Days Ago Rx ~09/02/20 diphenhydrAMINE [Benadryl CAP] 25 mg PO Q8HR PRN #21 capsule 06/10/20 09/04/20 2 Days Ago Rx ~09/02/20 Chlorhexidine Mouthwash [Peridex] 15 ml MM BID #1 bottle 08/08/20 09/04/20 2 Days Ago Rx ~09/02/20 Cyclobenzaprine [Flexeril 10 MG 10 mg PO TID PRN #30 tablet 09/07/20 Unknown Rx TAB] amLODIPine 10 mg PO DAILY #30 tab 09/07/20 Unknown Rx methOCARBAMOL [Robaxin TAB] 500 mg PO BID #14 tab 09/07/20 Unknown Rx Potassium Chloride [K-Dur] 20 meq PO BID #6 tab 09/10/20 Unknown Rx Diclofenac Sodium 50 mg PO Q8H PRN #30 tablet. 09/21/20 Unknown Rx Naproxen 500 mg PO BID #20 tablet 10/02/20 Unknown Rx Naproxen 500 mg PO BID PRN #30 tablet 10/06/20 Unknown Rx Penicillin V Potassium 500 mg PO QID #40 tablet 10/06/20 Unknown Rx Assessment and Plan Advance Directives: Yes (Full code) VTE prophylaxis?: Chemical Plan of care discussed with patient/family: Yes - Patient Problems (1) Acute coronary syndrome Status: Acute Plan to address problem: Serial troponins Per cardiology "No further noninvasive ischemia evaluation is indicated at this time. If further cardiac ischemic evaluation is indicated, she will need invasive angiography for further assessment. We will follow with you. (2) Anemia Status: Acute Qualifiers: Anemia type: unspecified type Qualified Code(s): D64.9 - Anemia, unspecified Plan to address problem: Ferrous sulfate 325 mg 1 tablet daily (3) Hypertension Status: Acute Plan to address problem: Continue amlodipine and adjust medications (4) Hyperlipidemia Status: Acute Plan to address problem: Continue statins (5) Obesity Status: Chronic Qualifiers: Obesity type: due to excess calories Obesity classification: adult class 1 (BMI 30 - 34.9) Plan to address problem: Patient counseled about diet and exercise and weight Disposition: 01 HOME / SELF CARE / HOMELESS Final Discharge Diagnosis (Prints w/discharge instructions): Acute coronary syndrome. Costochondritis. Hypertension. Anemia. Hyperlipidemia Time spent for discharge: 30 minutes - Discharge Diagnoses (1) Acute coronary syndrome Status: Acute (2) Anemia Status: Acute Qualifiers: Anemia type: unspecified type Qualified Code(s): D64.9 - Anemia, unspecified (3) Hypertension Status: Acute (4) Hyperlipidemia Status: Acute (5) Obesity Status: Chronic Qualifiers: Obesity type: due to excess calories Obesity classification: adult class 1 (BMI 30 - 34.9) (6) DVT prophylaxis Status: Acute Core Measure Documentation - Palliative Care Palliative Care/ Comfort Measures: Not Applicable - Core Measures Any of the following diagnoses?: none Exam - Constitutional Vitals: Temp Pulse Resp BP Pulse Ox 98.0 F 66 16 144/76 98 12/25/20 02:42 12/25/20 14:05 12/25/20 14:05 12/25/20 14:05 12/25/20 14:05 General appearance: Present: no acute distress, well-nourished - EENT Eyes: Present: PERRL ENT: hearing intact, clear oral mucosa - Neck Neck: Present: supple, normal ROM - Respiratory Respiratory effort: normal Respiratory: bilateral: CTA - Cardiovascular Heart rate: 78 Rhythm: regular Heart Sounds: Present: S1 & S2. Absent: rub, click - Extremities Extremities: no ischemia, pulses intact, pulses symmetrical, No edema Peripheral Pulses: within normal limits - Abdominal General gastrointestinal: Present: soft, non-tender, non-distended, normal bowel sounds Female genitourinary: Present: normal - Rectal Rectal Exam: deferred - Integumentary Integumentary: Present: clear, warm, dry - Musculoskeletal Musculoskeletal: gait normal, strength equal bilaterally - Psychiatric Psychiatric: appropriate mood/affect, intact judgment & insight - Neurologic Neurologic: CNII-XII intact, moves all extremities - Allied Health Allied health notes reviewed: nursing, case management Plan Activity: no restrictions Diet: low fat, low salt Follow up with: PRIMARY CARE, [Primary Care Provider] - 7 Days
--- NOTE | 2020-12-28 14:44 | Electrocardiograph Report ---
[facility] Test Date: 2020-12-25 Test Time: 03:07:36 Pat Name: LORE SHARP Department: Room: [facility] Gender: F Project Development Coordinator: michell : 1955 Requested By: ERICA LAZO III Order Number: [id number] Reading MD: Ector Sandoval Measurements Intervals [place] Rate: 69 P: 59 [place]: 188 QRS: 7 QRSD: 102 T: 58 QT: 470 QTc: 506 Interpretive Statements Sinus rhythm Probable left ventricular hypertrophy Prolonged QT interval Compared to ECG 11/16/2020 03:12:07 No significant change Electronically Signed On 12-28-2020 14:44:01 EDT by Ector Sandoval
== END 2020-12-25 18:19 | disposition home or self-care (01) ==
LOC: ED 02:42 → 4A 08:04
PROVIDERS: ADMIT Internal Medicine; ATTEND Internal Medicine
DX: I24.9 Acute ischemic heart disease, unspecified (principal); D64.9 Anemia, unspecified; I10 Essential (primary) hypertension; E78.5 Hyperlipidemia, unspecified; E66.9 Obesity, unspecified; G89.29 Other chronic pain; M25.511 Pain in right shoulder; M19.90 Unspecified osteoarthritis, unspecified site; Z79.899 Other long term (current) drug therapy; Z98.890 Other specified postprocedural states; Z98.891 History of uterine scar from previous surgery; Z87.891 Personal history of nicotine dependence; Z68.29 Body mass index [BMI] 29.0-29.9, adult
CPT/HCPCS: 36415; 71045; 80053; 82550; 82553; 84484; 85025; 85610; 85730; 93005; 96374; 99291; G0378; J2405; 85007

== ENCOUNTER 2021-01-06 01:48 | Emergency (ER) | payer MEDICAID ==
[2021-01-06 02:05] VITALS: BP 135/67
[2021-01-06] MEDS ORDERED: KETOROLAC 60 MG/2 ML INJ IM ONE ×2 (03:01→03:02)
[2021-01-06] MEDS ORDERED: dexAMETHasone 4 MG/ML VIAL IM STA (03:01)
--- NOTE | 2021-01-06 03:01 | Emergency Department Report ---
ED General Adult HPI - General Chief complaint: Extremity Injury, Lower Stated complaint: RT SIDE LEG PAIN Time Seen by Provider: 01/06/21 02:38 Source: patient Mode of arrival: Ambulatory Limitations: No Limitations - History of Present Illness Initial comments: 65-year-old -[place] female patient with history of hypertension presents with complaints of right leg pain for the past few days. Patient has been seen here in the ED with complaints of right leg pain many times. Patient states this pain is similar to her previous episodes of leg pain, however the pain starts in her buttock and radiates all the way down her leg. She denies any injuries or swelling to the leg. No recent long travel, history of DVT/PE/cancer, or hormone use per patient. She rates the pain as 8/10 in severity states it worsens with sitting on her right buttock. - Related Data Previous Rx's Medication Instructions Recorded Last Taken Type Hydrocortisone 1% [Hydrocortisone 1 applicatio TP TID PRN #1 tube 10/12/16 2 Days Ago Rx 1% CREAM] ~09/02/20 diphenhydrAMINE [Benadryl CAP] 25 mg PO Q8HR PRN #21 capsule 06/10/20 2 Days Ago Rx ~09/02/20 Chlorhexidine Mouthwash [Peridex] 15 ml MM BID #1 bottle 08/08/20 2 Days Ago Rx ~09/02/20 amLODIPine 10 mg PO DAILY #30 tab 09/07/20 Unknown Rx Cyclobenzaprine [Flexeril 10 MG 10 mg PO TID PRN tablet 12/25/20 Unknown Rx TAB] Oxybutynin [Ditropan] 5 mg PO Q8H tablet 12/25/20 Unknown Rx Naproxen 500 mg PO BID PRN 10 Days #20 01/06/21 Unknown Rx tablet methocarbamoL [Methocarbamol] 500 mg PO TID PRN #15 tablet 01/06/21 Unknown Rx Allergies Allergy/AdvReac Type Severity Reaction Status Date / Time No Known Allergies Allergy Verified 01/06/21 02:06 ED Review of Systems ROS: Stated complaint: RT SIDE LEG PAIN Other details as noted in HPI Constitutional: denies: chills, fever, malaise Respiratory: denies: cough, shortness of breath Cardiovascular: denies: chest pain Musculoskeletal: denies: joint swelling, arthralgia Neurological: denies: numbness, paresthesias ED Past Medical Hx - Past Medical History Hx Hypertension: Yes Hx CVA: No Hx Heart Attack/AMI: No Hx Congestive Heart Failure: No Hx Diabetes: No Hx Deep Vein Thrombosis: No Hx Pulmonary Embolism: No Hx GERD: No Hx Liver Disease: No Hx Renal Disease: No Hx Sickle Cell Disease: No Hx Arthritis: Yes Hx Headaches / Migraines: No Hx Seizures: No Hx Kidney Stones: No Hx Psychiatric Treatment: No Hx Asthma: No Hx COPD: No Hx Dementia: No Hx HIV: No Additional medical history: stomach ulcers, muscle spasms in back, Chronic right shoulder pain /spasms. - Surgical History Hx Coronary Stent: No Hx Open Heart Surgery: No Hx Pacemaker: No Hx Internal Defibrillator: No Hx Cholecystectomy: No Hx Appendectomy: No Hx Breast Surgery: No Additional Surgical History: skin grafts, 1X - Social History Smoking Status: Never Smoker Substance Use Type: None - Medications Home Medications: Home Medications Medication Instructions Recorded Confirmed Last Taken Type Hydrocortisone 1% [Hydrocortisone 1 applicatio TP TID PRN #1 tube 10/12/16 09/04/20 2 Days Ago Rx 1% CREAM] ~09/02/20 diphenhydrAMINE [Benadryl CAP] 25 mg PO Q8HR PRN #21 capsule 06/10/20 09/04/20 2 Days Ago Rx ~09/02/20 Chlorhexidine Mouthwash [Peridex] 15 ml MM BID #1 bottle 08/08/20 09/04/20 2 Days Ago Rx ~09/02/20 amLODIPine 10 mg PO DAILY #30 tab 09/07/20 Unknown Rx Cyclobenzaprine [Flexeril 10 MG 10 mg PO TID PRN tablet 12/25/20 Unknown Rx TAB] Oxybutynin [Ditropan] 5 mg PO Q8H tablet 12/25/20 Unknown Rx Naproxen 500 mg PO BID PRN 10 Days #20 01/06/21 Unknown Rx tablet methocarbamoL [Methocarbamol] 500 mg PO TID PRN #15 tablet 01/06/21 Unknown Rx ED Physical Exam - General Limitations: No Limitations General appearance: alert, in no apparent distress - Head Head exam: Present: atraumatic, normocephalic - Eye Eye exam: Present: normal appearance - Respiratory Respiratory exam: Present: normal lung sounds bilaterally. Absent: respiratory distress - Cardiovascular Cardiovascular Exam: Present: regular rate, normal rhythm - Back Exam Back exam: Present: full ROM. Absent: paraspinal tenderness, vertebral tenderness - Expanded Back Exam Expanded Back exam: Absent: saddle anesthesia Back exam: Sciatic Notch Tenderness: Right, Positive Straight Leg Raise: Right - Neurological Exam Neurological exam: Present: alert, oriented X3, other (Patient ambulates with walker) - Psychiatric Psychiatric exam: Present: normal affect, normal mood - Skin Skin exam: Present: warm, dry, intact, normal color. Absent: rash ED Course Vital Signs 01/06/21 01/06/21 02:01 02:05 Temperature 98.6 F Pulse Rate 71 Respiratory 16 Rate Blood Pressure 135/67 O2 Sat by Pulse 100 Oximetry ED Medical Decision Making - Medical Decision Making 65-year-old -[place] female patient with history of hypertension presents with complaints of right leg pain for the past few days. Patient has been seen here in the ED with complaints of right leg pain many times. Patient states this pain is similar to her previous episodes of leg pain, however the pain starts in her buttock and radiates all the way down her leg. She denies any injuries or swelling to the leg. No recent long travel, history of DVT/PE/cancer, or hormone use per patient. She rates the pain as 8/10 in severity states it worsens with sitting on her right buttock. History and physical consistent with sciatica. Recommend patient follows up with her primary care doctor for further evaluation and treatment. She is well- appearing, her vitals are within normal limits, she is stable for discharge home. Discussed presumptive diagnosis, care plan, and signs and symptoms that should prompt immediate return to the ED with patient who verbalizes understand ing. Critical care attestation.: If time is entered above; I have spent that time in minutes in the direct care of this critically ill patient, excluding procedure time. ED Disposition Clinical Impression: Right sciatic nerve pain, Chronic pain of right lower extremity Disposition: HOME / SELF CARE / HOMELESS Is pt being admited?: No Condition: Stable Instructions: Sciatica Prescriptions: methocarbamoL [Methocarbamol] 500 mg PO TID PRN #15 tablet PRN Reason: muscle spasm/tightness Naproxen 500 mg PO BID PRN 10 Days #20 tablet PRN Reason: pain Referrals: [facility] [Provider Group] - 3-5 Days
== END 2021-01-06 04:00 | disposition home or self-care (01) ==
LOC: ED 01:48
DX: M54.31 Sciatica, right side (principal); M79.604 Pain in right leg; G89.29 Other chronic pain; I10 Essential (primary) hypertension; Z79.899 Other long term (current) drug therapy
CPT/HCPCS: 96372; 99282; J1100; J1885

== ENCOUNTER 2021-01-29 01:43 | Emergency (ER) | payer MEDICAID ==
[2021-01-29] MEDS ORDERED: AMOXICILLIN/K CLAV 875/125MG TAB PO ONE (02:13)
[2021-01-29] MEDS ORDERED: ACETAMINOPHEN 500 MG TAB PO ONE (02:13)
[2021-01-29] MEDS ORDERED: predniSONE 20 MG TAB PO ONE (02:13)
--- NOTE | 2021-01-29 02:25 | Emergency Department Report ---
ED General Adult HPI - General Chief complaint: Neuro Symptoms/Deficit Stated complaint: RIGHT SIDE FACE PAIN Time Seen by Provider: 01/29/21 02:13 Source: patient Mode of arrival: Ambulatory Limitations: No Limitations - History of Present Illness Initial comments: Patient is a 65-year-old female with hx of HTN, Hyperlipidemia, who presents for frontal headache radiating to right eye , nose, and ear. patient states sinus pressure that is constant. Symptoms for the past 4 days. Patient denies fever at home no fever noted in triage today. there is mild photophobia no n/v, no dizziness , no lightheadedness, no cp, no sob, no n/v. Pain is described as pressure achy and constant. Pain is exacerbated by movement and position. Pain is relieved by nothing tried. Patient does endorse multiple dental caries and history of sinus infections, had cardiac work up 12/25/2020 with no findings per patient, . - Related Data Previous Rx's Medication Instructions Recorded Last Taken Type Hydrocortisone 1% [Hydrocortisone 1 applicatio TP TID PRN #1 tube 10/12/16 2 Days Ago Rx 1% CREAM] ~09/02/20 diphenhydrAMINE [Benadryl CAP] 25 mg PO Q8HR PRN #21 capsule 06/10/20 2 Days Ago Rx ~09/02/20 Chlorhexidine Mouthwash [Peridex] 15 ml MM BID #1 bottle 08/08/20 2 Days Ago Rx ~09/02/20 amLODIPine 10 mg PO DAILY #30 tab 09/07/20 Unknown Rx Cyclobenzaprine [Flexeril 10 MG 10 mg PO TID PRN tablet 12/25/20 Unknown Rx TAB] Oxybutynin [Ditropan] 5 mg PO Q8H tablet 12/25/20 Unknown Rx Naproxen 500 mg PO BID PRN 10 Days #20 01/06/21 Unknown Rx tablet methocarbamoL [Methocarbamol] 500 mg PO TID PRN #15 tablet 01/06/21 Unknown Rx Acetaminophen [Acetaminophen TAB] 1,000 mg PO Q6HR PRN #60 tablet 01/29/21 Unknown Rx Amoxicillin/Potassium Clav 1 each PO BID 7 Days #14 tablet 01/29/21 Unknown Rx [Augmentin 875-125 Tablet] Allergies Allergy/AdvReac Type Severity Reaction Status Date / Time No Known Allergies Allergy Verified 01/06/21 02:06 ED Review of Systems ROS: Stated complaint: RIGHT SIDE FACE PAIN Other details as noted in HPI Constitutional: chills, malaise Eyes: denies: eye discharge, vision change ENT: ear pain, throat pain, dental pain, congestion. denies: epistaxis Respiratory: denies: cough, shortness of breath, wheezing Cardiovascular: denies: chest pain, palpitations Endocrine: no symptoms reported Gastrointestinal: denies: abdominal pain, nausea, vomiting, diarrhea Genitourinary: denies: urgency, dysuria, discharge Musculoskeletal: denies: back pain, joint swelling, arthralgia, myalgia Skin: denies: rash, lesions Neurological: denies: headache, weakness, paresthesias Psychiatric: denies: anxiety, depression Hematological/Lymphatic: denies: easy bleeding, easy bruising ED Past Medical Hx - Past Medical History Previous Medical History?: Yes Hx Hypertension: Yes Hx CVA: No Hx Heart Attack/AMI: No Hx Congestive Heart Failure: No Hx Diabetes: No Hx Deep Vein Thrombosis: No Hx Pulmonary Embolism: No Hx GERD: No Hx Liver Disease: No Hx Renal Disease: No Hx Sickle Cell Disease: No Hx Arthritis: Yes Hx Headaches / Migraines: No Hx Seizures: No Hx Kidney Stones: No Hx Psychiatric Treatment: No Hx Asthma: No Hx COPD: No Hx Dementia: No Hx HIV: No Additional medical history: stomach ulcers, muscle spasms in back, Chronic right shoulder pain /spasms. - Surgical History Past Surgical History?: Yes Hx Coronary Stent: No Hx Open Heart Surgery: No Hx Pacemaker: No Hx Internal Defibrillator: No Hx Cholecystectomy: No Hx Appendectomy: No Hx Breast Surgery: No Additional Surgical History: skin grafts, 1X - Social History Smoking Status: Never Smoker Substance Use Type: None - Medications Home Medications: Home Medications Medication Instructions Recorded Confirmed Last Taken Type Hydrocortisone 1% [Hydrocortisone 1 applicatio TP TID PRN #1 tube 10/12/16 09/04/20 2 Days Ago Rx 1% CREAM] ~09/02/20 diphenhydrAMINE [Benadryl CAP] 25 mg PO Q8HR PRN #21 capsule 06/10/20 09/04/20 2 Days Ago Rx ~09/02/20 Chlorhexidine Mouthwash [Peridex] 15 ml MM BID #1 bottle 08/08/20 09/04/20 2 Days Ago Rx ~09/02/20 amLODIPine 10 mg PO DAILY #30 tab 09/07/20 Unknown Rx Cyclobenzaprine [Flexeril 10 MG 10 mg PO TID PRN tablet 12/25/20 Unknown Rx TAB] Oxybutynin [Ditropan] 5 mg PO Q8H tablet 12/25/20 Unknown Rx Naproxen 500 mg PO BID PRN 10 Days #20 01/06/21 Unknown Rx tablet methocarbamoL [Methocarbamol] 500 mg PO TID PRN #15 tablet 01/06/21 Unknown Rx Acetaminophen [Acetaminophen TAB] 1,000 mg PO Q6HR PRN #60 tablet 01/29/21 Un known Rx Amoxicillin/Potassium Clav 1 each PO BID 7 Days #14 tablet 01/29/21 Unknown Rx [Augmentin 875-125 Tablet] ED Physical Exam - General Limitations: No Limitations General appearance: alert, obese - Head Head exam: Present: normocephalic, normal inspection - Expanded Head Exam Expanded Head exam: Absent: contusion, hematoma, general tenderness - Eye Eye exam: Present: normal appearance, PERRL, EOMI. Absent: conjunctival injection, nystagmus Pupils: Present: normal accommodation - ENT ENT exam: Present: normal orophraynx, mucous membranes moist - Expanded ENT Exam Expanded Ear exam: Present: normal external inspection TM/Canal exam: Erythema: Right TM, Effusion: Right TM Mouth exam: Absent: trismus Teeth exam: Present: dental caries. Absent: gingival enlargement Throat exam: Positive: normal inspection. Negative: tonsillar erythema, tonsillomegaly, tonsillar exudate, R peritonsillar mass, L peritonsillar mass - Neck Neck exam: Present: normal inspection, full ROM. Absent: tenderness, meningismus, lymphadenopathy, thyromegaly - Expanded Neck Exam Expanded Neck exam: Absent: midline deformity, anterior neck swelling, thyroid mass, carotid bruit, tracheal deviation - Respiratory Respiratory exam: Present: normal lung sounds bilaterally. Absent: respiratory distress, wheezes, stridor, chest wall tenderness - Cardiovascular Cardiovascular Exam: Present: regular rate, normal rhythm, normal heart sounds. Absent: systolic murmur, diastolic murmur, rubs, gallop - GI/Abdominal GI/Abdominal exam: Present: soft, normal bowel sounds. Absent: distended, tenderness, bruit, hernia - Rectal Rectal exam: Present: deferred - Extremities Exam Extremities exam: Present: normal inspection, full ROM, normal capillary refill. Absent: tenderness - Back Exam Back exam: Present: normal inspection, full ROM. Absent: paraspinal tenderness, vertebral tenderness - Neurological Exam Neurological exam: Present: alert, oriented X3, CN II-XII intact, normal gait, reflexes normal. Absent: motor sensory deficit - Expanded Neurological Exam Expanded Patient oriented to: Present: person, place, time Speech: Present: fluid speech Cranial nerves: EOM's Intact: Normal, Gag Reflex: Normal, Tongue Deviation: Normal, Nystagmus: Normal, Facial Sensation: Normal Cerebellar function: Finger to Nose: Normal Sensory exam: Upper Extremity Light Touch: Normal, Upper Extremity Pin Prick: Normal Motor strength exam: RUE: 5, LUE: 5, RLE: 5, LLE: 5 Best Eye Response ([place]): (4) open spontaneously Best Motor Response ([place]): (6) obeys commands Best Verbal Response ([place]): (5) oriented [place] Total: 15 - Psychiatric Psychiatric exam: Present: normal affect, normal mood - Skin Skin exam: Present: warm, dry, intact, normal color. Absent: rash ED Course Vital Signs 01/29/21 01:49 Temperature 99.0 F Pulse Rate 78 Respiratory 18 Rate Blood Pressure 129/66 O2 Sat by Pulse 100 Oximetry ED Medical Decision Making - Medical Decision Making Patient declines CT scanning. Patient declines lab work states symptoms are improved.b plan DC to home with prescriptions. Follow-up with your primary care doctor in 2 to 3 days. Return to ED should symptoms worsen. Patient verbalized agreement and understanding with discharge plan will be DC'd home in stable condition at this time. Critical care attestation.: If time is entered above; I have spent that time in minutes in the direct care of this critically ill patient, excluding procedure time. ED Disposition Clinical Impression: Sinus headache Sinusitis Qualifiers: Sinusitis location: frontal Chronicity: acute Recurrence: not specified as recurrent Qualified Code(s): J01.10 - Acute frontal sinusitis, unspecified Headache Qualifiers: Headache type: unspecified Headache chronicity pattern: acute headache Intractability: intractable Qualified Code(s): R51.9 - Headache, unspecified Disposition: HOME / SELF CARE / HOMELESS Is pt being admited?: No Does the pt Need Aspirin: No Condition: Stable Instructions: Sinusitis, Adult, [id number], Sinus Headache, [id number] Additional Instructions: Take medications as prescribed, return to emergency department should symptoms worsen, follow-up with your doctor in 2 to 3 days. Prescriptions: Acetaminophen [Acetaminophen TAB] 1,000 mg PO Q6HR PRN #60 tablet PRN Reason: headache Amoxicillin/Potassium Clav [Augmentin 875-125 Tablet] 1 each PO BID 7 Days #14 tablet Referrals: MEHNAZ TOVAR MD [Staff Physician] - 3-5 Days Time of Disposition: 03:40
[2021-01-29 04:12] VITALS: BP 119/64
== END 2021-01-29 04:11 | disposition home or self-care (01) ==
LOC: ED 01:43
DX: J32.9 Chronic sinusitis, unspecified (principal); R51.9 Headache, unspecified; I10 Essential (primary) hypertension
CPT/HCPCS: 99281; J7512

== ENCOUNTER 2021-02-16 02:40 | Emergency (ER) | payer MEDICAID ==
[2021-02-16 02:48] VITALS: BP 138/71
[2021-02-16] MEDS ORDERED: ACETAMINOPHEN 500 MG TAB PO ONE (03:10)
[2021-02-16] MEDS ORDERED: cephALEXin 500 MG CAP PO ONE (03:10)
[2021-02-16] MEDS ORDERED: traMADol 50 MG TAB PO ONE (03:10)
[2021-02-16] MEDS ORDERED: ONDANSETRON 4 MG ODT TAB PO ONE (03:11)
[2021-02-16] MEDS ORDERED: TETANUS,DIPH,PERTUSS(ACELL) VACCINE 0.5 ML SYRINGE IM ONE (03:29)
--- NOTE | 2021-02-16 03:34 | Emergency Department Report ---
ED Lower Extremity HPI - General Chief Complaint: Extremity Injury, Lower Stated Complaint: INJURED RIGHT FOOT MONDAY Source: patient Mode of arrival: Ambulatory Limitations: No Limitations - History of Present Illness Initial Comments: Patient is a 65-year-old -[place] female with a history of hypertension and chronic osteoarthritis, and chronic back pain who presents to the ED with complaint of acute onset lateral right foot pain due to a small puncture wound after she stumbled and stomped her right foot against a sharp edge of a furniture at home 3 days ago. Patient states that she has been cleaning the wound with peroxide and also applying Neosporin but in the last 24 hours the pain is worsened. Patient denies swelling, numbness and tingling or weakness of right foot, dizziness, syncope, fall, nausea and vomiting, chest pain or shortness of breath, fever and chills. MD Complaint: foot injury (Lateral right foot abrasion and puncture wound) -: Sudden, days(s) (3) Injury: Foot: Right (Lateral right foot pain due to a puncture wound and abrasion) Type of Injury: blunt, laceration Place: home Severity: moderate Severity scale (0 -10): 6 Improves With: nothing Worsens With: weight bearing, movement, palpation Context: direct blow (Stumbled on a sharp object that punctured her lateral right foot), walking Associated Symptoms: able to partially bear weight. denies: snap/pop sensation, tingling, unable to bear weight, ambulatory - Related Data Previous Rx's Medication Instructions Recorded Last Taken Type Hydrocortisone 1% [Hydrocortisone 1 applicatio TP TID PRN #1 tube 10/12/16 2 Days Ago Rx 1% CREAM] ~09/02/20 diphenhydrAMINE [Benadryl CAP] 25 mg PO Q8HR PRN #21 capsule 06/10/20 2 Days Ago Rx ~09/02/20 Chlorhexidine Mouthwash [Peridex] 15 ml MM BID #1 bottle 08/08/20 2 Days Ago Rx ~09/02/20 amLODIPine 10 mg PO DAILY #30 tab 09/07/20 Unknown Rx Cyclobenzaprine [Flexeril 10 MG 10 mg PO TID PRN tablet 12/25/20 Unknown Rx TAB] Oxybutynin [Ditropan] 5 mg PO Q8H tablet 12/25/20 Unknown Rx Naproxen 500 mg PO BID PRN 10 Days #20 01/06/21 Unknown Rx tablet methocarbamoL [Methocarbamol] 500 mg PO TID PRN #15 tablet 01/06/21 Unknown Rx Acetaminophen [Acetaminophen TAB] 1,000 mg PO Q6HR PRN #60 tablet 01/29/21 Unknown Rx Amoxicillin/Potassium Clav 1 each PO BID 7 Days #14 tablet 01/29/21 Unknown Rx [Augmentin 875-125 Tablet] cephALEXin [Keflex] 500 mg PO Q8HR #30 cap 02/16/21 Unknown Rx traMADoL [Ultram] 50 mg PO Q6HR PRN #12 tablet 02/16/21 Unknown Rx Allergies Allergy/AdvReac Type Severity Reaction Status Date / Time No Known Allergies Allergy Verified 01/06/21 02:06 ED Review of Systems ROS: Stated complaint: INJURED RIGHT FOOT MONDAY Other details as noted in HPI Constitutional: denies: chills, fever Eyes: denies: eye pain, eye discharge, vision change ENT: denies: ear pain, throat pain Respiratory: denies: cough, shortness of breath, wheezing Cardiovascular: denies: chest pain, palpitations Endocrine: no symptoms reported Gastrointestinal: denies: abdominal pain, nausea, vomiting, diarrhea Genitourinary: denies: urgency, dysuria, discharge Musculoskeletal: arthralgia (Right foot pain due to a small puncture wound on the lateral right foot). denies: back pain, joint swelling Skin: other (Small puncture wound on lateral right foot with localized pain). denies: rash, lesions Neurological: denies: headache, weakness, paresthesias Psychiatric: denies: anxiety, depression Hematological/Lymphatic: denies: easy bleeding, easy bruising ED Past Medical Hx - Past Medical History Previous Medical History?: Yes Hx Hypertension: Yes Hx CVA: No Hx Heart Attack/AMI: No Hx Congestive Heart Failure: No Hx Diabetes: No Hx Deep Vein Thrombosis: No Hx Pulmonary Embolism: No Hx GERD: No Hx Liver Disease: No Hx Renal Disease: No Hx Sickle Cell Disease: No Hx Arthritis: Yes Hx Headaches / Migraines: No Hx Seizures: No Hx Kidney Stones: No Hx Psychiatric Treatment: No Hx Asthma: No Hx COPD: No Hx Dementia: No Hx HIV: No Additional medical history: stomach ulcers, muscle spasms in back, Chronic right shoulder pain /spasms. - Surgical History Past Surgical History?: Yes Hx Coronary Stent: No Hx Open Heart Surgery: No Hx Pacemaker: No Hx Internal Defibrillator: No Hx Cholecystectomy: No Hx Appendectomy: No Hx Breast Surgery: No Additional Surgical History: skin grafts, 1X - Social History Smoking Status: Never Smoker Substance Use Type: None - Medications Home Medications: Home Medications Medication Instructions Recorded Confirmed Last Taken Type Hydrocortisone 1% [Hydrocortisone 1 applicatio TP TID PRN #1 tube 10/12/16 09/04/20 2 Days Ago Rx 1% CREAM] ~09/02/20 diphenhydrAMINE [Benadryl CAP] 25 mg PO Q8HR PRN #21 capsule 06/10/20 09/04/20 2 Days Ago Rx ~09/02/20 Chlorhexidine Mouthwash [Peridex] 15 ml MM BID #1 bottle 08/08/20 09/04/20 2 Days Ago Rx ~09/02/20 amLODIPine 10 mg PO DAILY #30 tab 09/07/20 Unknown Rx Cyclobenzaprine [Flexeril 10 MG 10 mg PO TID PRN tablet 12/25/20 Unknown Rx TAB] Oxybutynin [Ditropan] 5 mg PO Q8H tablet 12/25/20 Unknown Rx Naproxen 500 mg PO BID PRN 10 Days #20 01/06/21 Unknown Rx tablet methocarbamoL [Methocarbamol] 500 mg PO TID PRN #15 tablet 01/06/21 Unknown Rx Acetaminophen [Acetaminophen TAB] 1,000 mg PO Q6HR PRN #60 tablet 01/29/21 Unknown Rx Amoxicillin/Potassium Clav 1 each PO BID 7 Days #14 tablet 01/29/21 Unknown Rx [Augmentin 875-125 Tablet] cephALEXin [Keflex] 500 mg PO Q8HR #30 cap 02/16/21 Unknown Rx traMADoL [Ultram] 50 mg PO Q6HR PRN #12 tablet 02/16/21 Unknown Rx ED Physical Exam - General Limitations: No Limitations General appearance: alert, in no apparent distress - Head Head exam: Present: atraumatic, normocephalic - Eye Eye exam: Present: normal appearance, PERRL, EOMI Pupils: Present: normal accommodation - ENT ENT exam: Present: normal exam, normal orophraynx, mucous membranes moist, TM's normal bilaterally, normal external ear exam - Neck Neck exam: Present: normal inspection, full ROM. Absent: tenderness - Respiratory Respiratory exam: Present: normal lung sounds bilaterally. Absent: respiratory distress, wheezes, rales, rhonchi, chest wall tenderness, accessory muscle use, decreased breath sounds - Cardiovascular Cardiovascular Exam: Present: regular rate, normal rhythm, normal heart sounds. Absent: systolic murmur, diastolic murmur, rubs, gallop - GI/Abdominal GI/Abdominal exam: Present: soft, normal bowel sounds. Absent: distended, tenderness, guarding, rebound, rigid, hyperactive bowel sounds, hypoactive bowel sounds - Extremities Exam Extremities exam: Present: normal inspection, full ROM, tenderness (Palpable tenderness of the lateral right foot due to a small puncture wound), normal capillary refill. Absent: pedal edema, joint swelling, calf tenderness - Back Exam Back exam: Present: normal inspection, full ROM. Absent: tenderness, CVA tenderness (R), CVA tenderness (L), muscle spasm, paraspinal tenderness, vertebral tenderness - Neurological Exam Neurological exam: Present: alert, oriented X3, CN II-XII intact, normal gait, reflexes normal - Psychiatric Psychiatric exam: Present: normal affect, normal mood - Skin Skin exam: Present: warm, dry, intact, normal color. Absent: rash ED Course Vital Signs 02/16/21 02:43 Temperature 98.0 F Pulse Rate 73 Respiratory 18 Rate Blood Pressure 138/71 O2 Sat by Pulse 98 Oximetry ED Lower Extremity MDM - Medical Decision Making This is a 65-year-old -[place] female with a history of hypertension and chronic osteoarthritis, and chronic back pain who presents to the ED with complaint of acute onset lateral right foot pain due to a small puncture wound after she stumbled and stomped her right foot against a sharp edge of a furniture at home 3 days ago. Patient states that she has been cleaning the wound with peroxide and also applying Neosporin but in the last 24 hours the pain is worsened. In the ED, patient is alert and oriented x3 and is not in any distress. Patient was treated for pain in the ED and also received initial oral antibiotics. Patient also received booster tetanus vaccination in the ED. The wound was cleaned and dressed appropriately and the patient was discharged home on pain medication and oral antibiotics and was advised to follow-up with his primary care physician in 7 to 10 days for reevaluation. - Differential Diagnosis Puncture wound; laceration; cellulitis; foot ulcer; foot contusion Critical care attestation.: If time is entered above; I have spent that time in minutes in the direct care of this critically ill patient, excluding procedure time. ED Disposition Clinical Impression: Contusion of right foot Qualifiers: Encounter type: initial encounter Qualified Code(s): S90.31XA - Contusion of right foot, initial encounter Puncture wound of right foot Qualifiers: Encounter type: initial encounter Qualified Code(s): S91.331A - Puncture wound without foreign body, right foot, initial encounter Disposition: HOME / SELF CARE / HOMELESS Is pt being admited?: No Does the pt Need Aspirin: No Condition: Stable Instructions: Foot Contusion, [id number], Puncture Wound, [id number] Additional Instructions: Take medication with food, drink plenty of fluids and follow-up with your primary care physician in 7 to 10 days for reevaluation. Return to the ED immediately if symptoms get worse. Prescriptions: cephALEXin [Keflex] 500 mg PO Q8HR #30 cap traMADoL [Ultram] 50 mg PO Q6HR PRN #12 tablet PRN Reason: Pain Referrals: [facility] [Provider Group] - 7-10 days Time of Disposition: 03:36 Print Language: BURMESE
== END 2021-02-16 04:51 | disposition home or self-care (01) ==
LOC: ED 02:40
DX: S90.31XA Contusion of right foot, initial encounter (principal); S91.331A Puncture wound without foreign body, right foot, initial encounter; I10 Essential (primary) hypertension; Z98.890 Other specified postprocedural states; X58.XXXA Exposure to other specified factors, initial encounter; Y93.89 Activity, other specified; Y92.009 Unspecified place in unspecified non-institutional (private) residence as the place of occurrence of the external cause; Y99.8 Other external cause status
CPT/HCPCS: 90715; 99282; J3490; Q0162

== ENCOUNTER 2021-09-19 01:32 | Emergency (ER) | payer MEDICAID ==
[2021-09-19 01:53] VITALS: BP 127/86
--- NOTE | 2021-09-19 03:28 | XRay Report ---
LEFT HIP 2 VIEW(S) INDICATION / CLINICAL INFORMATION: fall COMPARISON: None available. FINDINGS: BONES / JOINT(S): No acute fracture or subluxation. Mild DJD of the left hip. SOFT TISSUES: No significant abnormality. ADDITIONAL FINDINGS: None. Signer Name: Ricardo Christensen DO Signed: 09/19/2021 3:23 AM Workstation Name: [id number]
== END 2021-09-20 19:00 | disposition left against medical advice (07) ==
LOC: ED 01:32
DX: M25.552 Pain in left hip (principal); Z53.21 Procedure and treatment not carried out due to patient leaving prior to being seen by health care provider

== ENCOUNTER 2021-10-16 00:43 | Emergency (ER) | payer MEDICAID ==
[2021-10-16 01:12] VITALS: BP 138/60
== END 2021-10-19 09:29 | disposition left against medical advice (07) ==
LOC: ED 00:43
DX: M25.469 Effusion, unspecified knee (principal); Z53.21 Procedure and treatment not carried out due to patient leaving prior to being seen by health care provider

== ENCOUNTER 2021-10-20 23:03 | Emergency (ER) | payer MEDICAID | END 2021-10-20 23:22 | disposition left against medical advice (07) | LOC: ED 23:03 | DX: M79.671 Pain in right foot (principal); Z53.21 Procedure and treatment not carried out due to patient leaving prior to being seen by health care provider ==

== ENCOUNTER 2021-11-13 22:57 | Emergency (ER) | payer MEDICAID ==
[2021-11-13 23:39] VITALS: BP 143/75
[2021-11-14 04:43] LABS: Mucus,Urine FEW /HPF
[2021-11-14 04:46] LABS: Color,Urine Yellow (Yellow)
== END 2021-11-16 12:27 | disposition left against medical advice (07) ==
LOC: ED 22:57
DX: R35.0 Frequency of micturition (principal); Z53.21 Procedure and treatment not carried out due to patient leaving prior to being seen by health care provider
CPT/HCPCS: 81001